=== PATIENT | male | born 1965 | race Caucasian/White ===

== ENCOUNTER → 2020-12-04 15:08 | Outpatient (CLI) | payer OTHER, SELFPAY ==
--- NOTE | 2020-12-04 15:20 | RAD_ITS ---
STUDY: X-RAY - SACRUM/COCCYX REASON FOR EXAM: Male, 55 years old. Sacral pain. TECHNIQUE: 4 view(s) of the sacrum and coccyx were obtained. COMPARISON: None. FINDINGS: Normal bilateral sacroiliac joints. Normal visualized sacral ala and fused sacral bodies. Normal sacrococcygeal junction with a normal angulation. Normal coccygeal segments. The presacral soft tissue structures are unremarkable. RAD/Sacrum-Coccyx min 2 Views IMPRESSION: No abnormality of the visualized pelvis or sacrum and coccyx. Electronically Signed: Dutch Milton MD at 11:11 EDT , Service support ,
== END ==
PROVIDERS: PCP Internal Medicine; Referring Provider Nurse Practitioner; Visit Provider Nurse Practitioner
DX: M53.3 Sacrococcygeal disorders, not elsewhere classified (principal)
CPT/HCPCS: 72220

== ENCOUNTER → 2023-02-01 | Outpatient (CLI) | payer OTHER, SELFPAY ==
--- NOTE | 2023-02-01 14:37 | CDU_ITS ---
Reason For Study: Amaurosis Fugax Rt. Velocities/BP Lt. Velocities/BP Prox CCA 120.7/16.3 cm/sec. Prox CCA 108.3/26.1 cm/sec. Mid CCA 92.5/16.3 cm/sec. Mid CCA 104.7/22.5 cm/sec. Dist CCA 79/15.1 cm/sec. Dist CCA 84.6/17 cm/sec. Prox ICA 377/117.3 cm/sec. Prox ICA 130.2/42.6 cm/sec. Mid ICA 172.3/65.6 cm/sec. Mid ICA 91.9/31.6 cm/sec. Dist ICA 60.8/16.8 cm/sec. Dist ICA 49.5/16.3 cm/sec. Rt. ICA/CCA = 4.08. Lt. ICA/CCA = 1.24. Prox ECA 130.2/11.5 cm/sec. Prox ECA 64.5/7.9 cm/sec. Rt. Vert. 52/14.6 cm/sec. Lt. Vert. 48.3/9 cm/sec. Right Extracranial There is homogeneous, smooth atherosclerotic plaque noted in the right common carotid artery. There is heterogeneous, irregular atherosclerotic plaque noted in the right internal carotid artery. There is intimal thickening but no significant atherosclerotic plaque noted in the right external carotid artery. Antegrade flow is noted in the right vertebral artery. Left Extracranial There is homogeneous, smooth atherosclerotic plaque noted in the left common carotid artery. There is homogeneous, smooth atherosclerotic plaque noted in the left internal carotid artery. There is intimal thickening but no significant atherosclerotic plaque noted in the left external carotid artery. Antegrade flow is noted in the left vertebral artery. Procedure Carotid Duplex 25695. This is a Carotid Duplex examination using B-mode, color flow and specral Doppler. Preliminary report given to [place]. Exam performed in department. VL/Carotid Duplex Ultrasound Interpretation Summary Severe (>70%) stenosis right extracranial internal carotid. Moderate (50-69%) stenosis left extracranial internal carotid. Patent and antegrade vertebrals bilaterally. Ordering Physician: Girish Nelson Referring Physician: Calista Escobar M.D. Performed By: Eliz Hoffmann RVT
== END | disposition home or self-care (01) ==
LOC: CVS 14:35
PROVIDERS: PCP Internal Medicine; Referring Provider Ophthalmology; Visit Provider Ophthalmology
DX: G45.3 Amaurosis fugax (principal)
CPT/HCPCS: 93880

== ENCOUNTER → 2023-02-18 | Outpatient (CLI) | payer OTHER, SELFPAY ==
--- NOTE | 2023-02-18 14:03 | CT_ITS ---
STUDY: CTA HEAD AND NECK WITH CONTRAST REASON FOR EXAM: Male, 57 years old. Carotid stenosis RADIATION DOSAGE (If Supplied By Facility): CTDIvol = ( 25.42 ) mGy, DLP = ( 1530.95 ) mGycm TECHNIQUE: CT angiography was performed with a multi-detector CT scanner. Data acquisition was obtained from the skull base through the vertex following intravenous administration of IV 100mL Isovue-370. MIP images were reconstructed from the axial data set. Post-processing of the angiographic images was performed, with multiplanar reformation and 3D reconstruction. Individualized dose optimization techniques were used for this CT. COMPARISON: No relevant priors. FINDINGS: Normal bilateral petrous carotid arteries. Normal right cavernous carotid artery with a normal supraclinoid bifurcation. Normal left cavernous carotid artery with a normal supraclinoid bifurcation. Normal right A1 segments of the anterior cerebral artery. Normal left A1 segments of the anterior cerebral artery. Normal intact anterior communicating artery (ACOM). Normal bilateral A2 segments of the anterior cerebral arteries. Normal right M1 and M2 segments of the middle cerebral arteries, with a normal M1 bifurcation. Normal left M1 and M2 segments of the middle cerebral arteries, with a normal M1 bifurcation. Normal right posterior communicating artery (PCOM). Normal left posterior communicating artery (PCOM). Normal bilateral vertebral arteries. Normal basilar artery with a normal basilar bifurcation. The visualized bilateral superior cerebellar (SCA) arteries are normal. Normal bilateral P1, P2 and visualized P3 segments of the posterior cerebral arteries. There is no demonstrated aneurysm of the [place]. There is no demonstrated abnormality of the visualized brain. AORTIC ARCH: Normal visualized aortic arch. Normal origins of the brachiocephalic, left common carotid, and left subclavian arteries. RIGHT CAROTID ARTERIES: Normal right common carotid artery (CCA). Normal right common carotid bulb. There is moderate atherosclerotic plaque formation of the origin of the right internal carotid artery with an estimated stenosis of 50-69% stenosis. Normal visualized cervical portion of the right internal carotid artery. Normal origin of the right external carotid artery (ECA). LEFT CAROTID ARTERIES: Normal left common carotid artery (CCA). Normal left common carotid bulb. There is mild atherosclerotic plaque formation of the origin of the left internal carotid artery with less than 50% cross sectional diameter stenosis. Normal visualized cervical portion of the left internal carotid artery. Normal origin of the left external carotid artery (ECA). VERTEBRAL ARTERIES: Normal bilateral vertebral arteries. CT/CTA Head AND Neck W/ Contrast IMPRESSION: Atherosclerotic plaque formation at the origin of the right and left internal carotid arteries causing 50-69% stenosis on the right and mild degree on the left. Electronically Signed: Galo Cannon MD at 15:51 EDT ,
[2023-02-18 14:44] LABS: EGFR FINGERSTICK > 60.0000 mL/min (>60)
== END | disposition home or self-care (01) ==
PROVIDERS: PCP Physician Assistant; Referring Provider Surgery Trauma Surgery; Visit Provider Surgery Trauma Surgery
DX: I65.23 Occlusion and stenosis of bilateral carotid arteries (principal)
CPT/HCPCS: 70496; 70498; Q9967

== ENCOUNTER 2023-03-01 05:31 | Inpatient (IN) | payer OTHER, SELFPAY ==
--- NOTE | 2023-02-18 13:38 | EKG12_ITS ---
Test Reason : PRE OP Blood Pressure : / mmHG Vent. Rate : 106 BPM Atrial Rate : 106 BPM P-R Int : 152 ms QRS Dur : 094 ms QT Int : 338 ms P-R-T Axes : 071 051 028 degrees QTc Int : 448 ms Sinus tachycardia Otherwise normal ECG Confirmed by JEAN WAY, NORMAN ([id number]), newspaper photo editor ANILA RIVAS ([id number]) on 03/01/2023 8:06:41 AM Referred By: Tucker Ferrer Confirmed By:MARILYNN PENA MD
[2023-03-01] VITALS (17 sets, daily range): BP systolic 113–149; BP diastolic 70–98; PULSE 62–107; RESP 11–20; TEMP 36.2–37.6; O2SAT 92–98; BMI 26.4
[2023-03-01] MEDS: Lactated Ringers 1,000 ML 15 ML IV ×2 (06:20→12:01)
--- NOTE | 2023-03-01 07:23 | HP.PCM_ITS ---
History and Physical Allergies Iodinated Contrast Media [CONTRASTS] Allergy (Intermediate, Verified 02/04/23 14:34) SwellingOpioids - Morphine Analogues Adverse Reaction (Severe, Verified 02/04/23 14:34) Nausea/Vom/Diarrhea Medications omega-3 fatty acids-fish oil 340 mg-1,000 mg capsule (Fish Oil) 1 ea PO DAILY 10/01/14 [History Confirmed 02/04/23] ondansetron 4 mg disintegrating tablet 4 mg PO Q8H PRN PRN Nausea #10 tabs 10/01/14 [Rx Confirmed 02/04/23] oxycodone-acetaminophen 5 mg-325 mg tablet 1 - 2 tab PO Q4H PRN PRN Pain #20 tabs 10/01/14 [Rx Confirmed 02/04/23] tamsulosin 0.4 mg capsule 0.4 mg PO DAILY 10 days 10/01/14 [Rx Confirmed 02/04/23] atorvastatin 80 mg tablet (Lipitor) 80 mg PO QHS #90 tabs 02/04/23 [Rx Confirmed 02/04/23] clopidogrel 75 mg tablet (Plavix) 75 mg PO DAILY #60 tabs 02/04/23 [Rx Confirmed 02/04/23] prednisone 50 mg tablet 50 mg PO Q6H 3 doses #3 tabs 02/04/23 [Rx Confirmed 02/04/23] PFSH Surgical History H/O lithotripsy Family History Mother Breast cancer Diabetes Social History Smoking Status: Never smoker HPI HPI HPI: ASHLEY MANZO, is a 57 M who presents to the office today for evaluation of right carotid stenosis. He initially had right eye amarosis fugax back in the spring, only lasted a few seconds before resolving. Didnt think it was serious and did not seek medical attention. Occurred again a few months ago in right e ye, same duration. Shortly after this he was seeing his PCP for hiatal hernia symptoms and mentioned events. This prompted ophthalmology eval and ultimately carotid duplex that revealed 70-99% stenosis on the right. At the time he was not on any antiplatelet or statin. Now on 81 ASA daily. No associated numbness/weakness/speech difficulty. No cardiac history, no CP/SOB with activity. Had reaction to IV contrast about 16 years ago; facial tingling/blushing. No exposures to contrast since that time. ROS General General: No weight change, appetite, fatigue, colon cancer, breast cancer or weakness HEENT HEENT: No difficulty swallowing, eye injury, eye surgery, swollen glands or hoarseness Endo Endocrine: No thyroid disease, diabetes mellitus, thyroid cancer, Hair loss, heat intolerance or cold intolerance Skin Skin: No rash or changing moles Musc Musculoskeletal: No back problems, arthritis, rheumatoid arthritis, gout or joint pain Cardio Cardiovascular: Yes high blood pressure; No murmur, pacemaker, heart disease, atrial fibrillation, heart attack, heart stent, palpitations, shortness of breat with exertion or chest pain Psych Psychiatric: No depression, anxiety or hearing voices Resp Respiratory: No shortness of breath, No sleep apnea, No cough, No COPD, No asthma, No emphysema and No wheezing Gastro Gastrointestinal: No abdominal pain, No nausea or vomiting, No diarrhea, No constipation, No blood in stool, Yes acid reflux, No hemorrhoids, No ulcers, No gallbladder problem and No black,tarry stools Alejo Hematologic: No blood thinners, No blood disorders, No bleeding, No anemia and No blood clots Neuro Neurologic: No system reviewed and no additional complaints, except as do cumented, No as per HPI, No abnormal gait, No abnormal hearing, No abnormal movements, No abnormal speech, No behavioral changes, No burning sensations, No confusion, No convulsions, No disequilibrium, No dizziness, No localized weakness, No frequent falls, No headache(s), No lack of coordination, No loss of vision, No memory loss, No numbness, No other visual disturbances, No radicular pain, No restless legs, No sensory deficit, No syncope, No tingling, No tremor(s), No weakness and No other Exam Const General: cooperative, healthy appearing, comfortable, no acute distress and well developed Nutritional Appearance: well nourished Orientation: alert, awake and oriented x3 HENMT Head: normocephalic and atraumatic Ears: hearing grossly normal bilaterally Nose: external nose normal Eyes General: appearance normal, both eyes and all related structures EOM: EOM intact bilaterally Neck Neck: normal visual inspection, full ROM, no lymphadenopathy and trachea midline Thyroid: thyroid normal Lymphatic: no lymphadenopathy noted Resp Effort & Inspection: normal respiratory effort, able to speak in complete sentences, symmetric chest movement, no audible wheezes, not labored, no stridor and no use of accessory muscles Auscultation: clear to auscultation bilaterally Cardio Rate: regular rate Rhythm: regular rhythm Heart Sounds: no murmurs Bruits: carotid bruit on the right Pulses: brachial pulses present, radial pulses present, popliteal pulses present, posterior tibial pulses present and dorsalis pedis present Skin General: no rashes or lesions noted and no erythema Wounds: no wounds Neuro Cranial Nerves: CN's II-XI intact bilaterally and EOM intact bilaterally Speech: speech normal Gait: normal gait Motor: strength 5/5 throughout Sensory Exam: no sensory deficits noted Extremities Lower Extremity Edema: None: Bilateral Psych Appearance: grossly normal and well kempt Mental Status: mental status grossly normal Mood: congruent mood Speech and Movement: speech and movement normal Thought Content: normal Judgment: judgment good Coding Level of Care Code Off vis,new,level 4 Diagnoses Symptomatic stenosis of right carotid artery without infarction I65.21 Assessment and Plan Assessment and Plan (1) Symptomatic stenosis of right carotid artery without infarction: Status: Chronic Comment: Duplex- Interpretation Summary Severe (>70%) stenosis right extracranial internal carotid. Moderate (50-69%) stenosis left extracranial internal carotid. Patent and antegrade vertebrals bilaterally. Plan: -severe right carotid with amarosis fugax -right CEA
--- NOTE | 2023-03-01 07:30 | PLAQ_PTH ---
PATIENT: ASHLEY MANZO LOC: ICU U#:[id number] AGE/SX: 57/M ROOM: [place] [address] RE03/01/[address]: Dr. Tucker Ferrer MD : 1965 BED: 1 DIS: 03/02/2023 SPEC #: [id number] RECD: 03/01/23 13:47 STATUS: JAYDEN REQ #: [id number] KOBY: 03/01/23 07:[address]: Tucker Ferrer DEPT: SURGICAL PATHOLOGY RECD BY: Danica Branch ENTERED: 03/02/23 10:51 SP TYPE: PLAQUE OTHR DR: Dr. Calista Escobar, Tissues: PLAQUE Procedures: Decalcification bone/plaque Surgery Specimen Level III HEADER OPERATION: Carotid endarterectomy PRE-OP DIAGNOSIS: Symptomatic stenosis of right carotid artery TISSUE SUBMITTED: Right carotid plaque MICROSCOPIC DIAGNOSIS Right carotid plaque, endarterectomy: Calcified atheromatous plaque consistent with severe stenosis. Focal foreign body giant cell reaction to cholesterol-like material. AM:carlyn 03/05/2023 GROSS DESCRIPTION Received in fixative is one container labeled with the patient's name and designated right carotid plaque. The specimen consists of two irregular fragments of gritty yellow soft tissue that in aggregate measure 3.0 x 2.0 x 1.0 cm. The specimen is serially sectioned and totally submitted in one cassette after decalcification. / AM:carlyn 03/02/2023 TC:5 CPT: 22916, 56692
[2023-03-01] MEDS: Heparin Injection (Vial) 5,000 UNIT/ML VIAL 5000 UNIT (07:55)
[2023-03-01] MEDS: Cefazolin 2 GM in 0.9% Normal Saline (100mL Bag) 100 ML IV (07:55)
--- NOTE | 2023-03-01 11:15 | OP.PCM_ITS ---
Report of Operation Date of Procedure: 03/01/23 Pre-Operative Diagnosis: symptomatic right carotid stenosis Post-Operative Diagnosis: same Surgery/Procedure Performed:: right carotid endarterectomy Surgeon: Tucker Ferrer Type of Anesthesia: General Drains: 19 Fr CASTRO Estimated Blood Loss (mL): 50 Description of Procedure: HPI: Patient is a 57-year-old male with previous episode of right eye amaurosis who had arterial duplex which revealed greater than 70% stenosis. CT angiography revealed ulcerated plaque with approximately 60% stenosis. Given the symptomatic nature, degree of stenosis, and ulcerated nature of the plaque he is taken now for carotid endarterectomy. Description of procedure: Upon obtaining form consent and verification correct patient procedure site patient taken to the operating where he was placed under general anesthesia. He was then positioned prepped and draped in usual sterile fashion and timeout was performed. Oblique incision was made along the anterior border of the sternocleidomastoid and Bovie electrocautery used to dissect down through the subcutaneous tissue to the level of platysma. The platysma was then divided and self-retaining retractors put in position. Further dissection was carried down to the sternocleidomastoid which was freed along its anterior border allowing to be retracted posterior laterally exposing the carotid sheath. Sharp dissection was then used to dissect free the internal jugular vein along its anterior border and the facial vein identified, ligated with silk ties, and divided. The jugular vein was then retracted laterally exposing the carotid vessels. Sharp dissection was used to dissect free the proximal common carotid artery with care taken to identify and protect the vagus nerve. The vessel was circumferentially dissected free and the right angle used to place a vessel loop. Next we turned our attention distally to the internal carotid artery. Sharp dissection was used to dissect free the vessel distal to the palpable and visible plaque with care taken to identify and protect the hypoglossal and vagus nerve. Of note there is a substantial amount of perivascular inflammation and thick inflammatory tissue which was densely adherent to the vessel and used diffusely. Ultimately we are able to dissect distal on the vessel beyond the plaque and a right angle used to place a vessel loop. Patient was then heparinized allowed to circulate for 3 minutes during which time sharp dissection was used to dissect free the external carotid artery and a right angle used to place a vessel loop. Subsequent heparin redosing was performed based on serial ACT results. Vessels were then occluded first the internal followed by the common the external. Longitudinal arteriotomy was created with 11 blade on the common carotid artery extended Simmons scissors onto the internal carotid artery beyond the area of plaque. A 12 [place] shunt was then yadira ammon first distally in the internal carotid artery allowed to backbleed and then placed proximally in the common carotid artery. The shunt was then interrogated Doppler found to be patent with low resistance signal. We performed her endarterectomy with a freer elevator performing in eversion endarterectomy of the external carotid artery and satisfactory endpoint was obtained on the distal internal carotid artery. The lumen was then flushed with heparinized saline to clear debris in the distal endpoint tacked with 7-0 Prolene interrupted sutures. A bovine pericardial patch was then brought in the field and prepped for manufactures instructions. He was secured in the position with a 6-0 Prolene in a running fashion. Prior to completing suture line the shunt was removed and the vessels back flushed. After completing the suture line the internal carotid artery was allowed to backbleed and the bifurcation then reoccluded its origin. Clamps were then removed from the external and the common carotid artery allowing 10 heartbeats of increased flow to flush into the external before reestablishing antegrade flow into the internal carotid artery. The vessel was interrogated with Doppler with the internal carotid artery patent with low resistance signal in the external carotid artery patent with normal signal. The patient was then reversed with protamine and the incision inspected for hemostasis. There is continued generalized oozing from multiple surfaces so Floseal topical hemostatic in addition to Surgicel topical hemostatic was applied followed by manual pressure with satisfactory hemostasis noted. A 19 [place] CASTRO was placed via separate stab incision and positioned adjacent to the carotid vessels. The incision was then closed with 2-0 Vicryl, 3-0 Vicryl, 4 Monocryl and Dermabond for the skin. At the conclusion of case patient was awakened from anesthesia taken recovery room with anticipated admission to the intensive care unit for neurologic and hemodynamic monitoring. He was moving all extremities command with cranial nerves intact.
[2023-03-01] MEDS: Bupivacaine Mpf 0.5% 30 ML VIAL (11:22)
[2023-03-01] MEDS: Acetaminophen 500 MG Tablet 1000 MG PO ×2 (13:21→20:30)
[2023-03-01] MEDS: 0.45% Normal Saline 1,000 ML 100 ML IV ×2 (13:21→23:11)
[2023-03-01] MEDS: 0.9% Saline Lock 10 ML Syringe IV ×3 (13:33→20:30)
[2023-03-01] MEDS: HYDROmorphone Inj 0.2 MG/ML SYRINGE IV ×3 (13:33→20:30)
[2023-03-01] MEDS: Cefazolin 1 GM/50 ML BAG IV ×2 (16:04→23:11)
[2023-03-01] MEDS: Atorvastatin Calcium 80 MG Tablet PO (20:30)
[2023-03-01] MEDS: Ketorolac 15 MG/ML Vial IV (23:12)
[2023-03-02] VITALS (15 sets, daily range): BP systolic 105–158; BP diastolic 68–93; PULSE 66–90; RESP 14–21; TEMP 36.2–37.3; O2SAT 91–99; BMI 27.2
[2023-03-02 04:55] LABS: Absolute Lymphocyte Count 1.19 X10^3/uL (0.83-4.51); Absolute Neutrophil Count 9.1 X10^3/uL (2.0-7.7); Basophil# 0.02 X10^3/uL; Basophil% 0.2 % (0-1); Hematocrit 37.8 % (40-54); Hemoglobin 12.8 g/dL (13.0-16.5); Lymphocyte # 1.19 X10^3/ul (0.83-4.51); Lymphocyte % 10.5 % (19-41); Mean Corp Hgb Conc 33.9 g/dL (32-36); Mean Corpuscular Volume 91.5 fL (80-94); Mean Platelet Vol. 9.6 fl (6.2-12.0); Monocyte# 1.03 X10^3/uL; Monocyte% 9.1 % (0-10); NRBC Flagged by Analyzer 0 % (0-5); Neutrophil # 9.05 X10^3/uL (2.7-7.7); Neutrophil % 79.8 % (47-70); Platelet Count 258 K/mm3 (150-450); RBC Distribution Width CV 12.3 % (11.6-14.6); RBC Distribution Width SD 41.2 fl (35.1-43.9); Red Blood Count 4.13 M/mm3 (4.6-6.2); White Blood Count 11.3 K/mm3 (4.4-11.0)
[2023-03-02] MEDS: Acetaminophen 500 MG Tablet 1000 MG PO (06:10)
[2023-03-02] MEDS: Clopidogrel Bisulfate 75 MG Tablet PO (09:37)
[2023-03-02] MEDS: Aspirin 81 MG TAB.CHEW PO (09:37)
[2023-03-02] MEDS: Losartan Potassium 50 MG Tablet PO (09:37)
[2023-03-02] MEDS: Enoxaparin 40 MG/0.4 ML Syringe SC (09:37)
[2023-03-02] MEDS: Chlorthalidone 50 MG Tablet 25 MG PO (09:38)
--- NOTE | 2023-03-02 11:00 | CASEMGMT ---
RN?CM?RESTAURANT ASSISTANT MANAGER?CM?to room to meet with patient for initial transition planning/care coordination?assessment.?RN?CM?introduced self and role at [facility].? Pt voices understanding and consents to?assessment?at this time.? Pt resting in bed in no distress at this time.? @ bedside. Pt is A/O at this time and answers all questions appropriately.?? Care providers, pharmacy, and demographics verified/updated at this time. PCP: Dr Erik Milton- /[place] Specialists: Dr Ferrer-vascular, Dr Contreras-urology/[place], Dr Rea Barrera-nephrology, Dr Nelson-ophthalmology Preferred Pharmacy: [facility] Retail Insurance: [employer] Prescription Benefit:?Yes Living Will/HPOA:?Pt does not currently have LW/HCPOA and declines info at this time. LNOK: , Sanam. Mother, Claudia Living Arrangements: Lives w/ in one-story home w/3 steps to enter. Independent. does most home mgnt tasks, pt helps at times. Transportation:?Pt states drives self and states no transportation concerns at this time.? also drives. DME: ? Denies using any DME and denies needs.? HHC/SNF: No hx of either. No needs identified. Pt wishes to return home and states has no concerns with going home at time of discharge.?CM?to follow for any discharge planning/needs.? Pt voices no concerns/needs at this time.? Advised pt to ask for?CM?if any questions/concerns/needs arise.? Voices understanding. PLAN:??Home George BSN?RN?CM
--- NOTE | 2023-03-02 11:57 | PCM.PN.SRG ---
Subjective Subjective Patient was seen at bedside this morning. Overnight, he had R jaw pain but this has improved. He does have numbness along the incision extending to the R earlobe and feels like the right side of his tongue is slightly numb. His tongue is midline, no weakness, no facial droop or dysarthria, no excessive pain at the incision site, and no headache. He has had decreasing amount of drainage from the CASTRO drain overnight. He has been able to void without issue. He is tolerating advances in diet. He has not ambulated much yet. Objective Data Objective Data Vital Signs: Vital Signs Temp Pulse Resp BP Pulse Ox O2 Del Method 97.9 F 72 17 114/78 96 Room Air 03/02/23 08:00 03/02/23 11:00 03/02/23 11:00 03/02/23 11:00 03/02/23 11:00 03/02/23 11:00 Oxygen Delivery Method Room Air Weight: 194 lb 7.163 oz Body Mass Index (BMI) 27.2 Intake & Output: Intake and Output for Last 24 Hours 02/28/23 03/01/23 03/02/23 23:59 23:59 23:59 Intake Total 3454.08 / 3454.08 400 / 400 Output Total 940 / 940 1530 / 1530 Balance 2514.08 / 2514.08 -1130 / -1130 Lab / Micro Data 03/02/23 04:50 Labs: Laboratory Results - last 24 hr 03/02/23 04:50: WBC 11.3 H, RBC 4.13 L, Hgb 12.8 L, Hct 37.8 L, MCV 91.5, MCH 31.0, MCHC 33.9, RDW Std Deviation 41.2, RDW Coeff of Pedro 12.3, Plt Count 258, MPV 9.6, Immature Gran % (Auto) 0.400, Neut % (Auto) 79.8 H, Lymph % (Auto) 10.5 L, [place] % (Auto) 9.1, Eos % (Auto) 0.0, Baso % (Auto) 0.2, Absolute Neuts (auto) 9.1 H, Absolute Lymphs (auto) 1.19, Nucleated RBC % 0 Physical Exam Const alert, oriented x3 and no apparent distress General Appearance: cooperative and comfortable HEENT normocephalic, head/scalp atraumatic, hearing grossly normal bilaterally and external ears normal Eyes EOMs intact bilaterally General Eye: normal appearance of both eyes Neck Neck Narrative: R neck incision site with post-operative dressings and CASTRO drain in place. Resp normal respiratory effort, normal air movement, no retractions and no use of accessory muscles Effort and Inspection: able to speak in complete sentences Cardio regular rate and regular rhythm Extremity no clubbing, cyanosis or edema Skin no rashes or lesions noted Trauma: no lacerations or abrasions Neuro Neuro Narrative: Numbness as noted in HPI otherwise neurologically intact Psych mental status grossly normal Appearance: grossly normal Attitude: calm and engaged Activity / Motor Behavior: appropriate eye contact Speech: normal speech Mood & Affect: euthymic mood Assessment & Plan Assessment/Plan (1) Symptomatic stenosis of right carotid artery without infarction: PLAN: Plan He is s/p R CEA POD#1. He has remained hemodynamically and neurologically stable. His pain is well controlled. No issues with voiding. Due to length of plaque and amount of inflammation/inflammatory tissue, did require greater amount of dissection/retraction during surgery so his numbness and jaw pain is not surprising, expect it to improve with time. Incision site with expected amount of swelling, no significant ecchymosis, redness, warmth. CASTRO drain left in place for the remainder of the morning, will remove in the afternoon. Advance to normal diet. Plan to be up to the chair and ambulate. If he tolerates well, anticipate discharge this afternoon.
[2023-03-02 12:08] LABS: ACT Activated Clotting Time 143 sec (74-137)
[2023-03-02 12:09] LABS: ACT Activated Clotting Time 317 sec (74-137)
[2023-03-02 12:10] LABS: ACT Activated Clotting Time 257 sec (74-137)
[2023-03-02 12:12] LABS: ACT Activated Clotting Time 233 sec (74-137)
--- NOTE | 2023-03-02 12:44 | PCM.DC.SUM ---
Providers Date of Admission: 03/01/23 Primary Care Physician: ZELDA Gallagher Reason For Visit: Carotid Endarterectomy Diagnosis Discharge Diagnosis (1) Symptomatic stenosis of right carotid artery without infarction: Status: Chronic Code(s): I65.21 - Occlusion and stenosis of right carotid artery Medications at Discharge Home Medications atorvastatin 80 mg tablet (Lipitor) 80 mg PO QHS CHOLESTEROL #90 tabs 02/04/23 clopidogrel 75 mg tablet (Plavix) 75 mg PO DAILY BLOOD THINNER #60 tabs 02/04/23 aspirin 81 mg capsule 81 mg PO DAILY BLOOD THINNER 02/16/23 chlorthalidone 25 mg tablet 25 mg PO DAILY BP 02/16/23 losartan 50 mg tablet 50 mg PO DAILY BP 02/16/23 potassium citrate 15 mEq (1,620 mg) tablet,extended release 15 meq PO BID SUPPLEMENT 02/16/23 tadalafil 20 mg tablet 20 mg PO PRN ED 02/16/23 oxycodone 5 mg tablet 5 mg PO Q8H PRN PRN Pain Score 4-10 3 days #9 tabs 03/02/23 Hospital Course Operations - (R CEA) Summary of Care Provided Hospital Course: Mr. Block underwent right carotid endarterectomy by Dr. Ferrer on 03/01/2023. He tolerated the procedure well and was routinely admitted to the ICU for neurologic and hemodynamic monitoring postoperatively. He has had some numbness around the incision site and involving his R ear, but otherwise has remained neurologically intact without any facial drooping, dysarthria, tongue deviation, voice hoarseness, weakness. He has remained hemodynamically stable. CASTRO drain had decreasing amount of drainage throughout the morning and was removed this afternoon without issue. The incision site has expected moderate swelling without any excessive tenderness, warmth, ecchymosis, erythema. The incision has surgical glue overlying which is intact, no dehiscence or drainage. He denies any RICKETTS, CP, SOB, N/V, F/C. He has been able to void without issues, tolerate a full diet, ambulate without difficulty. He is medically stable and himself feels ready for discharge. Discharge instructions were discussed with both the patient and his , the acknowledged understanding of all instructions as well as return precautions. He is discharged to home in stable condition. He has outpatient follow-up scheduled in our office on 03/23/2023 with understanding to call or present sooner with any concerns. Physical Exam Const alert, oriented x3 and no apparent distress General Appearance: cooperative and comfortable HEENT normocephalic, head/scalp atraumatic, hearing grossly normal bilaterally and external ears normal Eyes EOMs intact bilaterally General Eye: normal appearance of both eyes Neck Neck Narrative: R neck incision site with surgical glue intact, skin edges well approximated. Expected moderate diffuse swelling at the surgical site. No ecchymosis, bleeding, drainage, foul odor, erythema, warmth. Resp normal respiratory effort, normal air movement, no retractions and no use of accessory muscles Effort and Inspection: able to speak in complete sentences Cardio regular rate and regular rhythm Extremity no clubbing, cyanosis or edema Skin no rashes or lesions noted Trauma: no lacerations or abrasions Neuro Neuro Narrative: Numbness as noted in HPI otherwise neurologically intact Psych mental status grossly normal Appearance: grossly normal Attitude: calm and engaged Activity / Motor Behavior: appropriate eye contact Speech: normal speech Mood & Affect: euthymic mood Weight / BMI Weight Weight: 194 lb 7.163 oz Body Mass Index (BMI) 27.2 ABG / Lab / Microbiology Data 03/02/23 04:50 Laboratory: Laboratory Results - last 24 hr 03/01/23 08:18: Activated Clotting Time 143 H 03/01/23 09:28: Activated Clotting Time 317 H 03/01/23 10:06: Activated Clotting Time 257 H 03/01/23 10:41: Activated Clotting Time 233 H 03/02/23 04:50: WBC 11.3 H, RBC 4.13 L, Hgb 12.8 L, Hct 37.8 L, MCV 91.5, MCH 31.0, MCHC 33.9, RDW Std Deviation 41.2, RDW Coeff of Pedro 12.3, Plt Count 258, MPV 9.6, Immature Gran % (Auto) 0.400, Neut % (Auto) 79.8 H, Lymph % (Auto) 10.5 L, Oliver % (Auto) 9.1, Eos % (Auto) 0.0, Baso % (Auto) 0.2, Absolute Neuts (auto) 9.1 H, Absolute Lymphs (auto) 1.19, Nucleated RBC % 0 D/C Instructions Discharge Diet: No restrictions May shower in (days): 1 Weight Bearing Status: Weight bearing as tolerated Lifting Restricted to (Lbs): 20 Lifting Restrictions: Do not lift greater than 20 pounds for 3 weeks Call your doctor if your incision/area has: Sudden Increased Bleeding, Increased Pain/ Swelling, Increased Redness and Foul Smelling Discharge Call your doctor if you observe: Fever of 101 or Higher and Uncontrolled pain Additional Instructions: You have a small bandage over the site from which the surgical drain was removed. You may remove this bandage tomorrow. As long as there is no residual drainage, you may leave this open to air. If you do notice some continued drainage, you may re-cover with a Band-Aid. Your incision site is covered with surgical glue which will continue to protect it. The surgical glue will peel/flake off on its own over the next few weeks. Please do not pick at it. You may shower tomorrow. It is okay for soap and water to rinse over the incision site, pat to dry. Do not submerge the incision site in water such as to take a bath or go swimming etc. for 3 weeks. Do not lift greater than 20 pounds for 3 weeks. Otherwise, please continue with activity as tolerated. Do not drive until you can turn your head well enough to safely check your blind spots. I have prescribed a prescription pain medication oxycodone 5 mg tablets to be taken by mouth every 6 hours as needed for pain. This is an opioid pain medication and is to be taken only as directed as needed. Do not take in combination with any other prescription pain medications. You may take this in addition to Tylenol or ibuprofen as allowed. Your follow-up appointment is scheduled for 03/23/2023. If you need to reschedule or have any questions/concerns then please contact the office at [phone]. Please Follow Up With: Linda Shane PA When: 03/23/2023 Meaningful Use Info Meaningful Use Diagnoses (Choose all that apply): None applicable Discharge Plan Admission Admit Date/Time: 03/01/23 05:31 Attending Provider: Tucker Ferrer Primary Care Provider: Erik Milton Instructions Additional Instructions / Restrictions: You have a small bandage over the site from which the surgical drain was removed. You may remove this bandage tomorrow. As long as there is no residual drainage, you may leave this open to air. If you do notice some continued drainage, you may re-cover with a Band-Aid. Your incision site is covered with surgical glue which will continue to protect it. The surgical glue will peel/flake off on its own over the next few weeks. Please do not pick at it. You may shower tomorrow. It is okay for soap and water to rinse over the incision site, pat to dry. Do not submerge the incision site in water such as to take a bath or go swimming etc. for 3 weeks. Do not lift greater than 20 pounds for 3 weeks. Otherwise, please continue with activity as tolerated. Do not drive until you can turn your head well enough to safely check your blind spots. Continue to take your Aspirin, Plavix, and Atorvastatin as prescribed. I have prescribed a prescription pain medication oxycodone 5 mg tablets to be taken by mouth every 8 hours as needed for pain. This is an opioid pain medication and is to be taken only as directed as needed. Do not take in combination with any other prescription pain medications. You may take this in addition to Tylenol or ibuprofen as allowed. Your follow-up appointment is scheduled for 03/23/2023. If you need to reschedule or have any questions/concerns then please contact the office at [phone]. Discharge Orders/Prescriptions Prescriptions: New oxycodone 5 mg Tablet 5 mg PO Q8H PRN PRN (Reason: Pain Score 4-10) 3 Days Qty: 9 0RF Continued clopidogrel [Plavix] 75 mg tablet 75 mg PO DAILY Qty: 60 0RF atorvastatin [Lipitor] 80 mg tablet 80 mg PO QHS Qty: 90 3RF aspirin 81 mg capsule 81 mg PO DAILY potassium citrate 15 mEq tablet extended release 15 meq PO BID losartan 50 mg tablet 50 mg PO DAILY Patient Comments: TAKE 1 TABLET BY MOUTH EVERY DAY chlorthalidone 25 mg tablet 25 mg PO DAILY Patient Comments: TAKE 1 TABLET BY MOUTH EVERY DAY tadalafil 20 mg tablet 20 mg PO PRN Discontinued prednisone 50 mg tablet 50 mg PO Q6H Qty: 3 0RF Rx Instructions: administer 13 hr, 7 hr, and 1 hr before time of procedure Referrals / Follow Up: Calista Escobar DO [Med Staff - Medical Delivery Technician] - Disposition Disposition (needs filled in before D/C Order can be placed): Home, Self Care
== END 2023-03-02 14:18 | disposition home or self-care (01) | DRG 39 ==
LOC: ACINP 05:33 → ICU 11:00
PROVIDERS: Admitting Provider Surgery Trauma Surgery; PCP Physician Assistant; Referring Provider Surgery Trauma Surgery; Visit Provider Surgery Trauma Surgery
PROC: 03CM0ZZ Extirpation of Matter from Right External Carotid Artery, Open Approach (ICD-10-PCS; CPT 35301; principal; 2023-03-01 07:10)
DX: I65.21 Occlusion and stenosis of right carotid artery (principal); Z79.02 Long term (current) use of antithrombotics/antiplatelets; Z79.52 Long term (current) use of systemic steroids; Z79.899 Other long term (current) drug therapy
CPT/HCPCS: 36415; 85025; 85347; 86850; 86900; 86901; 88304; 88311; 93005; 94668; 97802; 99252; A4648; J7030; J7120; A4216; G0463; J2405

== ENCOUNTER → 2023-07-16 | Outpatient (CLI) | payer OTHER, SELFPAY ==
--- NOTE | 2023-07-16 11:36 | NM_ITS ---
CLINICAL: 57-year-old male with history of hydronephrosis. 99m Tc MAG3 DIURETIC RENAL SCINTIGRAPHY COMPARISON: None available FINDINGS: Following the intravenous administration of 11.3 mCi of 99m Tc MAG3, renal images reveal: 1. The flow study demonstrates relatively symmetric and normal arterial phase distribution of the radiotracer to the bilateral kidneys. 2. Immediate static delayed nephrogram images depict prompt and homogeneous tracer uptake by the renal parenchyma of both kidneys. Collecting structure visualization is defined at 4 minutes post tracer injection bilaterally. Washout of the radiopharmaceutical by the renal parenchyma appears normal bilaterally. Persistent collecting system activity is noted in the left kidney prior to furosemide administration. There is near complete spontaneous drainage of the right kidney collecting system prior to diuretic provision. 3. The fadbe-fe-gafi ratio of total renal parenchymal function was calculated to be 49/51. Furosemide 10 mg was administered intravenously. The post Lasix T ? washout of the residual left kidney collecting system activity was calculated to be < 10 minutes, (normal < 10 minutes). NM/Renal Scan w/ Pharm Intervent IMPRESSION: 1. There is relative preservation of bilateral renal parenchymal-cortical function. 2. A normal physiologic response to furosemide administration is demonstrated in the bilateral kidneys negating the presence of significant functional and/or mechanical obstruction. Electronically Signed: Darin Crockett DO at 18:13 EDT ,
== END | disposition home or self-care (01) ==
LOC: NM 11:34
PROVIDERS: Referring Provider Urology; Visit Provider Urology
DX: N13.39 Other hydronephrosis (principal)
CPT/HCPCS: 78708; A9562; J1940

== ENCOUNTER → 2024-02-25 | Outpatient (CLI) | payer OTHER, SELFPAY | END | disposition home or self-care (01) | PROVIDERS: Referring Provider Physician Assistant; Visit Provider Physician Assistant | DX: Z48.812 Encounter for surgical aftercare following surgery on the circulatory system (principal); I65.21 Occlusion and stenosis of right carotid artery | CPT/HCPCS: 93880 ==

== ENCOUNTER → 2024-04-14 | Outpatient (CLI) | payer OTHER, SELFPAY ==
--- NOTE | 2024-04-14 16:44 | RAD_ITS ---
EXAM: XR SACRUM AND COCCYX, 2 OR MORE VIEWS CLINICAL INDICATION: sacral pain TECHNIQUE: Frontal and lateral views of the sacrum and coccyx. COMPARISON: No relevant prior studies available. FINDINGS: SACRUM/COCCYX: Unremarkable. No displaced fracture. No destructive or sclerotic lesions. Note that overlapping bowel shadows may however obscure fine detail in the frontal view. Sacroiliac joints are unremarkable. SOFT TISSUES: Unremarkable. No soft tissue swelling or gas. RAD/Sacrum-Coccyx min 2 Views IMPRESSION: Unremarkable sacro-coccygeal spine. Electronically Signed: Erik Bettencourt MD at 20:55 EST ,
[2024-04-14 17:29] LABS: Absolute Lymphocyte Count 2.26 X10^3/uL (0.83-4.51); Absolute Neutrophil Count 3.6 X10^3/uL (2.0-7.7); Basophil# 0.03 X10^3/uL; Basophil% 0.4 % (0-1); Eosinophil# 0.18 X10^3/uL; Eosinophils% 2.6 % (0-5); Hematocrit 43.4 % (40-54); Hemoglobin 14.7 g/dL (13.0-16.5); Lymphocyte # 2.26 X10^3/ul (0.83-4.51); Lymphocyte % 33.1 % (19-41); Mean Corp Hgb Conc 33.9 g/dL (32-36); Mean Corpuscular Hgb 30.9 pg (27.0-32.0); Mean Corpuscular Volume 91.4 fL (80-94); Mean Platelet Vol. 9.9 fl (6.2-12.0); Monocyte# 0.77 X10^3/uL; Monocyte% 11.3 % (0-10); NRBC Flagged by Analyzer 0 % (0-5); Neutrophil # 3.58 X10^3/uL (2.7-7.7); Neutrophil % 52.5 % (47-70); Platelet Count 251 K/mm3 (150-450); RBC Distribution Width CV 12.1 % (11.6-14.6); RBC Distribution Width SD 40.1 fl (35.1-43.9); Red Blood Count 4.75 M/mm3 (4.6-6.2); White Blood Count 6.8 K/mm3 (4.4-11.0)
[2024-04-14 17:52] LABS: Erythrocyte Sedimentation Rate < 1 mm/hr (0-20)
[2024-04-14 18:06] LABS: ALB/GLOB Ratio 1.2 RATIO (0.9-2.4); AST(SGOT) 26 U/L (15-37); Alanine Aminotransfer ALT/SGPT 66 U/L (16-61); Albumin, Serum 4.1 g/dL (3.2-5.0); Alkaline Phosphatase 86 U/L (45-117); Anion Gap 6 (5-15); BUN 14 mg/dL (7-18); Calcium,Total 9.5 mg/dL (8.5-10.1); Chloride 102 mmol/L (98-107); Cholesterol 116 mg/dL (200); Creatinine, Serum 1.08 mg/dL (0.70-1.30); EST Glomerular Filtration Rate 75 mL/min (>60); Est Glom Filt Rate - Afr Amer 91 mL/min (>60); Globulin 3.5 g/dL (2.2-4.2); Glucose 96 mg/dL (74-106); High Density Lipoprotein 51 mg/dL; PSA,Total - Annual Screen 0.34 ng/mL (0.00-4.00); Potassium 3.5 mmol/L (3.5-5.1); Protein, Total 7.6 g/dL (6.4-8.2); Sodium Level 139 mmol/L (136-145); Triglycerides 130 mg/dL; Very Low Density Lipoprotein 26 mg/dL (5-40)
== END | disposition home or self-care (01) ==
LOC: MTLAB 16:44
PROVIDERS: PCP Family Medicine; Referring Provider Family Medicine; Visit Provider Family Medicine
DX: Z12.5 Encounter for screening for malignant neoplasm of prostate (principal); I10 Essential (primary) hypertension; R10.9 Unspecified abdominal pain; M53.3 Sacrococcygeal disorders, not elsewhere classified
CPT/HCPCS: 36415; 72220; 80053; 80061; 84153; 85025; 85652; G0103

== ENCOUNTER → 2024-05-12 | Outpatient (CLI) | payer OTHER, SELFPAY ==
--- NOTE | 2024-05-12 14:40 | CT_ITS ---
INDICATION: Abdominal PAIN EXAMINATION: CT ABDOMEN AND PELVIS WITHOUT CONTRAST - CT Abdomen And Pelvis W/O Contrast Injection TECHNIQUE: Helically acquired images were obtained of the abdomen and pelvis without oral or IV contrast. The protocol utilizes one or more of the following dose reduction techniques: automated exposure control, adjustment of mA and/or kV according to patient size,and/or use of iterative reconstruction technique. IV Contrast dosage and agent: None. Oral contrast: None. RADIATION DOSAGE (If Supplied By Facility): CTDIvol = ( 9.60 ) mGy, DLP = ( 506.21 ) mGycm COMPARISON: April 05, 2017 FINDINGS: LOWER CHEST: Lung bases are clear. No cardiomegaly or pericardial effusion. The lack of intravenous contrast limits evaluation of solid visceral organs. LIVER: Homogeneous. No focal mass. GALLBLADDER AND BILIARY TREE: No calcified gallstones. No gallbladder distension or wall edema. No intra- or extrahepatic biliary ductal dilation. PANCREAS: No focal cystic or solid mass. SPLEEN: Normal size without focal cystic or solid mass. ADRENAL GLANDS: No nodules. KIDNEYS AND URETERS: Normal renal size and position. There are bilateral nonobstructing renal calculi measuring up to 4.2 mm on the right and 3.5 mm on the left. There is mild left-sided hydronephrosis, less pronounced than the prior examination. PERITONEUM: No ascites or free air. No other fluid collection. BOWEL: No evidence of acute appendicitis. No stomach or bowel distension. There are diverticula arising from the colon. No focal inflammatory change. LYMPH NODES: No enlarged mesenteric or retroperitoneal lymph nodes. VESSELS: Aorta is non-dilated. There are peripheral calcifications of the abdominal aorta URINARY BLADDER: Unremarkable. REPRODUCTIVE ORGANS: No pelvic masses. ABDOMINAL WALL: No discrete abdominal or pelvic wall hernia. BONES: No lytic or blastic abnormality. CT/Abdomen/Pelvis without Cont IMPRESSION: Mild left-sided hydronephrosis, less pronounced than the prior examination dated April 05, 2017. Bilateral nonobstructing renal calculi measuring up to 4.2 mm on the right. Colonic diverticulosis. Electronically Signed: Emelyn Mojica MD at 10:24 EST ,
== END | disposition home or self-care (01) ==
LOC: CT 14:39
PROVIDERS: PCP Family Medicine; Referring Provider Family Medicine; Visit Provider Family Medicine
DX: R10.84 Generalized abdominal pain (principal)
CPT/HCPCS: 74176

== ENCOUNTER 2024-05-26 06:55 | Day surgery (SDC) | payer OTHER, SELFPAY ==
--- NOTE | 2024-05-23 16:51 | PAT.ANESEVAL ---
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 When Was Last Pacemaker Check QUESTION #4 FULL TEXT: You/Your Family Experience fever (hyperthermia) with Anesthesia Last Oral Intake Last Oral intake: Last Oral Intake NPO since Meds taken in AM with sips of water? Meds patient instructed to take am of surgery PONV PONV - pumper gager apprentice: PONV - pumper gager apprentice Female No 05/23/24 15:35 HX of Motion Sickness No 05/23/24 15:35 HX of N/V After Surgery No 05/23/24 15:35 Non-Smoker Yes 05/23/24 15:35 Duration of Surgery greater No 05/23/24 15:35 than 60 minutes Number of Risk Factors 1 05/23/24 15:35 PONV Score Low Risk 05/23/24 15:35 Height & Weight Height & Weight: Anesthesia: Height & Weight Height 5 ft 11 in 05/02/24 14:57 Respiratory Assessment Respiratory Assessment - pumper gager apprentice: Respiratory Tract Infection Hx - pumper gager apprentice Hx Respiratory Tract Infection No 05/23/24 15:35 STOP Sleep Apnea STOP Sleep Apnea - pumper gager apprentice: STOP Sleep Apnea - pumper gager apprentice Hx Hypertension Yes: CONTROLLED WITH MEDS 05/23/24 15:35 Hx Sleep Apnea No 05/23/24 15:35 CPAP BIPAP Do you snore loudly (louder Yes 05/23/24 15:35 than talking or can be heard Do you often feel tired/ No 05/23/24 15:35 fatigued/ sleepy during daytime? Has anyone observed you stop Yes 05/23/24 15:35 breathing during sleep? STOP Results Positive 05/23/24 15:35 QUESTION #5 FULL TEXT : Do you snore loudly (louder than talking or can be heard through closed doors)? 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 Specify any problems Hx of Preganancy in last 3 N/A 05/23/24 15:35 Months Nurse Filling Out Transfusion [email or web address] 05/23/24 15:35 & Questions: Date: 05/23/24 05/23/24 15:35 Time: 15:37 05/23/24 15:35 Patient unable to answer at this time (ie. confused, unrespo /Reproduction History /Reproductive History - pumper gager apprentice: /Reproductive Hx- pumper gager apprentice Hx Now Gestational Age (in weeks): EDC: Hx Hx Para Hx Section SAB PFSH Medical History (Updated 05/23/24 @ 15:43 by Abdirashid Syed) Wears glasses Alcohol use History of steroid therapy History of renal disease Kidney stones High cholesterol History of hiatal hernia Gastric reflux Chewing tobacco nicotine dependence Hypertension Home Medications ?Medication ?Instructions ?Recorded ?Last Taken ?Type aspirin 81 mg capsule 81 mg PO DAILY BLOOD THINNER 02/16/23 05/12/24 History chlorthalidone 25 mg tablet 25 mg PO DAILY BP 02/16/23 Unknown History losartan 50 mg tablet 50 mg PO DAILY BP 02/16/23 Unknown History potassium citrate 15 mEq (1,620 15 meq PO BID SUPPLEMENT 02/16/23 Unknown History mg) tablet,extended release tadalafil 20 mg tablet 20 mg PO PRN ED 02/16/23 Unknown History atorvastatin 80 mg tablet (Lipitor) 80 mg PO QHS CHOLESTEROL #90 tabs 03/29/24 Unknown Rx omeprazole 20 mg tablet,delayed 20 mg PO QDAY #60 tabs 05/02/24 Unknown Rx release sucralfate 1 gram tablet (Carafate) 1 g PO QACHS #90 tabs 05/02/24 Unknown Rx Allergy/AdvReac Type Severity Reaction Status Date / Time Iodinated Contrast Media Allergy Intermediate Swelling Verified 05/23/24 15:32 (CONTRASTS) morphine AdvReac Vomiting Verified 05/23/24 15:32 Family History Mother Breast cancer Diabetes Surgical History (Updated 05/23/24 @ 15:43 by Abdirashid Syed) History of right-sided carotid endarterectomy History of tonsillectomy and adenoidectomy H/O lithotripsy Social History Smoking Status: Never smoker Smokeless tobacco user: chewing tobacco Audit: Pertinent Findings Pertinent Findings EKG Perinent findings: February 18, 2023. Sinus tachycardia 106 bpm. Recommendation Anesthesia Recommendation Anesthesia recommendation: OPTIMIZED for anesthesia
[2024-05-26] VITALS (7 sets, daily range): BP systolic 97–132; BP diastolic 74–92; PULSE 60–76; RESP 14–16; TEMP 36.1–36.4; O2SAT 90–99; BMI 26.3
--- NOTE | 2024-05-26 07:06 | PCM.PRE.AN2 ---
ASA Classification* ASA Classification ASA Classification: 2 Assessment & Plan Anesthesia* Anesthesia Assessment Anesthesia Assessment: Discussed sedation and/or anesthesia options, risks, benefits, and alternatives with patient/parents/legal guardian/POA. Questions invited. The patient/parents/legal guardian/POA seems to understand and agrees to proceed with anesthesia plan. Reviewed the physical assessment, medical history, allergy history and patient home medications list prior to surgery/procedure/anesthetic and documented any changes. Performed airway and anesthesia risk assessments. Anesthesia Type Anesthesia Type: MAC Anesthesia Focused Assessment* Airway Assessment Mouth opens: >3 cm Mallampati Score: II Focused Labs Anesthesia Preop lab: CBC WBC 6.8 K/mm3 (4.4-11.0) 04/14/24 16:46 04/14/24 RBC 4.75 M/mm3 (4.6-6.2) 04/14/24 16:46 04/14/24 Hgb 14.7 g/dL (13.0-16.5) 04/14/24 16:46 04/14/24 Hct 43.4 % (40-54) 04/14/24 16:46 04/14/24 Plt Count 251 K/mm3 (150-450) 04/14/24 16:46 04/14/24 CHEMISTRY Potassium 3.5 mmol/L (3.5-5.1) 04/14/24 16:46 04/14/24 Sodium 139 mmol/L (136-145) 04/14/24 16:46 04/14/24 BUN 14 mg/dL (7-18) 04/14/24 16:46 04/14/24 Creatinine 1.08 mg/dL (0.70-1.30) 04/14/24 16:46 04/14/24 Glucose 96 mg/dL (74-106) 04/14/24 16:46 04/14/24 COAG Pre-Assessment Diagnosis/Proposed Procedure Planned Operative Procedure(s): COLONOSCOPY, EGD Anesthesia History 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 When Was Last Pacemaker Check QUESTION #4 FULL TEXT: You/Your Family Experience fever (hyperthermia) with Anesthesia Last Oral Intake Last Oral intake: Last Oral Intake NPO since Meds taken in AM with sips of water? Meds patient instructed to take am of surgery PONV PONV - slumber room attendant: PONV - slumber room attendant Female No 05/23/24 15:35 HX of Motion Sickness No 05/23/24 15:35 HX of N/V After Surgery No 05/23/24 15:35 Non-Smoker Yes 05/23/24 15:35 Duration of Surgery greater No 05/23/24 15:35 than 60 minutes Number of Risk Factors 1 05/23/24 15:35 PONV Score Low Risk 05/23/24 15:35 Height & Weight Height & Weight: Anesthesia: Height & Weight Height 5 ft 11 in 05/02/24 14:57 Respiratory Assessment Respiratory Assessment - slumber room attendant: Respiratory Tract Infection Hx - slumber room attendant Hx Respiratory Tract Infection No 05/23/24 15:35 STOP Sleep Apnea STOP Sleep Apnea - slumber room attendant: STOP Sleep Apnea - slumber room attendant Hx Hypertension Yes: CONTROLLED WITH MEDS 05/23/24 15:35 Hx Sleep Apnea No 05/23/24 15:35 CPAP BIPAP Do you snore loudly (louder Yes 05/23/24 15:35 than talking or can be heard Do you often feel tired/ No 05/23/24 15:35 fatigued/ sleepy during daytime? Has anyone observed you stop Yes 05/23/24 15:35 breathing during sleep? STOP Results Positive 05/23/24 15:35 QUESTION #5 FULL TEXT : Do you snore loudly (louder than talking or can be heard through closed doors)? 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 Specify any problems Hx of Preganancy in last 3 N/A 05/23/24 15:35 Months Nurse Filling Out Transfusion [email or web address] 05/23/24 15:35 & Questions: Date: 05/23/24 05/23/24 15:35 Time: 15:37 05/23/24 15:35 Patient unable to answer at this time (ie. confused, unrespo /Reproduction History /Reproductive History - slumber room attendant: /Reproductive Hx- slumber room attendant Hx Now Gestational Age (in weeks): EDC: Hx Hx Para Hx Section SAB PFSH Medical History Wears glasses Alcohol use History of steroid therapy History of renal disease Kidney stones High cholesterol History of hiatal hernia Gastric reflux Chewing tobacco nicotine dependence Hypertension Home Medications ?Medication ?Instructions ?Recorded ?Last Taken ?Type aspirin 81 mg capsule 81 mg PO DAILY BLOOD THINNER 02/16/23 05/12/24 History chlorthalidone 25 mg tablet 25 mg PO DAILY BP 02/16/23 Unknown History losartan 50 mg tablet 50 mg PO DAILY BP 02/16/23 Unknown History potassium citrate 15 mEq (1,620 15 meq PO BID SUPPLEMENT 02/16/23 Unknown History mg) tablet,extended release tadalafil 20 mg tablet 20 mg PO PRN ED 02/16/23 Unknown History atorvastatin 80 mg tablet (Lipitor) 80 mg PO QHS CHOLESTEROL #90 tabs 03/29/24 Unknown Rx omeprazole 20 mg tablet,delayed 20 mg PO QDAY #60 tabs 05/02/24 Unknown Rx release sucralfate 1 gram tablet (Carafate) 1 g PO QACHS #90 tabs 05/02/24 Unknown Rx Allergy/AdvReac Type Severity Reaction Status Date / Time Iodinated Contrast Media Allergy Intermediate Swelling Verified 05/23/24 15:32 (CONTRASTS) morphine AdvReac Vomiting Verified 05/23/24 15:32 Family History Mother Breast cancer Diabetes Surgical History History of right-sided carotid endarterectomy History of tonsillectomy and adenoidectomy H/O lithotripsy Social History Smoking Status: Never smoker Smokeless tobacco user: chewing tobacco Review of Systems (Anesthesia) ROS Narrative System reviewed and no additional complaints, except as documented.
--- NOTE | 2024-05-26 07:42 | HP.PCM_ITS ---
History and Physical Date of Admission: 05/26/24 Intake Vital Signs 03/01/2315:08 05/02/2513:57 Height 5 ft 11 in 5 ft 11 in Weight: 194 lb BMI 27.0 BP 141/92 H Blood Pressure Location Rt brachial Position Sitting Respiration 17 Pulse 73 Pulse Source Monitor Pulse Oximetry (%) 97 Oxygen Delivery Method room air Intake Visit Reasons: COLONOSCOPY, ABDOMINAL PAIN Chief Complaint: colonoscopy abd pain Allergies Iodinated Contrast Media (CONTRASTS) Allergy (Intermediate, Verified 05/02/24 14:57) SwellingOpioids - Morphine Analogues Adverse Reaction (Severe, Verified 05/02/24 14:57) Nausea/Vom/Diarrhea Medications ?Medication ?Instructions ?Recorded ?Confirmed ?Type aspirin 81 mg capsule 81 mg PO DAILY BLOOD THINNER 02/16/23 05/02/24 History chlorthalidone 25 mg tablet 25 mg PO DAILY BP 02/16/23 05/02/24 History losartan 50 mg tablet 50 mg PO DAILY BP 02/16/23 05/02/24 History potassium citrate 15 mEq (1,620 15 meq PO BID SUPPLEMENT 02/16/23 05/02/24 History mg) tablet,extended release tadalafil 20 mg tablet 20 mg PO PRN ED 02/16/23 05/02/24 History atorvastatin 80 mg tablet (Lipitor) 80 mg PO QHS CHOLESTEROL #90 tabs 03/29/24 05/02/24 Rx PFSH Medical History (Updated 05/02/24 @ 14:56 by Jessica Garcia) Wears dentures Alcohol use History of steroid therapy History of renal disease Kidney stones High cholesterol History of hiatal hernia Gastric reflux Chewing tobacco nicotine dependence Hypertension Surgical History History of tonsillectomy and adenoidectomy H/O lithotripsy Family History Mother Breast cancer Diabetes Social History Smoking Status: Never smoker Smokeless tobacco user: chewing tobacco ROS General General: No weight change, appetite, fatigue, colon cancer, breast cancer or weakness HEENT HEENT: No difficulty swallowing, eye injury, eye surgery, swollen glands or hoarseness Endo Endocrine: No thyroid disease, diabetes mellitus, thyroid cancer, Hair loss, heat intolerance or cold intolerance Skin Skin: No rash or changing moles Musc Musculoskeletal: Yes back problems; No arthritis, rheumatoid arthritis, gout or joint pain Cardio Cardiovascular: Yes high blood pressure; No murmur, pacemaker, heart disease, atrial fibrillation, heart attack, heart stent, palpitations, shortness of breat with exertion or chest pain Psych Psychiatric: No depression, anxiety or hearing voices Resp Respiratory: No shortness of breath, No sleep apnea, No cough, No COPD, No asthma, No emphysema and No wheezing Gastro Gastrointestinal: Yes abdominal pain, No nausea or vomiting, Yes diarrhea, No constipation, No blood in stool, Yes acid reflux, Yes hemorrhoids, No ulcers, No gallbladder problem and No black,tarry stools Alejo Hematologic: No blood thinners, No blood disorders, No bleeding, No anemia and No blood clots Neuro Neurologic: No system reviewed and no additional complaints, except as documented, No as per HPI, No abnormal gait, No abnormal hearing, No abnormal movements, No abnormal speech, No behavioral changes, No burning sensations, No confusion, No convulsions, No disequilibrium, No dizziness, No localized weakness, No frequent falls, No headache(s), No lack of coordination, No loss of vision, No memory loss, Yes numbness, No other visual disturbances, No radicular pain, No restless legs, No sensory deficit, No syncope, No tingling, No tremor(s), No weakness and No other Assessment and Plan Assessment and Plan (1) Encounter for screening colonoscopy: Status: Acute (2) Abdominal pain: Status: Acute Orders: Orders Colonoscopy Today EGD Today Plan The patient is having epigastric pain and bloating and he reports that his stools are sometimes pale. He is getting a CT scan done in 2 weeks. He says that the pain is better with eating. He says it also helps to lay down. He describes the pain in the epigastric area and it can be in the left and right upper quadrants. He also describes loose stools. It sounds like the patient may be having gastritis and I would like to order him a PPI and Carafate. I would like to perform a EGD and colonoscopy. Patient is overdue for screening colonoscopy as it was over 10 years ago. He denies blood in the stool. If EGD and colonoscopy are normal and the PPI and Carafate do not help then I would begin to assess his gallbladder. I explained endoscopy in detail to the patient. I explained the risks including but not limited to stroke or heart attack with anesthesia, perforation of the GI tract, bleeding, infection. I explained that any of these could necessitate further emergency surgery. The patient understands and all questions were answered sufficiently. The patient wishes to proceed with procedure. Esau Leyva MD Pager: [facility] [address] [place] [address], [address] [place] [address] Office: I have examined the patient and the H&P has been reviewed. There are no clinical changes since date of exam.
--- NOTE | 2024-05-26 08:33 | POSTOPAN2_ITS ---
Anesthesia Postop Eval I Sum Postop Eval Completion status Anesthesia document: Postop Eval 1 completed: Yes Anesthesia Postop Eval I Summary Anesthesia Postop Eval I Summary: Anesthesia Postop Eval I: Assessment Summary Airway patent Yes 05/26/24 08:33 RN PEDIATRIC ICU.MDOT Spontaneous unlabored Yes 05/26/24 08:33 RN PEDIATRIC ICU.MDOT respirations Mental status Awake,Calm 05/26/24 08:33 RN PEDIATRIC ICU.MDOT nausea No 05/26/24 08:33 RN PEDIATRIC ICU.MDOT Vomiting No 05/26/24 08:33 RN PEDIATRIC ICU.MDOT Anesthesia Postop Eval I: Fluid Summary Crystalloid volume administer 10 05/26/24 08:33 RN PEDIATRIC ICU.MDOT (ml) Colloids volume administered ( ml) Blood Product volume administered (ml) Total IV fluid infused 10 05/26/24 08:33 RN PEDIATRIC ICU.MDOT Anesthesia Postop Eval I: Summary Notes Anesthesia Complication No 05/26/24 08:33 RN PEDIATRIC ICU.MDOT Anesthesia Complication Comment: Post-operative progress note Anesthesia: Postop Eval II Evaluation Mental status: Awake and Calm Pain Level: 0 nausea: No Vomiting: No Complications Anesthesia Complication: No
--- NOTE | 2024-05-26 08:33 | PCM.POST.ANE ---
Anesthesia: Postop Eval I Current Vital Signs Temperature: 97 F Pulse Rate: 76 Blood Pressure: 106/81 Respiratory Rate: 16 Pulse Ox: 96 Oxygen Delivery Method: Room Air Assessment Airway patent: Yes Spontaneous unlabored respirations: Yes Mental status: Awake and Calm nausea: No Vomiting: No Anesthesia Complication: No Fluid Hydration Crystalloid volume administer (ml): 10 Total IV fluid infused: 10 Progress Note Anesthesia document: Postop Eval 1 completed: Yes
--- NOTE | 2024-05-26 08:33 | PCM.POSTANE2 ---
Anesthesia Postop Eval I Sum Postop Eval Completion status Anesthesia document: Postop Eval 1 completed: Yes Anesthesia Postop Eval I Summary Anesthesia Postop Eval I Summary: Anesthesia Postop Eval I: Assessment Summary Airway patent Yes 05/26/24 08:33 LEAD PROJECT ENGINEER.MDOT Spontaneous unlabored Yes 05/26/24 08:33 LEAD PROJECT ENGINEER.MDOT respirations Mental status Awake,Calm 05/26/24 08:33 LEAD PROJECT ENGINEER.MDOT nausea No 05/26/24 08:33 LEAD PROJECT ENGINEER.MDOT Vomiting No 05/26/24 08:33 LEAD PROJECT ENGINEER.MDOT Anesthesia Postop Eval I: Fluid Summary Crystalloid volume administer 10 05/26/24 08:33 LEAD PROJECT ENGINEER.MDOT (ml) Colloids volume administered ( ml) Blood Product volume administered (ml) Total IV fluid infused 10 05/26/24 08:33 LEAD PROJECT ENGINEER.MDOT Anesthesia Postop Eval I: Summary Notes Anesthesia Complication No 05/26/24 08:33 LEAD PROJECT ENGINEER.MDOT Anesthesia Complication Comment: Post-operative progress note Anesthesia: Postop Eval II Evaluation Mental status: Awake and Calm Pain Level: 0 nausea: No Vomiting: No Complications Anesthesia Complication: No
--- NOTE | 2024-05-26 08:35 | OP.EGD_ITS ---
Patient Name: Tyson Block Procedure Date: 05/26/2024 8:09 AM Date of : 1965 Age: 58 Procedure: Upper GI endoscopy Indications: Epigastric abdominal pain Providers: Esau Leyva MD Referring MD: Osiel Padilla Md Medicines: Propofol per Anesthesia Patient Profile: This is a 58 year old male. Refer to note in patient chart for documentation of history and physical. Complications: No immediate complications. Procedure: Pre-Anesthesia Assessment: - Prior to the procedure, a History and Physical was performed, and patient medications and allergies were reviewed. The patient's tolerance of previous anesthesia was also reviewed. The risks and benefits of the procedure and the sedation options and risks were discussed with the patient. All questions were answered, and informed consent was obtained. Prior Anticoagulants: The patient has taken no anticoagulant or antiplatelet agents. After reviewing the risks and benefits, the patient was deemed in satisfactory condition to undergo the procedure. After obtaining informed consent, the endoscope was passed under direct vision. Throughout the procedure, the patient's blood pressure, pulse, and oxygen saturations were monitored continuously. The Colonoscope was introduced through the mouth, and advanced to the second part of duodenum. The upper GI endoscopy was accomplished without difficulty. The patient tolerated the procedure well. Scope In: 8:19:21 AM Scope Out: 8:22:04 AM Total Procedure Duration Time 0 hours 2 minutes 43 seconds Findings: The esophagus was normal. The stomach was normal. The examined duodenum was normal. Impression: - Normal esophagus. - Normal stomach. - Normal examined duodenum. - No specimens collected. Recommendation: - Discharge patient to home. - Resume previous diet. - Continue present medications. Procedure Code(s): --- Professional --- 86435, Esophagogastroduodenoscopy, flexible, transoral; diagnostic, including collection of specimen(s) by brushing or washing, when performed (separate procedure) Diagnosis Code(s): --- Professional --- R10.13, Epigastric pain CPT copyright 2021 [employer]. All rights reserved. The codes documented in this report are preliminary and upon medical record coder review may be revised to meet current compliance requirements. Esau Leyva MD 05/26/2024 8:34:49 AM This report has been signed electronically. Number of Addenda: 0 Note Initiated On: 05/26/2024 8:09 AM
--- NOTE | 2024-05-26 08:35 | OP.CCLET_ITS ---
05/26/2024 Osiel Padilla Md Re : Upper GI endoscopy procedure for Tyson Fuchs Randy This procedure was performed on Sunday, May 26, 2024. My impressions and recommendations are as follows: Impressions : - Normal esophagus. - Normal stomach. - Normal examined duodenum. - No specimens collected. Recommendations : - Discharge patient to home. - Resume previous diet. - Continue present medications. My findings are described in the full procedure note, which is enclosed. If I can be of further assistance, please feel free to contact me at Doctor phone number(s): , Work: . Sincerely, Esau Leyva MD 05/26/2024 8:34:49 AM This report has been signed electronically.
--- NOTE | 2024-05-26 08:36 | OP.CCLET_ITS ---
05/26/2024 Osiel Padilla Md Re : Colonoscopy procedure for Tyson Padilla This procedure was performed on Sunday, May 26, 2024. My impressions and recommendations are as follows: Impressions : - The entire examined colon is normal on direct and retroflexion views. - No specimens collected. Recommendations : - Discharge patient to home. - Resume previous diet. - Continue present medications. - Repeat colonoscopy in 10 years for screening purposes. My findings are described in the full procedure note, which is enclosed. If I can be of further assistance, please feel free to contact me at Doctor phone number(s): , Work: . Sincerely, Esau Leyva MD 05/26/2024 8:36:02 AM This report has been signed electronically.
--- NOTE | 2024-05-26 08:36 | OP.COLON_ITS ---
Patient Name: Tyson Block Procedure Date: 05/26/2024 8:22 AM Date of : 1965 Age: 58 Procedure: Colonoscopy Indications: Screening for colorectal malignant neoplasm Providers: Esau Leyva MD Referring MD: Osiel Padilla Md Medicines: Propofol per Anesthesia Patient Profile: This is a 58 year old male. Refer to note in patient chart for documentation of history and physical. Last Colonoscopy: none. The patient's first colonoscopy is today. Complications: No immediate complications. Procedure: Pre-Anesthesia Assessment: - Prior to the procedure, a History and Physical was performed, and patient medications and allergies were reviewed. The patient's tolerance of previous anesthesia was also reviewed. The risks and benefits of the procedure and the sedation options and risks were discussed with the patient. All questions were answered, and informed consent was obtained. Prior Anticoagulants: The patient has taken no anticoagulant or antiplatelet agents. After reviewing the risks and benefits, the patient was deemed in satisfactory condition to undergo the procedure. After I obtained informed consent, the scope was passed under direct vision. Throughout the procedure, the patient's blood pressure, pulse, and oxygen saturations were monitored continuously. The Colonoscope was introduced through the anus and advanced to the cecum, identified by appendiceal orifice and ileocecal valve. The colonoscopy was performed without difficulty. The patient tolerated the procedure well. The quality of the bowel preparation was good. The ileocecal valve, appendiceal orifice, and rectum were photographed. Scope In: 8:23:13 AM Scope Withdrawal Time 0 hours 6 minutes 13 seconds Scope Out: 8:31:44 AM Total Procedure Duration Time 0 hours 8 minutes 31 seconds Findings: The entire examined colon appeared normal on direct and retroflexion views. Impression: - The entire examined colon is normal on direct and retroflexion views. - No specimens collected. Recommendation: - Discharge patient to home. - Resume previous diet. - Continue present medications. - Repeat colonoscopy in 10 years for screening purposes. Procedure Code(s): --- Professional --- 21414, Colonoscopy, flexible; diagnostic, including collection of specimen(s) by brushing or washing, when performed (separate procedure) Diagnosis Code(s): --- Professional --- Z12.11, Encounter for screening for malignant neoplasm of colon CPT copyright 2022 [employer]. All rights reserved. The codes documented in this report are preliminary and upon fitness and wellness director review may be revised to meet current compliance requirements. Esau Leyva MD 05/26/2024 8:36:02 AM This report has been signed electronically. Number of Addenda: 0 Note Initiated On: 05/26/2024 8:22 AM
== END 2024-05-26 09:15 | disposition home or self-care (01) ==
LOC: EN 06:56 → AC 06:57
PROVIDERS: PCP Family Medicine; Referring Provider Family Medicine; Visit Provider Surgery
PROC: 0DJD8ZZ Inspection of Lower Intestinal Tract, Via Natural or Artificial Opening Endoscopic (ICD-10-PCS; CPT 45378; principal; 2024-05-26 07:55)
DX: Z12.11 Encounter for screening for malignant neoplasm of colon (principal); R10.13 Epigastric pain; E78.00 Pure hypercholesterolemia, unspecified; I10 Essential (primary) hypertension; K21.9 Gastro-esophageal reflux disease without esophagitis; Z79.899 Other long term (current) drug therapy
CPT/HCPCS: 43235; 45378; A4216

== ENCOUNTER → 2024-06-02 | Outpatient (CLI) | payer OTHER, SELFPAY ==
--- NOTE | 2024-06-02 07:20 | US_ITS ---
EXAM: US Abdomen Limited, Right Upper Quadrant CLINICAL INDICATION: TECHNIQUE: Real-time ultrasound of the right upper quadrant with image documentation. COMPARISON: No relevant prior studies available. FINDINGS: LIVER: Hepatopetal blood flow in the main portal vein. Liver measures 14.1 cm. No intrahepatic bile duct dilation. GALLBLADDER: Negative Austin's sign was reported by the assembler dc field yoke. Gallbladder polyp measuring up to 0.4 cm. No gallstones. COMMON BILE DUCT: Unremarkable as visualized. No stones. No dilation. Common bile duct measures 0.35 cm in diameter. PANCREAS: Unremarkable as visualized. RIGHT KIDNEY: Unremarkable. No stones. No hydronephrosis. The right kidney measures 11.8 x 6.9 x 7.6 cm. US/Abdomen Limited IMPRESSION: No acute findings in the right upper quadrant. Reading [facility]
== END | disposition home or self-care (01) ==
LOC: US 07:20
PROVIDERS: PCP Family Medicine; Referring Provider Surgery; Visit Provider Surgery
DX: R10.13 Epigastric pain (principal)
CPT/HCPCS: 76705

== ENCOUNTER 2024-09-30 14:03 | Emergency (ER) | payer OTHER, SELFPAY ==
[2024-09-30 14:05] VITALS: BP 163/114; PULSE 88; RESP 16; TEMP 36.5; O2SAT 96; BMI 28.0
[2024-09-30 14:18] LABS: Absolute Lymphocyte Count 1.75 X10^3/uL (0.83-4.51); Absolute Neutrophil Count 4.8 X10^3/uL (2.0-7.7); Basophil# 0.05 X10^3/uL; Basophil% 0.6 % (0-1); Eosinophil# 0.18 X10^3/uL; Eosinophils% 2.3 % (0-5); Hematocrit 44.5 % (40-54); Hemoglobin 15.7 g/dL (13.0-16.5); Lymphocyte # 1.75 X10^3/ul (0.83-4.51); Lymphocyte % 22.7 % (19-41); Mean Corp Hgb Conc 35.3 g/dL (32-36); Mean Corpuscular Hgb 31.2 pg (27.0-32.0); Mean Corpuscular Volume 88.3 fL (80-94); Mean Platelet Vol. 9.8 fl (6.2-12.0); Monocyte% 11.7 % (0-10); NRBC Flagged by Analyzer 0 % (0-5); Neutrophil % 62.3 % (47-70); Platelet Count 224 K/mm3 (150-450); RBC Distribution Width CV 12.8 % (11.6-14.6); RBC Distribution Width SD 41.2 fl (35.1-43.9); Red Blood Count 5.04 M/mm3 (4.6-6.2); White Blood Count 7.7 K/mm3 (4.4-11.0)
[2024-09-30 14:49] LABS: ALB/GLOB Ratio 1.5 RATIO (0.9-2.4); AST(SGOT) 34 U/L (<=37); Alanine Aminotransfer ALT/SGPT 50 U/L (<=46); Albumin, Serum 4.5 g/dL (3.5-5.0); Alkaline Phosphatase 65 U/L (40-129); Anion Gap 12 (5-15); BUN 21 mg/dL (4-19); BUN/Creat Ratio 15.4 RATIO (10-20); Calcium,Total 9.5 mg/dL (7.6-11.0); Carbon Dioxide 25.4 mmol/L (21.0-32.0); Chloride 102 mmol/L (98-108); Creatinine, Serum 1.34 mg/dL (0.70-1.20); EST Glomerular Filtration Rate 62 (>60); Estimated Creatinine Clearance 70.26 ml/min (50-250); Globulin 2.9 g/dL (2.2-4.2); Glucose 133 mg/dL (70-99); Potassium 4.2 mmol/L (3.3-5.1); Protein, Total 7.4 g/dL (5.9-8.4); Sodium Level 139 mmol/L (133-145); Total Bilirubin 0.41 mg/dL (0.00-1.30)
--- OUTSIDE RECORDS SUMMARY | 2024-09-30 14:52 | XMS RPT_ITS | CCD ---
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 Omid Dubois Unavailable [facility] OFFICE, Miguelina Alba Unavailable [place] TREADWELL, Michelle Unavailable Unavailable Marquita Peterson LPN Unavailable Unavailable Mateusz Pritchard LPN Unavailable Unavailable Rosamaria Vail RN Unavailable Unavailable Unavailable Unavailable Jessica Babcock CNP Unavailable Calista Cavazos Unavailable Unavailable Unavailable Melonie Arora LPN Unavailable Unavailable Calista Cavazos Unavailable Manocchio, Elizabeth Unavailable Unavailable Julius Ahuja Unavailable Unavailable Unavailable Calista Cavazos DO Unavailable [phone] Jessica Babcock Unavailable Josselin Houston Unavailable Unavailable Deidre Ahuja Unavailable Unavailable Dr. Calista Cavazos Primary Care Unavailab pito Rocha II, Dr. Dionisio Ferguson Attending Ruddy Cavazos, Dr. Calista Lafleur Primary Care Unavailab le Nejaymieperlandan, Dr. Cox Attending Unava ilable Dirk, Dr. Calista Lafleur Primary Care Unavailab le Houston, Dr. Josselin Bloom Attending Unavaila ble Dirk, Dr. Calista Lafleur Primary Care Unavailab le Rocha II, Dr. Dionisio Ferguson Attending Unavai lable Rocha II, Dr. Dionisio Ferguson Attending Unavai labpito Dirk, Dr. Calista Lafleur Primary Care Unavailab le ROCHA, MD DIONISIO FERGUSON Referring Unavailabl e ROCHA, MD DIONISIO FERGUSON Attending Unavailabl e DIRK, DO CALISTA Primary Care Unavailabl e Young, Dr. Julius Gordon Referring Unavail able Young, Dr. Julius Gordon Attending Unavail able DIRK, DO CALISTA K Primary Care Unavailabl e Young, Dr. Julius Gordon Referring Unavail able Young, Dr. Julius Grodon Attending Unavail able DIRK, DO CALISTA Lafleur Primary Care Unavailabl e ROCHA, MD DIONISIO FERGUSON Referring Unavailabl e ROCHA, MD DIONISIO FERGUSON Attending Unavailabl e DIRK, DO CALISTA Lafleur Primary Care Unavailabl e ROCHA, MD DIONISIO FERGUSON Referring Unavailabl e ROCHA, MD DIONISIO FERGUSON Attending Unavailabl e DIRK, DO CALISTA Lafleur Primary Care Unavailabl e Dirk , Calista Lafleur Primary Care Provider [phone] Dr. Calista Cavazos Primary Care Provider [phone] Dr. Tucker Ferrer Attending Provider [phone] Calista Cavazos Primary Care Provider [phone] Dr. Tucker Ferrer Attending Provider [phone] Calista Cavazos Referring Provider Dr. Girish Nelson Referring Provider Dr. Tucker Ferrer Admit Provider Dr. Tucker Ferrer Referring Provider Dr. Tucker Ferrer Other Provider ZELDA Milton Primary Care Provider [phone] ZELDA Shane Attending Provider Newfranco PA-C, Erik Tello Primary Care Provider Newbill PA-C, Erik M Unavailable [phone] Generic Provider MD, No Assigned Pcp Primary Car e Provider Unavailable NEWORALIA GAMEZN M Primary Care Unavailable GENERIC PROVIDER, NO ASSIGNED PCP Primary Care Unavailable CALISTA CAVAZOS Primary Care Unavailable NEWFRANCO ERIK M Attending Unavailable CALISTA CAVAZOS Primary Care Unavailable NEWSKYLARL ERIK M Attending Unavailable NEWSKYLARL, ERIK M Primary Care Unavailable ROCHA, DIONISIO W Attending Unavailable NEWFRANCO ERIK M Primary Care Unavailable ROCHA, DIONISIO W Attending Unavailable NEWFRANCO, ERIK M Primary Care Unavailable ROCHA, DIONISIO W Attending Unavailable GENERIC PROVIDER, NO ASSIGNED PCP Primary Care Unavailable ROCHA, DIONISIO W Attending Unavailable GENERIC PROVIDER, NO ASSIGNED PCP Primary Care Unavailable JULIUS AHUJA Attending Unavailable GENERIC PROVIDER, NO ASSIGNED PCP Primary Care Unavailable Generic Provider MD, No Assigned Pcp Primary Car e Provider Unavailable TOSHA SALAZAR Attending Unavailable GENERIC PROVIDER, NO ASSIGNED PCP Primary Care Unavailable DIONISIO JADE Attending Unavailable GENERIC PROVIDER, NO ASSIGNED PCP Primary Care Unavailable ROCHA, DIONISIO W Referring Unavailable GENERIC PROVIDER, NO ASSIGNED PCP Primary Care Unavailable ROCHA, DIONISIO W Admitting Unavailable ROCHA, DIONISIO W Attending Unavailable GENERIC PROVIDER, NO ASSIGNED PCP Primary Care Unavailable ROCHA, DIONISIO W Admitting Unavailable ROCHA, DIONISIO W Attending Unavailable GENERIC PROVIDER, NO ASSIGNED PCP Primary Care Unavailable ROCHA, DIONISIO W Referring Unavailable GENERIC PROVIDER, NO ASSIGNED PCP Primary Care Unavailable GENERIC PROVIDER, NO ASSIGNED PCP Primary Care Unavailable Linda Shane Attending Unavailable Svitlana, Lnida Referring Unavailable Care Physician, No Primary Primary Care Unava ilable Rocha II, Dionisio Attending Unavailable Rocha II, Dionisio Referring Unavailable Care Physician, No Primary Primary Care Unava ilable Randy, Chalon Primary Care Unavailable Christopher Valdez Attending Unavailable Christopher Valdez Referring Unavailable Randy, Chalon Referring Unavailable Randy, Chalon Primary Care Unavailable Randy, Lorettaon Attending Unavailable Randy, Chalon Referring Unavailable Randy, Chalon Primary Care Unavailable Randy, Lorettaon Attending Unavailable Randy, Chalon Referring Unavailable Randy, Chalon Primary Care Unavailable Esau Leyva Consulting Unavailable Esau Leyva Attending Unavailable Linda Shane Referring Unavailable Tucker Ferrer Attending Unavailable Care Physician, No Primary Primary Care Unava ilable Randy, Chalon Referring Unavailable sEau Leyva Attending Unavailable Randy, Chalon Primary Care Unavailable Linda Shane Attending Unavailable Care Physician, No Primary Primary Care Unava ilable Care Physician, No Primary Referring Unava ilable Randy, Chalon Referring Unavailable Arndy, Chalon Primary Care Unavailable Esau Leyva Attending Unavailable Unavailable Primary Care Provider Unavailabl e GAVIN CISSE Referring Unavailable GAVIN CISSE Attending Unavailable Allergies Allergy Classification Reported Allergen(s) Allergy Type Date of Onset Reaction(s) Facility Contrast Media (1 source) Contrast media Substance Allergy Flushing, [facility] Work Phone: Opioid Agonists (1 source) Morphine; Translations: [morphine] [facility] Work Phone: (12 sources) Contrast media Allergy to substance (finding) Flushing, Rash KF-Zoavrxi-Bhfcj nd Work Phone: (20 sources) Morphine; Translations: [morphine] Drug Allergy 01-21-20 23 Nausea/vomitin g, Unknown BM-Hcuvimz-Fbnkd nd Work Phone: (11 sources) Seasonal allergy Allergy to substance (finding) [facility] Work Phone: (11 sources) Iodinated Contrast; Translations: [Iodinated Contrast] Allergy to substance (finding) [facility] Work Phone: (2 sources) Contrast media Unknown [facility] (16 sources) Iodinated Contrast Media; Translations: [IODINATED CONTRAST MEDIA] Propensity to adverse reactions 01-21-20 23 Swelling [facility] (4 sources) Triiodobenzoic Acids Allergy to substance 10-02-19 15 Unknown, Swelling [facility] (3 sources) Opioids - Morphine Analogues Propensity to adverse reactions 02-17-20 23 Nausea/Vom/Nina rrhea [facility] (1 source) Iodinated Contrast Media Drug allergy (disorder) 05-26-19 [facility] Repository (1 source) Opioids - Morphine Analogues Drug allergy (disorder) 05-02-19 [facility] Repository Medications Current Medications Medication Drug Class(es) Dates Sig (Normalized) Sig (Original) acetaminophen 325 mg / oxyCODONE hydrochloride 5 mg oral tablet (3 sources) Opioid Agonist Start: 08-29-2019 End: 10-09-2021 take 1 tablet by mouth every six hours oxycodone-acetamino phen 5 mg-325 mg oral tablet ; 1 tab(s) orally every 6 hours Quantity: 12 Refills: 0 Ordered: 07-Oct-2021 Elizabeth Vincent Start: 07-Oct-2021 End: 09-Oct-2021 Generic Substitution Allowed Comments: Caution federal law prohibits the transfer of this drug to any person other than the person for whom it was prescribed.May cause drowsiness. Alcohol may intensify this effect. Use care when operating dangerous machinery.This prescription cannot be refilled.This product contains acetaminophen. Do not use with any other product containing acetaminophen to prevent possible liver damage.Using more of this medication than prescribed may cause serious breathing problems. Start: 10-01-2014 take 1 tablet by megha th every four hours as needed Oxycodone-Acetaminophen Active 1 - 2 TABLET PO EVERY 4 HOURS NEEDED October 01, 2014 12:00am Comment on above: Caution federal law prohibits the transfer of this drug to any person other than the person for whom it was prescribed.May cause drowsiness. Alcohol may intensify this effect. Use care when operating dangerous machinery.This prescription cannot be refilled.This product contains acetaminophen. Do not use with any other product containing acetaminophen to prevent possible liver damage.Using more of this medication than prescribed may cause serious breathing problems. amoxicillin 875 mg / clavulanate 125 mg oral tablet (13 sources) Penicillin-class Antibacterial Start: 3 End: 3 take 1 tablet by mouth twice daily amoxicillin-pot clavulanate (Augmentin) 875-125 mg tablet Indications: Uvulitis Take 1 tablet (875 mg) by mouth 2 times a day for 7 days. 14 tablet 0 03/10/2023 03/17/2023 Active Start: 03-20-2009 End: 05-19-2010 take 1 tablet by mouth twice daily AUGMENTIN, 875-125MG (Oral Tablet) 1 Tablet Twice daily for 0 days Quantity: 20 {Tablet} Refills: 0 Ordered: 19-May-2010 Robina Garsia RN Start : 20-Mar-2009 End : 19-May-2010 Inactive aspirin 81 mg oral tablet (13 sources) Platelet Aggregation Inhibitor, Nonsteroidal Anti-inflammatory Drug Start: 02-16-2023 take 81 mg by mouth once daily Aspirin Active 81 MG PO DAILY February 16, 2023 12:00am take 1 tablet by mouth once ruba y aspirin 81 mg EC tablet Take 1 tablet (81 mg) by mouth once daily. Active atorvastatin 80 mg oral tablet (15 sources) HMG-CoA Reductase Inhibitor Start: 02-04-2023 take 1 tablet by mouth once daily at bedtime atorvastatin (Lipitor) 80 mg tablet Take 1 tablet (80 mg) by mouth once daily at bedtime. 90 tablet 3 02/04/2023 Active calcium carbonate 1500 mg / cholecalciferol 800 unt oral tablet (1 source) Vitamin D take 1 tablet by mouth once daily Calcium 600+D oral tablet ; 1 tab(s) orally once a day Quantity: 0 Refills: 0 Ordered: 12-Jan-2022 Tammie Pressley Generic Substitution Allowed calcium chloride 0.0014 meq/ml / potassium chloride 0.004 meq/ml / sodium chloride 0.103 meq/ml / sodium lactate 0.028 meq/ml injectable solution (1 source) Start: 09-10-2023 take 75 mL intravenously every hour 75 mL/hr, intravenous, Continuous, Starting on Wed09/10/23 at 1115, Preprocedure chlorthalidone 25 mg oral tablet (20 sources) Thiazide-like Diuretic Start: 09-14-2023 End: 11-29-2024 take 1 tablet by mouth once daily in the evening chlorthalidone (Hygroton) 25 mg tablet Indications: Essential (primary) hypertension Take 1 tablet (25 mg) by mouth once daily. 90 tablet 3 02/04/2024 1:06 PM EDT 11/30/2023 11/29/2024 Active Start: 12-30-2022 take 1 tablet by megha th once daily chlorthalidone (Hygroton) 25 mg tablet Indications: Essential (primary) hypertension TAKE 1 TABLET BY MOUTH EVERY DAY 90 tablet 3 07/01/2023 Active Start: 05-19-2022 take 1 tablet by megha th once daily Chlorthalidone 25 MG Oral Tablet TAKE 1 TABLET DAILY. Quantity: 90 Refills: 3 Ordered: 19-May-2022 Julius Ahuja DO Start : 19-May-2022 Active ciprofloxacin 500 mg oral tablet (16 sources) Quinolone Antimicrobial Start: 03-12-2024 End: 03-12-2024 take 500 mg by mouth once 500 mg, oral, Once, On 03/12/24 at 2150, For 1 dose, Separate at least 2 hours before or 6 hours after antacids or other products containing calcium, iron, or zinc., Dosing of this medication varies based on severity of illness. Does this patient have sepsis or concern for sepsis (probable or documented infection plus systemic manifestations of infection)? No, Suspected Indication (Select all that apply): Urinary Tract Infection, Type of Therapy: Definitive, No Cultures, Type of Urinary Tract Infection: Uncomplicated, Indications: Urinary Tract Infection Start: 03-12-2024 End: 04-01-2024 take 1 tablet by mouth twice daily ciprofloxacin (Cipro) 500 mg tablet Indications: Bilateral renal stones Take 1 tablet (500 mg) by mouth 2 times a day for 10 days. 20 tablet 03/22/2024 04/01/2024 Active Start: 09-28-2023 End: 11-30-2023 take 1 tablet by mouth twice daily ciprofloxacin (Cipro) 250 mg tablet Indications: Kidney stone Take 1 tablet (250 mg) by mouth 2 times a day for 3 days 6 tablet 09/28/2023 11/30/2023 Discontinued (Therapy completed) Start: 09-10-2023 take 1 tablet by megha twice daily ciprofloxacin (Cipro) 250 mg tablet Indications: Hydronephrosis with urinary obstruction due to ureteral calculus Take 1 tablet (250 mg) by mouth 2 times a day for 3 days. 6 tablet 09/10/2023 Active Start: 09-10-2023 End: 09-13-2023 take 0.5 tablet by mouth twice daily ciprofloxacin (Cipro) 500 mg tablet Indications: Calculus of ureter Take 0.5 tablets (250 mg) by mouth 2 times a day for 3 days. 3 tablet 09/10/2023 09/13/2023 Active Start: 03-22-2022 End: 03-28-2022 take 1 tablet by mouth twice daily Cipro 500 mg oral tablet ; 1 tab(s) orally 2 times a day Quantity: 14 Refills: 0 Ordered: 4-Dec-2022 Josselin Houston Start: 22-Mar-2022 End: 28-Mar-2022 Generic Substitution Allowed Comments: Avoid prolonged or excessive exposure to direct and/or artificial sunlight while taking this medication.Check with your doctor before becoming .Do not take dairy products, antacids, or iron preparations within one hour of this medication.Finish all this medication unless otherwise directed by prescriber.Medication should be taken with plenty of water. Start: 01-14-2022 take 1 tablet by megha th twice daily Ciprofloxacin HCl - 250 MG Oral Tablet Take 1 tablet twice daily Quantity: 10 Refills: 0 Ordered: 14-Jan-2022 Dionisio Rocha II, MD Start : 14-Jan-2022 Active Comment on above: Avoid prolonged or e xcessive exposure to direct and/or artificial sunlight while taking this medication.Check with your doctor before becoming .Do not take dairy products, antacids, or iron preparations within one hour of this medication.Finish all this medication unless otherwise directed by prescriber.Medication should be taken with plenty of water. losartan potassium 50 mg oral tablet (20 sources) Angiotensin 2 Receptor Daniel Start: 024 take 1 tablet by mouth once daily in the evening losartan (Cozaar) 50 mg tablet Indications: Essential (primary) hypertension Take 1 tablet (50 mg) by mouth once daily. 90 tablet 3 02/04/2024 1:13 PM EDT 09/14/2023 Active Start: 12-28-2022 End: 09-10-2023 take 1 tablet by mouth once daily losartan (Cozaar) 50 mg tablet Indications: Essential (primary) hypertension TAKE 1 TABLET BY MOUTH EVERY DAY 90 tablet 3 07/01/2023 09/10/2023 Discontinued (Therapy completed) Start: 05-19-2022 take 1 tablet by megha th once daily Losartan Potassium 50 MG Oral Tablet TAKE 1 TABLET DAILY. Quantity: 90 Refills: 3 Ordered: 19-May-2022 Julius Ahuja DO Start : 19-May-2022 Active [place]-3 Fatty Acids-Fish Oil (Fish Oil 1,000 Mg Capsule) 1 EACH capsule (1 source) Start: 10-01-2014 [place]-3 Fatty Acids-Fish Oil (Fish Oil 1,000 Mg Capsule) 1 EACH capsule Active 1 EACH PO DAILY October 01, 2014 12:00am oxyCODONE hydrochloride 5 mg oral tablet (2 sources) Opioid Agonist Start: 03-02-2023 take 5 mg by mouth every eight hours as needed Oxycodone Active 5 MG PO EVERY 8 HOURS NEEDED 9 3 March 02, 2023 potassium citrate 15 meq extended release oral tablet (20 sources) Start: 02-05-2023 End: 11-29-2024 take 1 tablet by mouth twice daily at mealtime potassium citrate CR (Urocit-K-15) 15 mEq ER tablet Indications: Low blood potassium Take 1 tablet (15 mEq) by mouth 2 times a day with meals. 180 tablet 3 11/30/2023 11/29/2024 Active Start: 12-02-2019 take 1 tablet by megha th twice daily potassium citrate CR (Urocit-K-15) 15 mEq ER tablet Take 1 tablet (15 mEq) by mouth twice a day. 0 12/02/2019 Active Start: 03-26-2017 take 1 tablet by megha th once daily Potassium Citrate ER 5 MEQ (540 MG) Oral Tablet Extended Release 1 (one) Tablet qd for 0 days Quantity: 30 {Tablet} Refills: 3 Ordered: 01-Apr-2020 Mateusz Pritchard LPN Start : 26-Mar-2017 Active Comment on above: Source=[employer], Medication=POTASSIUM CITRATE ER 15 MEQ TB, OriginatingSource=[employer] OriginatingProvider=JULIUS AHUJA, Duration=90, Refills=1, Date Last Modified/Filled=26-Nov-2021 1000 ml sodium chloride 9 mg/ml injection (2 sources) Star t: 08-18 24 End: 08-18 24 take 125 mL intravenously every hour 125 mL/hr, intravenous, Continuous, Starting on Wed09/07/23 at 1240 sucralfate 100 mg/ml oral suspension (12 sources) Aluminum Complex Star t: 08-06 23 End: 01-17 23 take 10 mL by mouth four times daily sucralfate (Carafate) 100 mg/mL suspension Indications: Gastroesophageal reflux disease with esophagitis without hemorrhage , RUQ pain Take 10 mL (1 g) by mouth 4 times a day for 10 days. 400 mL 0 01/20/2023 01/30/2023 Active Start: 04-02-2008 End: 05-19-2010 take 1 tablet by mouth once daily at bedtime CARAFATE, 1GM (Oral Tablet) 1 (one) Tablet ac and qhs for 0 days Quantity: 120 {Tablet} Refills: 0 Ordered: 19-May-2010 Robina Garsia RN Start : 02-Apr-2008 End : 19-May-2010 Inactive tamsulosin hydrochloride 0.4 mg oral capsule (15 sources) alpha-Adrenergic Daniel Start: 09-08-2023 End: 09-07-2024 take 1 capsule by mouth once daily tamsulosin (Flomax) 0.4 mg 24 hr capsule Indications: Bilateral renal stones Take 1 capsule (0.4 mg) by mouth once daily. 30 capsule 11 11/12/2023 12:33 PM EDT 09/08/2023 09/07/2024 Active Start: 02-23-2022 End: 05-19-2022 take 1 capsule by mouth at bedtime Tamsulosin HCl - 0.4 MG Oral Capsule TAKE 1 CAPSULE Bedtime Quantity: 30 Refills: 0 Ordered: 23-Feb-2022 Dionisio Rocha II, MD Start : 23-Feb-2022 End : 19-May-2022 Complete Start: 10-07-2021 End: 10-11-2021 take 1 capsule by mouth once daily Flomax 0.4 mg oral capsule ; 1 cap(s) orally once a day Quantity: 5 Refills: 0 Ordered: 07-Oct-2021 Elizabeth Vincent Start: 07-Oct-2021 End: 11-Oct-2021 Generic Substitution Allowed Comments: It is very important that you take or use this exactly as directed. Do not skip doses or discontinue unless directed by your doctor.May cause drowsiness. Alcohol may intensify this effect. Use care when operating dangerous machinery.Some non-prescription drugs may aggravate your condition. Read all labels carefully. If a warning appears, check with your doctor before taking.Swallow whole. Do not crush. Start: 10-01-2014 End: 09-07-2019 take 1 capsule by mouth once daily at mealtime tamsulosin 0.4 mg oral capsule ; 1 cap(s) orally once a day Quantity: 10 Refills: 0 Ordered: 29-Aug-2019 Steven Javier Start: 29-Aug-2019 End: 07-Sep-2019 Generic Substitution Allowed Comments: It is very important that you take or use this exactly as directed. Do not skip doses or discontinue unless directed by your doctor.May cause drowsiness. Alcohol may intensify this effect. Use care when operating dangerous machinery.Some non-prescription drugs may aggravate your condition. Read all labels carefully. If a warning appears, check with your doctor before taking.Swallow whole. Do not crush.Take with food or milk. Comment on above: It is very important that you take or use this exactly as directed. Do not skip doses or discontinue unless directed by your doctor.May cause drowsiness. Alcohol may intensify this effect. Use care when operating dangerous machinery.Some non-prescription drugs may aggravate your condition. Read all labels carefully. If a warning appears, check with your doctor before taking.Swallow whole. Do not crush. It is very important that you take or use this exactly as directed. Do not skip doses or discontinue unless directed by your doctor.May cause drowsiness. Alcohol may intensify this effect. Use care when operating dangerous machinery.Some non-prescription drugs may aggravate your condition. Read all labels carefully. If a warning appears, check with your doctor before taking.Swallow whole. Do not crush.Take with food or milk. Source=[employer], Medication=TAMSULOSIN HCL 0.4 MG CAPSULE, OriginatingSource=[facility], OriginatingProvider=DIONISIO ROCHA, Duration=30, Date Last Modified/Filled=23-Feb-2022 Completed/Discontinued Medications Medication Drug Class(es) Dates Sig (Normalized) Sig (Original) acetaminophen 325 mg oral tablet (1 source) Start: 09-10-2023 End: 09-10-2023 take 975 mg by mouth once as needed for pain 975 mg, oral, Once, On Wed09/10/23 at 1115, For 1 dose, Preprocedure, Administer with small amount of water preoperatively., If ordered PRN for pain, nurse is permitted to administer this medication for higher pain scores based on patient preference? Yes Start: 09-10-2023 End: 09-10-2023 take 975 mg by mouth once as needed for pain 975 mg, oral, Once, On Wed09/10/23 at 1115, For 1 dose, Preprocedure, Administer with small amount of water preoperatively., If ordered PRN for pain, nurse is permitted to administer this medication for higher pain scores based on patient preference? Yes acetaminophen 250 mg / aspirin 250 mg / caffeine 65 mg oral tablet (11 sources) Platelet Aggregation Inhibitor, Nonsteroidal Anti-inflammatory Drug, Central Nervous System Stimulant, Methylxanthine End: 12-28-2012 EXCEDRIN EXTRA STRENGTH, [id number] (Oral Tablet) for 0 days Refills: 0 Ordered: 28-Dec-2012 Robina Garsia RN End : 28-Dec-2012 Inactive acetaminophen 325 mg / HYDROcodone bitartrate 5 mg oral tablet (8 sources) Opioid Agonist Start: 09-10-2023 End: 11-30-2023 take 1 tablet by mouth every six hours for pain HYDROcodone-acetam inophen ([place]) 5-325 mg tablet Indications: Calculus of ureter Take 1 tablet by mouth every 6 hours if needed for severe pain (7 - 10). 20 tablet 09/28/2023 11/30/2023 Discontinued (Therapy completed) ACTIFED ALLERGY DAYTIME/NIGHT (PO Tab) (10 sources) ACTIFED ALLERGY DAYTIME/NIGHT (PO Tab) Inactive azithromycin 250 mg oral tablet (10 sources) Macrolide Antimicrobial Start: 03-27-2020 End: 04-01-2020 take 1 tablet by mouth once daily Zithromax Z-Adolph 250 MG Oral Tablet tad Tablet qd for 5 days Quantity: 1 {Tablet} Refills: 0 Ordered: 27-Mar-2020 Calista Cavazos DO, DO, Kathleen Start : 27-Mar-2020 End : 01-Apr-2020 Inactive bifidobacterium infantis 4 mg oral capsule (11 sources) Start: 01-02-2015 End: 05-01-2016 take 1 capsule by mouth once daily Align 4 MG Oral Capsule 1 (one) Capsule daily for 0 days Quantity: 30 {Capsule} Refills: 0 Ordered: 01-May-2016 Michelle Berumen LPN Start : 02-Jan-2015 End : 01-May-2016 Discontinued candesartan cilexetil 32 mg / hydroCHLOROthiazide 25 mg oral tablet (19 sources) Thiazide Diuretic, Angiotensin 2 Receptor Daniel Start: 06-26-2019 take 1 tablet by mouth once daily Candesartan Cilexetil-HCTZ 32-25 MG Oral Tablet 1 (one) Tablet daily for 0 days Quantity: 30 {Tablet} Refills: 0 Ordered: 11-Sep-2020 Mateusz Pritchard LPN Start : 02-Sep-2020 Active cephalexin 500 mg oral capsule (1 source) Cephalosporin Antibacterial Start: 08-29-2019 End: 09-04-2019 take 1 capsule by mouth four times daily cephalexin 500 mg oral capsule ; 1 cap(s) orally 4 times a day Quantity: 28 Refills: 0 Ordered: 29-Aug-2019 Steven Javier Start: 29-Aug-2019 End: 04-Sep-2019 Generic Substitution Allowed Comments: Finish all this medication unless otherwise directed by prescriber. Comment on above: Finish all this medi cation unless otherwise directed by prescriber. clopidogrel 75 mg oral tablet (4 sources) P2Y12 Platelet Inhibitor Start: 02-04-2023 End: 03-23-2023 take 1 tablet by mouth once daily Clopidogrel (Plavix) 75 mg tablet Discontinued 75 MG PO DAILY 60 February 04, 2023 12:00am March 23, 2023 4:46pm cyclobenzaprine hydrochloride 10 mg oral tablet (7 sources) Muscle Relaxant Start: 08-27-2023 End: 11-30-2023 take 1 tablet by mouth three times daily as needed for muscle spasms cyclobenzaprine (Flexeril) 10 mg tablet Take 1 tablet (10 mg) by mouth 3 times a day as needed for spasms 30 tablet 08/27/2023 11/30/2023 Discontinued (Therapy completed) dexlansoprazole 30 mg delayed release oral capsule (11 sources) Proton Pump Inhibitor Start: 01-02-2015 End: 05-01-2016 take 1 capsule by mouth once daily Dexilant 30 MG Oral Capsule Delayed Release 1 (one) Capsule DR daily for 0 days Quantity: 30 {Capsule} Refills: 0 Ordered: 01-May-2016 Michelle Berumen LPN Start : 02-Jan-2015 End : 01-May-2016 Discontinued ACTIFED ALLERGY DAYTIME/NIGHT (PO Tab) (1 source) alpha-Adrenergic Agonist, Histamine-1 Receptor Antagonist ACTIFED ALLERGY DAYTIME/NIGHT (PO Tab) Inactive 24 hr etodolac 400 mg extended release oral tablet (11 sources) Nonsteroidal Anti-inflammatory Drug Start: 12-28-2012 End: 12-25-2014 take 2 tablets by mouth once daily ETODOLAC ER, 400MG (Oral Tablet Extended Release 24 Hour) 2 (two) Tablet ER 24HR qd for 0 days Quantity: 30 {Tablet_ER_24HR} Refills: 0 Ordered: 25-Dec-2014 Michelle Berumen LPN Start : 28-Dec-2012 End : 25-Dec-2014 Discontinued 2 ml famotidine 10 mg/ml injection (8 sources) Histamine-2 Receptor Antagonist Start: 09-10-2023 End: 09-10-2023 20 mg, intravenous, Once, On Wed09/10/23 at 1115, For 1 dose, Preprocedure Start: 01-20-2023 End: 11-30-2023 take 1 tablet by mouth twice daily famotidine (Pepcid) 20 mg tablet Indications: Gastroesophageal reflux disease with esophagitis without hemorrhage Take 1 tablet (20 mg) by mouth 2 times a day for 7 days. 14 tablet 1 01/20/2023 11/30/2023 Discontinued (Therapy completed) fluticasone propionate 0.05 mg/actuat metered dose nasal spray (11 sources) Corticosteroid Start: 03-04-2011 End: 12-28-2012 FLONASE, 50MCG/ACT (Nasal Suspension) 2 (two) Puff(s) daily for 0 days Quantity: 1 {Suspension} Refills: 0 Ordered: 28-Dec-2012 Robina Garsia RN Start : 04-Mar-2011 End : 28-Dec-2012 Inactive 12 hr guaiFENesin 1200 mg / pseudoephedrine hydrochloride 120 mg extended release oral tablet (11 sources) alpha-Adrenergic Agonist Start: 03-04-2011 End: 12-28-2012 MUCINEX D, 120-1200MG (Oral Tablet Extended Release 12 Hour) 1 Tablet ER 12HR q12h for 0 days Quantity: 30 {Tablet_ER_12HR} Refills: 0 Ordered: 28-Dec-2012 Robina Garsia RN Start : 04-Mar-2011 End : 28-Dec-2012 Inactive hydrocortisone acetate 25 mg rectal suppository (11 sources) Corticosteroid Start: 05-01-2016 End: 03-26-2017 Anusol-HC 25 MG Rectal Suppository 1 (one) Suppository qhs for 0 days Quantity: 7 {Suppository} Refills: 0 Ordered: 26-Mar-2017 Rosamaria Vail RN Start : 01-May-2016 End : 26-Mar-2017 Inactive 0.5 ml HYDROmorphone hydrochloride 1 mg/ml prefilled syringe (2 sources) Opioid Agonist Start: 09-07-2023 End: 09-07-2023 0.5 mg, intravenous, Once, On Wed09/07/23 at 1425, For 1 dose ibuprofen 600 mg oral tablet (10 sources) Nonsteroidal Anti-inflammatory Drug Start: 12-09-2020 take 1 tablet by mouth twice daily Ibuprofen 600 MG Oral Tablet Take 1 tablet twice daily Quantity: 21 Refills: 0 Ordered: 09-Dec-2020 Dionisio Rocha II, MD Start : 09-Dec-2020 Active Start: 08-29-2019 Ibuprofen 600 MG Oral Tablet TAKE 1 TABLET EVERY 6 TO 8 HOURS NEEDED. Quantity: 0 Refills: 0 Ordered: 19-May-2022 Dionisio Rocha II, MD Start : 09-Dec-2020 Active Comment on above: Do not take this winston g if you are .It is very important that you take or use this exactly as directed. Do not skip doses or discontinue unless directed by your doctor.May cause drowsiness or dizziness.Obtain medical advice before taking any non-prescription drugs as some may affect the action of this medication.Take with food or milk. 1 ml ketorolac tromethamine 30 mg/ml injection (2 sources) Nonsteroidal Anti-inflammatory Drug, Cyclooxygenase Inhibitor Start: 09-07-2023 End: 09-07-2023 30 mg, intravenous, Once, On Wed09/07/23 at 1240, For 1 dose Start: 03-22-2022 End: 03-26-2022 take 1 tablet by mouth four times daily at mealtime ketorolac 10 mg oral tablet ; 1 tab(s) orally 4 times a day Quantity: 20 Refills: 0 Ordered: 22-Mar-2022 Josselin Houston Start: 22-Mar-2022 End: 26-Mar-2022 Generic Substitution Allowed Comments: It is very important that you take or use this exactly as directed. Do not skip doses or discontinue unless directed by your doctor.May cause drowsiness or dizziness.Obtain medical advice before taking any non-prescription drugs as some may affect the action of this medication.Take with food or milk. Comment on above: It is very important that you take or use this exactly as directed. Do not skip doses or discontinue unless directed by your doctor.May cause drowsiness or dizziness.Obtain medical advice before taking any non-prescription drugs as some may affect the action of this medication.Take with food or milk. LORazepam 0.5 mg oral tablet (11 sources) Benzodiazepine Start: 009 End: 011 take 1 tablet by mouth once daily as needed ATIVAN, 0.5MG (Oral Tablet) 1 (one) Tablet Daily PRN for 0 days Refills: 0 Ordered: 19-May-2010 Robina Garsia RN Start : 03-May-2008 End : 19-May-2010 Inactive metaxalone 800 mg oral tablet (11 sources) Start: 013 End: 015 take 1 tablet by mouth three times daily as needed METAXALONE, 800MG (Oral Tablet) 1 Tablet tid prn for 0 days Quantity: 30 {Tablet} Refills: 0 Ordered: 25-Dec-2014 Michelle Berumen LPN Start : 28-Dec-2012 End : 25-Dec-2014 Discontinued 5 ml midazolam 1 mg/ml injection (1 source) Benzodiazepine Start: 024 End: 024 2 mg, intravenous, Once, On Wed09/10/23 at 1115, For 1 dose, Preprocedure nystatin [id number] unt/ml oral suspension (7 sources) Polyene Antifungal Start: 023 End: take 5 mL by mouth four times daily nystatin (Mycostatin) 100,000 unit/mL suspension Indications: Uvulitis Take 5 mL (500,000 Units) by mouth 4 times a day. Swish in mouth and spit out. 140 mL 03/10/2023 09/10/2023 Discontinued (Therapy completed) omeprazole 20 mg delayed release oral tablet (20 sources) Proton Pump Inhibitor Start: 023 End: 024 take 1 tablet by mouth once daily omeprazole OTC (PriLOSEC OTC) 20 mg EC tablet Indications: Gastroesophageal reflux disease with esophagitis without hemorrhage , RUQ pain Take 1 tablet (20 mg) by mouth once daily. Do not crush, chew, or split. 30 tablet 11 01/20/2023 11/30/2023 Discontinued (Therapy completed) Start: 12-25-2014 End: 03-26-2017 take 1 tablet by mouth once daily Omeprazole 20 MG Oral Tablet Delayed Release 1 (one) Tablet DR Tablet DR daily for 0 days Quantity: 30 {Tablet} Refills: 0 Ordered: 26-Mar-2017 Rosamaria Vail RN Start : 25-Dec-2014 End : 26-Mar-2017 Inactive 2 ml ondansetron 2 mg/ml injection (4 sources) Serotonin-3 Receptor Antagonist Start: 09-10-2023 End: 09-10-2023 4 mg, intravenous, Once, On Wed09/10/23 at 1115, For 1 dose, Preprocedure, When administering via IV Push, administer over 3-5 minutes. Start: 09-07-2023 End: 09-07-2023 4 mg, intravenous, Once, On Wed09/07/23 at 1240, For 1 dose, When administering via IV Push, administer over 3-5 minutes. Start: 08-29-2019 take 1 tablet by megha th every eight hours Zofran 4 mg oral tablet ; 1 tab(s) orally prn every 8 hours -for nausea and vomiting Quantity: 20 Refills: 0 Ordered: 29-Aug-2019 Steven Javier Start: 29-Aug-2019 Generic Substitution Allowed Start: 10-01-2014 take 4 mg by mouth e very eight hours as needed Ondansetron Active 4 MG PO EVERY 8 HOURS NEEDED October 01, 2014 12:00am pantoprazole 40 mg delayed release oral tablet (11 sources) Proton Pump Inhibitor Start: 03-05-2008 End: 05-19-2010 take 1 tablet by mouth once daily PROTONIX, 40MG (Oral Tablet Delayed Release) 1 (one) Tablet DR Daily for 0 days Quantity: 30 {Tablet_DR} Refills: 0 Ordered: 19-May-2010 Robina Garsia RN Start : 05-Mar-2008 End : 19-May-2010 Inactive PARoxetine hydrochloride 10 mg oral tablet (11 sources) Serotonin Reuptake Inhibitor Start: 05-17-2008 End: 05-19-2010 take 1 tablet by mouth once daily PAXIL, 10MG (Oral Tablet) 1 (one) Tablet Daily for 0 days Quantity: 30 {Tablet} Refills: 3 Ordered: 19-May-2010 Robina Garsia RN Start : 17-May-2008 End : 19-May-2010 Inactive phenazopyridine hydrochloride 200 mg oral tablet (8 sources) Start: 09-10-2023 End: 11-30-2023 take 1 tablet by mouth three times daily as needed for muscle spasms phenazopyridine (Pyridium) 200 mg tablet Indications: Kidney stone Take 1 tablet (200 mg) by mouth 3 times a day as needed for bladder spasms. 30 tablet 09/28/2023 11/30/2023 Discontinued (Therapy completed) predniSONE 50 mg oral tablet (9 sources) Start: 02-04-2023 End: 09-10-2023 take 1 tablet by mouth every six hours predniSONE (Deltasone) 50 mg tablet Take 1 tablet (50 mg) orally every 6 hours for 3 doses; administer 13 hr, 7 hr, and 1 hr before time of procedure 3 tablet 02/04/2023 09/10/2023 Discontinued (Therapy completed) Start: 02-04-2023 End: 03-02-2023 Prednisone Discontinued 50 M G PO EVERY 6 HOURS 3 February 04, 2023 12:00am March 02, 2023 2:06pm administer 13 hr, 7 hr, and 1 hr before time of procedure sulfamethoxazole 800 mg / trimethoprim 160 mg oral tablet (1 source) Dihydrofolate Reductase Inhibitor Antibacterial, Sulfonamide Antimicrobial Start: 12-09-2020 take 1 tablet by mouth once daily Sulfamethoxazole-Trimethoprim 800-160 MG Oral Tablet Take 1 tablet daily Quantity: 10 Refills: 0 Ordered: 09-Dec-2020 Dionisio Rocha II, MD Start : 09-Dec-2020 Active tadalafil 20 mg oral tablet (20 sources) Phosphodiesterase 5 Inhibitor Start: 12-09-2020 End: 11-30-2023 tadalafil (Cialis) 20 mg tablet TAKE 1 TABLET 1 HOUR BEFORE ACTIVITY NEEDED. 20 tablet 1 10/22/2021 11/30/2023 Discontinued (Therapy completed) NEGATED: Highlighted row has not occurred!drug or medication (3 sources) No Known Histori martin Medications NEGATED: Highlighted row has not occurred!No Known Historical Medications (6 sources) No Known Histori martin Medications Problems Active Problems Problem Classification Problem Date Documented Date Episodic/Chronic Abdominal pain (20 sources) Abdominal pain; Translations: [Flank pain] Onset: 2 Resolved: 3 05-01-2016 Episodic Comment on above: after eating [facility] Administrative/social admission (3 sources) Patient encounter status; Translations: [Encounter for pre-employment examination] Onset: 5 06-19-2024 Episodic Anal and rectal conditions (20 sources) Rectal pain; Translations: [Rectal pain] 03-26-2017 Episodic Comment on above: rectal pain and hist ory of old fall need CT of abdomen and coccyxrecent Dariusz per Dr. Rocha urologist at [place], did psa rectal pain and hist ory of old fall and scaral pressure, worried about prostate had psa and ultrasound. Psa0.3, ultrasound showing mild post void and non obstruction rt renal stones. Normal prostate.recent Dariusz per Dr. Rocha urologist at [place], did psa Anxiety disorders (20 sources) Anxiety; Translations: [Acute stress disorder] 03-27-2020 Chronic Calculus of urinary tract (20 sources) Kidney stone; Translations: [History of calculus of kidney] Onset: 2 03-26-2017 Episodic Comment on above: history kidney stone with stents sees Dr. Rocha in [place] [employer] Work [employer] with at [facility] in [place] Cardiac and circulatory congenital anomalies (19 sources) Congenital heart disease; Translations: [Congenital malformation of heart, unspecified] 03-26-2017 Chronic Comment on above: stable Chronic kidney disease (20 sources) Chronic kidney disease stage 3; Translations: [Chronic kidney disease, Stage III (moderate)] Onset: 4 09-10-2023 Chronic Chronic kidney disease (2 sources) Chronic kidney disease; Translations: [Chronic kidney disease, stage 3 unspecified (Multi)] Onset: 4 Disorders of lipid metabolism (17 sources) Hypercholesterolemia; Translations: [Hypercholesteremia] 03-26-2017 Chronic Esophageal disorders (2 sources) Gastro-esophageal reflux disease without esophagitis; Translations: [Gastro-esophageal reflux disease with esophagitis] Onset: 2 01-20-2023 Chronic Esophageal disorders (2 sources) Esophageal disorders; Translations: [Gastro-esophageal reflux disease with esophagitis, without bleeding] Onset: 3 Essential hypertension (20 sources) Hypertensive disorder; Translations: [Hypertension] Onset: 2 09-02-2020 Chronic Fluid and electrolyte disorders (3 sources) Hypokalemia; Translations: [Hypokalemia] Onset: 4 Episodic Headache; including migraine (20 sources) Headache; Translations: [Headache] Resolved: 3 01-22-2015 Episodic Heart valve disorders (20 sources) Mitral valve prolapse Chronic Hyperplasia of prostate (20 sources) Benign prostatic hyperplasia; Translations: [Hypertrophy (benign) of prostate with urinary obstruction and other lower urinary tract symptoms (LUTS)] Onset: 4 08-23-2023 Chronic Occlusion or stenosis of precerebral arteries (6 sources) Right carotid artery stenosis; Translations: [Occlusion and stenosis of right carotid artery] 02-04-2023 Chronic Other aftercare (1 source) Surgical follow-up; Translations: [Encounter for surgical aftercare following surgery on the circulatory system] 03-25-2023 Episodic Other aftercare (1 source) Encounter for surgical aftercare following surgery on the circulatory system; Translations: [Encounter for surgical aftercare following surgery on the circulatory system] Onset: 4 Episodic Other circulatory disease (12 sources) Respiratory tract congestion; Translations: [Head congestion] 03-27-2020 Episodic Other connective tissue disease (13 sources) Muscle pain; Translations: [Myalgia and myositis] 03-26-2017 Episodic Other connective tissue disease (9 sources) Myalgia Episodic Other connective tissue disease (13 sources) Spasm; Translations: [Muscle Spasm] 03-26-2017 Episodic Other connective tissue disease (10 sources) Bilateral heel pain; Translations: [Heel pain, bilateral] 04-01-2020 Episodic Other diseases of kidney and ureters (1 source) Hydronephrosis co-occurrent and due to calculus of kidney and ureter; Translations: [Hydronephrosis with renal and ureteral calculous obstruction] 09-07-2023 Episodic Other ear and sense organ disorders (20 sources) Bilateral earache; Translations: [Otalgia, bilateral] 03-27-2020 Episodic Other gastrointestinal disorders (20 sources) Diarrhea; Translations: [Diarrhea] 03-26-2017 Episodic Other gastrointestinal disorders (11 sources) Rectum finding; Translations: [Rectal pressure] 09-02-2020 Episodic Comment on above: saw urologist was to ld to take antibiotic as is prostatitis. Has had sincee June 2020. he will try water Other gastrointestinal disorders (3 sources) History of hemorrhoid; Translations: [History of hemorrhoids] 12-16-2020 Episodic Other male genital disorders (2 sources) Impotence; Translations: [Erectile dysfunction] Chronic Other male genital disorders (13 sources) Unspecified disorder of penis; Translations: [DISORDER, PENIS NOS] 03-26-2017 Chronic Other male genital disorders (20 sources) Male erectile dysfunction, unspecified; Translations: [Erectile dysfunction] Onset: 4 08-23-2023 Chronic Other nervous system disorders (20 sources) Paresthesia; Translations: [Paresthesia] 03-26-2017 Episodic Comment on above: left fingers and skylar ateralheels Other nutritional; endocrine; and metabolic disorders (6 sources) Body mass index 25-29 - overweight; Translations: [BMI 27.0-27.9,adult] Resolved: 7 03-27-2020 Chronic Other nutritional; endocrine; and metabolic disorders (20 sources) Body mass index 25-29 - overweight; Translations: [BMI 28.0-28.9,adult] Resolved: 7 09-02-2020 Episodic Other nutritional; endocrine; and metabolic disorders (10 sources) Overweight in adulthood with body mass index of 25 or more but less than 30; Translations: [BMI 27.0-27.9,adult] Resolved: 7 12-16-2020 Episodic Other nutritional; endocrine; and metabolic disorders (1 source) H/O: metabolic disorder; Translations: [Personal history of other endocrine, nutritional and metabolic disease] 01-20-2023 Episodic Other screening for suspected conditions (not mental disorders or infectious disease) (14 sources) Screening status; Translations: [Screening for prostate cancer] Onset: 5 04-01-2020 Episodic Other upper respiratory disease (20 sources) Allergic rhinitis; Translations: [Allergic rhinitis] 03-26-2017 Chronic Comment on above: stable Other upper respiratory infections (20 sources) Chronic sinusitis; Translations: [Sinusitis, chronic] 03-26-2017 Chronic Other upper respiratory infections (20 sources) Sinusitis; Translations: [Acute pharyngitis] 03-26-2017 Episodic Otitis media and related conditions (14 sources) Dysfunction of eustachian tube; Translations: [Dysfunction of Eustachian tube] Episodic Peripheral and visceral atherosclerosis (8 sources) Peripheral vascular disease; Translations: [Peripheral vascular disease, unspecified] Onset: 4 09-10-2023 Chronic Residual codes; unclassified (12 sources) H/O: Disorder; Translations: [History of hemorrhoids] 03-26-2017 Episodic Residual codes; unclassified (3 sources) H/O: surgery; Translations: [Tonsillectomy] 03-27-2020 Episodic Residual codes; unclassified (20 sources) Non-smoker; Translations: [Nonsmoker] 09-02-2020 Episodic Residual codes; unclassified (1 source) Other specified postprocedural states; Translations: [Other specified postprocedural states] Onset: 4 Episodic Unclassified (18 sources) SCREENING FOR CANCER OF THE PROSTATE (V76.44) Unclassified (20 sources) Hypercholesteremia (272.0) Unclassified (20 sources) History of nephrolithiasis (V13.01) Unclassified (9 sources) Backache, unspecified (724.5) Unclassified (2 sources) LT SIDE FLANK PAIN 10-07-2021 Comment on above: LT SIDE FLANK PAIN Unclassified (1 source) 6 MONTH FUV 10-09-2020 Comment on above: 6 MONTH FUV Unclassified (1 source) Left ureteral stone 10-07-2021 Unclassified (1 source) Renal colic on left side 10-07-2021 Unclassified (1 source) Calculus of proximal left ureter 03-22-2022 Unclassified (1 source) Contact with and (suspected) exposure to COVID-19; Translations: [Contact with and (suspected) exposure to COVID-19] Onset: 2 Urinary tract infections (4 sources) Urinary tract infection, site not specified; Translations: [Cystitis] Onset: 2 03-12-2024 Episodic Viral infection (20 sources) Viral disease; Translations: [Viral infection, unspecified] 03-26-2017 Episodic Comment on above: Day #8 positive covi d, took Adolph Past or Other Problems Problem Classification Problem Date Documented Date Episodic/Chronic Abdominal hernia (3 sources) Hiatal hernia; Translations: [Diaphragmatic hernia without obstruction or gangrene] Onset: 01-20-2023 01-20-2023 Episodic Acute and unspecified renal failure (1 source) Acute kidney failure, unspecified; Translations: [Acute kidney failure, unspecified] Onset: 01-14-2022 Episodic Allergic reactions (1 source) Radiographic dye allergy status; Translations: [Radiographic dye allergy status] Onset: 03-22-2022 Episodic Blindness and vision defects (14 sources) Visual disturbance; Translations: [Unspecified visual disturbance] Onset: 01-20-2023 03-26-2017 Episodic Diseases of mouth; excluding dental (3 sources) Uvulitis; Translations: [Cellulitis and abscess of mouth] Onset: 03-10-2023 03-10-2023 Episodic Genitourinary symptoms and ill-defined conditions (20 sources) Nocturia; Translations: [Blood in urine] Onset: 01-28-2022 03-26-2017 Episodic Comment on above: moderate BLOOD IN URINE Hemorrhoids (11 sources) Hemorrhoids; Translations: [Hemorrhoids] Resolved: 12-28-2012 01-29-2015 Episodic Nausea and vomiting (20 sources) Nausea; Translations: [Nausea] Onset: 01-14-2022 Resolved: 09-05-2008 03-05-2015 Episodic Nonspecific chest pain (20 sources) Tight chest; Translations: [SYMPTOMS INVOLVING RESPIRATORY SYSTEM AND OTHER CHEST SYMPTOMS; OTHER CHEST PAIN] Onset: 01-20-2023 03-26-2017 Episodic Other aftercare (1 source) Other mcfp (current) drug therapy; Translations: [Other dip filler (current) drug therapy] Onset: 03-22-2022 Episodic Other connective tissue disease (3 sources) Bilateral heel pain; Translations: [Heel pain, bilateral] 03-26-2017 Other diseases of kidney and ureters (12 sources) Hydronephrosis with renal and ureteral calculous obstruction; Translations: [Calculus of ureter] Onset: 01-14-2022 09-10-2023 Episodic Other diseases of kidney and ureters (1 source) Disorder of kidney and ureter, unspecified; Translations: [Disorder of kidney and ureter, unspecified] Onset: 01-14-2022 Episodic Other diseases of kidney and ureters (5 sources) Other hydronephrosis; Translations: [Other hydronephrosis] Onset: 06-01-2023 Episodic Other nutritional; endocrine; and metabolic disorders (2 sources) Personal history of other endocrine, nutritional and metabolic disease; Translations: [Personal history of other endocrine, nutritional and metabolic disease] Onset: 01-20-2023 Episodic Spondylosis; intervertebral disc disorders; other back problems (20 sources) Low back pain; Translations: [Backache] Onset: 01-14-2022 03-26-2017 Episodic Comment on above: with some not so cla ssice radiculopathy? pain no different th an since july - and has kidney stoneslower to mid back -- since july 2012 coccyx xray normal Unclassified (18 sources) History of hemorrhoids Unclassified (20 sources) SYMPTOMS INVOLVING RESPIRATORY SYSTEM AND OTHER CHEST SYMPTOMS; OTHER CHEST PAIN (786.59) Unclassified (20 sources) Onset: 01-20-2023 Resolved: 09-28-2023 Unclassified (9 sources) Stress Reaction (308.4) Unclassified (9 sources) Abdominal Pain,General (789.07) Unclassified (9 sources) DISORDER, PENIS NOS (607.9) Unclassified (20 sources) Non-smoker; Translations: [Nonsmoker] 03-27-2020 Unclassified (3 sources) Screening status; Translations: [Screening for prostate cancer] 03-26-2017 Unclassified (9 sources) Muscle Spasm (728.85) Unclassified (9 sources) Heel pain, bilateral Unclassified (20 sources) BMI 28.0-28.9,adult Unclassified (18 sources) BMI 27.0-27.9,adult Unclassified (8 sources) Head congestion Unclassified (8 sources) Sinusitis, acute Unclassified (7 sources) COVID-19 Unclassified (6 sources) Rectal pressure Unclassified (6 sources) Kidney stones, calcium oxalate Unclassified (2 sources) Sacral pain NEGATED: Highlighted row has not occurred!Residual codes; unclassified (6 sources) Disease Episodic Results Test Name Value Interpretation Reference Range Facility XR CHEST PA AND LATERAL 2 EWSon 06-19-2024 XR CHEST PA AND LATERAL 2 VIEWS EXAM: XR CHEST PA AND LATERAL 2 VIEWS HISTORY: Pre-Employment COMPARISON: None. TECHNIQUE: Upright PA and lateral chest x-ray FINDINGS: The heart is not enlarged and the vasculature is not distended. No acute infiltrate, effusion or pneumothorax is identified. There is no evidence of tuberculosis. The osseous structures are grossly intact. IMPRESSION: No acute infiltrate or evidence of cardiac decompensation. Normal [facility] XR Chest PA and Lateralon IMPRESSION: No acute infiltrate or evidence of cardiac decompensation. RADIOLOGY EXAM: XR CHEST PA AN D LATERAL 2 VIEWS HISTORY: Pre-Employment COMPARISON: None. TECHNIQUE: Upright PA and lateral chest x-ray FINDINGS: The heart is not enlarged and the vasculature is not distended. No acute infiltrate, effusion or pneumothorax is identified. There is no evidence of tuberculosis. The osseous structures are grossly intact. RADIOLOGY Yury Christensen MD - 06/19/2024 EXAM: XR CHEST PA AND LATERAL 2 VIEWS HISTORY: Pre-Employment COMPARISON: None. TECHNIQUE: Upright PA and lateral chest x-ray FINDINGS: The heart is not enlarged and the vasculature is not distended. No acute infiltrate, effusion or pneumothorax is identified. There is no evidence of tuberculosis. The osseous structures are grossly intact. IMPRESSION IMPRESSION: No acute infiltrate or evidence of cardiac decompensation. [facility] Radiology Study observation (narrative) [facility] XR Chest PA and LateralOrder ed By: Yury Christensen on 06-19-2024 [facility] Work Phone: Abdomen Limitedon 06-02-2024 Abdomen Limited [facility] Imaging Services [address] [place] [id number] Abdomen Limited MR#: [id number] Acct: [id number] Name: ASHLEY BLOCK Rep #: [id number] : 1965 M 58 From: Josselin Centeno MD PCP: Dr. Osiel Padilla MD Status: REG CLI Study: Abdomen Limited Date of Exam: 06/02/24 Exam# [id number] Ordering Dr: Christopher Valdez MD EXAM: US Abdomen Limited, Right Upper Quadrant CLINICAL INDICATION: TECHNIQUE: Real-time ultrasound of the right upper quadrant with image documentation. COMPARISON: No relevant prior studies available. FINDINGS: LIVER: Hepatopetal blood flow in the main portal vein. Liver measures 14.1 cm. No intrahepatic bile duct dilation. GALLBLADDER: Negative Austin's sign was reported by the grinding room inspector. Gallbladder polyp measuring up to 0.4 cm. No gallstones. COMMON BILE DUCT: Unremarkable as visualized. No stones. No dilation. Common bile duct measures 0.35 cm in diameter. PANCREAS: Unremarkable as visualized. RIGHT KIDNEY: Unremarkable. No stones. No hydronephrosis. The right kidney measures 11.8 x 6.9 x 7.6 cm. US/Abdomen Limited IMPRESSION: No acute findings in the right upper quadrant. Reading Location: [facility] CC: Dr. Osiel Padilla MD; Dr. Christopher Valdez MD Wedding Decorator: Signed Normal [facility] Colonoscopy Reporton 025 Colonoscopy Report [facility] Medical Records Department [address] [place] [address] Colonoscopy Report MR#: [id number] Acct: [id number] Name: ASHLEY BLOCK Rep #: [id number] : 1965 58 From: Esau Leyva MD PCP: Dr. Osiel Padilla MD Status:REG [facility] Patient Name: Ashley Block Procedure Date: 05/26/2024 8:22 AM Date of : 1965 Age: 58 Procedure: Colonoscopy Indications: Screening for colorectal malignant neoplasm Providers: Esau Leyva MD Referring MD: Osiel Padilla Md Medicines: Propofol per Anesthesia Patient Profile: This is a 58 year old male. Refer to note in patient chart for documentation of history and physical. Last Colonoscopy: none. The patient's first colonoscopy is today. Complications: No immediate complications. Procedure: Pre-Anesthesia Assessment: - Prior to the procedure, a History and Physical was performed, and patient medications and allergies were reviewed. The patient's tolerance of previous anesthesia was also reviewed. The risks and benefits of the procedure and the sedation options and risks were discussed with the patient. All questions were answered, and informed consent was obtained. Prior Anticoagulants: The patient has taken no anticoagulant or antiplatelet agents. After reviewing the risks and benefits, the patient was deemed in satisfactory condition to undergo the procedure. After I obtained informed consent, the scope was passed under direct vision. Throughout the procedure, the patient's blood pressure, pulse, and oxygen saturations were monitored continuously. The Colonoscope was introduced through the anus and advanced to the cecum, identified by appendiceal orifice and ileocecal valve. The colonoscopy was performed without difficulty. The patient tolerated the procedure well. The quality of the bowel preparation was good. The ileocecal valve, appendiceal orifice, and rectum were photographed. Scope In: 8:23:13 AM Scope Withdrawal Time 0 hours 6 minutes 13 seconds Scope Out: 8:31:44 AM Total Procedure Duration Time 0 hours 8 minutes 31 seconds Findings: The entire examined colon appeared normal on direct and retroflexion views. Impression: - The entire examined colon is normal on direct and retroflexion views. - No specimens collected. Recommendation: - Discharge patient to home. - Resume previous diet. - Continue present medications. - Repeat colonoscopy in 10 years for screening purposes. Procedure Code(s): --- Professional --- 94819, Colonoscopy, flexible; diagnostic, including collection of specimen(s) by brushing or washing, when performed (separate procedure) Diagnosis Code(s): --- Professional --- Z12.11, Encounter for screening for malignant neoplasm of colon CPT copyright 2021 [employer]. All rights reserved. The codes documented in this report are preliminary and upon prosthetic technician review may be revised to meet current compliance requirements. Esau Leyva MD 05/26/2024 8:36:02 AM This report has been signed electronically. Number of Addenda: 0 Note Initiated On: 05/26/2024 8:22 AM 05/26/24 0836 Date Esau Leyva MD Cosigner Signature: Date (if indicated) CC: Dr. Esau Leyva MD; Dr. Osiel Padilla MD Date Dictated: 05/26/24821 Date Transcribed: Wedding Decorator: AC Signed Normal [facility] EGD Reporton 05-26-2024 EGD Report [facility] Medical Records Department [address] [place] [address] EGD Report MR#: [id number] Acct: [id number] Name: ASHLEY BLOCK Rep #: [id number] : 1965 58 From: Esau Leyva MD PCP: Dr. Osiel Padilla MD Status:[facility] Patient Name: Ashley Block Procedure Date: 05/26/2024 8:09 AM Date of : 1965 Age: 58 Procedure: Upper GI endoscopy Indications: Epigastric abdominal pain Providers: Esau Leyva MD Referring MD: Osiel Padilla Md Medicines: Propofol per Anesthesia Patient Profile: This is a 58 year old male. Refer to note in patient chart for documentation of history and physical. Complications: No immediate complications. Procedure: Pre-Anesthesia Assessment: - Prior to the procedure, a History and Physical was performed, and patient medications and allergies were reviewed. The patient's tolerance of previous anesthesia was also reviewed. The risks and benefits of the procedure and the sedation options and risks were discussed with the patient. All questions were answered, and informed consent was obtained. Prior Anticoagulants: The patient has taken no anticoagulant or antiplatelet agents. After reviewing the risks and benefits, the patient was deemed in satisfactory condition to undergo the procedure. After obtaining informed consent, the endoscope was passed under direct vision. Throughout the procedure, the patient's blood pressure, pulse, and oxygen saturations were monitored continuously. The Colonoscope was introduced through the mouth, and advanced to the second part of duodenum. The upper GI endoscopy was accomplished without difficulty. The patient tolerated the procedure well. Scope In: 8:19:21 AM Scope Out: 8:22:04 AM Total Procedure Duration Time 0 hours 2 minutes 43 seconds Findings: The esophagus was normal. The stomach was normal. The examined duodenum was normal. Impression: - Normal esophagus. - Normal stomach. - Normal examined duodenum. - No specimens collected. Recommendation: - Discharge patient to home. - Resume previous diet. - Continue present medications. Procedure Code(s): --- Professional --- 89550, Esophagogastroduodenoscop y, flexible, transoral; diagnostic, including collection of specimen(s) by brushing or washing, when performed (separate procedure) Diagnosis Code(s): --- Professional --- R10.13, Epigastric pain CPT copyright 2021 [employer]. All rights reserved. The codes documented in this report are preliminary and upon prosthetic technician review may be revised to meet current compliance requirements. Esau Leyva MD 05/26/2024 8:34:49 AM This report has been signed electronically. Number of Addenda: 0 Note Initiated On: 05/26/2024 8:09 AM 05/26/2434 Date Esau Leyva MD Cosigner Signature: Date (if indicated) CC: Dr. Esau Leyva MD; Dr. Osiel Padilla MD Date Dictated: 05/26/24808 Date Transcribed: Wedding Decorator: PARAG Mcconnell [facility] MR/POSTOP.[facility] 05-26-2024 MR/POSTOP.[facility] Medical Records Department [address] [place] [address] Anesthesia Postop Eval I 05/26/24832 MR#: [id number] Acct: [id number] Name: ASHLEY BLOCK Rep #: [id number] : 1965 58 From: Ismael Coburn PCP: Dr. Osiel Padilla MD Status:REG [facility] Y Race: C Location: [place] [address] Anesthesia: Postop Eval I Current Vital Signs Temperature: 97 F Pulse Rate: 76 Blood Pressure: 106/81 Respiratory Rate: 16 Pulse Ox: 96 Oxygen Delivery Method: Room Air Assessment Airway patent: Yes Spontaneous unlabored respirations: Yes Mental status: Awake and Calm nausea: No Vomiting: No Anesthesia Complication: No Fluid Hydration Crystalloid volume administer (ml): 10 Total IV fluid infused: 10 Progress Note Anesthesia document: Postop Eval 1 completed: Yes 05/26/24832 Date Ismael Bales Signature: Date CC: Signed Normal [facility] MR/VYEPRNIL7ml 05-26-2024 [facility] Medical Records Department [address] [facility] [place] [address] Anesthesia Postop Eval II 05/26/24832 MR#: [id number] Acct: [id number] Name: ASHLEY BLOCK Rep #: [id number] : 1965 58 From: Ismael Coburn PCP: Dr. Osiel Padilla MD Status:REG SD Y Race: C Location: [address] Anesthesia Postop Eval I Sum Postop Eval Completion status Anesthesia document: Postop Eval 1 completed: Yes Anesthesia Postop Eval I Summary Anesthesia Postop Eval I Summary: Anesthesia Postop Eval I: Assessment Summary Airway patent Yes 05/26/24 08:33 ICER MACHINE OPERATOR.MDOT Spontaneous unlabored Yes 05/26/24 08:33 ICER MACHINE OPERATOR.MDOT respirations Mental status Awake,Calm 05/26/24 08:33 ICER MACHINE OPERATOR.MDOT nausea No 05/26/24 08:33 ICER MACHINE OPERATOR.MDOT Vomiting No 05/26/24 08:33 ICER MACHINE OPERATOR.MDOT Anesthesia Postop Eval I: Fluid Summary Crystalloid volume administer 10 05/26/24 08:33 ICER MACHINE OPERATOR.MDOT (ml) Colloids volume administered ( ml) Blood Product volume administered (ml) Total IV fluid infused 10 05/26/24 08:33 ICER MACHINE OPERATOR.MDOT Anesthesia Postop Eval I: Summary Notes Anesthesia Complication No 05/26/24 08:33 ICER MACHINE OPERATOR.MDOT Anesthesia Complication Comment: Post-operative progress note Anesthesia: Postop Eval II Evaluation Mental status: Awake and Calm Pain Level: 0 nausea: No Vomiting: No Complications Anesthesia Complication: No 05/26/24832 Date Ismael Bales Signature: Date CC: Signed Normal [facility] MR/PATLisandro 05-23-2024 MR/PAT.ANE [facility] Medical Records Department [address] [place] [address] PAT - Anesthesia 05/23/24 1651 MR#: [id number] Acct: [id number] Name: ASHLEY BLOCK Rep #: [id number] : 1965 58 From: Karlos Varner MD PCP: Dr. Osiel Padilla MD Status:PRE SDC Y Race: C Location: [facility] Pre-Assessment Diagnosis/Proposed Procedure Planned Operative Procedure(s): COLONOSCOPY, EGD Anesthesia History Anesthesia History - pit hand: Anesthesia History - pit hand Hx Hospitalization No 05/23/24 15:35 Any Problems With Anesthesia No 05/23/24 15:35 Cholinesterase deficiency No 05/23/24 15:35 You/Your Family Experience No 05/23/24 15:35 fever (hyperthermia) with Relationship Recent Exposure to Contagious No 03/01/23 06:01 Disease Does patient have nerve No 05/23/24 15:35 stimulator Patient instructed to have device shut off --Does patient have Pacemaker or ICD? When Was Last Pacemaker Check QUESTION #4 FULL TEXT: You/Your Family Experience fever (hyperthermia) with Anesthesia Last Oral Intake Last Oral intake: Last Oral Intake NPO since Meds taken in AM with sips of water? Meds patient instructed to take am of surgery PONV PONV - pit hand: PONV - pit hand Female No 05/23/24 15:35 HX of Motion Sickness No 05/23/24 15:35 HX of N/V After Surgery No 05/23/24 15:35 Non-Smoker Yes 05/23/24 15:35 Duration of Surgery greater No 05/23/24 15:35 than 60 minutes Number of Risk Factors 1 05/23/24 15:35 PONV Score Low Risk 05/23/24 15:35 Height Weight Height Weight: Anesthesia: Height Weight Height 5 ft 11 in 05/02/24 14:57 Respiratory Assessment Respiratory Assessment - pit hand: Respiratory Tract Infection Hx - pit hand Hx Respiratory Tract Infection No 05/23/24 15:35 STOP Sleep Apnea STOP Sleep Apnea - pit hand: STOP Sleep Apnea - pit hand Hx Hypertension Yes: CONTROLLED WITH MEDS 05/23/24 15:35 Hx Sleep Apnea No 05/23/24 15:35 CPAP BIPAP Do you snore loudly (louder Yes 05/23/24 15:35 than talking or can be heard Do you often feel tired/ No 05/23/24 15:35 fatigued/ sleepy during daytime? Has anyone observed you stop Yes 05/23/24 15:35 breathing during sleep? STOP Results Positive 05/23/24 15:35 QUESTION #5 FULL TEXT : Do you snore loudly (louder than talking or can be heard through closed doors)? Tobacco Use History Tobacco Use History - pit hand: Tobacco Use History - pit hand Tobacco Use Smoking Status Never smoker 05/23/24 15:35 Hx Tobacco Use Yes 05/23/24 15:35 Years Smoking Packs Smoked per Day Smoking Cessation Date was within the last 15 years Hx Smoking Cessation Date Hx Smoking Cessation Counseling Hematologic Medial History Hematologic Hx - pit hand: Hematologic Medical Hx - patient care assistant Hx of Blood Transfusion No 05/23/24 15:35 Hx of Transfusion in last 3 No 05/23/24 15:35 Months Date of Last Transfusion (if within last 3 months) Ever experience any problems No 05/23/24 15:35 with transfusion(s)? Specify any problems Hx of Preganancy in last 3 N/A 05/23/24 15:35 Months Nurse Filling Out Transfusion [email or web address] 05/23/24 15:35 Questions: Date: 05/23/24 05/23/24 15:35 Time: 15:37 05/23/24 15:35 Patient unable to answer at this time (ie. confused, unrespo /Reproduction History /Reproductive History - pit hand: /Reproductive Hx- pit hand Hx Now Gestational Age (in weeks): EDC: Hx Hx Para Hx Section SAB PFSH Medical History (Updated 05/23/24 @ 15:43 by Abdirashid Syed) Wears glasses Alcohol use History of steroid therapy History of renal disease Kidney stones High cholesterol History of hiatal hernia Gastric reflux Chewing tobacco nicotine dependence Hypertension Home Medications ???Medication ???Instructions ???Recorded ???Last Taken ???Type aspirin 81 mg capsule 81 mg PO DAILY BLOOD THINNER 02/1605/12/24 History chlorthalidone 25 mg tablet 25 mg PO DAILY BP 02/16/23 Unknown History losartan 50 mg tablet 50 mg PO DAILY BP 02/16/23 Unknown History potassium citrate 15 mEq (1,620 15 meq PO BID SUPPLEMENT 02/16/23 Unknown History mg) tablet,extended release tadalafil 20 mg tablet 20 mg PO PRN ED 02/16/23 Unknown H istory atorvastatin 80 mg tablet (Lipitor) 80 mg PO QHS CHOLESTEROL #90 ta bs 03/29/24 Unknown Rx omeprazole 20 mg tablet,delayed 20 mg PO QDAY #60 tabs 05/02/24 Un known Rx release sucralfate 1 gram tablet (Carafat (more content not included)... Normal [facility] Abdomen/Pelvis without Conto n 05-12-2024 Abdomen/Pelvis without Cont [facility] Imaging Services [address] [place], [place] [address] Abdomen/Pelvis without Cont MR#: [id number] Acct: [id number] Name: ASHLEY BLOCK Rep #: [id number] : 1965 M 58 From: Emelyn Mojica MD PCP: Dr. Osiel Padilla MD Status: REG [facility] Study: Abdomen/Pelvis without Cont Date of Exam: 04/20 08/11 Exam# [id number] Ordering Dr: Osiel Padilla MD [id number] INDICATION: Abdominal PAIN EXAMINATION: CT ABDOMEN AND PELVIS WITHOUT CONTRAST - CT Abdomen And Pelvis W/O Contrast Injection TECHNIQUE: Helically acquired images were obtained of the abdomen and pelvis without oral or IV contrast. The protocol utilizes one or more of the following dose reduction techniques: automated exposure control, adjustment of mA and/or kV according to patient size,and/or use of iterative reconstruction technique. IV Contrast dosage and agent: None. Oral contrast: None. RADIATION DOSAGE (If Supplied By Facility): CTDIvol = ( 9.60 ) mGy, DLP = ( 506.21 ) mGycm COMPARISON: April 05, 2017 FINDINGS: LOWER CHEST: Lung bases are clear. No cardiomegaly or pericardial effusion. The lack of intravenous contrast limits evaluation of solid visceral organs. LIVER: Homogeneous. No focal mass. GALLBLADDER AND BILIARY TREE: No calcified gallstones. No gallbladder distension or wall edema. No intra- or extrahepatic biliary ductal dilation. PANCREAS: No focal cystic or solid mass. SPLEEN: Normal size without focal cystic or solid mass. ADRENAL GLANDS: No nodules. KIDNEYS AND URETERS: Normal renal size and position. There are bilateral nonobstructing renal calculi measuring up to 4.2 mm on the right and 3.5 mm on the left. There is mild left-sided hydronephrosis, less pronounced than the prior examination. PERITONEUM: No ascites or free air. No other fluid collection. BOWEL: No evidence of acute appendicitis. No stomach or bowel distension. There are diverticula arising from the colon. No focal inflammatory change. LYMPH NODES: No enlarged mesenteric or retroperitoneal lymph nodes. VESSELS: Aorta is non-dilated. There are peripheral calcifications of the abdominal aorta URINARY BLADDER: Unremarkable. REPRODUCTIVE ORGANS: No pelvic masses. ABDOMINAL WALL: No discrete abdominal or pelvic wall hernia. BONES: No lytic or blastic abnormality. CT/Abdomen/Pelvis without Cont IMPRESSION: Mild left-sided hydronephrosis, less pronounced than the prior examination dated April 05, 2017. Bilateral nonobstructing renal calculi measuring up to 4.2 mm on the right. Colonic diverticulosis. Electronically Signed: Emelyn Mojica MD at 10:24 EST , CC: Dr. Osiel Padilla MD Wedding Decorator: Signed Normal [facility] Surgery Visit Reporton 05-02 Surgery Visit Report [facility] [address] [place] [address]. [address] [place] [address] OFFICE VISIT Date of Service: 05/02/24 MR#: [id number] Acct: [id number] Name: ASHLEY BLOCK Rep #: [id number] : 1965 Provider: Dr. Esau max MD Age/Sex: 58/M Location: [facility] Status: Signed Intake Vital Signs 03/01/23 15:08 05/02/24 14:57 Height 5 ft 11 in 5 ft 11 in Weight: 194 lb BMI 27.0 BP 141/92 H Blood Pressure Location Rt brachial Position Sitting Respiration 17 Pulse 73 Pulse Source Monitor Pulse Oximetry (%) 97 Oxygen Delivery Method room air Intake Visit Reasons: COLONOSCOPY, ABDOMINAL PAIN Chief Complaint: colonoscopy abd pain Allergies Iodinated Contrast Media (CONTRASTS) Allergy (Intermediate, Verified 05/02/24 14:57) Swelling Opioids - Morphine Analogues Adverse Reaction (Severe, Verified 05/02/24 14:57) Nausea/Vom/Diarrhea Medications ???Medication ???Instructions ???Recorded ???Confirmed ???Type aspirin 81 mg capsule 81 mg PO DAILY BLOOD THINNER 02/16/23 05/02/24 History chlorthalidone 25 mg tablet 25 mg PO DAILY BP 02/16/23 05/02/24 History losartan 50 mg tablet 50 mg PO DAILY BP 02/16/23 05/02/24 History potassium citrate 15 mEq (1,620 15 meq PO BID SUPPLEMENT 02/16/23 05/02/24 History mg) tablet,extended release tadalafil 20 mg tablet 20 mg PO PRN ED 02/16/23 05/02/24 History atorvastatin 80 mg tablet (Lipitor) 80 mg PO QHS CHOLESTEROL #90 tabs 03/29/24 05/02/24 Rx PFSH Medical History (Updated 05/02/24 @ 14:56 by Jessica Gracia) Wears dentures Alcohol use History of steroid therapy History of renal disease Kidney stones High cholesterol History of hiatal hernia Gastric reflux Chewing tobacco nicotine dependence Hypertension Surgical History History of tonsillectomy and adenoidectomy H/O lithotripsy Family History Mother Breast cancer Diabetes Social History Smoking Status: Never smoker Smokeless tobacco user: chewing tobacco ROS General General: No weight change, appetite, fatigue, colon cancer, breast cancer or weakness HEENT HEENT: No difficulty swallowing, eye injury, eye surgery, swollen glands or hoarseness Endo Endocrine: No thyroid disease, diabetes mellitus, thyroid cancer, Hair loss, heat intolerance or cold intolerance Skin Skin: No rash or changing moles Musc Musculoskeletal: Yes back problems; No arthritis, rheumatoid arthritis, gout or joint pain Cardio Cardiovascular: Yes high blood pressure; No murmur, pacemaker, heart disease, atrial fibrillation, heart attack, heart stent, palpitations, shortness of breat with exertion or chest pain Psych Psychiatric: No depression, anxiety or hearing voices Resp Respiratory: No shortness of breath, No sleep apnea, No cough, No COPD, No asthma, No emphysema and No wheezing Gastro Gastrointestinal: Yes abdominal pain, No nausea or vomiting, Yes diarrhea, No constipation, No blood in stool, Yes acid reflux, Yes hemorrhoids, No ulcers, No gallbladder problem and No black,tarry stools Alejo Hematologic: No blood thinners, No blood disorders, No bleeding, No anemia and No blood clots Neuro Neurologic: No system reviewed and no additional complaints, except as documented, No as per HPI, No abnormal gait, No abnormal hearing, No abnormal movements, No abnormal speech, No behavioral changes, No burning sensations, No confusion, No convulsions, No disequilibrium, No dizziness, No localized weakness, No frequent falls, No headache(s), No lack of coordination, No loss of vision, No memory loss, Yes numbness, No other visual disturbances, No radicular pain, No restless legs, No sensory deficit, No syncope, No tingling, No tremor(s), No weakness and No other Assessment and Plan Assessment and Plan (1) Encounter for screening colonoscopy: Status: Acute (2) Abdominal pain: Status: Acute Orders: Orders Colonoscopy Today EGD Today Plan The patient is having epigastric pain and bloating and he reports that his stools are sometimes pale. He is getting a CT scan done in 2 weeks. He says that the pain is better with eating. He says it also helps to lay down. He describes the pain in the epigastric area and it can be in the left and right upper quadrants. He also describes loose stools. It sounds like the patient may be having gastritis and I would like to order him a PPI and Carafate. I would like to perform a EGD and colonoscopy. Patient is overdue for screening colonoscopy as it was over 10 years ago. He denies blood in the stool. If EGD and colonoscopy are normal and the PPI and Carafate do not help then I would begin to (more content not included)... Normal [facility] CBC W/Diff, Automatedon 12 Absolute Lymph 2.26 X10 3/uL Normal 0.83-4.51 [facility] Comment on above: Order Comment: Order Date: 04/14/24 Order Info: 0184-1 - CBCD Performed By: #### L 100.0100, L501.9910, L500.4100, L500.4050 #### [facility] [address] [place], [address] Absolute Neut 3.6 X10 3/uL Normal 2.0-7.7 [facility] Comment on above: Order Comment: Order Date: 04/14/24 Order Info: 018-1 - CBCD Performed By: #### L 100.0100, L501.9910, L500.4100, L500.4050 #### [facility] [address] [place], [address] Basophils/100 WBC (Bld) 0.4 % Normal 0-1 [facility] Comment on above: Order Comment: Order Date: 04/14/24 Order Info: 0184-1 - CBCD Performed By: #### L 100.0100, L501.9910, L500.4100, L500.4050 #### [facility] [address] [place], [address] Eosinophils/100 WBC (Bld) 2.6 % Normal 0-5 [facility] Comment on above: Order Comment: Order Date: 04/14/24 Order Info: 0184-1 - CBCD Performed By: #### L 100.0100, L501.9910, L500.4100, L500.4050 #### [facility] [address] [place], [address] Erythrocyte distribution width (RBC) [Ratio] 12.1 % Normal 11.6-14.6 [facility] Comment on above: Order Comment: Order Date: 04/14/24 Order Info: 0184-1 - CBCD Performed By: #### L 100.0100, L501.9910, L500.4100, L500.4050 #### [facility] [address] [place], [address] Hematocrit (Bld) [Volume fraction] 43.4 % Normal 40-54 [facility] Comment on above: Order Comment: Order Date: 04/14/24 Order Info: 0184-1 - CBCD Performed By: #### L 100.0100, L501.9910, L500.4100, L500.4050 #### [facility] [address] [place], [address] Hemoglobin (Bld) [Mass/Vol] 14.7 g/dL Normal 13.0-16.5 [facility] Comment on above: Order Comment: Order Date: 04/14/24 Order Info: 0184-1 - CBCD Performed By: #### L 100.0100, L501.9910, L500.4100, L500.4050 #### [facility] [address] [place], [address] IG% 0.100 Normal 0.0-0.9 [facility] Comment on above: Order Comment: Order Date: 04/14/24 Order Info: 0184-1 - CBCD Result Comment: IG% - Immature Granulocytes (promyelocytes, myelocytes and metamyelocytes) > 1% indicates that a LEFT SHIFT is Present. Performed By: #### L 100.0100, L501.9910, L500.4100, L500.4050 #### [facility] [address] [place], [address] Lymphocytes/100 WBC (Bld) 33.1 % Normal 19-41 [facility] Comment on above: Order Comment: Order Date: 04/14/24 Order Info: 018-1 - CBCD Performed By: #### L 100.0100, L501.9910, L500.4100, L500.4050 #### [facility] [address] [place], [address] MCH (RBC) [Entitic mass] 30.9 pg Normal 27.0-32.0 [facility] Comment on above: Order Comment: Order Date: 04/14/24 Order Info: 018- - CBCD Performed By: #### L 100.0100, L501.9910, L500.4100, L500.4050 #### [facility] [address] [place], [address] MCHC (RBC) [Mass/Vol] 33.9 g/dL Normal 32-36 [facility] Comment on above: Order Comment: Order Date: 04/14/24 Order Info: 018- - CBCD Performed By: #### L 100.0100, L501.9910, L500.4100, L500.4050 #### [facility] [address] [place], [address] MCV (RBC) [Entitic vol] 91.4 fL Normal 80-94 [facility] Comment on above: Order Comment: Order Date: 04/14/24 Order Info: 018- - CBCD Performed By: #### L 100.0100, L501.9910, L500.4100, L500.4050 #### [facility] [address] [place], [address] Monocytes/100 WBC (Bld) 11.3 % High 0-10 [facility] Comment on above: Order Comment: Order Date: 04/14/24 Order Info: 018- - CBCD Performed By: #### L 100.0100, L501.9910, L500.4100, L500.4050 #### [facility] [address] [place], [address] Neutrophils/100 WBC (Bld) 52.5 % Normal 47-70 [facility] Comment on above: Order Comment: Order Date: 04/14/24 Order Info: 0184-1 - CBCD Performed By: #### L 100.0100, L501.9910, L500.4100, L500.4050 #### [facility] [address] [place], [address] Nucleated RBC (Bld) [#/Vol] 0 10*3/uL Normal 0-5 [facility] Comment on above: Order Comment: Order Date: 04/14/24 Order Info: 0184- - CBCD Performed By: #### L 100.0100, L501.9910, L500.4100, L500.4050 #### [facility] [address] [place], [address] Platelet mean volume (Bld) [Entitic vol] 9.9 fL Normal 6.2-12.0 [facility] Comment on above: Order Comment: Order Date: 04/14/24 Order Info: 0184- - CBCD Performed By: #### L 100.0100, L501.9910, L500.4100, L500.4050 #### [facility] [address] [place], [address] Platelets (Bld) [#/Vol] 251 10*3/uL Normal 150-450 [facility] Comment on above: Order Comment: Order Date: 04/14/24 Order Info: 0184- - CBCD Performed By: #### L 100.0100, L501.9910, L500.4100, L500.4050 #### [facility] [address] [place], [address] RBC (Bld) [#/Vol] 4.75 10*6/uL Normal 4.6-6.2 [facility] Comment on above: Order Comment: Order Date: 04/14/24 Order Info: 0184-1 - CBCD Performed By: #### L 100.0100, L501.9910, L500.4100, L500.4050 #### [facility] [address] [place], [address] RDW SD 40.1 fl Normal 35.1-43.9 [facility] Comment on above: Order Comment: Order Date: 04/14/24 Order Info: 0184- - CBCD Performed By: #### L 100.0100, L501.9910, L500.4100, L500.4050 #### [facility] [address] [place], [address] WBC (Bld) [#/Vol] 6.8 10*3/uL Normal 4.4-11.0 [facility] Comment on above: Order Comment: Order Date: 04/14/24 Order Info: 0184- - CBCD Performed By: #### L 100.0100, L501.9910, L500.4100, L500.4050 #### [facility] [address] [place], [address] Comprehensive Metabolic Prof ilon 04-14-2024 Albumin [Mass/Vol] 4.1 g/dL Normal 3.2-5.0 [facility] Comment on above: Order Comment: Order Date: 04/14/24 Order Info: 0786-1 - CMP Order Info: 06861-9 - LIPID Order Info: 2857-1 - PSA Performed By: #### L 100.0100, L501.9910, L500.4100, L500.4050 #### [facility] [address] [place], [address] Albumin/Globulin [Mass ratio] 1.2 {ratio} Normal 0.9-2.4 [facility] Comment on above: Order Comment: Order Date: 04/14/24 Order Info: 0786-1 - CMP Order Info: [id number] - LIPID Order Info: 28510-17 - PSA Performed By: #### L 100.0100, L501.9910, L500.4100, L500.4050 #### [facility] [address] [place], [address] ALK P 86 U/L Normal 45-117 [facility] Comment on above: Order Comment: Order Date: 04/14/24 Order Info: 785- - CMP Order Info: [id number] - LIPID Order Info: 2856-04 - PSA Performed By: #### L 100.0100, L501.9910, L500.4100, L500.4050 #### [facility] [address] [place], [address] ALT [Catalytic activity/Vol] 66 U/L High 16-61 [facility] Comment on above: Order Comment: Order Date: 04/14/24 Order Info: 785-04 - CMP Order Info: 46777-0 - LIPID Order Info: 28510-17 - PSA Performed By: #### L 100.0100, L501.9910, L500.4100, L500.4050 #### [facility] [address] [place], [address] AST [Catalytic activity/Vol] 26 U/L Normal 15-37 [facility] Comment on above: Order Comment: Order Date: 04/14/24 Order Info: 785-04 - CMP Order Info: 12532-6 - LIPID Order Info: 28510-17 - PSA Performed By: #### L 100.0100, L501.9910, L500.4100, L500.4050 #### [facility] [address] [place], [address] Bilirubin [Mass/Vol] 0.30 mg/dL Normal 0.20-1.00 [facility] Comment on above: Order Comment: Order Date: 04/14/24 Order Info: 0786- - CMP Order Info: [id number] - LIPID Order Info: 285-1 - PSA Result Comment: For patients on eltrombopag therapy, use of Dimension [place] TBIL is not recommended. Performed By: #### L 100.0100, L501.9910, L500.4100, L500.4050 #### [facility] [address] [place], [address] BUN/CRE 13.0 RATIO Normal 10-20 [facility] Comment on above: Order Comment: Order Date: 04/14/24 Order Info: 0786-1 - CMP Order Info: [id number] - LIPID Order Info: 285-1 - PSA Performed By: #### L 100.0100, L501.9910, L500.4100, L500.4050 #### [facility] [address] [place], [address] CA,Total 9.5 mg/dL Normal 8.5-10.1 [facility] Comment on above: Order Comment: Order Date: 04/14/24 Order Info: 0786- - CMP Order Info: [id number] - LIPID Order Info: 28510-17 - PSA Performed By: #### L 100.0100, L501.9910, L500.4100, L500.4050 #### [facility] [address] [place], [address] Chloride [Moles/Vol] 102 mmol/L Normal 98-107 [facility] Comment on above: Order Comment: Order Date: 04/14/24 Order Info: 0786- - CMP Order Info: [id number] - LIPID Order Info: 2857-1 - PSA Performed By: #### L 100.0100, L501.9910, L500.4100, L500.4050 #### [facility] [address] [place], [address] CO2 [Moles/Vol] 31.0 mmol/L Normal 21.0-32.0 [facility] Comment on above: Order Comment: Order Date: 04/14/24 Order Info: 0786- - CMP Order Info: - LIPID Order Info: 2856-04 - PSA Performed By: #### L 100.0100, L501.9910, L500.4100, L500.4050 #### [facility] [address] [place], [address] Creatinine [Mass/Vol] 1.08 mg/dL Normal 0.70-1.30 [facility] Comment on above: Order Comment: Order Date: 04/14/24 Order Info: 785-04 - CMP Order Info: - LIPID Order Info: 2856-04 - PSA Result Comment: The validity of the calculated GFR GFRAA in patients over 70 years has not been determined. Clinical correlation is essential. Performed By: #### L 100.0100, L501.9910, L500.4100, L500.4050 #### [facility] [address] [place], [place], [address] EST GFR - AA 91 mL/min Normal >60 [facility] Comment on above: Order Comment: Order Date: 04/14/24 Order Info: 785-04 - CMP Order Info: - LIPID Order Info: 2856-04 - PSA Result Comment: Afri can [place]og[place] GFR Calc Performed By: #### L 100.0100, L501.9910, L500.4100, L500.4050 #### [facility] [address] [place], [address] GAP 6 Normal 5-15 [facility] Comment on above: Order Comment: Order Date: 04/14/24 Order Info: 785-04 - CMP Order Info: - LIPID Order Info: 2856-04 - PSA Performed By: #### L 100.0100, L501.9910, L500.4100, L500.4050 #### [facility] [address] [place], [address] GFR/1.73 sq M.predicted among non-blacks MDRD (S/P/Bld) [Vol rate/Area] 75 mL/min/{1.73_m2} Normal >60 [facility] Comment on above: Order Comment: Order Date: 04/14/24 Order Info: 07 - CMP Order Info: - LIPID Order Info: 2856-04 - PSA Result Comment: Non- GFR Calc Performed By: #### L 100.0100, L501.9910, L500.4100, L500.4050 #### [facility] [address] [place], [address] Globulin (S) [Mass/Vol] 3.5 g/dL Normal 2.2-4.2 [facility] Comment on above: Order Comment: Order Date: 04/14/24 Order Info: 785-04 - CMP Order Info: [id number] - LIPID Order Info: 2856-04 - PSA Performed By: #### L 100.0100, L501.9910, L500.4100, L500.4050 #### [facility] [address] [place], [address] Glucose [Mass/Vol] 96 mg/dL Normal 74-106 [facility] Comment on above: Order Comment: Order Date: 04/14/24 Order Info: 07 - CMP Order Info: 93225-4 - LIPID Order Info: 28510-17 - PSA Performed By: #### L 100.0100, L501.9910, L500.4100, L500.4050 #### [facility] [address] [place], [address] Potassium [Moles/Vol] 3.5 mmol/L Normal 3.5-5.1 [facility] Comment on above: Order Comment: Order Date: 04/14/24 Order Info: 07 - CMP Order Info: 00096-1 - LIPID Order Info: 28510-17 - PSA Performed By: #### L 100.0100, L501.9910, L500.4100, L500.4050 #### [facility] [address] [place], [address] Sodium [Moles/Vol] 139 mmol/L Normal 136-145 [facility] Comment on above: Order Comment: Order Date: 04/14/24 Order Info: 0786-1 - CMP Order Info: 99788-9 - LIPID Order Info: 2857-1 - PSA Performed By: #### L 100.0100, L501.9910, L500.4100, L500.4050 #### [facility] [address] [place], [address] T PROT 7.6 g/dL Normal 6.4-8.2 [facility] Comment on above: Order Comment: Order Date: 04/14/24 Order Info: 0786-1 - CMP Order Info: 55214-8 - LIPID Order Info: 2857 - PSA Performed By: #### L 100.0100, L501.9910, L500.4100, L500.4050 #### [facility] [address] [place], [address] Urea nitrogen [Mass/Vol] 14 mg/dL Normal 7-18 [facility] Comment on above: Order Comment: Order Date: 04/14/24 Order Info: 0786-1 - CMP Order Info: [id number] - LIPID Order Info: 2857-1 - PSA Performed By: #### L 100.0100, L501.9910, L500.4100, L500.4050 #### [facility] [address] [place], [address] Erythrocyte Sed Rateon 04-14 SED RATE < 1 Normal 0-20 [facility] Comment on above: Order Comment: Order Date: 04/14/24 Order Info: 0184-1 - CBCD Performed By: #### L 101.9900 #### [facility] [address] [place], [address] Lipid Profileon 04-14-2024 Cholesterol [Mass/Vol] 116 mg/dL Normal 200 [facility] Comment on above: Order Comment: Order Date: 04/14/24 Order Info: 785-04 - CMP Order Info: - LIPID Order Info: 2856-04 - PSA Result Comment: <200 mg/dL Desirable 200-240 mg/dL Borderline >240 mg/dL High Risk Performed By: #### L 100.0100, L501.9910, L500.4100, L500.4050 #### [facility] [address] [place], [address] Cholesterol in HDL [Mass/Vol] 51 mg/dL Normal [facility] Comment on above: Order Comment: Order Date: 04/14/24 Order Info: 785-04 - CMP Order Info: - LIPID Order Info: 2856-04 - PSA Result Comment: The drugs N-Acetylcysteine and Metamizole may falsely depress this assay. Reference Range HDL <40 mg/dL Low HDL Cholesterol HDL >or= 60 mg/dL High HDL Cholesterol Performed By: #### L 100.0100, L501.9910, L500.4100, L500.4050 #### [facility] [address] [place], [address] Cholesterol in LDL [Mass/Vol] 39 mg/dL Normal 0-130 [facility] Comment on above: Order Comment: Order Date: 04/14/24 Order Info: 785-04 - CMP Order Info: - LIPID Order Info: 2856-04 - PSA Performed By: #### L 100.0100, L501.9910, L500.4100, L500.4050 #### [facility] [address] [place], [address] Cholesterol in VLDL [Mass/Vol] 26 mg/dL Normal 5-40 [facility] Comment on above: Order Comment: Order Date: 04/14/24 Order Info: 785-04 - CMP Order Info: - LIPID Order Info: 2856-04 - PSA Performed By: #### L 100.0100, L501.9910, L500.4100, L500.4050 #### [facility] [address] [place], [address] Triglyceride [Mass/Vol] 130 mg/dL Normal [facility] Comment on above: Order Comment: Order Date: 04/14/24 Order Info: 0786-1 - CMP Order Info: [id number] - LIPID Order Info: 2857-1 - PSA Result Comment: The drugs N-Acetylcysteine and Metamizole may falsely depress this assay. Serum Triglycerides Reference Interval Normal <150 mg/dL Borderline high 150 - 199 mg/dL High 200 - 499 mg/dL Very High > or = 500 mg/dL Performed By: #### L 100.0100, L501.9910, L500.4100, L500.4050 #### [facility] [address] [place], [address] PSA,Total - Annual Screenon 04-14-2024 PSA,TOT SCREEN 0.34 ng/mL Normal 0.00-4.00 [facility] Comment on above: Order Comment: Order Date: 04/14/24 Order Info: 0786-1 - CMP Order Info: 02316-1 - LIPID Order Info: 2857-1 - PSA Result Comment: This test was performed using the TPSA assay method for the [employer] chemistry system. Values obtained with different assay methods cannot be used interchangably. When changing PSA assays in the course of monitoring a patient, additional sequential testing should be carried out to confirm baseline values. Performed By: #### L 100.0100, L501.9910, L500.4100, L500.4050 #### [facility] [address] [place], [address] Sacrum-Coccyx min 2 Viewson 04-14-2024 Sacrum-Coccyx min 2 Views [facility] [address] [place] [address] Sacrum-Coccyx min 2 Views MR#: [id number] Acct: [id number] Name: ASHLEY BLOCK Rep #: [id number] : 1965 M 58 From: Erik White PCP: Dr. Osiel Padilla MD Status: REG CLI Study: Sacrum-Coccyx min 2 Views Date of Exam: Exam# [id number] Ordering Dr: Osiel Padilla MD [id number] EXAM: XR SACRUM AND COCCYX, 2 OR MORE VIEWS CLINICAL INDICATION: sacral pain TECHNIQUE: Frontal and lateral views of the sacrum and coccyx. COMPARISON: No relevant prior studies available. FINDINGS: SACRUM/COCCYX: Unremarkable. No displaced fracture. No destructive or sclerotic lesions. Note that overlapping bowel shadows may however obscure fine detail in the frontal view. Sacroiliac joints are unremarkable. SOFT TISSUES: Unremarkable. No soft tissue swelling or gas. RAD/Sacrum-Coccyx min 2 Views IMPRESSION: Unremarkable sacro-coccygeal spine. Electronically Signed: Erik Bettencourt MD at 20:55 EST Reading Location ID and State: [facility] / [place] , Service support , CC: Dr. Osiel Padilla MD Wedding Decorator: Signed Normal [facility] MR/BMS.Erick 03-29-2024 MR/BMS.BVS [facility] [address] [place] [address]. [address] [place] [address] OFFICE VISIT Date of Service: 03/29/24 MR#: [id number] Acct: [id number] Name: ASHLEY BLOCK Rep #: [id number] : 1965 Provider: ZELDA Rose Age/Sex: 58/M Location: [facility] [place] Status: Signed Intake Vital Signs 03/01/23 15:08 03/29/24 16:09 Height 5 ft 11 in Weight: 199 lb BP 131/80 H Blood Pressure Location Lt brachial Position Sitting Respiration 14 Pulse 86 Pulse Source Monitor Temp 98 F Temp Source Temporal Pulse Oximetry (%) 97 Oxygen Delivery Method room air Intake Visit Reasons: 1 YR FU Is patient in pain?: No Allergies Iodinated Contrast Media (CONTRASTS) Allergy (Intermediate, Verified 03/29/24 16:11) Swelling Opioids - Morphine Analogues Adverse Reaction (Severe, Verified 03/29/24 16:11) Nausea/Vom/Diarrhea Medications ???Medication ???Instructions ???Recorded ???Confirmed ???Type aspirin 81 mg capsule 81 mg PO DAILY BLOOD THINNER 02/16/23 03/29/24 History chlorthalidone 25 mg tablet 25 mg PO DAILY BP 02/16/23 03/29/24 History losartan 50 mg tablet 50 mg PO DAILY BP 02/16/23 03/29/24 History potassium citrate 15 mEq (1,620 15 meq PO BID SUPPLEMENT 02/16/23 03/29/24 History mg) tablet,extended release tadalafil 20 mg tablet 20 mg PO PRN ED 02/16/23 03/29/24 History atorvastatin 80 mg tablet (Lipitor) 80 mg PO QHS CHOLESTEROL #90 tabs 03/29/24 03/29/24 Rx Have you fallen in the past year?: No PFSH Medical History Wears dentures Alcohol use History of steroid therapy History of renal disease Kidney stones High cholesterol History of hiatal hernia Gastric reflux Chewing tobacco nicotine dependence Hypertension Surgical History (Updated 03/29/24 @ 16:28 by ZELDA Rose) History of tonsillectomy and adenoidectomy H/O lithotripsy Family History Mother Breast cancer Diabetes Social History (Updated 03/29/24 @ 16:09 by Bee Joseph) Smoking Status: Never smoker Smokeless tobacco user: chewing tobacco HPI HPI HPI: ASHLEY BLOCK, is a 58 M who presents to the office today for follow-up 1 year s/p R CEA in 02/2023. He recently completed routine surveillance duplex on 02/28/24 which showed no stenosis in the R ICA and <50% L ICA stenosis. He reports he has been doing well over this last year. Recall that postoperatively he had right- sided tongue numbness as well as some numbness along his R jaw and ear. He reports that fortunately the tongue numbness has resolved. He does still have persistent numbness along his earlobe and jaw but this is not bothersome to him. He denies any recurrent episodes of visual disturbance/visual field loss as he'd had prior to his R CEA. He also denies any other focal neurologic symptoms such as unilateral weakness/sensory deficits, dysarthria, facial drooping. He continues to take ASA and statin without adverse effects. ROS General General: No weight change, appetite, fatigue, colon cancer, breast cancer or weakness HEENT HEENT: No difficulty swallowing, eye injury, eye surgery, swollen glands or hoarseness Endo Endocrine: No thyroid disease, diabetes mellitus, thyroid cancer, Hair loss, heat intolerance or cold intolerance Skin Skin: No rash or changing moles Musc Musculoskeletal: No back problems, arthritis, rheumatoid arthritis, gout or joint pain Cardio Cardiovascular: No murmur, pacemaker, heart disease, atrial fibrillation, high blood pressure, heart attack, heart stent, palpitations, shortness of breat with exertion or chest pain Psych Psychiatric: No depression, anxiety or hearing voices Resp Respiratory: No shortness of breath, No sleep apnea, No cough, No COPD, No asthma, No emphysema and No wheezing Gastro Gastrointestinal: Yes abdominal pain, No nausea or vomiting, No diarrhea, No constipation, No blood in stool, Yes acid reflux, No hemorrhoids, No ulcers, No gallbladder problem and No black,tarry stools Alejo Hematologic: No blood thinners, No blood disorders, No bleeding, No anemia and No blood clots Neuro Neurologic: No system reviewed and no additional complaints, except as documented, No as per HPI, No abnormal gait, No abnormal hearing, No abnormal movements, No abnormal speech, No behavioral changes, No burning sensations, No confusion, No convulsions, No disequilibrium, No dizziness, No localized weakness, No frequent falls, No headache(s), No lack of coordination, No loss of vision, No memory loss, Yes numbness, No other visual disturbances, No radicular pain, No restless legs, No sensory deficit, No syncope, No tingling, No tremor(s), No weakness and No other Exam Const General: coopera (more content not included)... Normal [facility] XR Abdomen Single viewon 1. Bilateral renal calculi. MACRO: None Signed by: Bulmaro Stevenson 03/22/2024 3:30 PM Dictation workstation: [id number] [facility] Interpreted By: Bulmaro Paul, STUDY: XR ABDOMEN 1 VIEW; 03/22/2024 3:28 pm INDICATION: Signs/Symptoms:KIDNEY STONES. ,N20.0 Calculus of kidney COMPARISON: None. ACCESSION NUMBER(S): [id number] ORDERING CLINICIAN: DIONISIO ROCHA FINDINGS: Nonobstructive bowel gas pattern. Poorly visualized multiple calcifications are seen, in the mid and lower pole of the right kidney, measuring about 5 mm in size each. There is also a 3 mm calcification in the lower pole of the left kidney. No calcification is seen in the ureters, or the urinary bladder. Visualized lungs are clear. Osseous structures demonstrate no acute bony changes. Bulmaro Hinds MD - 03/22/2024 Interpreted By: Bulmaro Stevenson, STUDY: XR ABDOMEN 1 VIEW; 03/22/2024 3:28 pm INDICATION: Signs/Symptoms:KIDNEY STONES. ,N20.0 Calculus of kidney COMPARISON: None. ACCESSION NUMBER(S): [id number] ORDERING CLINICIAN: DIONISIO ROCHA FINDINGS: Nonobstructive bowel gas pattern. Poorly visualized multiple calcifications are seen, in the mid and lower pole of the right kidney, measuring about 5 mm in size each. There is also a 3 mm calcification in the lower pole of the left kidney. No calcification is seen in the ureters, or the urinary bladder. Visualized lungs are clear. Osseous structures demonstrate no acute bony changes. IMPRESSION: 1. Bilateral renal calculi. MACRO: None Signed by: Bulmaro Stevenson 03/22/2024 3:30 PM Dictation workstation: [id number] [facility] Work Phone: Radiology Study observation (narrative) [facility] Work Phone: XR Abdomen Single viewOrdere d By: Bulmaro Stevenson on 03-22-2024 [facility] Work Phone: Bacteria identifiedon 2023 Bacteria identified Cx Nom (U) Test: Urine Culture Specimen Source: Clean Catch/Voided Specimen Type: Urine Specimen Date: 03/12/20242014 Result Date: 03/14/2024 0922 Result Status: Final result Abnormal: No Resulting Lab: [facility] [address] [facility] [address] CULTURE Clinically insignificant growth based on current clinical standards. Normal [facility] Comment on above: Performed By: #### 5 8077-9 #### MYERS LYNDA ([id number]) [facility] ([facility]) [address] [place] [address] CBC W Auto Differential pane l (Bld)on 03-12-2024 Basophils (Bld) [#/Vol] 0.03 10*3/uL [facility] Basophils/100 WBC (Bld) 0.3 % 0.0 - 2.0 % [facility] Eosinophils (Bld) [#/Vol] 0.07 10*3/uL [facility] Eosinophils/100 WBC (Bld) 0.8 % 0.0 - 6.0 % [facility] Erythrocyte distribution width (RBC) [Ratio] 12.3 % 11.5 - 14.5 % [facility] [facility] Hematocrit (Bld) [Volume fraction] 42.2 % 41.0 - 52.0 % [facility] Hemoglobin (Bld) [Mass/Vol] 14.6 g/dL 13.5 - 17.5 g/dL [facility] Immature granulocytes (Bld) [#/Vol] 0.01 10*3/uL [facility] Immature granulocytes/100 WBC (Bld) 0.1 % 0.0 - 0.9 % [facility] Comment on above: Immature Granulocyte Count (IG) includes promyelocytes, myelocytes and metamyelocytes but does not include bands. Percent differential counts (%) should be interpreted in the context of the absolute cell counts (cells/UL). Interpretation and review of laboratory results Abnormal [facility] Lymphocytes (Bld) [#/Vol] 1.28 10*3/uL [facility] Lymphocytes/100 WBC (Bld) 13.9 % 13.0 - 44.0 % [facility] MCH (RBC) [Entitic mass] 31.3 pg 26.0 - 34.0 pg [facility] MCHC (RBC) [Mass/Vol] 34.6 g/dL 32.0 - 36.0 g/dL [facility] MCV (RBC) [Entitic vol] 90 fL 80 - 100 fL [facility] Monocytes (Bld) [#/Vol] 1.07 10*3/uL High [facility] Monocytes/100 WBC (Bld) 11.6 % 2.0 - 10.0 % [facility] Neutrophils (Bld) [#/Vol] 6.75 10*3/uL [facility] Comment on above: Percent differential counts (%) should be interpreted in the context of the absolute cell counts (cells/uL). Neutrophils/100 WBC (Bld) 73.3 % 40.0 - 80.0 % [facility] Nucleated RBC/100 WBC (Bld) [Ratio] 0 % [facility] Platelets (Bld) [#/Vol] 231 10*3/uL [facility] RBC (Bld) [#/Vol] 4.67 10*6/uL [facility] WBC (Bld) [#/Vol] 9.2 10*3/uL [facility] Basophils (Bld) [#/Vol] 0.03 x10*3/uL Normal 0.00-0.10 [facility] Comment on above: Performed By: #### 5 8077-9 #### LUCIA HOWELL ([id number]) [facility] ([facility]) [address] [place] [address] 47988 Basophils/100 WBC (Bld) 0.3 % Normal 0.0-2.0 [facility] Comment on above: Performed By: #### 5 8077-9 #### LUCIA HOWELL ([id number]) [facility] ([facility]) [address] [place] [address] 73756 Eosinophils (Bld) [#/Vol] 0.07 x10*3/uL Normal 0.00-0.70 [facility] Comment on above: Performed By: #### 5 8077-9 #### LUCIA HOWELL ([id number]) [facility] ([facility]) [address] [place] [address] 86016 Eosinophils/100 WBC (Bld) 0.8 % Normal 0.0-6.0 [facility] Comment on above: Performed By: #### 5 8077-9 #### LUCIA HOWELL ([id number]) [facility] ([facility]) [address] [place] [address] Erythrocyte distribution width (RBC) [Ratio] 12.3 % Normal 11.5-14.5 [facility] Comment on above: Performed By: #### 5 8077-9 #### LUCIA HOWELL ([id number]) [facility] ([facility]) [address] [place] [address] Hematocrit (Bld) [Volume fraction] 42.2 % Normal 41.0-52.0 [facility] Comment on above: Performed By: #### 5 8077-9 #### LUCIA HOWELL ([id number]) [facility] ([facility]) [address] [place] [address] 52862 Hemoglobin (Bld) [Mass/Vol] 14.6 g/dL Normal 13.5-17.5 [facility] Comment on above: Performed By: #### 5 8077-9 #### LUCIA HOWELL ([id number]) [facility] ([facility]) [address] [place] [address] Immature granulocytes (Bld) [#/Vol] 0.01 x10*3/uL Normal 0.00-0.70 [facility] Comment on above: Performed By: #### 5 8077-9 #### LUCIA HOWELL ([id number]) [facility] ([facility]) [address] [place], [place] [id number] Immature granulocytes/100 WBC (Bld) 0.1 % Normal 0.0-0.9 [facility] Comment on above: Result Comment: Gi ture Granulocyte Count (IG) includes promyelocytes, myelocytes and metamyelocytes but does not include bands. Percent differential counts (%) should be interpreted in the context of the absolute cell counts (cells/UL). Performed By: #### 5 8077-9 #### LUCIA HOWELL ([id number]) [facility] ([facility]) [address] [place] [address] 61258 Lymphocytes (Bld) [#/Vol] 1.28 x10*3/uL Normal 1.20-4.80 [facility] Comment on above: Performed By: #### 5 8077-9 #### LUCIA HOWELL ([id number]) [facility] ([facility]) [address] [place] [address] 93796 Lymphocytes/100 WBC (Bld) 13.9 % Normal 13.0-44.0 [facility] Comment on above: Performed By: #### 5 8077-9 #### LUCIA HOWELL ([id number]) [facility] ([facility]) [address] [place] [address] 39360 MCH (RBC) [Entitic mass] 31.3 pg Normal 26.0-34.0 [facility] Comment on above: Performed By: #### 5 8077-9 #### LUCIA HOWELL ([id number]) [facility] ([facility]) [address] [place] [address] 83446 MCHC (RBC) [Mass/Vol] 34.6 g/dL Normal 32.0-36.0 [facility] Comment on above: Performed By: #### 5 8077-9 #### LUCIA HOWELL ([id number]) [facility] ([facility]) [address] [place] [address] 01804 MCV (RBC) [Entitic vol] 90 fL Normal 80-100 [facility] Comment on above: Performed By: #### 5 8077-9 #### LUCIA HOWELL ([id number]) [facility] ([facility]) [address] [place] [address] 25630 Monocytes (Bld) [#/Vol] 1.07 x10*3/uL High 0.10-1.00 [facility] Comment on above: Performed By: #### 5 8077-9 #### LUCIA HOWELL ([id number]) [facility] ([facility]) [address] [place] [address] 40665 Monocytes/100 WBC (Bld) 11.6 % Normal 2.0-10.0 [facility] Comment on above: Performed By: #### 5 8077-9 #### LUCIA HOWELL ([id number]) [facility] ([facility]) [address] [place] [address] 22311 Neutrophils (Bld) [#/Vol] 6.75 x10*3/uL Normal 1.20-7.70 [facility] Comment on above: Result Comment: Perc ent differential counts (%) should be interpreted in the context of the absolute cell counts (cells/uL). Performed By: #### 5 8077-9 #### LUCIA HOWELL ([id number]) [facility] ([facility]) [address] [place] [address] 46800 Neutrophils/100 WBC (Bld) 73.3 % Normal 40.0-80.0 [facility] Comment on above: Performed By: #### 5 8077-9 #### LUCIA HOWELL ([id number]) [facility] ([facility]) [address] [place] [address] 24841 Nucleated RBC/100 WBC (Bld) [Ratio] 0.0 /100 WBCs Normal 0.0-0.0 [facility] Comment on above: Performed By: #### 5 8077-9 #### LUCIA HOWELL ([id number]) [facility] ([facility]) [address] [place] [address] 20432 Platelets (Bld) [#/Vol] 231 x10*3/uL Normal 150-450 [facility] Comment on above: Performed By: #### 5 8077-9 #### LUCIA HOWELL ([id number]) [facility] ([facility]) [address] [place] [address] 27232 RBC (Bld) [#/Vol] 4.67 x10*6/uL Normal 4.50-5.90 [facility] Comment on above: Performed By: #### 5 8077-9 #### LUCIA HOWELL ([id number]) [facility] ([facility]) [address] [place] [address] 82038 WBC (Bld) [#/Vol] 9.2 x10*3/uL Normal 4.4-11.3 [facility] Comment on above: Performed By: #### 5 8077-9 #### MYERS LYNDA ([id number]) [facility] ([facility]) [address] [place] [address] CT ABDOMEN PELVIS WO IV CONT Maday 03-12-2024 CT ABDOMEN PELVIS WO IV CONTRAST Interpreted By: Emelyn Perez, STUDY: CT ABDOMEN PELVIS WO IV CONTRAST; 03/12/2024 8:27 pm INDICATION: Signs/Symptoms:left flank pain. COMPARISON: CT abdomen and pelvis 09/07/2023, 06/01/2023, 03/22/2022. ACCESSION NUMBER(S): [id number] ORDERING CLINICIAN: ELIZABETH LEWIS TECHNIQUE: CT of the abdomen and pelvis was performed with no contrast administration. Coronal and sagittal reformats were obtained. FINDINGS: LOWER CHEST: No focal consolidation or pleural effusion. There is a small linear lucency at the left epicardial fat, along the anterior aspect of the heart. ABDOMEN: LIVER: Unremarkable unenhanced appearance. BILE DUCTS: No obvious dilation. GALLBLADDER: Contracted. PANCREAS: No peripancreatic inflammatory changes. SPLEEN: Unremarkable unenhanced appearance. ADRENAL GLANDS: Unremarkable. KIDNEYS AND URETERS: There is mild bilateral perinephric stranding. No hydronephrosis or hydroureter. There are bilateral renal calculi measuring up to 5 mm. No obstructing ureteral calculi. Subcentimeter cortical hypodensity at the left kidney is too small to be adequately characterized. Limited evaluation for renal masses in the absence of intravenous contrast. BOWEL: The stomach is distended with enteric contents. No bowel obstruction. There is submucosal fat at the colon. The appendix is normal. VESSELS: No abdominal aortic aneurysm. PELVIS: The urinary bladder is partially distended with adjacent soft tissue stranding. The prostate measures 4.1 cm in transverse diameter. PERITONEUM/RETROPERITONEU M/LYMPH NODES: No free fluid or free air. No retroperitoneal hemorrhage. No pathologically enlarged lymph nodes are identified. ABDOMINAL WALL: There is a small fat containing umbilical hernia. There are small fat containing bilateral inguinal hernias. BONE AND SOFT TISSUE: Degenerative changes at the spine. IMPRESSION 1. No hydronephrosis or obstructing ureteral calculi. Bilateral nephrolithiasis. 2. Mild bilateral perinephric stranding, nonspecific. Please correlate with laboratory values to exclude superimposed acute pyelonephritis. 3. Soft tissue stranding at the urinary bladder, may be seen with cystitis. Please correlate with urinalysis. 4. Submucosal fat at the colon, nonspecific, may represent normal variant versus chronic changes of inflammatory bowel disease. 5. Small linear lucency at the left epicardial fat, along the anterior aspect of the heart, pneumomediastinum cannot be excluded. CT thorax can be obtained for further evaluation. MACRO: Critical Finding: See findings. Notification was initiated on 03/12/2024 at 9:26 pm by Emelyn Perez. (-OCF-) Instructions: Signed by: Emelyn Perez 03/12/2024 9:29 PM Dictation workstation: [id number] [facility] CT Abdomen WO contraston Interpreted By: Emelyn Perez, STUDY: CT ABDOMEN PELVIS WO IV CONTRAST; 03/12/2024 8:27 pm INDICATION: Signs/Symptoms:left flank pain. COMPARISON: CT abdomen and pelvis 09/07/2023, 06/01/2023, 03/22/2022. ACCESSION NUMBER(S): [id number] ORDERING CLINICIAN: ELIZABETH LEWIS TECHNIQUE: CT of the abdomen and pelvis was performed with no contrast administration. Coronal and sagittal reformats were obtained. FINDINGS: LOWER CHEST: No focal consolidation or pleural effusion. There is a small linear lucency at the left epicardial fat, along the anterior aspect of the heart. ABDOMEN: LIVER: Unremarkable unenhanced appearance. BILE DUCTS: No obvious dilation. GALLBLADDER: Contracted. PANCREAS: No peripancreatic inflammatory changes. SPLEEN: Unremarkable unenhanced appearance. ADRENAL GLANDS: Unremarkable. KIDNEYS AND URETERS: There is mild bilateral perinephric stranding. No hydronephrosis or hydroureter. There are bilateral renal calculi measuring up to 5 mm. No obstructing ureteral calculi. Subcentimeter cortical hypodensity at the left kidney is too small to be adequately characterized. Limited evaluation for renal masses in the absence of intravenous contrast. BOWEL: The stomach is distended with enteric contents. No bowel obstruction. There is submucosal fat at the colon. The appendix is normal. VESSELS: No abdominal aortic aneurysm. PELVIS: The urinary bladder is partially distended with adjacent soft tissue stranding. The prostate measures 4.1 cm in transverse diameter. PERITONEUM/RETROPERITONEU M/LYMPH NODES: No free fluid or free air. No retroperitoneal hemorrhage. No pathologically enlarged lymph nodes are identified. ABDOMINAL WALL: There is a small fat containing umbilical hernia. There are small fat containing bilateral inguinal hernias. BONE AND SOFT TISSUE: Degenerative changes at the spine. IMPRESSION 1. No hydronephrosis or obstructing ureteral calculi. Bilateral nephrolithiasis. 2. Mild bilateral perinephric stranding, nonspecific. Please correlate with laboratory values to exclude superimposed acute pyelonephritis. 3. Soft tissue stranding at the urinary bladder, may be seen with cystitis. Please correlate with urinalysis. 4. Submucosal fat at the colon, nonspecific, may represent normal variant versus chronic changes of inflammatory bowel disease. 5. Small linear lucency at the left epicardial fat, along the anterior aspect of the heart, pneumomediastinum cannot be excluded. CT thorax can be obtained for further evaluation. MACRO: Critical Finding: See findings. Notification was initiated on 03/12/2024 at 9:26 pm by Emelyn Perez. (-OCF-) Instructions: Signed by: Emelyn Perez 03/12/2024 9:29 PM Dictation workstation: [id number] [facility] Emelyn Perez, DO - 03/12/2024 Interpreted By: Emelyn Perez, STUDY: CT ABDOMEN PELVIS WO IV CONTRAST; 03/12/2024 8:27 pm INDICATION: Signs/Symptoms:left flank pain. COMPARISON: CT abdomen and pelvis 09/07/2023, 06/01/2023, 03/22/2022. ACCESSION NUMBER(S): [id number] ORDERING CLINICIAN: ELIZABETH LEWIS TECHNIQUE: CT of the abdomen and pelvis was performed with no contrast administration. Coronal and sagittal reformats were obtained. FINDINGS: LOWER CHEST: No focal consolidation or pleural effusion. There is a small linear lucency at the left epicardial fat, along the anterior aspect of the heart. ABDOMEN: LIVER: Unremarkable unenhanced appearance. BILE DUCTS: No obvious dilation. GALLBLADDER: Contracted. PANCREAS: No peripancreatic inflammatory changes. SPLEEN: Unremarkable unenhanced appearance. ADRENAL GLANDS: Unremarkable. KIDNEYS AND URETERS: There is mild bilateral perinephric stranding. No hydronephrosis or hydroureter. There are bilateral renal calculi measuring up to 5 mm. No obstructing ureteral calculi. Subcentimeter cortical hypodensity at the left kidney is too small to be adequately characterized. Limited evaluation for renal masses in the absence of intravenous contrast. BOWEL: The stomach is distended with enteric contents. No bowel obstruction. There is submucosal fat at the colon. The appendix is normal. VESSELS: No abdominal aortic aneurysm. PELVIS: The urinary bladder is partially distended with adjacent soft tissue stranding. The prostate measures 4.1 cm in transverse diameter. PERITONEUM/RETROPERITONEU M/LYMPH NODES: No free fluid or free air. No retroperitoneal hemorrhage. No pathologically enlarged lymph nodes are identified. ABDOMINAL WALL: There is a small fat containing umbilical hernia. There are small fat containing bilateral inguinal hernias. BONE AND SOFT TISSUE: Degenerative changes at the spine. IMPRESSION 1. No hydronephrosis or obstructing ureteral calculi. Bilateral nephrolithiasis. 2. Mild bilateral perinephric stranding, nonspecific. Please correlate with laboratory values to exclude superimposed acute pyelonephritis. 3. Soft tissue stranding at the urinary bladder, may be seen with cystitis. Please correlate with urinalysis. 4. Submucosal fat at the colon, nonspecific, may represent normal variant versus chronic changes of inflammatory bowel disease. 5. Small linear lucency at the left epicardial fat, along the anterior aspect of the heart, pneumomediastinum cannot be excluded. CT thorax can be obtained for further evaluation. MACRO: Critical Finding: See findings. Notification was initiated on 03/12/2024 at 9:26 pm by Emelyn Perez. (-OCF-) Instructions: Signed by: Emelyn Perez 03/12/2024 9:29 PM Dictation workstation: [id number] [facility] Work Phone: Radiology Study observation (narrative) [facility] Work Phone: CT Abdomen WO contrastOrdere d By: Emelyn Perez on 03-12-2024 [facility] Work Phone: Comprehensive metabolic 2000 panelon 03-12-2024 Albumin BCP dye [Mass/Vol] 4.4 g/dL 3.4 - 5.0 g/dL [facility] ALP [Catalytic activity/Vol] 64 U/L 33 - 120 U/L [facility] ALT With P-5'-P [Catalytic activity/Vol] 44 U/L 10 - 52 U/L [facility] Comment on above: Patients treated wit h Sulfasalazine may generate falsely decreased results for ALT. Anion gap [Moles/Vol] 11 mmol/L 10 - 20 mmol/L [facility] AST With P-5'-P [Catalytic activity/Vol] 26 U/L 9 - 39 U/L [facility] Bilirubin [Mass/Vol] 0.4 mg/dL 0.0 - 1.2 mg/dL [facility] Calcium [Mass/Vol] 9.2 mg/dL 8.6 - 10. 3 mg/dL [facility] Chloride [Moles/Vol] 102 mmol/L 98 - 107 mmol/L [facility] CO2 [Moles/Vol] 28 mmol/L 21 - 32 mmol/L [facility] Creatinine [Mass/Vol] 1.14 mg/dL 0.50 - 1.30 mg/dL [facility] GFR/1.73 sq M.predicted among non-blacks MDRD (S/P/Bld) [Vol rate/Area] 75 mL/min/{1.73_m2} - PINF [facility] Comment on above: Calculations of leslie mated GFR are performed using the 2020 CKD-EPI Study Refit equation without the race variable for the IDMS-Traceable creatinine methods. https://jasn.asnjournals.org/content/early/ASN.34276163 88 Glucose [Mass/Vol] 113 mg/dL High 74 - 99 mg/dL [facility] Interpretation and review of laboratory results Abnormal [facility] Potassium [Moles/Vol] 3.6 mmol/L 3.5 - 5.3 mmol/L [facility] Protein [Mass/Vol] 7 g/dL 6.4 - 8.2 g/dL [facility] Sodium [Moles/Vol] 137 mmol/L 136 - 145 mmol/L [facility] Urea nitrogen [Mass/Vol] 21 mg/dL 6 - 23 mg/dL [facility] Albumin BCP dye [Mass/Vol] 4.4 g/dL Normal 3.4-5.0 [facility] Comment on above: Performed By: #### 5 8077-9 #### LUCIA HOWELL ([id number]) [facility] ([facility]) [address] [place] [address] ALP [Catalytic activity/Vol] 64 U/L Normal 33-120 [facility] Comment on above: Performed By: #### 5 8077-9 #### LUCIA HOWELL ([id number]) [facility] ([facility]) [address] [place] [address] ALT With P-5'-P [Catalytic activity/Vol] 44 U/L Normal 10-52 [facility] Comment on above: Result Comment: Ivana ents treated with Sulfasalazine may generate falsely decreased results for ALT. Performed By: #### 5 8077-9 #### LUCIA HOWELL ([id number]) [facility] ([facility]) [address] [place] [address] Anion gap [Moles/Vol] 11 mmol/L Normal 10-20 [facility] Comment on above: Performed By: #### 5 8077-9 #### LUCIA HOWELL ([id number]) [facility] ([facility]) [address] [place] [address] AST With P-5'-P [Catalytic activity/Vol] 26 U/L Normal 9-39 [facility] Comment on above: Performed By: #### 5 8077-9 #### LUCIA HOWELL ([id number]) [facility] ([facility]) [address] [place] [address] Bilirubin [Mass/Vol] 0.4 mg/dL Normal 0.0-1.2 [facility] Comment on above: Performed By: #### 5 8077-9 #### LUCIA HOWELL ([id number]) [facility] ([facility]) [address] [place] [address] Calcium [Mass/Vol] 9.2 mg/dL Normal 8.6-10.3 [facility] Comment on above: Performed By: #### 5 8077-9 #### LUCIA HOWELL ([id number]) [facility] ([facility]) [address] [place] [address] 33224 Chloride [Moles/Vol] 102 mmol/L Normal 98-107 [facility] Comment on above: Performed By: #### 5 8077-9 #### LUCIA HOWELL ([id number]) [facility] ([facility]) [address] [place] [address] 84505 CO2 [Moles/Vol] 28 mmol/L Normal 21-32 [facility] Comment on above: Performed By: #### 5 8077-9 #### LUCIA HOWELL ([id number]) [facility] ([facility]) [address] [place] [address] 00556 Creatinine [Mass/Vol] 1.14 mg/dL Normal 0.50-1.30 [facility] Comment on above: Performed By: #### 5 8077-9 #### LUCIA HOWELL ([id number]) [facility] ([facility]) [address] [place] [address] 46527 Glomerular filtration rate/1.73 sq M.predicted 75 mL/min/1.73m*2 Normal >60 [facility] Comment on above: Result Comment: Calc ulations of estimated GFR are performed using the 2020 CKD-EPI Study Refit equation without the race variable for the IDMS-Traceable creatinine methods. https://jasn.asnjournals.org/content/early//ASN.83377512 88 Performed By: #### 5 8077-9 #### LUCIA HOWELL ([id number]) [facility] ([facility]) [address] [place] [address] 18631 Glucose [Mass/Vol] 113 mg/dL High 74-99 [facility] Comment on above: Performed By: #### 5 8077-9 #### LUCIA HOWELL ([id number]) [facility] ([facility]) [address] [place] [address] 31423 Potassium [Moles/Vol] 3.6 mmol/L Normal 3.5-5.3 [facility] Comment on above: Performed By: #### 5 8077-9 #### LUCIA HOWELL ([id number]) [facility] ([facility]) [address] [place] [address] 71975 Protein [Mass/Vol] 7.0 g/dL Normal 6.4-8.2 [facility] Comment on above: Performed By: #### 5 8077-9 #### LUCIA HOWELL ([id number]) [facility] ([facility]) [address] [place] [address] 95886 Sodium [Moles/Vol] 137 mmol/L Normal 136-145 [facility] Comment on above: Performed By: #### 5 8077-9 #### LUCIA HOWELL ([id number]) [facility] ([facility]) [address] [place] [address] 70670 Urea nitrogen [Mass/Vol] 21 mg/dL Normal 6-23 [facility] Comment on above: Performed By: #### 5 8077-9 #### LUCIA HOWELL ([id number]) [facility] ([facility]) [address] [place] [address] 83049 Lactateon 03-12-2024 Lactate [Moles/Vol] 0.9 mmol/L 0.4 - 2. 0 mmol/L [facility] Lactate [Moles/Vol] 0.9 mmol/L Normal 0.4-2.0 [facility] Comment on above: Order Comment: Venip uncture immediately after or during the administration of Metamizole may lead to falsely low results. Testing should be performed immediately prior to Metamizole dosing. Performed By: #### 5 8077-9 #### LUCIA HOWELL ([id number]) [facility] ([facility]) [address] [place] [address] 54226 Lactate [Moles/Vol]on 2023 Interpretation and review of laboratory results Normal [facility] Venipuncture immedia tely after or during the administration of Metamizole may lead to falsely low results. Testing should be performed immediately prior to Metamizole dosing. [facility] Lipaseon 03-12-2024 Lipase [Catalytic activity/Vol] 31 U/L U/L [facility] Lipase [Catalytic activity/V ol]on 03-12-2024 Interpretation and review of laboratory results Normal [facility] Venipuncture immedia tely after or during the administration of Metamizole may lead to falsely low results. Testing should be performed immediately prior to Metamizole dosing. [facility] No Panel Informationon 03-12 Interpretation and review of laboratory results Abnormal [facility] Triacylglycerol lipaseon Lipase [Catalytic activity/Vol] 31 U/L Normal [facility] Comment on above: Order Comment: Venip uncture immediately after or during the administration of Metamizole may lead to falsely low results. Testing should be performed immediately prior to Metamizole dosing. Performed By: #### 5 8077-9 #### MYERS LYNDA ([id number]) [facility] ([facility]) [address] [place] [address] Urinalysis complete W Reflex Culture panel (U)on 03-12-2024 Appearance (U) Clear Clear [facility] Bilirubin (U) [Mass/Vol] Negative NEGATIVE [facility] Color (U) Light-Yellow Light-Yellow , Yellow, Dark-Yellow [facility] Glucose Auto test strip (U) [Mass/Vol] Normal Normal mg/dL [facility] Ketones (U) [Mass/Vol] Negative NEGATIVE mg/dL [facility] Leukocyte esterase Auto test strip Ql (U) 25 Emmie/ L Abnormal NEGATIVE [facility] Nitrite Auto test strip Ql (U) Negative NEGATIVE [facility] pH (U) 7 [pH] 5.0, 5.5, 6.0, 6.5, 7.0, 7.5, 8.0 [facility] Protein (U) [Mass/Vol] Negative NEGATIVE, 10 (TRACE), 20 (TRACE) mg/dL [facility] RBC (U) [#/Vol] Negative NEGATIVE [facility] Specific gravity (U) [Rel density] 1.024 1.005 - 1.035 [facility] Urobilinogen (U) [Mass/Vol] Normal Normal mg/dL [facility] Appearance (U) Clear Normal Clear [facility] Comment on above: Performed By: #### 5 8077-9 #### LUCIA HOWELL ([id number]) [facility] ([facility]) [address] [place] [address] Bilirubin (U) [Mass/Vol] Negative Normal NEGATIVE [facility] Comment on above: Performed By: #### 5 8077-9 #### LUCIA HOWELL ([id number]) [facility] ([facility]) [address] [place] [address] Color (U) Light-Yellow Normal Light-Yellow , Yellow, Dark-Yellow [facility] Comment on above: Performed By: #### 5 8077-9 #### LUCIA HOWELL ([id number]) [facility] ([facility]) [address] [place] [address] Glucose Auto test strip (U) [Mass/Vol] Normal Normal Normal [facility] Comment on above: Performed By: #### 5 8077-9 #### LUCIA HOWELL ([id number]) [facility] ([facility]) [address] [place] [address] Ketones (U) [Mass/Vol] Negative Normal NEGATIVE [facility] Comment on above: Performed By: #### 5 8077-9 #### LUCIA HOWELL ([id number]) [facility] ([facility]) [address] [place] [address] Leukocyte esterase Auto test strip Ql (U) 25 Emmie/???L Abnormal NEGATIVE [facility] Comment on above: Performed By: #### 5 8077-9 #### LUCIA HOWELL ([id number]) [facility] ([facility]) [address] [place] [address] Nitrite Auto test strip Ql (U) Negative Normal NEGATIVE [facility] Comment on above: Performed By: #### 5 8077-9 #### LUCIA HOWELL ([id number]) [facility] ([facility]) [address] [place] [address] pH (U) 7.0 [pH] Normal 5.0, 5.5, 6.0, 6.5, 7.0, 7.5, 8.0 [facility] Comment on above: Performed By: #### 5 8077-9 #### LUCIA HOWELL ([id number]) [facility] ([facility]) [address] [place] [address] Protein (U) [Mass/Vol] Negative Normal NEGATIVE, 10 (TRACE), 20 (TRACE) [facility] Comment on above: Performed By: #### 5 8077-9 #### LUCIA HOWELL ([id number]) [facility] ([facility]) [address] [place] [address] RBC (U) [#/Vol] Negative Normal NEGATIVE [facility] Comment on above: Performed By: #### 5 8077-9 #### LUCIA HOWELL ([id number]) [facility] ([facility]) [address] [place] [address] Specific gravity (U) [Rel density] 1.024 Normal 1.005-1.035 [facility] Comment on above: Performed By: #### 5 8077-9 #### LUCIA HOWELL ([id number]) [facility] ([facility]) [address] [place] [address] Urobilinogen (U) [Mass/Vol] Normal Normal Normal [facility] Comment on above: Performed By: #### 5 8077-9 #### LUCIA HOWELL ([id number]) [facility] ([facility]) [address] [place] [address] Urinalysis microscopic panel Auto Ql (U)on 03-12-2024 Mucus Auto (Urine sed) [#/Area] FEW Reference range not established. /LPF [facility] RBC Auto (Urine sed) [#/Area] NONE NONE, 1-2, 3-5 /HPF [facility] WBC Auto (Urine sed) [#/Area] 6-10 Abnormal 1-5, NONE /HPF [facility] Mucus Auto (Urine sed) [#/Area] FEW Normal Reference range not established. [facility] Comment on above: Performed By: #### 5 8077-9 #### LUCIA HOWELL ([id number]) [facility] ([facility]) [address] [place] [address] RBC Auto (Urine sed) [#/Area] NONE Normal NONE, 1-2, 3-5 [facility] Comment on above: Performed By: #### 5 8077-9 #### LUCIA HOWELL ([id number]) [facility] ([facility]) [address] [place] [address] WBC Auto (Urine sed) [#/Area] 6-10 Abnormal 1-5, NONE [facility] Comment on above: Performed By: #### 5 8077-9 #### LUCIA HOWELL ([id number]) [facility] ([facility]) [address] [place] [address] Carotid Duplex Ultrasoundon 02-25-2024 Carotid Duplex Ultrasound [facility] [address] [place] [address] Carotid Duplex Ultrasound 02/25/24 1413 MR#: [id number] Acct: [id number] Name: ASHLEY BLOCK Rep #: [id number] : 1965 58 From: Tucker Ferrer MD Attending Dr: ZELDA Rose Status: REG CLI Ordering Dr: Linda Shane Date: 02/25/24 Location: [facility] Sex: M C Admitted: Reason For Study: S/P Rt CEA Rt. Velocities/BP Lt. Velocities/BP Prox CCA 84.6/30.6 cm/sec. Prox CCA 105.8/32.7 cm/sec. Mid CCA 72.3/26.9 cm/sec. Mid CCA 103.9/29.0 cm/sec. Dist CCA 74.8/26.9 cm/sec. Dist CCA 84.6/28.1 cm/sec. Prox ICA 60.0/14.6 cm/sec. Prox ICA 89.8/30.5 cm/sec. Mid ICA 71.1/34.3 cm/sec. Mid ICA 54.7/25.4 cm/sec. Dist ICA 69.9/30.6 cm/sec. Dist ICA 50.0/23.5 cm/sec. Rt. ICA/CCA = 1.0. Lt. ICA/CCA = 0.9. Prox ECA 85.8/17.1 cm/sec. Prox ECA 73.6/17.1 cm/sec. Rt. Vert. 55.1/18.3 cm/sec. Lt. Vert. 47.2/12.0 cm/sec. Right Extracranial There is heterogeneous, smooth atherosclerotic plaque noted in the right common carotid artery. There is heterogeneous, irregular atherosclerotic plaque noted in the right internal carotid artery. S/P CEA. There is intimal thickening but no significant atherosclerotic plaque noted in the right external carotid artery. Antegrade flow is noted in the right vertebral artery. Left Extracranial There is homogeneous, smooth atherosclerotic plaque noted in the left common carotid artery. There is heterogeneous, irregular atherosclerotic plaque noted in the left internal carotid artery. There is intimal thickening but no significant atherosclerotic plaque noted in the left external carotid artery. Antegrade flow is noted in the left vertebral artery. Procedure Carotid Duplex 72886. This is a Carotid Duplex examination using B-mode, color flow and specral Doppler. The exam was diagnostic. Exam performed in department. VL/Carotid Duplex Ultrasound Interpretation Summary Normal right extracranial internal carotid. Mild (<50%) stenosis left extracranial internal carotid. Patent and antegrade vertebrals bilaterally. ___ Ordering Physician: Linda Shane Referring Physician: N/A Performed By: Ismael Fernandez Mary Grace 02/28/242033 Date Tucker Ferrer MD CC: ZELDA Rose; No Primary Care Physician Date Dictated: 02/25/243 Date Transcribed: 02/28/242033 Wedding Decorator: Signed Normal [facility] Basic metabolic 2000 panelon 11-25-2023 Anion gap [Moles/Vol] 11 mmol/L Normal 10-20 [facility] Comment on above: Performed By: #### 2 4321-2 #### LUCIA HOWELL ([id number]) [facility] ([facility]) [address] [place] [address] Calcium [Mass/Vol] 9.3 mg/dL Normal 8.6-10.3 [facility] Comment on above: Performed By: #### 2 4321-2 #### LUCIA HOWELL ([id number]) [facility] ([facility]) [address] [place] [address] Chloride [Moles/Vol] 99 mmol/L Normal 98-107 [facility] Comment on above: Performed By: #### 2 4321-2 #### LUCIA HOWELL ([id number]) [facility] ([facility]) [address] [place] [address] CO2 [Moles/Vol] 31 mmol/L Normal 21-32 [facility] Comment on above: Performed By: #### 2 4321-2 #### LUCIA HOWELL ([id number]) [facility] ([facility]) [facility] [place] [address] Creatinine [Mass/Vol] 1.16 mg/dL Normal 0.50-1.30 [facility] Comment on above: Performed By: #### 2 4321-2 #### LUCIA HOWELL ([id number]) [facility] ([facility]) [facility] [place] [address] Glomerular filtration rate/1.73 sq M.predicted 73 mL/min/1.73m*2 Normal >60 [facility] Comment on above: Result Comment: Calc ulations of estimated GFR are performed using the 2020 CKD-EPI Study Refit equation without the race variable for the IDMS-Traceable creatinine methods. https://jasn.asnjournals.org/content/early//ASN.95542108 88 Performed By: #### 2 4321-2 #### LUCIA HOWELL ([id number]) [facility] ([facility]) [address] [place] [address] Glucose [Mass/Vol] 98 mg/dL Normal 74-99 [facility] Comment on above: Performed By: #### 2 4321-2 #### LUCIA HOWELL ([id number]) [facility] ([facility]) [address] [place] [address] Potassium [Moles/Vol] 3.7 mmol/L Normal 3.5-5.3 [facility] Comment on above: Performed By: #### 2 4321-2 #### LUCIA HOWELL ([id number]) [facility] ([facility]) [address] [place] [address] Sodium [Moles/Vol] 137 mmol/L Normal 136-145 [facility] Comment on above: Performed By: #### 2 4321-2 #### LUCIA HOWELL ([id number]) [facility] ([facility]) [address] [place] [address] Urea nitrogen [Mass/Vol] 16 mg/dL Normal 6-23 [facility] Comment on above: Performed By: #### 2 4321-2 #### LUCIA HOWELL ([id number]) [facility] ([facility]) [address] [place] [address] XR ABDOMEN 1 VIEWon 09-19-19 24 XR ABDOMEN 1 VIEW Interpreted By: Luciano Love, STUDY: XR ABDOMEN 1 VIEW; ; 09/19/2023 5:22 pm INDICATION: Signs/Symptoms:KIDNEY STONE. COMPARISON: 09/08/2023 ACCESSION NUMBER(S): [id number] ORDERING CLINICIAN: DIONISIO ROCHA TECHNIQUE: 2 supine radiographs of the abdomen and pelvis were performed. FINDINGS: There has been interval placement of a left ureteral stent. The distal coil overlies the bladder to the left of midline. Proximal coil is identified at the level of the L2-3 disc space overlying the expected location of the renal pelvis. There is faint calcification overlying the distal ureteral stent in the mid pelvis measuring 3-4 mm in craniocaudal diameter. This density projects outside the course of the ureter may be attributable to overlying vascular calcification. No additional calcific densities identified along the course of the stent. There is a faint 5 mm density overlying the mid to lower right kidney compatible with calculus. Vascular calcifications overlie the pelvis bilaterally. The overall bowel gas pattern is nonspecific. There is stool throughout the colon. The osseous structures are intact. IMPRESSION: Interval placement of a left ureteral stent. Faint 5 mm calculus in the mid to lower right kidney. Nonspecific bowel-gas pattern. MACRO: None Signed by: Luciano Love 09/20/2023 9:45 AM Dictation workstation: [id number] [facility] FL FLUORO IMAGES NO CHARGEon 09-10-2023 FL FLUORO IMAGES NO CHARGE These images are not reportable by radiology and will not be interpreted by Radiologists. [facility] XR tomography Unspecified pina dy regionon 09-10-2023 These images are not reportable by radiology and will not be interpreted by Radiologists. IMAGING XR ABDOMEN 1 VIEWon 09-08-19 XR ABDOMEN 1 VIEW Interpreted By: Yury Penny, STUDY: XR ABDOMEN 1 VIEW INDICATION: Signs/Symptoms:KIDNEY STONES. COMPARISON: September [address] CT. ACCESSION NUMBER(S): [id number] ORDERING CLINICIAN: DIONISIO ROCHA FINDINGS: Small bilateral renal calculi similar to the previous exam. Previous left ureteral calculus not definitely seen. IMPRESSION: Small bilateral renal calculi similar to the previous exam. Previous left ureteral calculus not definitely seen. Signed by: Yury Ahuja 09/09/2023 6:20 PM Dictation workstation: [id number] [facility] APTTon 09-07-2023 aPTT Coag (PPP) [Time] 30 s [facility] Basic metabolic 2000 panelon 09-07-2023 Anion gap [Moles/Vol] 11 mmol/L 10 - 20 mmol/L [facility] Calcium [Mass/Vol] 8.8 mg/dL 8.6 - 10. 3 mg/dL [facility] Chloride [Moles/Vol] 103 mmol/L 98 - 107 mmol/L [facility] CO2 [Moles/Vol] 26 mmol/L 21 - 32 mmol/L [facility] Creatinine [Mass/Vol] 1.26 mg/dL 0.50 - 1.30 mg/dL [facility] GFR/1.73 sq M.predicted among non-blacks MDRD (S/P/Bld) [Vol rate/Area] 67 mL/min/{1.73_m2} - PINF [facility] Comment on above: Calculations of leslie mated GFR are performed using the 2020 CKD-EPI Study Refit equation without the race variable for the IDMS-Traceable creatinine methods. https://jasn.asnjournals.org/content/early//ASN.68894348 88 Glucose [Mass/Vol] 98 mg/dL 74 - 99 mg/dL [facility] Potassium [Moles/Vol] 3.6 mmol/L 3.5 - 5.3 mmol/L [facility] Sodium [Moles/Vol] 136 mmol/L 136 - 145 mmol/L [facility] Urea nitrogen [Mass/Vol] 20 mg/dL 6 - 23 mg/dL [facility] Anion gap [Moles/Vol] 11 mmol/L Normal 10-20 [facility] Comment on above: Performed By: #### 5 8077-9 #### LUCIA HOWELL ([id number]) [facility] ([facility]) [facility] [place] [address] Calcium [Mass/Vol] 8.8 mg/dL Normal 8.6-10.3 [facility] Comment on above: Performed By: #### 5 8077-9 #### LUCIA HOWELL ([id number]) [facility] ([facility]) [address] [place] [address] Chloride [Moles/Vol] 103 mmol/L Normal 98-107 [facility] Comment on above: Performed By: #### 5 8077-9 #### LUCIA HOWELL ([id number]) [facility] ([facility]) [address] [place] [address] CO2 [Moles/Vol] 26 mmol/L Normal 21-32 [facility] Comment on above: Performed By: #### 5 8077-9 #### LUCIA HOWELL ([id number]) [facility] ([facility]) [facility] [place] [address] Creatinine [Mass/Vol] 1.26 mg/dL Normal 0.50-1.30 [facility] Comment on above: Performed By: #### 5 8077-9 #### LUCIA HOWELL ([id number]) [facility] ([facility]) [address] [place] [address] Glomerular filtration rate/1.73 sq M.predicted 67 mL/min/1.73m*2 Normal >60 [facility] Comment on above: Result Comment: Calc ulations of estimated GFR are performed using the 2020 CKD-EPI Study Refit equation without the race variable for the IDMS-Traceable creatinine methods. https://jasn.asnjournals.org/content/early//ASN.33785182 88 Performed By: #### 5 8077-9 #### LUCIA HOWELL ([id number]) [facility] ([facility]) [address] [place] [address] Glucose [Mass/Vol] 98 mg/dL Normal 74-99 [facility] Comment on above: Performed By: #### 5 8077-9 #### LUCIA HOWELL ([id number]) [facility] ([facility]) [address] [place] [address] Potassium [Moles/Vol] 3.6 mmol/L Normal 3.5-5.3 [facility] Comment on above: Performed By: #### 5 8077-9 #### LUCIA HOWELL ([id number]) [facility] ([facility]) [address] [place] [address] Sodium [Moles/Vol] 136 mmol/L Normal 136-145 [facility] Comment on above: Performed By: #### 5 8077-9 #### LUCIA HOWELL ([id number]) [facility] ([facility]) [address] [place] [address]1271 Urea nitrogen [Mass/Vol] 20 mg/dL Normal 6-23 [facility] Comment on above: Performed By: #### 5 8077-9 #### MYERS LYNDA ([id number]) [facility] ([facility]) [address] [place] [address] CBC W Auto Differential pane l (Bld)on 09-07-2023 Basophils (Bld) [#/Vol] 0.02 10*3/uL [facility] Basophils/100 WBC (Bld) 0.2 % 0.0 - 2.0 % [facility] Eosinophils (Bld) [#/Vol] 0.13 10*3/uL [facility] Eosinophils/100 WBC (Bld) 1.5 % 0.0 - 6.0 % [facility] Erythrocyte distribution width (RBC) [Ratio] 12.9 % 11.5 - 14.5 % [facility] Hematocrit (Bld) [Volume fraction] 41.1 % 41.0 - 52.0 % [facility] Hemoglobin (Bld) [Mass/Vol] 14.1 g/dL 13.5 - 17.5 g/dL [facility] Immature granulocytes (Bld) [#/Vol] 0.03 10*3/uL [facility] Immature granulocytes/100 WBC (Bld) 0.3 % 0.0 - 0.9 % [facility] Comment on above: Immature Granulocyte Count (IG) includes promyelocytes, myelocytes and metamyelocytes but does not include bands. Percent differential counts (%) should be interpreted in the context of the absolute cell counts (cells/UL). Lymphocytes (Bld) [#/Vol] 1.50 10*3/uL [facility] Lymphocytes/100 WBC (Bld) 16.8 % 13.0 - 44.0 % [facility] MCH (RBC) [Entitic mass] 31.1 pg 26.0 - 34.0 pg [facility] MCHC (RBC) [Mass/Vol] 34.3 g/dL 32.0 - 36.0 g/dL [facility] MCV (RBC) [Entitic vol] 91 fL 80 - 100 fL [facility] Monocytes (Bld) [#/Vol] 0.98 10*3/uL [facility] Monocytes/100 WBC (Bld) 11.0 % 2.0 - 10.0 % [facility] Neutrophils (Bld) [#/Vol] 6.25 10*3/uL [facility] Comment on above: Percent differential counts (%) should be interpreted in the context of the absolute cell counts (cells/uL). Neutrophils/100 WBC (Bld) 70.2 % 40.0 - 80.0 % [facility] Nucleated RBC/100 WBC (Bld) [Ratio] 0.0 % [facility] Platelets (Bld) [#/Vol] 210 10*3/uL [facility] RBC (Bld) [#/Vol] 4.53 10*6/uL [facility] WBC (Bld) [#/Vol] 8.9 10*3/uL [facility] Basophils (Bld) [#/Vol] 0.02 x10*3/uL Normal 0.00-0.10 [facility] Comment on above: Performed By: #### 5 7021-8 #### LUCIA HOWELL ([id number]) [facility] ([facility]) [address] [place] [address]756 Basophils/100 WBC (Bld) 0.2 % Normal 0.0-2.0 [facility] Comment on above: Performed By: #### 5 7021-8 #### LUCIA HOWELL ([id number]) [facility] ([facility]) [address] [place] [address] Eosinophils (Bld) [#/Vol] 0.13 x10*3/uL Normal 0.00-0.70 [facility] Comment on above: Performed By: #### 5 7021-8 #### LUCIA HOWELL ([id number]) [facility] ([facility]) [address] [place] [address] Eosinophils/100 WBC (Bld) 1.5 % Normal 0.0-6.0 [facility] Comment on above: Performed By: #### 5 7021-8 #### LUCIA HOWELL ([id number]) [facility] ([facility]) [address] [place] [address] Erythrocyte distribution width (RBC) [Ratio] 12.9 % Normal 11.5-14.5 [facility] Comment on above: Performed By: #### 5 7021-8 #### LUCIA HOWELL ([id number]) [facility] ([facility]) [address] [place] [address] Hematocrit (Bld) [Volume fraction] 41.1 % Normal 41.0-52.0 [facility] Comment on above: Performed By: #### 5 7021-8 #### LUCIA HOWELL ([id number]) [facility] ([facility]) [address] [place] [address] Hemoglobin (Bld) [Mass/Vol] 14.1 g/dL Normal 13.5-17.5 [facility] Comment on above: Performed By: #### 5 7021-8 #### LUCIA HOWELL ([id number]) [facility] ([facility]) [address] [place] [address] Immature granulocytes (Bld) [#/Vol] 0.03 x10*3/uL Normal 0.00-0.70 [facility] Comment on above: Performed By: #### 5 7021-8 #### LUCIA HOWELL ([id number]) [facility] ([facility]) [address] [place] [address] Immature granulocytes/100 WBC (Bld) 0.3 % Normal 0.0-0.9 [facility] Comment on above: Result Comment: Gi ture Granulocyte Count (IG) includes promyelocytes, myelocytes and metamyelocytes but does not include bands. Percent differential counts (%) should be interpreted in the context of the absolute cell counts (cells/UL). Performed By: #### 5 7021-8 #### LUCIA HOWELL ([id number]) [facility] ([facility]) [address] [place], [place] [address] Lymphocytes (Bld) [#/Vol] 1.50 x10*3/uL Normal 1.20-4.80 [facility] Comment on above: Performed By: #### 5 7021-8 #### LUCIA HOWELL ([id number]) [facility] ([facility]) [address] [place] [address] 12065 Lymphocytes/100 WBC (Bld) 16.8 % Normal 13.0-44.0 [facility] Comment on above: Performed By: #### 5 7021-8 #### LUCIA HOWELL ([id number]) [facility] ([facility]) [address] [place] [address] 68932 MCH (RBC) [Entitic mass] 31.1 pg Normal 26.0-34.0 [facility] Comment on above: Performed By: #### 7021-8 #### LUCIA HOWELL ([id number]) [facility] ([facility]) [address] [place] [address] 34955 MCHC (RBC) [Mass/Vol] 34.3 g/dL Normal 32.0-36.0 [facility] Comment on above: Performed By: #### 5 7021-8 #### LUCIA HOWELL ([id number]) [facility] ([facility]) [address] [place] [address] 32925 MCV (RBC) [Entitic vol] 91 fL Normal 80-100 [facility] Comment on above: Performed By: #### 5 7021-8 #### LUCIA HOWELL ([id number]) [facility] ([facility]) [address] [place] [address] 82226 Monocytes (Bld) [#/Vol] 0.98 x10*3/uL Normal 0.10-1.00 [facility] Comment on above: Performed By: #### 5 7021-8 #### LUCIA HOWELL ([id number]) [facility] ([facility]) [address] [place] [address] 6[address]99 Monocytes/100 WBC (Bld) 11.0 % Normal 2.0-10.0 [facility] Comment on above: Performed By: #### 5 7021-8 #### LUCIA HOWELL ([id number]) [facility] ([facility]) [address] [place] [address] [id number] Neutrophils (Bld) [#/Vol] 6.25 x10*3/uL Normal 1.20-7.70 [facility] Comment on above: Result Comment: Perc ent differential counts (%) should be interpreted in the context of the absolute cell counts (cells/uL). Performed By: #### 5 7021-8 #### LUCIA HOWELL ([id number]) [facility] ([facility]) [address] [place] [address] [id number] Neutrophils/100 WBC (Bld) 70.2 % Normal 40.0-80.0 [facility] Comment on above: Performed By: #### 5 7021-8 #### LUCIA HOWELL ([id number]) [facility] ([facility]) [address] [place] [address] Nucleated RBC/100 WBC (Bld) [Ratio] 0.0 /100 WBCs Normal 0.0-0.0 [facility] Comment on above: Performed By: #### 5 7021-8 #### LUCIA HOWELL ([id number]) [facility] ([facility]) [address] [place] [address] 58054 Platelets (Bld) [#/Vol] 210 x10*3/uL Normal 150-450 [facility] Comment on above: Performed By: #### 5 7021-8 #### LUCIA HOWELL ([id number]) [facility] ([facility]) [address] [place] [address] 40087 RBC (Bld) [#/Vol] 4.53 x10*6/uL Normal 4.50-5.90 [facility] Comment on above: Performed By: #### 5 7021-8 #### LUCIA HOWELL ([id number]) [facility] ([facility]) [address] [place] [address] 69457 WBC (Bld) [#/Vol] 8.9 x10*3/uL Normal 4.4-11.3 [facility] Comment on above: Performed By: #### 5 7021-8 #### LUCIA HOWELL ([id number]) [facility] ([facility]) [address] [place] [address] ABDOMEN PELVIS WO IV CONT RASTon 09-07-2023 CT ABDOMEN PELVIS WO IV CONTRAST STUDY: CT Abdomen and Pelvis without IV Contrast; 09/07/2023, 13:30 INDICATION: Left flank pain. COMPARISON: CT abd 06/01/2023, XR abd 12/02/2022, CT abd 03/22/2022, 01/12/2022, 10/07/2021. ACCESSION NUMBER(S): [id number] ORDERING CLINICIAN: DIONISIO JADE TECHNIQUE: CT of the abdomen and pelvis was performed. Contiguous axial images were obtained at 3 mm slice thickness through the abdomen and pelvis. Coronal and sagittal reconstructions at 3 mm slice thickness were performed. No intravenous contrast was administered. Automated mA/kV exposure control was utilized and patient examination was performed in strict accordance with principles of ALARA. FINDINGS: Please note that the evaluation of vessels, lymph nodes and organs is limited without intravenous contrast. LOWER CHEST: No cardiomegaly. No pericardial effusion. Lung bases are clear. ABDOMEN: LIVER: No hepatomegaly. Smooth surface contour. Normal attenuation. BILE DUCTS: No intrahepatic or extrahepatic biliary ductal dilatation. GALLBLADDER: The gallbladder is unremarkable. STOMACH: No abnormalities identified. PANCREAS: No masses or ductal dilatation. SPLEEN: No splenomegaly or focal splenic lesion. ADRENAL GLANDS: No thickening or nodules. KIDNEYS AND URETERS: Kidneys are normal in size and location. There is a 5 mm nonobstructing calculus in the mid to lower pole of the right kidney. There is a 4 mm calculus in the proximal left ureter. This does result in hydronephrosis. PELVIS: BLADDER: No abnormalities identified. REPRODUCTIVE ORGANS: No abnormalities identified. BOWEL: There is fat in the wall the colon. This is most likely related to old colitis. VESSELS: No abnormalities identified. Abdominal aorta is normal in caliber. PERITONEUM/RETROPERITONEU M/LYMPH NODES: No free fluid. No pneumoperitoneum. No lymphadenopathy. ABDOMINAL WALL: There are bilateral inguinal hernias containing fat. SOFT TISSUES: No abnormalities identified. BONES: No acute fracture or aggressive osseous lesion. IMPRESSION: 4 mm proximal left ureteral calculus with hydronephrosis. There is a 5 mm nonobstructing calculus in the right kidney. Findings consistent with old colitis. Signed by Camron Lam MD [facility] CT Abdomen WO contraston 4 mm proximal left ureteral calculus with hydronephrosis. There is a 5 mm nonobstructing calculus in the right kidney. Findings consistent with old colitis. Signed by Camron Lam MD TELERADIOLOGY STUDY: CT Abdomen and Pelvis without IV Contrast; 09/07/2023, 13:30 INDICATION: Left flank pain. COMPARISON: CT abd 06/01/2023, XR abd 12/02/2022, CT abd 03/22/2022, 01/12/2022, 10/07/2021. ACCESSION NUMBER(S): [id number] ORDERING CLINICIAN: DIONISIO JADE TECHNIQUE: CT of the abdomen and pelvis was performed. Contiguous axial images were obtained at 3 mm slice thickness through the abdomen and pelvis. Coronal and sagittal reconstructions at 3 mm slice thickness were performed. No intravenous contrast was administered. Automated mA/kV exposure control was utilized and patient examination was performed in strict accordance with principles of ALARA. FINDINGS: Please note that the evaluation of vessels, lymph nodes and organs is limited without intravenous contrast. LOWER CHEST: No cardiomegaly. No pericardial effusion. Lung bases are clear. ABDOMEN: LIVER: No hepatomegaly. Smooth surface contour. Normal attenuation. BILE DUCTS: No intrahepatic or extrahepatic biliary ductal dilatation. GALLBLADDER: The gallbladder is unremarkable. STOMACH: No abnormalities identified. PANCREAS: No masses or ductal dilatation. SPLEEN: No splenomegaly or focal splenic lesion. ADRENAL GLANDS: No thickening or nodules. KIDNEYS AND URETERS: Kidneys are normal in size and location. There is a 5 mm nonobstructing calculus in the mid to lower pole of the right kidney. There is a 4 mm calculus in the proximal left ureter. This does result in hydronephrosis. PELVIS: BLADDER: No abnormalities identified. REPRODUCTIVE ORGANS: No abnormalities identified. BOWEL: There is fat in the wall the colon. This is most likely related to old colitis. VESSELS: No abnormalities identified. Abdominal aorta is normal in caliber. PERITONEUM/RETROPERITONEU M/LYMPH NODES: No free fluid. No pneumoperitoneum. No lymphadenopathy. ABDOMINAL WALL: There are bilateral inguinal hernias containing fat. SOFT TISSUES: No abnormalities identified. BONES: No acute fracture or aggressive osseous lesion. TELERADIOLOGY Camron Lam MD - 09/07/2023 STUDY: CT Abdomen and Pelvis without IV Contrast; 09/07/2023, 13:30 INDICATION: Left flank pain. COMPARISON: CT abd 06/01/2023, XR abd 12/02/2022, CT abd 03/22/2022, 01/12/2022, 10/07/2021. ACCESSION NUMBER(S): [id number] ORDERING CLINICIAN: DIONISIO JADE TECHNIQUE: CT of the abdomen and pelvis was performed. Contiguous axial images were obtained at 3 mm slice thickness through the abdomen and pelvis. Coronal and sagittal reconstructions at 3 mm slice thickness were performed. No intravenous contrast was administered. Automated mA/kV exposure control was utilized and patient examination was performed in strict accordance with principles of ALARA. FINDINGS: Please note that the evaluation of vessels, lymph nodes and organs is limited without intravenous contrast. LOWER CHEST: No cardiomegaly. No pericardial effusion. Lung bases are clear. ABDOMEN: LIVER: No hepatomegaly. Smooth surface contour. Normal attenuation. BILE DUCTS: No intrahepatic or extrahepatic biliary ductal dilatation. GALLBLADDER: The gallbladder is unremarkable. STOMACH: No abnormalities identified. PANCREAS: No masses or ductal dilatation. SPLEEN: No splenomegaly or focal splenic lesion. ADRENAL GLANDS: No thickening or nodules. KIDNEYS AND URETERS: Kidneys are normal in size and location. There is a 5 mm nonobstructing calculus in the mid to lower pole of the right kidney. There is a 4 mm calculus in the proximal left ureter. This does result in hydronephrosis. PELVIS: BLADDER: No abnormalities identified. REPRODUCTIVE ORGANS: No abnormalities identified. BOWEL: There is fat in the wall the colon. This is most likely related to old colitis. VESSELS: No abnormalities identified. Abdominal aorta is normal in caliber. PERITONEUM/RETROPERITONEU M/LYMPH NODES: No free fluid. No pneumoperitoneum. No lymphadenopathy. ABDOMINAL WALL: There are bilateral inguinal hernias containing fat. SOFT TISSUES: No abnormalities identified. BONES: No acute fracture or aggressive osseous lesion. IMPRESSION: 4 mm proximal left ureteral calculus with hydronephrosis. There is a 5 mm nonobstructing calculus in the right kidney. Findings consistent with old colitis. Signed by Camron Lam MD [facility] Work Phone: Radiology Study observation (narrative) [facility] Work Phone: CT Abdomen WO contrastOrdere d By: Camron Lam on 09-07-2023 [facility] Work Phone: Coagulation surface inducedo n 09-07-2023 aPTT Coag (PPP) [Time] 30 s Normal 27-38 [facility] Comment on above: Order Comment: The A PTT is no longer used for monitoring Unfractionated Heparin Therapy. For monitoring Heparin Therapy, use the Heparin Assay. Performed By: #### 1 4979-9 #### LUCIA HOWELL ([id number]) [facility] ([facility]) [address] [place] [address] Coagulation tissue factor in ducedon 09-07-2023 PT Coag (PPP) [Time] 10.4 s Normal 9.8-12.8 [facility] Comment on above: Performed By: #### 5 902-2 #### LUCIA HOWELL ([id number]) [facility] ([facility]) [address] [place], [place] [address] Hepatic function 2000 panelo n 09-07-2023 Albumin BCP dye [Mass/Vol] 4.1 g/dL 3.4 - 5.0 g/dL [facility] ALP [Catalytic activity/Vol] 48 U/L 33 - 120 U/L [facility] ALT With P-5'-P [Catalytic activity/Vol] 35 U/L 10 - 52 U/L [facility] Comment on above: Patients treated wit h Sulfasalazine may generate falsely decreased results for ALT. AST With P-5'-P [Catalytic activity/Vol] 31 U/L 9 - 39 U/L [facility] Bilirubin [Mass/Vol] 0.6 mg/dL 0.0 - 1.2 mg/dL [facility] Bilirubin.direct [Mass/Vol] 0.1 mg/dL 0.0 - 0.3 mg/dL [facility] Protein [Mass/Vol] 6.6 g/dL 6.4 - 8.2 g/dL [facility] Albumin BCP dye [Mass/Vol] 4.1 g/dL Normal 3.4-5.0 [facility] Comment on above: Performed By: #### 5 8077-9 #### LUCIA HOWELL ([id number]) [facility] ([facility]) [address] [place] [address] 86432 ALP [Catalytic activity/Vol] 48 U/L Normal 33-120 [facility] Comment on above: Performed By: #### 5 8077-9 #### LUCIA HOWELL ([id number]) [facility] ([facility]) [address] [place] [address] 46301 ALT With P-5'-P [Catalytic activity/Vol] 35 U/L Normal 10-52 [facility] Comment on above: Result Comment: Ivana ents treated with Sulfasalazine may generate falsely decreased results for ALT. Performed By: #### 5 8077-9 #### LUCIA HOWELL ([id number]) [facility] ([facility]) [address] [place] [address] AST With P-5'-P [Catalytic activity/Vol] 31 U/L Normal 9-39 [facility] Comment on above: Performed By: #### 5 8077-9 #### LUCIA HOWELL ([id number]) [facility] ([facility]) [address] [place], [place] [address] Bilirubin [Mass/Vol] 0.6 mg/dL Normal 0.0-1.2 [facility] Comment on above: Performed By: #### 5 8077-9 #### LUCIA HOWELL ([id number]) [facility] ([facility]) [address] [place] [address] 81800 Bilirubin.direct [Mass/Vol] 0.1 mg/dL Normal 0.0-0.3 [facility] Comment on above: Performed By: #### 5 8077-9 #### LUCIA HOWELL ([id number]) [facility] ([facility]) [address] [place] [address] 55385 Protein [Mass/Vol] 6.6 g/dL Normal 6.4-8.2 [facility] Comment on above: Performed By: #### 5 8077-9 #### LUCIA HOWELL ([id number]) [facility] ([facility]) [address] [place], [place] [address] Lipaseon 09-07-2023 Lipase [Catalytic activity/Vol] 22 U/L 9 - 82 U/L [facility] Lipase [Catalytic activity/V ol]on 09-07-2023 Venipuncture immedia tely after or during the administration of Metamizole may lead to falsely low results. Testing should be performed immediately prior to Metamizole dosing. [facility] No Panel Informationon 09-06 Interpretation and review of laboratory results Normal [facility] Interpretation and review of laboratory results Normal [facility] PT Coag (PPP) [Time]on 09-06 INR Coag (PPP) [Relative time] 0.9 {INR} 0.9 - 1.1 [facility] INR Coag (PPP) [Relative time] 0.9 Normal 0.9-1.1 [facility] Comment on above: Performed By: #### 5 902-2 #### LUCIA HOWELL ([id number]) [facility] ([facility]) [address] [place] [address] Protime-INRon 09-07-2023 PT Coag (PPP) [Time] 10.4 s [facility] Triacylglycerol lipaseon Lipase [Catalytic activity/Vol] 22 U/L Normal [facility] Comment on above: Order Comment: Venip uncture immediately after or during the administration of Metamizole may lead to falsely low results. Testing should be performed immediately prior to Metamizole dosing. Performed By: #### 5 8077-9 #### LUCIA HOWELL ([id number]) [facility] ([facility]) [address] [place] [address] Urinalysis complete W Reflex Culture panel (U)on 09-07-2023 Appearance (U) Clear Clear [facility] Bilirubin (U) [Mass/Vol] Negative NEGATIVE [facility] Color (U) Straw Straw, Yellow [facility] Glucose Auto test strip (U) [Mass/Vol] Negative NEGATIVE mg/dL [facility] Interpretation and review of laboratory results Normal [facility] Ketones (U) [Mass/Vol] Negative NEGATIVE mg/dL [facility] Leukocyte esterase Auto test strip Ql (U) Negative NEGATIVE [facility] Nitrite Auto test strip Ql (U) Negative NEGATIVE [facility] pH (U) 6.0 [pH] 5.0, 5.5, 6.0, 6.5, 7.0, 7.5, 8.0 [facility] Protein (U) [Mass/Vol] Negative NEGATIVE mg/dL [facility] RBC (U) [#/Vol] Negative NEGATIVE [facility] Specific gravity (U) [Rel density] 1.011 1.005 - 1.035 [facility] Urobilinogen (U) [Mass/Vol] mg/dL NINF - 2.0 mg/dL [facility] Appearance (U) Clear Normal Clear [facility] Comment on above: Performed By: #### 5 8077-9 #### LUCIA HOWELL ([id number]) [facility] ([facility]) [address] [place] [address] Bilirubin (U) [Mass/Vol] Negative Normal NEGATIVE [facility] Comment on above: Performed By: #### 5 8077-9 #### LUCIA HOWELL ([id number]) [facility] ([facility]) [address] [place] [address] Color (U) Straw Normal Straw, Yellow [facility] Comment on above: Performed By: #### 5 8077-9 #### LUCIA HOWELL ([id number]) [facility] ([facility]) [address] [place], [place] [id number] Glucose Auto test strip (U) [Mass/Vol] Negative Normal NEGATIVE [facility] Comment on above: Performed By: #### 5 8077-9 #### LUCIA HOWELL ([id number]) [facility] ([facility]) [address] [place] [address] 83022 Ketones (U) [Mass/Vol] Negative Normal NEGATIVE [facility] Comment on above: Performed By: #### 5 8077-9 #### LUCIA HOWELL ([id number]) [facility] ([facility]) [address] [place], [place] [address] Leukocyte esterase Auto test strip Ql (U) Negative Normal NEGATIVE [facility] Comment on above: Performed By: #### 5 8077-9 #### LUCIA HOWELL ([id number]) [facility] ([facility]) [address] [place] [address] Nitrite Auto test strip Ql (U) Negative Normal NEGATIVE [facility] Comment on above: Performed By: #### 5 8077-9 #### LUCIA HOWELL ([id number]) [facility] ([facility]) [address] [place] [address] pH (U) 6.0 [pH] Normal 5.0, 5.5, 6.0, 6.5, 7.0, 7.5, 8.0 [facility] Comment on above: Performed By: #### 5 8077-9 #### LUCIA HOWELL ([id number]) [facility] [place] [address] Protein (U) [Mass/Vol] Negative Normal NEGATIVE [facility] Comment on above: Performed By: #### 5 8077-9 #### LUCIA HOWELL ([id number]) [facility] ([facility]) [address] [place] [address] RBC (U) [#/Vol] Negative Normal NEGATIVE [facility] Comment on above: Performed By: #### 5 8077-9 #### LUCIA HOWELL ([id number]) [facility] ([facility]) [address] [place] [address] Specific gravity (U) [Rel density] 1.011 Normal 1.005-1.035 [facility] Comment on above: Performed By: #### 5 8077-9 #### LUCIA HOWELL ([id number]) [facility] ([facility]) [address] [place] [address] Urobilinogen (U) [Mass/Vol] mg/dL Normal <2.0 [facility] Comment on above: Performed By: #### 5 8077-9 #### LUCIA HOWELL ([id number]) [facility] ([facility]) [address] [place] [address] aPTT Coag (PPP) [Time]on The APTT is no longe r used for monitoring Unfractionated Heparin Therapy. For monitoring Heparin Therapy, use the Heparin Assay. [facility] Prostate specific Agon 08-10 Prostate specific Ag [Mass/Vol] 0.31 ng/mL Normal <=4.00 [facility] Comment on above: Order Comment: The F DA requires that the method used for PSA assay be reported to the physician. Values obtained with different assay methods must not be used interchangeably. This test was performed at [facility] using the Agillic PSA assay is a two-site immunoenzymatic sandwich assay. The assay is approved for measurement of prostate-specific antigen (PSA)in serum and may be used in conjunction with a digital rectal examination in men 50 years and older as an aid in detection of prostate cancer. 7-Twybx-pbprslhai inhibitors (e.g. Proscar, Finasteride, Avodart, Dutasteride and Yahaira) for the treatment of BPH have been shown to lower PSA levels by an average of 50% after 6 months of treatment. Performed By: #### 2 857-1 #### MYERS LYNDA ([id number]) [facility] ([facility]) [address] [place] [address] Renal Scan w/ Pharm Interven [facility] 07-16-2023 Renal Scan w/ Pharm Intervent [facility] [address] [place] [address] Renal Scan w/ Pharm Intervent MR#: [id number] Acct: [id number] Name: ASHLEY BLOCK Rep #: [id number] : 1965 M 57 From: Tosha Craven PCP: Care Physician,No Primary Status: REG CLI Study: Renal Scan w/ Pharm Intervent Date of Exam: Exam# [id number] Ordering Dr: Dionisio Rocha II, MD [id number] CLINICAL: 57-year-old male with history of hydronephrosis. 99m Tc MAG3 DIURETIC RENAL SCINTIGRAPHY COMPARISON: None available FINDINGS: Following the intravenous administration of 11.3 mCi of 99m Tc MAG3, renal images reveal: 1. The flow study demonstrates relatively symmetric and normal arterial phase distribution of the radiotracer to the bilateral kidneys. 2. Immediate static delayed nephrogram images depict prompt and homogeneous tracer uptake by the renal parenchyma of both kidneys. Collecting structure visualization is defined at 4 minutes post tracer injection bilaterally. Washout of the radiopharmaceutical by the renal parenchyma appears normal bilaterally. Persistent collecting system activity is noted in the left kidney prior to furosemide administration. There is near complete spontaneous drainage of the right kidney collecting system prior to diuretic provision. 3. The qafde-ep-aiis ratio of total renal parenchymal function was calculated to be 49/51. Furosemide 10 mg was administered intravenously. The post Lasix T ? washout of the residual left kidney collecting system activity was calculated to be < 10 minutes, (normal < 10 minutes). NM/Renal Scan w/ Pharm Intervent IMPRESSION: 1. There is relative preservation of bilateral renal parenchymal-cortical function. 2. A normal physiologic response to furosemide administration is demonstrated in the bilateral kidneys negating the presence of significant functional and/or mechanical obstruction. Electronically Signed: Tosha Crockett DO at 18:13 EDT Reading Location ID and State: [facility] / [place] Tel , Service support , CC: Dr. Dionisio Rocha II, MD; No Primary Care Physician Wedding Decorator: Signed Normal [facility] CBC W Auto Differential pane l (Bld)on 06-01-2023 Basophils (Bld) [#/Vol] 0.02 x10*3/uL Normal 0.00-0.10 [facility] Comment on above: Performed By: #### 5 7021-8 #### LUCIA HOWELL ([id number]) [facility] ([facility]) [address] [place] [address] 11327 Basophils/100 WBC (Bld) 0.2 % Normal 0.0-2.0 [facility] Comment on above: Performed By: #### 5 7021-8 #### LUCIA HOWELL ([id number]) [facility] ([facility]) [address] [place] [address] 87915 Eosinophils (Bld) [#/Vol] 0.02 x10*3/uL Normal 0.00-0.70 [facility] Comment on above: Performed By: #### 5 7021-8 #### LUCIA HOWELL ([id number]) [facility] ([facility]) [address] [place] [address] 64093 Eosinophils/100 WBC (Bld) 0.2 % Normal 0.0-6.0 [facility] Comment on above: Performed By: #### 5 7021-8 #### LUCIA HOWELL ([id number]) [facility] ([facility]) [address] [place] [address] 52199 Erythrocyte distribution width (RBC) [Ratio] 12.2 % Normal 11.5-14.5 [facility] Comment on above: Performed By: #### 5 7021-8 #### LUCIA HOWELL ([id number]) [facility] ([facility]) [address] [place] [address] 07126 Hematocrit (Bld) [Volume fraction] 46.5 % Normal 41.0-52.0 [facility] Comment on above: Performed By: #### 5 7021-8 #### LUCIA HOWELL ([id number]) [facility] ([facility]) [address] [place] [address] 90747 Hemoglobin (Bld) [Mass/Vol] 15.7 g/dL Normal 13.5-17.5 [facility] Comment on above: Performed By: #### 5 7021-8 #### LUCIA HOWELL ([id number]) [facility] ([facility]) [address] [place] [address] 98685 Immature granulocytes (Bld) [#/Vol] 0.02 x10*3/uL Normal 0.00-0.70 [facility] Comment on above: Performed By: #### 5 7021-8 #### LUCIA HOWELL ([id number]) [facility] ([facility]) [address] [place] [address] 15736 Immature granulocytes/100 WBC (Bld) 0.2 % Normal 0.0-0.9 [facility] Comment on above: Result Comment: Gi ture Granulocyte Count (IG) includes promyelocytes, myelocytes and metamyelocytes but does not include bands. Percent differential counts (%) should be interpreted in the context of the absolute cell counts (cells/UL). Performed By: #### 5 7021-8 #### LUCIA HOWELL ([id number]) [facility] ([facility]) [address] [place] [address] Lymphocytes (Bld) [#/Vol] 1.02 x10*3/uL Low 1.20-4.80 [facility] Comment on above: Performed By: #### 5 7021-8 #### LUCIA HOWELL ([id number]) [facility] ([facility]) [address] [place] [address] Lymphocytes/100 WBC (Bld) 11.4 % Normal 13.0-44.0 [facility] Comment on above: Performed By: #### 5 7021-8 #### LUCIA HOWELL ([id number]) [facility] ([facility]) [address] [place], [place] [address] MCH (RBC) [Entitic mass] 30.5 pg Normal 26.0-34.0 [facility] Comment on above: Performed By: #### 5 7021-8 #### LUCIA HOWELL ([id number]) [facility] ([facility]) [address] [place] [address] 96884 MCHC (RBC) [Mass/Vol] 33.8 g/dL Normal 32.0-36.0 [facility] Comment on above: Performed By: #### 5 7021-8 #### LUCIA HOWELL ([id number]) [facility] ([facility]) [address] [place] [address] 61212 MCV (RBC) [Entitic vol] 90 fL Normal 80-100 [facility] Comment on above: Performed By: #### 5 7021-8 #### LUCIA HOWELL ([id number]) [facility] ([facility]) [address] [place] [address] 18435 Monocytes (Bld) [#/Vol] 0.64 x10*3/uL Normal 0.10-1.00 [facility] Comment on above: Performed By: #### 5 7021-8 #### LUCIA HOWELL ([id number]) [facility] ([facility]) [address] [place] [address] 49764 Monocytes/100 WBC (Bld) 7.2 % Normal 2.0-10.0 [facility] Comment on above: Performed By: #### 5 7021-8 #### LUCIA HOWELL ([id number]) [facility] ([facility]) [address] [place] [address] 82715 Neutrophils (Bld) [#/Vol] 7.20 x10*3/uL Normal 1.20-7.70 [facility] Comment on above: Result Comment: Perc ent differential counts (%) should be interpreted in the context of the absolute cell counts (cells/uL). Performed By: #### 5 7021-8 #### LUCIA HOWELL ([id number]) [facility] ([facility]) [address] [place] [address] 23009 Neutrophils/100 WBC (Bld) 80.8 % Normal 40.0-80.0 [facility] Comment on above: Performed By: #### 5 7021-8 #### LUCIA HOWELL ([id number]) [facility] ([facility]) [address] [place] [address] 91185 Nucleated RBC/100 WBC (Bld) [Ratio] 0.0 /100 WBCs Normal 0.0-0.0 [facility] Comment on above: Performed By: #### 5 7021-8 #### LUCIA HOWELL ([id number]) [facility] ([facility]) [address] [place] [address] 66928 Platelets (Bld) [#/Vol] 197 x10*3/uL Normal 150-450 [facility] Comment on above: Performed By: #### 5 7021-8 #### LUCIA HOWELL ([id number]) [facility] ([facility]) [address] [place] [address] 29482 RBC (Bld) [#/Vol] 5.15 x10*6/uL Normal 4.50-5.90 [facility] Comment on above: Performed By: #### 5 7021-8 #### LUCIA HAYNESALESSIO ([id number]) [facility] ([facility]) [address] [place] [address] WBC (Bld) [#/Vol] 8.9 x10*3/uL Normal 4.4-11.3 [facility] Comment on above: Performed By: #### 5 7021-8 #### LUCIA HAYNESALESSIO ([id number]) [facility] ([facility]) [address] [place] [address] CT ABDOMEN PELVIS WO IV CONT [facility] 06-01-2023 CT ABDOMEN PELVIS WO IV CONTRAST Interpreted By: Christopher Pedroza, STUDY: CT ABDOMEN PELVIS WO IV CONTRAST; 06/01/2023 11:13 am INDICATION: Signs/Symptoms:LLQ abdominal pain, left flank pain. COMPARISON: 03/22/2022 ACCESSION NUMBER(S): [id number] ORDERING CLINICIAN: TOSHA SALAZAR TECHNIQUE: CT of the abdomen and pelvis was performed. No oral, no intravenous contrast. FINDINGS: LOWER CHEST: Images of the lung bases show no infiltrate or pleural fluid. ABDOMEN: LIVER: There is no hepatic mass. BILE DUCTS: There is no intrahepatic, common hepatic or common bile ductal dilatation. GALLBLADDER: The gallbladder is unremarkable. PANCREAS: The pancreas is unremarkable. SPLEEN: The spleen is unremarkable. There is no splenic mass or splenomegaly. ADRENAL GLANDS: The adrenal glands are unremarkable. KIDNEYS, URETERS and BLADDER: The kidneys demonstrate no mass. Persistent hydronephrosis about the left kidney with interval removal/passing of the stone seen at the ureteropelvic junction. Tiny hyperdensity at this location currently which may relate to tiny stone residual or calcification within the ureteral wall. Tiny nonobstructing stones seen about the upper pole of the left kidney. A few punctate nonobstructing stones seen about the right kidney. Urinary bladder unremarkable. No stones along the course of the ureters. BOWEL: There is no bowel wall thickening, dilatation or obstruction. VESSELS: No aneurysm. IVC within normal limits. PERITONEUM/RETROPERITONEU M/LYMPH NODES: There is no retroperitoneal or pelvic adenopathy. There is no ascites. REPRODUCTIVE ORGANS: Unremarkable. ABDOMINAL WALL: The abdominal wall is unremarkable. BONE AND SOFT TISSUE: There is no acute osseous finding. There is no soft tissue abnormality. IMPRESSION: 1. 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 2. Single tiny nonobstructing stone about the left kidney. Few nonobstructing stones about the right kidney. MACRO: None. Signed by: Christopher Pedroza 06/01/2023 11:34 AM Dictation workstation: [id number] Normal [facility] Comprehensive metabolic 2000 panelon 06-01-2023 Albumin BCP dye [Mass/Vol] 4.4 g/dL Normal 3.4-5.0 [facility] Comment on above: Performed By: #### 2 4323-8 #### LUCIA HOWELL ([id number]) [facility] ([facility]) [address] [place] [address] ALP [Catalytic activity/Vol] 53 U/L Normal 33-120 [facility] Comment on above: Performed By: #### 2 4323-8 #### LUCIA HOWELL ([id number]) [facility] ([facility]) [address] [place] [address] ALT With P-5'-P [Catalytic activity/Vol] 46 U/L Normal 10-52 [facility] Comment on above: Result Comment: Ivana ents treated with Sulfasalazine may generate falsely decreased results for ALT. Performed By: #### 2 4323-8 #### LUCIA HOWELL ([id number]) [facility] ([facility]) [address] [place] [address] 10123 Anion gap [Moles/Vol] 12 mmol/L Normal 10-20 [facility] Comment on above: Performed By: #### 2 4323-8 #### LUCIA HOWELL ([id number]) [facility] ([facility]) [address] [place] [address] 32290 AST With P-5'-P [Catalytic activity/Vol] 27 U/L Normal 9-39 [facility] Comment on above: Performed By: #### 2 4323-8 #### LUCIA HOWELL ([id number]) [facility] ([facility]) [address] [place] [address] 13942 Bilirubin [Mass/Vol] 0.6 mg/dL Normal 0.0-1.2 [facility] Comment on above: Performed By: #### 2 4323-8 #### LUCIA HOWELL ([id number]) [facility] ([facility]) [address] [place] [address] Calcium [Mass/Vol] 9.3 mg/dL Normal 8.6-10.3 [facility] Comment on above: Performed By: #### 2 4323-8 #### LUCIA HOWELL ([id number]) [facility] ([facility]) [address] [place] [address] 69402 Chloride [Moles/Vol] 100 mmol/L Normal 98-107 [facility] Comment on above: Performed By: #### 2 4323-8 #### LUCIA HOWELL ([id number]) [facility] ([facility]) [address] [place] [address] 80671 CO2 [Moles/Vol] 29 mmol/L Normal 21-32 [facility] Comment on above: Performed By: #### 2 4323-8 #### LUCIA HOWELL ([id number]) [facility] ([facility]) [address] [place] [address] 60250 Creatinine [Mass/Vol] 1.04 mg/dL Normal 0.50-1.30 [facility] Comment on above: Performed By: #### 2 4323-8 #### LUCIA HOWELL ([id number]) [facility] ([facility]) [address] [place] [address] 10391 Glomerular filtration rate/1.73 sq M.predicted 84 mL/min/1.73m*2 Normal >60 [facility] Comment on above: Result Comment: Calc ulations of estimated GFR are performed using the 2020 CKD-EPI Study Refit equation without the race variable for the IDMS-Traceable creatinine methods. https://jasn.asnjournals.org/content//ASN.26788405 88 Performed By: #### 2 4323-8 #### LUCIA HOWELL ([id number]) [facility] ([facility]) [address] [place] [address] Glucose [Mass/Vol] 110 mg/dL High 74-99 [facility] Comment on above: Performed By: #### 2 4323-8 #### LUCIA HOWELL ([id number]) [facility] ([facility]) [address] [place] [address] 57042 Potassium [Moles/Vol] 3.9 mmol/L Normal 3.5-5.3 [facility] Comment on above: Performed By: #### 2 4323-8 #### LUCIA HOWELL ([id number]) [facility] ([facility]) [address] [place] [address] 05670 Protein [Mass/Vol] 7.2 g/dL Normal 6.4-8.2 [facility] Comment on above: Performed By: #### 2 4323-8 #### LUCIA HOWELL ([id number]) [facility] ([facility]) [address] [place] [address] 07907 Sodium [Moles/Vol] 137 mmol/L Normal 136-145 [facility] Comment on above: Performed By: #### 2 4323-8 #### LUCIA HOWELL ([id number]) [facility] ([facility]) [address] [place] [address] 24502 Urea nitrogen [Mass/Vol] 18 mg/dL Normal 6-23 [facility] Comment on above: Performed By: #### 2 4323-8 #### LUCIA HOWELL ([id number]) [facility] ([facility]) [address] [place] [address] 40504 Lactateon 06-01-2023 Lactate [Moles/Vol] 1.2 mmol/L Normal 0.4-2.0 [facility] Comment on above: Order Comment: Venip uncture immediately after or during the administration of Metamizole may lead to falsely low results. Testing should be performed immediately prior to Metamizole dosing. Performed By: #### 2 524-7 #### LUCIA HOWELL ([id number]) [facility] ([facility]) [address] [place] [address] Triacylglycerol lipaseon Lipase [Catalytic activity/Vol] 24 U/L Normal - [facility] Comment on above: Order Comment: Venip uncture immediately after or during the administration of Metamizole may lead to falsely low results. Testing should be performed immediately prior to Metamizole dosing. Performed By: #### 3 040-3 #### LUCIA HOWELL ([id number]) [facility] ([facility]) [address] [place] [address] Urinalysis complete W Reflex Culture panel (U)on 06-01-2023 Appearance (U) Clear Normal Clear [facility] Comment on above: Performed By: #### 5 8077-9 #### LUCIA HOWELL ([id number]) [facility] ([facility]) [address] [place] [address] Bacteria Auto (Urine sed) [#/Area] 1+ /HPF Abnormal NONE SEEN [facility] Comment on above: Performed By: #### 5 8077-9 #### LUCIA HOWELL ([id number]) [facility] ([facility]) [address] [place] [address] Bilirubin (U) [Mass/Vol] Negative Normal NEGATIVE [facility] Comment on above: Performed By: #### 5 8077-9 #### LUCIA HOWELL ([id number]) [facility] ([facility]) [address] [place] [address] Color (U) Yellow Normal Straw, Yellow [facility] Comment on above: Performed By: #### 5 8077-9 #### LUCIA HOWELL ([id number]) [facility] ([facility]) [address] [place], [place] [id number] Epithelial cells.squamous Auto (Urine sed) [#/Area] 1-9 (SPARSE) Normal Reference range not established. [facility] Comment on above: Performed By: #### 5 8077-9 #### LUCIA HOWELL ([id number]) [facility] ([facility]) [address] [place] [address] Glucose Auto test strip (U) [Mass/Vol] Negative Normal NEGATIVE [facility] Comment on above: Performed By: #### 5 8077-9 #### LUCIA HOWELL ([id number]) [facility] ([facility]) [address] [place] [address] Ketones (U) [Mass/Vol] Negative Normal NEGATIVE [facility] Comment on above: Performed By: #### 5 8077-9 #### LUCIA HOWELL ([id number]) [facility] ([facility]) [address] [place] [address] Leukocyte esterase Auto test strip Ql (U) Negative Normal NEGATIVE [facility] Comment on above: Performed By: #### 5 8077-9 #### LUCIA HOWELL ([id number]) [facility] ([facility]) [address] [place] [address] Mucus Auto (Urine sed) [#/Area] 1+ /LPF Normal Reference range not established. [facility] Comment on above: Performed By: #### 5 8077-9 #### LUCIA HOWELL ([id number]) [facility] ([facility]) [address] [place] [address] Nitrite Auto test strip Ql (U) Negative Normal NEGATIVE [facility] Comment on above: Performed By: #### 5 8077-9 #### LUCIA HOWELL ([id number]) [facility] ([facility]) [address] [place] [address] pH (U) 6.0 [pH] Normal 5.0, 5.5, 6.0, 6.5, 7.0, 7.5, 8.0 [facility] Comment on above: Performed By: #### 5 8077-9 #### LUCIA HOWELL ([id number]) [facility] ([facility]) [address] [place] [address] 16143 Protein (U) [Mass/Vol] 30 (1+) Normal NEGATIVE [facility] Comment on above: Performed By: #### 5 8077-9 #### LUCIA HOWELL ([id number]) [facility] ([facility]) [address] [place] [address] RBC (U) [#/Vol] SMALL (1+) [facility] NEGAT[facility] on above: Performed By: #### 5 8077-9 #### LUCIA HOWELL ([id number]) [facility] ([facility]) [address] [place] [address] RBC Auto (Urine sed) [#/Area] 6-10 Abnormal NONE, 1-2, 3-5 [facility] Comment on above: Performed By: #### 5 8077-9 #### LUCIA HOWELL ([id number]) [facility] ([facility]) [address] [place] [address] Specific gravity (U) [Rel density] 1.016 Normal 1.005-1.035 [facility] Comment on above: Performed By: #### 5 8077-9 #### LUCIA HOWELL ([id number]) [facility] ([facility]) [address] [place] [address] Urobilinogen (U) [Mass/Vol] mg/dL Normal <2.0 [facility] Comment on above: Performed By: #### 5 8077-9 #### LUCIA HOWELL ([id number]) [facility] ([facility]) [address] [place] [address] WBC Auto (Urine sed) [#/Area] 1-5 Normal 1-5, NONE [facility] Comment on above: Performed By: #### 5 8077-9 #### LUCIA HOWELL ([id number]) [facility] ([facility]) [address] [place] [address] Absolute lymphocyte countOrd ered By: Tuckre Ferrer on 03-02-2023 Lymphocytes Auto (Unsp spec) [#/Vol] 1.19 10*3/uL 0.83-4.51 [facility] Basophil percentageOrdered B y: Tucker Sharmaey on 03-02-2023 Basophils/100 WBC (Bld) 0.2 % 0-1 [facility] Eosinophils/100 WBC (Bld) 0.0 % 0-5 [facility] Neutrophils (Bld) [#/Vol] 9.1 10*3/uL 2.0-7.7 [facility] Neutrophils/100 WBC (Bld) 79.8 % 47-70 [facility] WBC (Bld) [#/Vol] 11.3 10*3/uL 4.4-11.0 [facility] Blood erythrocytes count (nu mber/volume)Ordered By: Tucker Ferrer on 03-02-2023 RBC (Bld) [#/Vol] 4.13 10*6/uL 4.6-6.2 [facility] Blood hemoglobin measurement (mass/volume)Ordered By: Tuckeralonzo Ferrer on 03-02-2023 Hemoglobin (Bld) [Mass/Vol] 12.8 g/dL 13.0-16.5 [facility] Blood lymphocytes/100 leukoc ytesOrdered By: Tuckeralonzo Ferrer on 03-02-2023 Lymphocytes/100 WBC (Bld) 10.5 % 19-41 [facility] Blood monocytes/100 leukocyt esOrdered By: Tuckeralonzo Ferrer on 03-02-2023 Monocytes/100 WBC (Bld) 9.1 % 0-10 [facility] Blood platelet mean volumeOr dered By: Tucker Ferrer on 03-02-2023 Platelet mean volume (Bld) [Entitic vol] 9.6 fL 6.2-12.0 [facility] Determination of erythrocyte mean corpuscular volume (MCV)Ordered By: Tucker Ferrer on 03-02-2023 MCV (RBC) [Entitic vol] 91.5 fL 80-94 [facility] Hematocrit Auto (Bld) [Volum e fraction]Ordered By: Tucker Ferrer on 03-02-2023 Hematocrit (Bld) [Volume fraction] 37.8 % 40-54 [facility] Laboratory - Hematology and Cell countsOrdered By: Tuckeralonzo Ferrer on 03-02-2023 Erythrocyte distribution width (RBC) [Entitic vol] 41.2 fL 35.1-43.9 [facility] Erythrocyte distribution width (RBC) [Ratio] 12.3 % 11.6-14.6 [facility] Immature granulocytes/100 WBC (Bld) 0.400 % 0.0-0.9 [facility] Comment on above: IG% - Immature Granu locytes (promyelocytes, myelocytes and metamyelocytes) > 1% indicates that a LEFT SHIFT is Present. MCH (RBC) [Entitic mass] 31.0 pg 27.0-32.0 [facility] Nucleated RBC/100 WBC (Bld) [Ratio] 0 % 0-5 [facility] MCHC Auto (RBC) [Mass/Vol]Or dered By: Tuckeralonzo Ferrer on 03-02-2023 MCHC (RBC) [Mass/Vol] 33.9 g/dL 32-36 [facility] Platelets bldOrdered By: Tresa Ferrer on 03-02-2023 Platelets (Bld) [#/Vol] 258 10*3/uL 150-450 [facility] No Panel InformationOrdered By: Tucker Ferrer on 03-01-2023 Activated Clotting Time 233 sec 74-137 [facility] Comment on above: Previous reported re sult: 1041 secEdited by: BENITO on 03/02/23:1212 AMENDED REPORT 03/02/23 1212 ACTk CLOT TIME previously reported as: 1041 H sec Basophil percentageOrdered B y: Tucker Ferrer on 02-18-2023 Creatinine [Mass/Vol] 1.0 mg/dL 0.70-1.30 [facility] No Panel InformationOrdered By: Tucker Ferrer on 02-18-2023 Bedside Estimated GFR (eGFR) > 60.0000 mL/min >60 [facility] CBC panel Auto (Bld)on 01-22 Erythrocyte distribution width (RBC) [Ratio] 12.2 % Normal 11.5-14.5 [facility] Comment on above: Performed By: #### 5 8410-2 #### LUCIA HOWELL ([id number]) [facility] ([facility]) [address] [place] [address] 60109 Hematocrit (Bld) [Volume fraction] 47.3 % Normal 41.0-52.0 [facility] Comment on above: Performed By: #### 5 8410-2 #### LUCIA HOWELL ([id number]) [facility] ([facility]) [address] [place] [address] 25165 Hemoglobin (Bld) [Mass/Vol] 15.7 g/dL Normal 13.5-17.5 [facility] Comment on above: Performed By: #### 5 8410-2 #### LUCIA HOWELL ([id number]) [facility] ([facility]) [address] [place] [address] 25406 MCH (RBC) [Entitic mass] 30.7 pg Normal 26.0-34.0 [facility] Comment on above: Performed By: #### 5 8410-2 #### LUCIA HOWELL ([id number]) [facility] ([facility]) [address] [place] [address] 55269 MCHC (RBC) [Mass/Vol] 33.2 g/dL Normal 32.0-36.0 [facility] Comment on above: Performed By: #### 5 8410-2 #### LUCIA HOWELL ([id number]) [facility] ([facility]) [address] [place] [address] MCV (RBC) [Entitic vol] 93 fL Normal 80-100 [facility] Comment on above: Performed By: #### 5 8410-2 #### LUCIA HOWELL ([id number]) [facility] ([facility]) [address] [place] [address] 83399 Nucleated RBC/100 WBC (Bld) [Ratio] 0.0 /100 WBCs Normal 0.0-0.0 [facility] Comment on above: Performed By: #### 5 8410-2 #### LUCIA HOWELL ([id number]) [facility] ([facility]) [address] [place] [address] 16846 Platelet mean volume (Bld) [Entitic vol] 10.0 fL Normal 7.5-11.5 [facility] Comment on above: Performed By: #### 5 8410-2 #### LUCIA HOWELL ([id number]) [facility] ([facility]) [address] [place] [address] 56438 Platelets (Bld) [#/Vol] 240 x10*3/uL Normal 150-450 [facility] Comment on above: Performed By: #### 5 8410-2 #### LUCIA HOWELL ([id number]) [facility] ([facility]) [address] [place] [address] 65910 RBC (Bld) [#/Vol] 5.11 x10*6/uL Normal 4.50-5.90 [facility] Comment on above: Performed By: #### 5 8410-2 #### LUCIA HOWELL ([id number]) [facility] ([facility]) [address] [place] [address] 94002 WBC (Bld) [#/Vol] 4.8 x10*3/uL Normal 4.4-11.3 [facility] Comment on above: Performed By: #### 5 8410-2 #### LUCIA HOWELL ([id number]) [facility] ([facility]) [address] [place] [address] Comprehensive metabolic 2000 panelon 01-22-2023 Albumin BCP dye [Mass/Vol] 4.4 g/dL Normal 3.4-5.0 [facility] Comment on above: Performed By: #### 2 4323-8 #### LUCIA HOWELL ([id number]) [facility] ([facility]) [address] [place] [address] 12806 ALP [Catalytic activity/Vol] 47 U/L Normal 33-120 [facility] Comment on above: Performed By: #### 2 4323-8 #### LUCIA HOWELL ([id number]) [facility] ([facility]) [address] [place] [address] 42346 ALT With P-5'-P [Catalytic activity/Vol] 36 U/L Normal 10-52 [facility] Comment on above: Result Comment: Ivana ents treated with Sulfasalazine may generate falsely decreased results for ALT. Performed By: #### 2 4323-8 #### LUCIA HOWELL ([id number]) [facility] ([facility]) [address] [place] [address] 62587 Anion gap [Moles/Vol] 10 mmol/L Normal 10-20 [facility] Comment on above: Performed By: #### 2 4323-8 #### LUCIA HOWELL ([id number]) [facility] ([facility]) [address] [place] [address] AST With P-5'-P [Catalytic activity/Vol] 21 U/L Normal 9-39 [facility] Comment on above: Performed By: #### 2 4322-8 #### LUCIA HOWELL ([id number]) [facility] ([facility]) [address] [place] [address] Bilirubin [Mass/Vol] 0.5 mg/dL Normal 0.0-1.2 [facility] Comment on above: Performed By: #### 2 4322-8 #### LUCIA HOWELL ([id number]) [facility] ([facility]) [address] [place] [address] 38113 Calcium [Mass/Vol] 9.3 mg/dL Normal 8.6-10.3 [facility] Comment on above: Performed By: #### 2 4322-8 #### LUCIA HOWELL ([id number]) [facility] ([facility]) [address] [place] [address] 01927 Chloride [Moles/Vol] 103 mmol/L Normal 98-107 [facility] Comment on above: Performed By: #### 2 4322-8 #### LUCIA HOWELL ([id number]) [facility] ([facility]) [address] [place] [address] 64625 CO2 [Moles/Vol] 31 mmol/L Normal 21-32 [facility] Comment on above: Performed By: #### 2 4322-8 #### LUCIA HOWELL ([id number]) [facility] ([facility]) [address] [place] [address] 47363 Creatinine [Mass/Vol] 1.12 mg/dL Normal 0.50-1.30 [facility] Comment on above: Performed By: #### 2 432-8 #### LUCIA HOWELL ([id number]) [facility] ([facility]) [address] [place] [address] 09713 GFR/1.73 sq M.predicted MDRD (S/P/Bld) [Vol rate/Area] 77 mL/min/1.73m*2 Normal >60 [facility] Comment on above: Result Comment: Calc ulations of estimated GFR are performed using the 2020 CKD-EPI Study Refit equation without the race variable for the IDMS-Traceable creatinine methods. https://jasn.asnjournals.org/content//ASN.45334761 88 Performed By: #### 2 4323-8 #### LUCIA HOWELL ([id number]) [facility] ([facility]) 00 [place] [address] Glucose [Mass/Vol] 102 mg/dL High 74-99 [facility] Comment on above: Performed By: #### 2 4323-8 #### LUCIA HOWELL ([id number]) [facility] ([facility]) [address] [place] [address] 64063 Potassium [Moles/Vol] 4.2 mmol/L Normal 3.5-5.3 [facility] Comment on above: Performed By: #### 2 3-8 #### LUCIA HOWELL ([id number]) [facility] ([facility]) [address] [place] [address] 84326 Protein [Mass/Vol] 6.8 g/dL Normal 6.4-8.2 [facility] Comment on above: Performed By: #### 2 4323-8 #### LUCIA HOWELL ([id number]) [facility] ([facility]) [address] [place] [address] 66435 Sodium [Moles/Vol] 140 mmol/L Normal 136-145 [facility] Comment on above: Performed By: #### 2 4323-8 #### LUCIA HOWELL ([id number]) [facility] ([facility]) [address] [place] [address] 92364 Urea nitrogen [Mass/Vol] 15 mg/dL Normal 6-23 [facility] Comment on above: Performed By: #### 2 4323-8 #### LUCIA HOWELL ([id number]) [facility] ([facility]) [address] [place] [address] 88250 HbA1c (Bld) [Mass fraction]o n 01-22-2023 Average glucose Estimated from glycated hemoglobin (Bld) [Mass/Vol] 117 mg/dL Normal Not Established [facility] Comment on above: Order Comment: Diagn osis of Diabetes-Adults Non-Diabetic: < or = 5.6% Increased risk for developing diabetes: 5.7-6.4% Diagnostic of diabetes: > or = 6.5% Monitoring of Diabetes Age (y)....................... Therapeutic Goal (%) Adults: >18.........................<7.0 Pediatrics: 13-18...................<7.5 Pediatrics: 7-12....................<8.0 Pediatrics: 0-6..................... 7.5-8.5 [place]. Diabetes Care 33(S1)Apr 2009 Performed By: #### 4 548-4 #### MYERS LYNDA ([id number]) [facility] ([facility]) [address] [place] [address] Hemoglobin A1c/Hemoglobin.to jenny 01-22-2023 HbA1c (Bld) [Mass fraction] 5.7 % High see below [facility] Comment on above: Order Comment: Diagn osis of Diabetes-Adults Non-Diabetic: < or = 5.6% Increased risk for developing diabetes: 5.7-6.4% Diagnostic of diabetes: > or = 6.5% Monitoring of Diabetes Age (y)....................... Therapeutic Goal (%) Adults: >18.........................<7.0 Pediatrics: 13-18...................<7.5 Pediatrics: 7-12....................<8.0 Pediatrics: 0-6..................... 7.5-8.5 [place]. Diabetes Care 33(S1), Apr 2009 Performed By: #### 4 548-4 #### LUCIA HOWELL ([id number]) [facility] ([facility]) [address] [place] [address] Insulin^post CFston 01-23-20 23 Insulin post fast Qn 6 uIU/mL Normal -25 [facility] Comment on above: Performed By: #### 2 7873-9 #### CHAY Cali ([id number]) [facility] ([facility]) [id number] [place] [address]76 Lipid 1996 panelon 3 Cholesterol [Mass/Vol] 238 mg/dL High 0-199 [facility] Comment on above: Result Comment: Age Desirable Borderline High High 0-19 Y 0 - 169 170 - 199 >/= 200 20-24 Y 0 - 189 190 - 224 >/= 225 >24 Y 0 - 199 200 - 239 >/= 240 All ranges are based on fasting samples. Specific therapeutic targets will vary based on patient-specific cardiac risk. Pediatric guidelines reference:Pediatrics 2011, 128(S5).Adult guidelines reference: NCEP ATPIII Guidelines,TAMIKA 2001, 258:2486-97 Venipuncture immediately after or during the administration of Metamizole may lead to falsely low results. Testing should be performed immediately prior to Metamizole dosing. Performed By: #### 2 4331-1 #### LUCIA HOWELL ([id number]) [facility] ([facility]) [address] [place] [address] Cholesterol in HDL [Mass/Vol] 42.0 mg/dL Normal [facility] Comment on above: Result Comment: Age Very Low Low Normal High 0-19 Y < 35 < 40 40-45 ---- 20-24 Y ---- < 40 >45 ---- >24 Y ---- < 40 40-60 >60 Performed By: #### 2 4331-1 #### LUCIA HOWELL ([id number]) [facility] ([facility]) [address] [place] [address] 73665 Cholesterol in LDL [Mass/Vol] 170 mg/dL Normal 140-190 [facility] Comment on above: Result Comment: Near Borderline AGE Desirable Optimal High High Very High 0-19 Y 0 - 109 --- 110-129 >/= 130 ---- 20-24 Y 0 - 119 --- 120-159 >/= 160 ---- >24 Y 0 - 99 100-129 130-159 160-189 >/=190 Performed By: #### 2 4331-1 #### LUCIA HOWELL ([id number]) [facility] ([facility]) [address] [place] [address] 84754 Cholesterol in VLDL [Mass/Vol] 26 mg/dL Normal 0-40 [facility] Comment on above: Performed By: #### 2 4331-1 #### LUCIA HOWELL ([id number]) [facility] ([facility]) [address] [place] [address] 30603 CHOLESTEROL/HDL RATIO 5.7 Normal [facility] Comment on above: Result Comment: Ref Values Desirable < 3.4 High Risk > 5.0 Performed By: #### 2 4331-1 #### LUCIA HOWELL ([id number]) [facility] ([facility]) [address] [place] [address] 69508 NON HDL CHOLESTEROL 196 mg/dL High 0-149 [facility] Comment on above: Result Comment: Age Desirable Borderline High High Very High 0-19 Y 0 - 119 120 - 144 >/= 145 >/= 160 20-24 Y 0 - 149 150 - 189 >/= 190 ---- >24 Y 30 mg/dL above LDL Cholesterol goal Performed By: #### 2 4331-1 #### LUCIA HOWELL ([id number]) [facility] ([facility]) [address] [place] [address] 56011 Triglyceride [Mass/Vol] 131 mg/dL Normal 0-149 [facility] Comment on above: Result Comment: Age Desirable Borderline High High Very High 0 D-90 D 19 - 174 ---- ---- ---- 91 D- 9 Y 0 - 74 75 - 99 >/= 100 ---- 10-19 Y 0 - 89 90 - 129 >/= 130 ---- 20-24 Y 0 - 114 115 - 149 >/= 150 ---- >24 Y 0 - 149 150 - 199 200- 499 >/= 500 Venipuncture immediately after or during the administration of Metamizole may lead to falsely low results. Testing should be performed immediately prior to Metamizole dosing. Performed By: #### 2 4331-1 #### LUCIA HOWELL ([id number]) [facility] ([facility]) [facility] [place] [id number] TSH WITH REFLEX TO FREE T4 I F ABNORMALon 01-22-2023 TSH Qn 1.41 m[IU]/L Normal 0.44-3.98 [facility] Comment on above: Order Comment: TSH t esting is performed using different testing methodology at [facility] than at other [facility]. Direct result comparisons should only be made within the same method. Performed By: #### T HYDS #### LUCIA HOWELL ([id number]) [facility] ([facility]) [address] [place] [address] 35897 Office Visit (Urology)on Follow-up visit Diagnoses/Problems Assessed Benign prostatic hyperplasia with lower urinary tract symptoms, symptom details unspecified (600.01) (N40.1) Bilateral renal stones (592.0) (N20.0) Erectile dysfunction (607.84) (N52.9) Nocturia (788.43) (R35.1) Never smoked tobacco (V49.89) (Z78.9) Orders SocHx: Never smoked tobacco Tobacco Use Screening; Status:Complete; Done: [id number] Perform:Not Applicable;Ordered; For:SocHx: Never smoked tobacco; Ordered By:Esetfanía Velazquez; Patient Discussion/Summary All available PSA values reviewed, Options discussed. Questions answered. Diet changes for prostate health discussed and educational information given. Pros/Cons of prostate health supplements discussed. Treatment options for LUTS reviewed Discussed timed voiding. Discussed fluid and caffeine intake U/S and KUB reviewed CT stone study ordered for f/u F/u 6 months with PSA and CT stone study Chief Complaint An interactive audio and video telecommunication system which permits real time communications between the patient (at the originating site) and provider (at the distant site) was utilized to provide this telehealth service. Verbal consent was requested and obtained from ASHLEY BLOCK on this date, 01/11/2023 10:00 AM , for a telehealth visit. Yearly with KUB History of Present IllnessPatient is here for yearly f/u for hx of kidney stones. No recent sx, KUB did not show any stones (12/09). Chronic hx of prostatitis. No recent sx. Chronic BPH sx are mild and stable. Denies urgency and frequency. Denies dysuria. Denies hematuria. Nocturia x1. No medication for the prostate. Most recent PSA was 0.54 on 08/09.. Review of Systems Constitutional: No fever, No chills. Eye: Negative. Ear/Nose/Mouth/Throat: Negative. Respiratory: No shortness of breath, No cough. Cardiovascular: No chest pain, No peripheral edema. Gastrointestinal: No nausea, Genitourinary: Negative except as documented in history of present illness. Hematology/Lymphatics: Patient denies being on blood thinners.. Endocrine: Negative. Immunologic: Not immunocompromised. Musculoskeletal: Negative Integumentary: Negative. Neurologic: Alert and oriented X4. Psychiatric: Negative. Active Problems Problems Benign prostatic hyperplasia with lower urinary tract symptoms, symptom details unspecified (600.01) (N40.1) Bilateral renal stones (592.0) (N20.0) Cephalgia (784.0) (R51.9) Erectile dysfunction (607.84) (N52.9) Eustachian tube dysfunction (381.81) (H69.90) Groin pain (789.09) (R10.30) History of kidney stones (V13.01) (Z87.442) HTN (hypertension) (401.9) (I10) Left ureteral stone (592.1) (N20.1) Nocturia (788.43) (R35.1) Sinusitis (473.9) (J32.9) Stage 3 chronic kidney disease (585.3) (N18.30) Social History Problems Never smoked tobacco (V49.89) (Z78.9) Allergies Medication morphine Recorded By: Jolanta Kirby; 12/11/2019 3:55:30 PM Additional reactions - Nausea present NonMedication IV Contrast Dye Flushing; Rash; Recorded By: Nella Kirbysea; 12/11/2019 3:55:30 PM Current Meds Medication NameInstruction Chlorthalidone 25 MG Oral TabletTAKE 1 TABLET DAILY. Losartan Potassium 50 MG Oral TabletTAKE 1 TABLET DAILY. Potassium Citrate ER 15 MEQ (1620 MG) Oral Tablet Extended Releasetake 1 tablet by mouth twice a day Tadalafil 20 MG Oral TabletTAKE 1 TABLET 1 HOUR BEFORE ACTIVITY NEEDED. Physical Exam No physical exam done given the virtual nature of the visit Signatures Electronically signed by : Dionisio Rocha II, MD; Jan 11 2023 10:04AM EST (Author) Normal Touchworks ABDOMEN AP VIEWon 12-02-2022 ABDOMEN AP VIEW Patient Name: ASHLEY BLOCK STUDY: ABDOMEN AP VIEW INDICATION: flank pain N20.1: Left ureteral stone. COMPARISON: January 28, 2022 ACCESSION NUMBER(S): [id number] ORDERING CLINICIAN: DIONISIO ROCHA FINDINGS: Interval removal of the left double-J ureterostomy stent. The previous small mid ureteral calculus no longer visualized. Bowel-gas pattern unremarkable. IMPRESSION: Interval ureterostomy stent removal. No calculus seen. Electronically signed by: YURY AHUJA MD [facility] Radiologyon 12-02-2022 XR Abdomen AP Normal MP-Urology- Mitchel hland HC 232 DO Work Phone: Tobacco Screening.on 023 Fall risk assessment a) No falls within the last year AB-Fsrzrbv-Faq hland HC 232 DO Work Phone: Tobacco use status [facility] b) No OQ-Lsgedma-Hyn hland HC 232 DO Work Phone: Tobacco Screening. Yes MP-Uro logy-Mitchel hland HC 232 DO Work Phone: Established Visit (Nephrolog y)on 11-17-2022 Established Visit (Nephrology) Diagnoses/Problems HTN (hypertension) (401.9) (I10) Stage 3 chronic kidney disease (585.3) (N18.30) Left ureteral stone (592.1) (N20.1) Orders HTN (hypertension) Basic Metabolic Panel; Status:Active; Requested for:[id number]; Patient Discussion/Summary Ultrasound reviewed that was done in July Shows bilateral nephrolithiasis We will set up an appointment for follow-up with Dr. Rocha At this time I would continue his medical management as he is on Seems to be tolerating meds well and it has now been over 13 months since his last episode with stones He does have the nephrolithiasis bilaterally but does seem to be improving with how things are progressing Provider Impressions - Recurrent Kidney Stones - Calcium Oxalate Stones - Calcium Phosphate Stones - Nocturia - Elevated BP - Flank Pain. - CKD with Creat of 1.26 > 1.18 Chief Complaint 6 mo fuv History of Present IllnessHere for follow-up secondary to recurrent nephrolithiasis at his last visit had a repeat Litholink which showed some signs of improvement. pH had improved the calcium was still too high in the urine and so chlorthalidone was started. No recent blood work at this time Medications are reviewed and they include chlorthalidone ibuprofen losartan potassiums citrate Feeling prettywell Had a renal US that shows B/L Stones Needs tofollow up withPeck Review of Systems Constitutional: no fever, no chills, no recent weight gain and no recent weight loss. Eyes: no blurred vision and no diplopia. ENT: no hearing loss, no earache, no sore throat, no swollen glands in the neck and no nasal discharge. Cardiovascular: no chest pain, no palpitations and no lower extremity edema. Respiratory: no shortness of breath, no chronic cough and no shortness of breath during exertion. Gastrointestinal: no abdominal pain, no constipation, no heartburn, no bloody stools, no change in bowel habits and no vomiting. Genitourinary: no dysuria and no hematuria. Musculoskeletal: no arthralgias and no myalgias. Skin: no rashes and no skin lesions. Neurological: no headaches and no dizziness. Psychiatric: no confusion, no depression and no anxiety. Endocrine: no cold intolerance, no heat intolerance, no thyroid disorder, no dry skin and no increased urinary frequency. Hematologic/Lymphatic: does not bleed easily and does not bruise easily. All other systems have been reviewed and are negative for complaint. Active Problems Benign prostatic hyperplasia with lower urinary tract symptoms, symptom details unspecified (600.01) (N40.1) Bilateral renal stones (592.0) (N20.0) Cephalgia (784.0) (R51.9) Erectile dysfunction (607.84) (N52.9) Eustachian tube dysfunction (381.81) (H69.90) Groin pain (789.09) (R10.30) History of kidney stones (V13.01) (Z87.442) HTN (hypertension) (401.9) (I10) Left ureteral stone (592.1) (N20.1) Nocturia (788.43) (R35.1) Sinusitis (473.9) (J32.9) Stage 3 chronic kidney disease (585.3) (N18.30) Social History Never smoked tobacco (V49.89) (Z78.9) Allergies morphine Recorded By: Jolanta Kirby; 12/11/2019 3:55:30 PM Additional reactions - Nausea present IV Contrast Dye Flushing; Rash; Recorded By: Jolanta Kirby; 12/11/2019 3:55:30 PM Current Meds Medication NameInstruction Chlorthalidone 25 MG Oral TabletTAKE 1 TABLET DAILY. Losartan Potassium 50 MG Oral TabletTAKE 1 TABLET DAILY. Potassium Citrate ER 15 MEQ (1620 MG) Oral Tablet Extended Releasetake 1 tablet by mouth twice a day Tadalafil 20 MG Oral TabletTAKE 1 TABLET 1 HOUR BEFORE ACTIVITY NEEDED. Vitals Vital Signs Recorded: 17Nov2022 03:24PM Heart Rate74 Auoueqlh242 Jdegrbokn90 Height5 ft 11 in Dfyzcq944 lb BMI Dqrkkmwktw52.62 kg/m2 BSA Calculated2.1 Physical Exam Constitutional: no acute distress, well appearing and well nourished. Psychiatric: orientation to person, place, and time. Appropriate mood and affect. Neurologic: normal examination of cranial nerves, normal examination of motor strength, normal examination of sensation and asterixis is not present. Neck: no thyromegaly, jugular venous distension or audible carotid bruits. Cardiovascular: auscultation of heart: normal rate and rhythm, normal S1 and S2, no murmurs. There was no pericardial friction rub. Pulmonary: lungs are clear to auscultation. Abdomen: soft, non tender to palpation, normoactive bowel sounds. No organomegaly, masses or audible bruits and abdominal aorta: normal. Kidneys: bilateral lower poles not palpable and non tender with percussion. Extremities: exam of extremities was normal. No clubbing of the fingernails and no cyanosis and no edema present. Skin: warm, pink, well conditioned; no rashes or lesions. No livedo reticularis, hair and nails normal and skin and subcutaneous tissue normal. Lymphatic: no lymphadenopathy. Results/Data No new blood work currently Signatures Electronically signed by : Julius Ahuja, DO; Mehnaz (more content not included)... [facility] PROSTATE SPECIFIC AGon 07-24 Prostate specific Ag [Mass/Vol] 0.54 ng/mL Normal 0.00 - 4.00 [facility] Comment on above: Result Comment: The FDA requires that the method used for PSA assay be reported to the physician. Values obtained with different assay methods must not be used interchangeably. This test was performed at [facility] using the Access Hybritech PSA assay is a two-site immunoenzymatic sandwich assay. The assay is approved for measurement of prostate-specific antigen (PSA)in serum and may be used in conjunction with a digital rectal examination in men 50 years and older as an aid in detection of prostate cancer. 2-Ipdhu-psrlhqddu inhibitors (e.g. Proscar, Finasteride, Avodart, Dutasteride and Yahaira) for the treatment of BPH have been shown to lower PSA levels by an average of 50% after 6 months of treatment. Performed By: #### P SA #### [address] [address] Prostate Specific Antigen 07-24-2022 Prostate specific Ag [Mass/Vol] 0.54 ng/mL See Below [facility] Work Phone: Comment on above: Reference Range: 0.0 0 - 4.00The FDA requires that the method used for PSA assay be reported to the physician. Values obtained with different assay methods must not be used interchangeably. This testwas performed at [facility] using the Access Hybritech PSA assay is a two-site immunoenzymatic sandwich assay. The assay is approved for measurement of prostate-specific antigen (PSA)in serum and may be used in conjunction with a digital rectal examination in men 50 years and older as an aid in detection of prostate cancer.8-Fuihq-nlzyeywfx inhibitors (e.g. Proscar, Finasteride, Avodart, Dutasteride and Yahaira) for the treatment of BPH have been shown to lower PSA levels by an average of 50% after 6 months of treatment. Radiologyon 07-24-2022 US Kidney - bilateral Normal [facility] Work Phone: US RENAL BILATon 07-24-2022 US RENAL BILAT Patient Name: ASHLEY BLOCK STUDY: US RENAL BILAT; 07/24/2022 4:22 pm INDICATION: bilateral renla stones N20.0: Bilateral renal stones. COMPARISON: 08/22/2020 ACCESSION NUMBER(S): [id number] ORDERING CLINICIAN: DIONISIO ROCHA TECHNIQUE: Multiple images of the kidneys were obtained . FINDINGS: The right kidney measures 11.1 cm. Left kidney measures 11.4 cm. Numerous bilateral renal stones are seen. Least 3 stones are seen in the right. The largest is seen in the mid pole measuring 7 mm. 2nd largest measures 6 mm. On the left there is a 5 mm stone seen. Postvoid volume at 148 cc. Prevoid volume is 930 cc IMPRESSION: Bilateral non-obstructing nephroliths. No hydronephrosis. Postvoid volume at 143 cc Electronically signed by: DIONISIO RILEY MD [facility] Established Visit (Nephrolog y)on 05-19-2022 Established Visit (Nephrology) Diagnoses/Problems Benign prostatic hyperplasia with lower urinary tract symptoms, symptom details unspecified (600.01) (N40.1) Bilateral renal stones (592.0) (N20.0) HTN (hypertension) (401.9) (I10) Orders HTN (hypertension) Start: Chlorthalidone 25 MG Oral Tablet; TAKE 1 TABLET DAILY Start: Losartan Potassium 50 MG Oral Tablet; TAKE 1 TABLET DAILY Patient Discussion/Summary Issues: 1.: Recurrent nephrolithiasis and his repeat Litholink is showing some good signs of improvement His citrate in his pH has improved nicely His calcium is still too high in his urine despite thiazide use I discussed this with him we will change his candesartan to losartan and we will change his hydrochlorothiazide to chlorthalidone for longer acting use Continue good fluid intake We will plan on seeing him in 6 months unless he has issues before then Provider Impressions - Recurrent Kidney Stones - Calcium Oxalate Stones - Calcium Phosphate Stones - Nocturia - Elevated BP - Flank Pain. - CKD with Creat of 1.26 > 1.18 Chief Complaint Litholink results 04/21/2022 History of Present IllnessHe is here for follow-up secondary to recurrent kidney stones with calcium oxalate stones calcium phosphate stones and CKD with a baseline creatinine of around 1.1-1.3 Blood work was last completed back on March 22 At that time hemoglobin is 14.4 Metabolic panel shows a BUN of 17 and a creatinine of 1.13 the rest of his electrolytes look very good A Litholink was performed on April 21 Litholink shows a very good urine volume of 3.5 L Supersaturation of calcium oxalate is slightly high at 3.39 his urine calcium elevated at 335 Citrate is 884 calcium phosphate supersaturation is also elevated urine uric acid is elevated pH is 6.474 his urine calcium has risen since his last check. Medications are reviewed and they include a ARB with hydrochlorothiazide, ibuprofen potassium citrate and Flomax He is feelingwellnow. No new issues He had blood in his urine CT Scan showed a 4 mm stone Review of Systems Constitutional: no fever, no chills, no recent weight gain and no recent weight loss. Eyes: no blurred vision and no diplopia. ENT: no hearing loss, no earache, no sore throat, no swollen glands in the neck and no nasal discharge. Cardiovascular: no chest pain, no palpitations and no lower extremity edema. Respiratory: no shortness of breath, no chronic cough and no shortness of breath during exertion. Gastrointestinal: no abdominal pain, no constipation, no heartburn, no bloody stools, no change in bowel habits and no vomiting. Genitourinary: no dysuria and no hematuria. Musculoskeletal: no arthralgias and no myalgias. Skin: no rashes and no skin lesions. Neurological: no headaches and no dizziness. Psychiatric: no confusion, no depression and no anxiety. Endocrine: no cold intolerance, no heat intolerance, no thyroid disorder, no dry skin and no increased urinary frequency. Hematologic/Lymphatic: does not bleed easily and does not bruise easily. All other systems have been reviewed and are negative for complaint. Active Problems Benign prostatic hyperplasia with lower urinary tract symptoms, symptom details unspecified (600.01) (N40.1) Bilateral renal stones (592.0) (N20.0) Cephalgia (784.0) (R51.9) Erectile dysfunction (607.84) (N52.9) Eustachian tube dysfunction (381.81) (H69.80) Groin pain (789.09) (R10.30) History of kidney stones (V13.01) (Z87.442) HTN (hypertension) (401.9) (I10) Left ureteral stone (592.1) (N20.1) Nocturia (788.43) (R35.1) Sinusitis (473.9) (J32.9) Stage 3 chronic kidney disease (585.3) (N18.30) Social History Never smoked tobacco (V49.89) (Z78.9) Allergies morphine Recorded By: Jolanta Kirby; 12/11/2019 3:55:30 PM Additional reactions - Nausea present IV Contrast Dye Flushing; Rash; Recorded By: Jolanta Kirby; 12/11/2019 3:55:30 PM Current Meds Medication NameInstruction Candesartan Cilexetil-HCTZ 32-25 MG Oral TabletTAKE 1 TABLET BY MOUTH EVERY DAY Ibuprofen 600 MG Oral TabletTAKE 1 TABLET EVERY 6 TO 8 HOURS NEEDED. Potassium Citrate ER 15 MEQ (1620 MG) Oral Tablet Extended Releasetake 1 tablet by mouth twice a day Tadalafil 20 MG Oral TabletTAKE 1 TABLET 1 HOUR BEFORE ACTIVITY NEEDED. Vitals Vital Signs Recorded: 19May2022 03:21PM Heart Rate90 Jqrxrdcr216, LUE, Sitting Cjfewwkmp38, LUE, Sitting Unapew511 lb 12.8 oz BMI Yrpxpdllub83.45 kg/m2 BSA Calculated2.09 Tobacco Usea) Yes O2 Hmxfiysnal92 Physical Exam Constitutional: no acute distress, well appearing and well nourished. Psychiatric: orientation to person, place, and time. Appropriate mood and affect. Neurologic: normal examination of cranial nerves, normal examination of motor strength, normal examination of sensation and asterixis is not present. Neck: no thyromegaly, jugular venous distension or audible carotid bruits. Cardiovascular: auscultation of (more content not included)... Normal [employer] Tobacco Screening.on 023 Tobacco use status [facility] a) Yes -Nephrology- [facility] 3 DO Work Phone: URINALYSIS WITH CULTURE IF I NDICATEDon 03-23-2022 Appearance (U) Canceled [facility] Comment on above: Order Comment: TEST URINALYSIS WITH CULTURE IF INDICATED WAS CANCELLED, 03/22/2022 22:18DUPLICATE ORDER;PATIENT DISCHARGED. Performed By: #### U A #### [address] [address] ASCORBIC ACID Canceled [facility] Comment on above: Order Comment: TEST URINALYSIS WITH CULTURE IF INDICATED WAS CANCELLED, 03/22/2022 22:18DUPLICATE ORDER;PATIENT DISCHARGED. Result Comment: Conc entrations > = 20 mg/dL of ascorbic acid can be expected to cause strong interference in the reactions testing for glucose, nitrite and blood. It is recommended to discontinue Vitamin C administration and retest in 10 hours. Performed By: #### U A #### [address] [address] Bilirubin Ql (U) Canceled [facility] Comment on above: Order Comment: TEST URINALYSIS WITH CULTURE IF INDICATED WAS CANCELLED, 03/22/2022 22:18DUPLICATE ORDER;PATIENT DISCHARGED. Performed By: #### U A #### [address] [address] Color (U) Canceled [facility] Comment on above: Order Comment: TEST URINALYSIS WITH CULTURE IF INDICATED WAS CANCELLED, 03/22/2022 22:18DUPLICATE ORDER;PATIENT DISCHARGED. Performed By: #### U A #### [address] [address] Glucose Ql (U) Canceled [facility] Comment on above: Order Comment: TEST URINALYSIS WITH CULTURE IF INDICATED WAS CANCELLED, 03/22/2022 22:18DUPLICATE ORDER;PATIENT DISCHARGED. Performed By: #### U A #### [address] [address] Hemoglobin Ql (U) Canceled [facility] Comment on above: Order Comment: TEST URINALYSIS WITH CULTURE IF INDICATED WAS CANCELLED, 03/22/2022 22:18DUPLICATE ORDER;PATIENT DISCHARGED. Performed By: #### U A #### [address] [address] Ketones Ql (U) Canceled [facility] Comment on above: Order Comment: TEST URINALYSIS WITH CULTURE IF INDICATED WAS CANCELLED, 03/22/2022 22:18DUPLICATE ORDER;PATIENT DISCHARGED. Performed By: #### U A #### [place] [id number] Leukocyte esterase Test strip Ql (U) Canceled [facility] Comment on above: Order Comment: TEST URINALYSIS WITH CULTURE IF INDICATED WAS CANCELLED, 03/22/2022 22:18DUPLICATE ORDER;PATIENT DISCHARGED. Performed By: #### U A #### [place] [id number] Nitrite Ql (U) Canceled [facility] Comment on above: Order Comment: TEST URINALYSIS WITH CULTURE IF INDICATED WAS CANCELLED, 03/22/2022 22:18DUPLICATE ORDER;PATIENT DISCHARGED. Performed By: #### U A #### [place] [id number] pH Canceled [facility] Comment on above: Order Comment: TEST URINALYSIS WITH CULTURE IF INDICATED WAS CANCELLED, 03/22/2022 22:18DUPLICATE ORDER;PATIENT DISCHARGED. Performed By: #### U A #### [place] [id number] Protein Ql (U) Canceled [facility] Comment on above: Order Comment: TEST URINALYSIS WITH CULTURE IF INDICATED WAS CANCELLED, 03/22/2022 22:18DUPLICATE ORDER;PATIENT DISCHARGED. Performed By: #### U A #### [place] [id number] Specific gravity (U) [Rel density] Canceled [facility] Comment on above: Order Comment: TEST URINALYSIS WITH CULTURE IF INDICATED WAS CANCELLED, 03/22/2022 22:18DUPLICATE ORDER;PATIENT DISCHARGED. Performed By: #### U A #### [address] [place] [address] UROBILINOGEN Canceled Normal [facility] Comment on above: Order Comment: TEST URINALYSIS WITH CULTURE IF INDICATED WAS CANCELLED, 03/22/2022 22:18DUPLICATE ORDER;PATIENT DISCHARGED. Performed By: #### U A #### [address] [address] CBC AND DIFFERENTIALon 03-22 % AUTOMATED IMMATURE GRAN 0.2 % Normal 0.0 - 0.9 [facility] Comment on above: Result Comment: Gi ture Granulocyte Count (IG) includes promyelocytes, myelocytes and metamyelocytes but does not include bands. Percent differential counts (%) should be interpreted in the context of the absolute cell counts (cells/L). Performed By: #### C BCDF #### [address] [address] Basophils (Bld) [#/Vol] 0.03 10*3/uL Normal 0.00 - 0.10 [facility] Comment on above: Performed By: #### C BCDF #### [address] [address] Basophils/100 WBC (Bld) 0.6 % Normal 0.0 - 2.0 [facility] Comment on above: Performed By: #### C BCDF #### [address] [address] Eosinophils (Bld) [#/Vol] 0.07 10*3/uL Normal 0.00 - 0.70 [facility] Comment on above: Performed By: #### C BCDF #### [address] [address] Eosinophils/100 WBC (Bld) 1.5 % Normal 0.0 - 6.0 [facility] Comment on above: Performed By: #### C BCDF #### [address] [address] Erythrocyte distribution width (RBC) [Ratio] 12.5 % Normal 11.5 - 14.5 [facility] Comment on above: Performed By: #### C BCDF #### [address] [address] Hematocrit (Bld) [Volume fraction] 43.2 % Normal 41.0 - 52.0 [facility] Comment on above: Performed By: #### C BCDF #### [address] [address] Hemoglobin (Bld) [Mass/Vol] 14.4 g/dL Normal 13.5 - 17.5 [facility] Comment on above: Performed By: #### C BCDF #### [address] [address] Lymphocytes (Bld) [#/Vol] 1.16 10*3/uL Low 1.20 - 4.80 [facility] Comment on above: Performed By: #### C BCDF #### [address] [address] Lymphocytes/100 WBC (Bld) 25.1 % Normal 13.0 - 44.0 [facility] Comment on above: Performed By: #### C BCDF #### [address] [address] MCHC (RBC) [Mass/Vol] 33.3 g/dL Normal 32.0 - 36.0 [facility] Comment on above: Performed By: #### C BCDF #### [address] [address] MCV (RBC) [Entitic vol] 91 fL Normal 80 - 100 [facility] Comment on above: Performed By: #### C BCDF #### [address] [address] Monocytes (Bld) [#/Vol] 0.55 10*3/uL Normal 0.10 - 1.00 [facility] Comment on above: Performed By: #### C BCDF #### [address] [address] Monocytes/100 WBC (Bld) 11.9 % Normal 2.0 - 10.0 [facility] Comment on above: Performed By: #### C BCDF #### [address] [address] Neutrophils (Bld) [#/Vol] 2.81 10*3/uL Normal 1.20 - 7.70 [facility] Comment on above: Result Comment: Perc ent differential counts (%) should be interpreted in the context of the absolute cell counts (cells/L). Performed By: #### C BCDF #### [address] [address] Neutrophils/100 WBC (Bld) 60.7 % Normal 40.0 - 80.0 [facility] Comment on above: Performed By: #### C BCDF #### [address] [address] Platelets (Bld) [#/Vol] 235 10*3/uL Normal 150 - 450 [facility] Comment on above: Performed By: #### C BCDF #### [address] [address] RBC 4.74 x10E12/L Normal 4.50 - 5.90 [facility] Comment on above: Performed By: #### C BCDF #### [address] [address] WBC (Bld) [#/Vol] 4.6 10*3/uL Normal 4.4 - 11.3 [facility] Comment on above: Performed By: #### C BCDF #### [address] [address] COMPREHENSIVE PANELon 2021 Albumin [Mass/Vol] 4.3 g/dL Normal 3.4 - 5.0 [facility] Comment on above: Performed By: #### U A #### [address] [address] ALP [Catalytic activity/Vol] 51 U/L Normal 33 - 120 [facility] Comment on above: Performed By: #### U A #### [address] [address] ALT [Catalytic activity/Vol] 27 U/L Normal 10 - 52 [facility] Comment on above: Result Comment: Ivana ents treated with Sulfasalazine may generate falsely decreased results for ALT. Performed By: #### U A #### [address] [address] Anion gap [Moles/Vol] 11 mmol/L Normal 10 - 20 [facility] Comment on above: Performed By: #### U A #### [address] [address] AST [Catalytic activity/Vol] 18 U/L Normal 9 - 39 [facility] Comment on above: Performed By: #### U A #### [address] [address] Bilirubin [Mass/Vol] 0.6 mg/dL Normal 0.0 - 1.2 [facility] Comment on above: Performed By: #### U A #### [address] [address] Calcium [Mass/Vol] 9.3 mg/dL Normal 8.6 - 10.3 [facility] Comment on above: Performed By: #### U A #### [address] [address] Chloride [Moles/Vol] 103 mmol/L Normal 98 - 107 [facility] Comment on above: Performed By: #### U A #### [address] [address] Creatinine [Mass/Vol] 1.13 mg/dL Normal 0.50 - 1.30 [facility] Comment on above: Performed By: #### U A #### [address] [address] GFR/1.73 sq M.predicted among non-blacks MDRD (S/P/Bld) [Vol rate/Area] 77 mL/min/{1.73_m2} Normal >90 [facility] Comment on above: Result Comment: CALC ULATIONS OF ESTIMATED GFR ARE PERFORMED USING THE 2020 CKD-EPI STUDY REFIT EQUATION WITHOUT THE RACE VARIABLE FOR THE IDMS-TRACEABLE CREATININE METHODS. https://jasn.asnjournals.org/content//ASN.89620171 88 Performed By: #### U A #### [address] [place] [address] Glucose [Mass/Vol] 119 mg/dL High 74 - 99 [facility] Comment on above: Performed By: #### U A #### [address] [address] HCO3 (Bld) [Moles/Vol] 26 mmol/L Normal 21 - 32 [facility] Comment on above: Performed By: #### U A #### [address] [address] Potassium [Moles/Vol] 3.9 mmol/L Normal 3.5 - 5.3 [facility] Comment on above: Performed By: #### U A #### [address] [address] Protein [Mass/Vol] 7.0 g/dL Normal 6.4 - 8.2 [facility] Comment on above: Performed By: #### U A #### [address] [address] Sodium [Moles/Vol] 136 mmol/L Normal 136 - 145 [facility] Comment on above: Performed By: #### U A #### [address] [address] Urea nitrogen [Mass/Vol] 17 mg/dL Normal 6 - 23 [facility] Comment on above: Performed By: #### U A #### [address] [address] [address] ABDOMEN AND PELVIS WO CON TRASTon 03-22-2022 CT ABDOMEN AND PELVIS WO CONTRAST STUDY: CT Abdomen and Pelvis without IV Contrast; 03/22/2022, 11:54 AM. INDICATION: Gross hematuria and left flank pressure. History of kidney/ureteral stones. COMPARISON: Abdomen radiograph 01/28/2022. CT abdomen and pelvis 01/12/2022, 10/07/2021. ACCESSION NUMBER(S): [id number] ORDERING CLINICIAN: JOSSELIN HOUSTON DO TECHNIQUE: CT of the abdomen and pelvis was performed. Contiguous axial images were obtained at 3 mm slice thickness through the abdomen and pelvis. Coronal and sagittal reconstructions at 3 mm slice thickness were performed. No intravenous contrast was administered. Automated mA/kV exposure control was utilized and patient examination was performed in strict accordance with principles of ALARA. FINDINGS: Please note that the evaluation of vessels, lymph nodes and organs is limited without intravenous contrast. LOWER CHEST: No cardiomegaly. No pericardial effusion. Lung bases are clear. ABDOMEN: LIVER: No hepatomegaly. Smooth surface contour. Normal attenuation. BILE DUCTS: No intrahepatic or extrahepatic biliary ductal dilatation. GALLBLADDER: The gallbladder is present without gallstones. STOMACH: Tiny hiatal hernia. PANCREAS: No masses or ductal dilatation. SPLEEN: No splenomegaly or focal splenic lesion. ADRENAL GLANDS: No thickening or nodules. KIDNEYS AND URETERS: Kidneys are normal in size and location. 4 mm calculus in the proximal left ureter causing moderate to severe left-sided hydroureteronephrosis. Few additional nonobstructing right renal calculi measuring up to 4 to 5 mm. PELVIS: BLADDER: No abnormalities identified. REPRODUCTIVE ORGANS: No abnormalities identified. BOWEL: No abnormalities identified. Appendix is normal. VESSELS: No abnormalities identified. Abdominal aorta is normal in caliber. Mild plaque along the distal aorta. PERITONEUM/RETROPERITONEU M/LYMPH NODES: No free fluid. No pneumoperitoneum. No lymphadenopathy. ABDOMINAL WALL: No abnormalities identified. SOFT TISSUES: No abnormalities identified. BONES: No acute fracture or aggressive osseous lesion. IMPRESSION: 1. 4 mm calculus in the proximal left ureter causing moderate to severe left-sided hydroureteronephrosis. 2. Few additional nonobstructing right renal calculi measuring up to 4 to 5 mm. 3. Tiny hiatal hernia. Signed by Rocio Vivar MD Electronically signed by: ROCIO VIVAR MD [facility] Provider Note - ED v3on 12-0 Provider Note - ED v3 Provider Note: Chart Review: ED NOTES ED NOTES: 56-year-old male presents with painless hematuria. Patient has longstanding history of nephro and urolithiasis. Patient is complaining of some mild left flank pressure. Patient states hematuria started yesterday. Indicates that his urine was dark several times when he voided and subsequently had 1 episode of normal urine and now is having hematuria. Patient had recent lithotripsy within the last several months. Patient is in no acute distress when I examined him. Was referred here by Dr. Ahuja. He denies any fever, chills, nausea or vomiting with presenting complaint. Patient will be given 1 g of Rocephin. I have gone over all the findings with the patient and he will be referred back to Dr. Rocha tomorrow. I have instructed him to increase fluids and if symptoms worsen return to ED. HISTORY OF PRESENTING ILLNESS ASHLEY is a 56 year old Male and was seen by me at 22-Mar-2022 10:16 for a chief complaint of hematuria (Amb to ER with c/o hematuria that started yesterday--denies any injury, nausea, or vomiting--denies pain but feels kidney pressure--hx of kidney stones--last stone was 6 day ago)(1). The historian is the patient. Triage Information: Most recent Vital Sign Value Date Temp (F): 97 03-22-2022 10:31 Temp (C): 36.1 03-22-2022 10:31 Heart Rate (beats/min): 77 03-22-2022 10:31 Respirations (breaths/min): 16 03-22-2022 10:31 SpO2 (%): 97 03-22-2022 10:31 BP Systolic (mm Hg): 131 03-22-2022 10:31 BP Diastolic (mm Hg): 96 03-22-2022 10:31 PAST MEDICAL HISTORY CURRENT OR FORMER SUBSTANCE USE: Tobacco/Nicotine Use: never smoker ALLERGIES/INTOLERANCES: Allergy Allergen: contrast (specific type unknown) Type: Contrast Reaction: Unknown Allergen: morphine Type: Drug Reaction: Unknown HEALTH HISTORY: No documented data. OUTPATIENT MEDICATIONS: Home Medications Review Status for Reconciliation: Complete Med Status: Patient Currently Takes Medications Drug Name: candesartan-hydrochloroth iazide 32 mg-25 mg oral tablet Instructions: 1 tab(s) orally once a day Drug Name: Calcium 600+D oral tablet Instructions: 1 tab(s) orally once a day Drug Name: POTASSIUM CITRATE ER 15 MEQ TB Instructions: 1 tab(s) orally 2 times a day Drug Name: TAMSULOSIN HCL 0.4 MG CAPSULE Instructions: 1 cap(s) orally once a day (at bedtime) SIGNIFICANT EVENTS: Clinical Events Description:Surgical Procedure Additional Notes:1. CYSTO L RPG L URETEROSCOPY W L STENT; Description:Surgical Procedure Additional Notes:1. CYSTO L RPG L URETEROSCOPY W KIMMY L STENT; Past Medical History Description:KIDNEY STONES Description:high blood pressure REVIEW OF SYSTEMS GASTROINTESTINAL: POSITIVE for: abdominal pain; GENITOURINARY: POSITIVE for: hematuria; All other systems reviewed and are negative PHYSICAL EXAM CONSTITUTIONAL: Well appearing, well nourished, awake, alert, oriented to person, place, time/situation and in no apparent distress. HENMT: Airway patent, ears with clear tympanic membranes bilaterally. Nasal mucosa clear. Mouth with normal mucosa. Throat has no vesicles, no oropharyngeal exudates and uvula is midline. Face with no lymph node enlargement. EYES: Clear bilaterally, pupils equal, round and reactive to light. CARDIOVASCULAR: Normal rate, regular rhythm. Heart sounds S1, S2. No murmurs, rubs or gallops. PMI non-displaced. RESPIRATORY: Breath sounds clear and equal bilaterally. GASTROINTESTINAL: Abdomen soft, non-distended, no rebound, no guarding. Bowel sounds normal in all 4 quadrants. Mild left posterior flank tenderness to percussion. GENITOURINARY: No discharge, no lesions. MUSCULOSKELETAL: Spine appears normal, range of motion is not limited, no muscle or joint tenderness. NEUROLOGICAL: Alert and oriented, no focal deficits, no motor or sensory deficits. SKIN: Skin normal color for race, warm, dry and intact. No evidence of trauma. PSYCHIATRIC: Alert and oriented to person, place, time/situation. normal mood and affect. No apparent risk to self or others. HEME/LYMPH: No adenopathy or splenomegaly. No cervical, supraclavicular or inguinal lymphadenopathy. CRITICAL CARE RESULTS: Recent Lab Results: I have reviewed these laboratory results: Urinalysis with Culture if Indicated 22-Mar-2022 10:57:00 ResultValue Color, Urine Yellow Reference Range: STRAW,YELLOW Appearance, Urine HAZY Specific [place], Urine 1.010 pH, Urine 6.0 Protein, Urine 30(1+) A Glucose, Urine NEGATIVE Blood, Urine LARGE(3+) A Ketones, Urine NEGATIVE Bilirubin, Urine NEGATIVE Urobilinogen, Urine <2.0 Nitrite, Urine Negative Leukocyte Esterase, Urine NEGATIVE Urinalysis, Microscopic 22-Mar-2022 10:57:00 ResultValue White Cells 3 Red Blood Cells 95 A Epithelial Cells, Squamous <1 Epithelial Cells, Transitional <1 Bacteria, Urine 1+ A Mucous 1+ Compl (more content not included)... Normal [facility] Risk Screen - Adult Emergenc yon 03-22-2022 Risk Screen - Adult Emergency Preferred Language: Preferred Language: Preferred Language for Discussing Health Care (patient/designee)[place] Citizen Patient Preferred Pharmacy: Patient Preferred Pharmacy Statement: I have reviewed and updated the patient's preferred pharmacy selection for today's visit. Advanced Directives: Advance Directive/DNRno Family Violence Adult: Abuse Screen: Are you or have you been threatened or abused physically, emotionally, or sexually by anyoneno Learning Assessment (Patient): Learning Assessment (Patient): Patient is Able to be Assessed for Learningyes Factors Influencing Readiness to Learnacuteness of illness Factors that Impact Ability to Learnnone Devices/Methods Used to Communicatenone Learning Preferencesverbal instruction; written material Cultural Considerationsnone Developmental Considerationsnone Sabianist Considerationsnone Learning Assessment (Other Learner): Learning Assessment (Other Learner): Other learner availableno Pressure Injury/TB/Substance: Pressure Injury: Pressure Injury Present on Admissionno Do you have a coughno Smoking Statusnever smoker Alcohol Usedenies Drug Usedenies Drug 2 Usedenies Admission Risk Screen: Significant IndicatorsComplete CAGE: CAGE: Is this an injured patient at a Trauma Center ([facility] [place]/[facility]/[place]/ [place]): no Electronic Signatures: Jocelin Harrington (NIKOLE) (Signed 22-Mar-2022 10:37) Authored: Preferred Language, Patient Preferred Pharmacy, Advanced Directives, Family Violence Adult, Learning Assessment (Patient), Learning Assessment (Other Learner), Pressure Injury/TB/Substance, Pressure Injury, CAGE Last Updated: 22-Mar-2022 10:37 by Jocelin Harrington (NIKOLE) [facility] Triage - EDon 03-22-2022 Triage - ED Quick Triage: The patient and/or guardian verbally acknowledges placement for services into the following (when Urgent Care Service hours are operating):emergency department Chart Review: PRIMARY ASSESSMENT ABCD Normal Findings: airway open and patent, breathing normal, circulation normal and alert and oriented ARRIVAL INFORMATION Mode of Arrival: private vehicle CHIEF COMPLAINT ASHLEY BLOCK is a Male patient with a chief complaint of hematuria (Amb to ER with c/o hematuria that started yesterday--denies any injury, nausea, or vomiting--denies pain but feels kidney pressure--hx of kidney stones--last stone was 6 day ago). Triage Date/Time: 22-Mar-2022 10:31 LENNIE: 3 Pain Rating (0-10): 0 = None Vital Signs: Temperature: 97.0F ( 36.1C) taken forehead Blood Pressure: 131/96 Mean: Heart Rate: 77 Respiratory Rate: 16 Pulse Oximetry: 97% on room air, no respiratory support. Height: 5 feet 11.00 inches. 180.3 CM Weight: 190.2 pounds. Calculated 86.3 kg. (stated) Calculated BMI (kg/m2): 26.547 Calculated BSA (m2) 2.08 Kevin Coma Scale: Best Eye Response: (E4) spontaneous Best Motor Response: (M6) obeys commands Best Verbal Response: (V5) oriented [place] Score: 15 Cough lasting greater than 3 weeks: no Allergies: yes Mask applied: yes Patient has homicidal thoughts: no Symptom Notes: . Symptoms Are POSITIVE For: hematuria. Symptoms Are Negative For: anorexia, chills, dysuria, fever, flank pain, frequency, malaise, nausea and urgency. Risk Screens Suicide Risk Screen In the Past Month: Have you wished you were or wished you could go to sleep and not wake up no In the Past Month: Have you had any actual thoughts of killing yourself no In Your Lifetime: Have you ever done anything, started to do anything, or prepared to do anything to end your life no Garcia Fall Scale Screening Has the patient fallen before (or is the patient in the ED as a result of a fall) has not had a fall Does the patient have an impaired gait does not have impaired gait Is the patient cognitively impaired not cognitively impaired Interventions: Garcia Fall Interventions: LOW INTERVENTIONS: *patient oriented to surroundings and call system, * patient/family falls education completed and documented, *patients fall status communicated during bedside handoff, *whiteboard updated, *mode of toileting discussed with patient, *bed in low position with brakes locked, *call light in reach, * non-skid footwear TRAVEL HISTORY Travel History Coronavirus Screening: no exposure or symptoms Travel Exposure History: NO travel to International locations in the past 30 days PAIN Pain Scale Used: JON Pain Rating (0-10): 0 = None Past Medical History: Past Medical History Reviewedyes Electronic Signatures: Jocelin Harrington) (Signed 22-Mar-2022 10:35) Authored: Quick Triage, Risk Screens, Pain, ABCD, Travel History, Chart Review, Scores, Past Medical History Last Updated: 22-Mar-2022 10:35 by Jocelin Harrington (RN) Normal [facility]A MICROSCOPICon 03-22-2022 BACTERIA 1+ /HPF Abnormal [facility] Comment on above: Performed By: #### U AMIC ####[place] [address] Mucus Ql (Urine sed) 1+ /LPF Normal [facility] Comment on above: Performed By: #### U AMIC ####[place] [address] RBC 95 /HPF Abnormal 0-5 [facility] Comment on above: Performed By: #### U AMIC ####[place] [address] SQUAMOUS EPITH. CELLS <1 Normal [facility] Comment on above: Performed By: #### U AMIC ####[place] [address] TRANSITIONAL EPITH.CELLS <1 Normal [facility] Comment on above: Performed By: #### U AMIC ####[place] [address] WBC 3 /HPF Normal 0-5 [facility] Comment on above: Performed By: #### U AMIC ####[place] [address] URINALYSIS WITH CULTURE IF I NDICATEDon 03-22-2022 Appearance (U) HAZY Normal CLEAR [facility] Comment on above: Performed By: #### U ARFX #### [place] [address] Bilirubin Ql (U) Negative Normal NEGATIVE [facility] Comment on above: Performed By: #### U ARFX #### [place] [address] Color (U) Yellow Normal STRAW,YELLOW [facility] Comment on above: Performed By: #### U ARFX #### [place] [id number] Glucose Ql (U) Negative Normal NEGATIVE [facility] Comment on above: Performed By: #### U ARFX #### [place] [address] Hemoglobin Ql (U) LARGE(3+) Abnormal NEGATIVE [facility] Comment on above: Performed By: #### U ARFX #### [place] [address] Ketones Ql (U) Negative Normal NEGATIVE [facility] Comment on above: Performed By: #### U ARFX #### [place] [address] Leukocyte esterase Test strip Ql (U) Negative Normal NEGATIVE [facility] Comment on above: Performed By: #### U ARFX #### [place] [address] Nitrite Ql (U) Negative Normal NEGATIVE [facility] Hospital Comment on above: Performed By: #### U ARFX #### [place] [address] pH (U) 6.0 [pH] Normal 5.0 - 8.0 [facility] Comment on above: Performed By: #### U ARFX #### [place] [address] Protein Ql (U) 30(1+) Abnormal NEGATIVE [facility] Comment on above: Performed By: #### U ARFX #### [place] [address] Specific gravity (U) [Rel density] 1.010 Normal 1.005 - 1.035 [facility] Comment on above: Performed By: #### U ARFX #### [place] [id number] Urobilinogen (U) [Mass/Vol] mg/dL Normal 0.0 - 1.9 [facility] Comment on above: Performed By: #### U ARFX #### [place] [id number] ABDOMEN AP VIEWon 01-28-2022 ABDOMEN AP VIEW Patient Name: ASHLEY BLOCK STUDY: ABDOMEN AP VIEW INDICATION: NONE R35.1: Nocturia COMPARISON: CT of the abdomen and pelvis 01/12/2022 ACCESSION NUMBER(S): [id number] ORDERING CLINICIAN: DIONISIO ROCHA FINDINGS: No radiopaque densities projecting over the expected shadows of the bilateral kidneys or expected courses of the bilateral ureters. Left-sided double-J ureteral stent noted. Bowel gas pattern is nonspecific and nonobstructive. IMPRESSION: No radiographic evidence of nephrolithiasis or ureterolithiasis. Electronically signed by: JENSEN PARKS MD [facility] Office Visit (Urology)on Follow-up visit Diagnoses/Problems Assessed Left ureteral stone (592.1) (N20.1) Nocturia (788.43) (R35.1) Bilateral renal stones (592.0) (N20.0) Orders Bilateral renal stones Ultrasound Kidney Bilateral; Status:Hold For - Scheduling; Requested for:28Jan2022; Perform: Radiology Services Imaging; Due:28Apr2022;Ordered; For:Bilateral renal stones; Ordered By:Dionisio Rocha II; Radiologist to Determine Optimal Study : Y What are the patient's signs and symptoms? : bilateral renla stones Left ureteral stone Follow-up visit in 6 months Outpatient Follow-PSA and Renal US Status: Hold For - Scheduling Requested for: 28Jan2022 Ordered Stat;For: Left ureteral stone; Ordered By: Dionisio Rocha II Performed: Due: 28Apr2022 Nocturia Prostate Specific Antigen; Status:Active; Requested for:28Jan2022; Perform:Lab Services - Lab To Draw (Blood Test); Due:28Apr2022;Ordered; For:Nocturia; Ordered By:Dionisio Rocha II; SocHx: Never smoked tobacco Tobacco Use Screening; Status:Complete; Done: 28Jan2022 Perform:Not Applicable;Ordered; For:SocHx: Never smoked tobacco; Ordered By:Lizbeth Vang; Chief Complaint Left Ureteral Stone Active Problems Problems Benign prostatic hyperplasia with lower urinary tract symptoms, symptom details unspecified (600.01) (N40.1) Bilateral renal stones (592.0) (N20.0) Cephalgia (784.0) (R51.9) Erectile dysfunction (607.84) (N52.9) Eustachian tube dysfunction (381.81) (H69.80) Groin pain (789.09) (R10.30) History of kidney stones (V13.01) (Z87.442) HTN (hypertension) (401.9) (I10) Left ureteral stone (592.1) (N20.1) Nocturia (788.43) (R35.1) Sinusitis (473.9) (J32.9) Stage 3 chronic kidney disease (585.3) (N18.30) Social History Problems Never smoked tobacco (V49.89) (Z78.9) Allergies Medication morphine Recorded By: Jolanta Kirby; 12/11/2019 3:55:30 PM Additional reactions - Nausea present NonMedication IV Contrast Dye Flushing; Rash; Recorded By: Jolanta Kirby; 12/11/2019 3:55:30 PM Current Meds Medication NameInstruction Candesartan Cilexetil-HCTZ 32-25 MG Oral TabletTAKE 1 TABLET BY MOUTH EVERY DAY Ciprofloxacin HCl - 250 MG Oral TabletTake 1 tablet twice daily Ibuprofen 600 MG Oral TabletTake 1 tablet twice daily Potassium Citrate ER 15 MEQ (1620 MG) Oral Tablet Extended Releasetake 1 tablet by mouth twice a day Tadalafil 20 MG Oral TabletTAKE 1 TABLET 1 HOUR BEFORE ACTIVITY NEEDED. Vitals Vital Signs Recorded: 28Jan2022 01:46PM Vyiukf537 lb 2 oz BMI Bxkpsrvraa45.24 kg/m2 BSA Calculated2.05 Tobacco Useb) No PHQ-2 #1. Over the last 2 weeks have you felt down, depressed or hopeless? (If yes, answer PHQ-9 below)No Falls Screening (Age 18+)a) No falls within the last year Procedure The patient was prepped using a Betadine solution. Lidocaine jelly was instilled into the urethra. The flexible cystoscope was sterilely inserted into the urethra and formal cystoscopy performed in a systematic fashion. . For detailed findings of the procedure, please see Dr. Rocha's remarks below Scope A Used, Cipro 250mg pobid times 3 days given stent removed. normal cysto f/u 6 months with PSA and renal u/s Signatures Electronically signed by : Dionisio Rocha II, MD; Jan 29 2022 1:04PM EST (Author) Normal [facility] Radiologyon 01-28-2022 XR Abdomen AP Please click on the link to view the study images Normal RO-Gskffpx-Pld land Work Phone: XR Abdomen AP Normal MP-Urology- Attunity Work Phone: Tobacco Screening.on 022 Adult depression screening assessment No UY-Hhgomso-Okw land Work Phone: Fall risk assessment a) No falls within the last year AS-Iuacfvp-Lwr land Work Phone: Tobacco use status CPHS b) No VY-Fuhgbqr-Eow land Work Phone: Clinical Note - Pharmacy v2- Medication Educationon 01-15-2022 Clinical Note - Pharmacy v2-Medication Education Clinical Note - Pharmacy v2: Discharge Meds: Document TopicDischarge Med Counseling Time Yzwxfzlv30-77 minutes Prescription [employer] Medications Home Medications Review Status for Reconciliation: Complete Med Status: Patient Currently Takes Medications Drug Name: candesartan-hydrochloroth iazide 32 mg-25 mg oral tablet Instructions: 1 tab(s) orally once a day Drug Name: Calcium 600+D oral tablet Instructions: 1 tab(s) orally once a day Drug Name: POTASSIUM CITRATE ER 15 MEQ TB Instructions: 1 tab(s) orally 2 times a day Education: Document TopicMedication Education Medication- all medications Is This Intervention Medication Reconciliation Relatedno Time Ctndhlgy85-17 minutes TopicADR counseling; alternative drug; alternative method of administration; dosage, frequency, storage; medication indication; medication information about proper dosage, indications, possible ADRs; medication interactions; missed dose explanation; patient counseling-medications Learnerpatient Barriersnone Methodverbal; written Outcome2=meets goals/outcomes Additional NotesI met with and discussed all home-going medications with the patient. We discussed the following brand/generic name, reason for use, last dose taken, when to take next dose and any potential side effects. Written literature was provided for each medication and sent home with the patient. No new medications. Patient had opportunity to ask questions. Left contact information for patient follow up if needed. Allergy: Allergies Summary Allergy Allergen: contrast (specific type unknown) Type: Contrast Reaction: Unknown Allergen: morphine Type: Drug Reaction: Unknown Electronic Signatures: Jeffrey Chaves ([facility]) (Signed 15-Jan-2022 09:44) Authored: Discharge Meds, Education, Allergy Last Updated: 15-Jan-2022 09:44 by Jeffrey Chaves ([facility]) Normal [facility] CBC AND DIFFERENTIALon 01-14 Basophils (Bld) [#/Vol] 0.00 10*3/uL Normal 0.00 - 0.10 [facility] Comment on above: Performed By: #### C BCDF #### [address] [address] Eosinophils (Bld) [#/Vol] 0.20 10*3/uL Normal 0.00 - 0.70 [facility] Comment on above: Performed By: #### C BCDF #### [address] [address] Eosinophils/100 WBC (Bld) 2.2 % Normal 0.0 - 6.0 [facility] Comment on above: Performed By: #### C BCDF #### [address] [address] Lymphocytes (Bld) [#/Vol] 1.50 10*3/uL Normal 1.20 - 4.80 [facility] Comment on above: Performed By: #### C BCDF #### [address] [address] Monocytes (Bld) [#/Vol] 1.00 10*3/uL Normal 0.10 - 1.00 [facility] Comment on above: Performed By: #### C BCDF #### [address] [address] Neutrophils (Bld) [#/Vol] 4.60 10*3/uL Normal 1.20 - 7.70 [facility] Comment on above: Result Comment: Perc ent differential counts (%) should be interpreted in the context of the absolute cell counts (cells/L). Performed By: #### C BCDF #### [address] [address] NUCLEATED RBC 0.1 /100 WBC Normal [facility] Comment on above: Performed By: #### C BCDF #### [address] [address] RBC 4.44 x10E12/L Low 4.50 - 5.90 [facility] Comment on above: Performed By: #### C BCDF #### [address] [address] COMPREHENSIVE PANELon 2021 Albumin [Mass/Vol] 3.8 g/dL Normal 3.4 - 5.0 [facility] Comment on above: Performed By: #### U A #### [address] [address] ALP [Catalytic activity/Vol] 48 U/L Normal 33 - 120 [facility] Comment on above: Performed By: #### U A #### [address] [address] ALT [Catalytic activity/Vol] 16 U/L Normal 10 - 52 [facility] Comment on above: Result Comment: Ivana ents treated with Sulfasalazine may generate falsely decreased results for ALT. Performed By: #### U A #### [address] [address] Anion gap [Moles/Vol] 9 mmol/L Low 10 - 20 [facility] Comment on above: Performed By: #### U A #### [address] [address] AST [Catalytic activity/Vol] 14 U/L Normal 9 - 39 [facility] Comment on above: Performed By: #### U A #### [address] [address] Bilirubin [Mass/Vol] 0.5 mg/dL Normal 0.0 - 1.2 [facility] Comment on above: Performed By: #### U A #### [address] [address] Calcium [Mass/Vol] 8.5 mg/dL Low 8.6 - 10.3 [facility] Comment on above: Performed By: #### U A #### [address] [address] Chloride [Moles/Vol] 106 mmol/L Normal 98 - 107 [facility] Comment on above: Performed By: #### U A #### [address] [address] Creatinine [Mass/Vol] 1.25 mg/dL Normal 0.50 - 1.30 [facility] Comment on above: Performed By: #### U A #### [address] [address] GFR/1.73 sq M.predicted among non-blacks MDRD (S/P/Bld) [Vol rate/Area] 68 mL/min/{1.73_m2} Normal >90 [facility] Comment on above: Result Comment: CALC ULATIONS OF ESTIMATED GFR ARE PERFORMED USING THE 2020 CKD-EPI STUDY REFIT EQUATION WITHOUT THE RACE VARIABLE FOR THE IDMS-TRACEABLE CREATININE METHODS. https://jasn.asnjournals.org/content//ASN.35234143 88 Performed By: #### U A #### [address] [address] Glucose [Mass/Vol] 109 mg/dL High 74 - 99 [facility] Comment on above: Performed By: #### U A #### [address] [address] HCO3 (Bld) [Moles/Vol] 28 mmol/L Normal 21 - 32 [facility] Comment on above: Performed By: #### U A #### [address] [address] Potassium [Moles/Vol] 3.5 mmol/L Normal 3.5 - 5.3 [facility] Comment on above: Performed By: #### U A #### [address] [address] Protein [Mass/Vol] 6.3 g/dL Low 6.4 - 8.2 [facility] Comment on above: Performed By: #### U A #### [address] [address] Sodium [Moles/Vol] 139 mmol/L Normal 136 - 145 [facility] Comment on above: Performed By: #### U A #### [address] [address] Urea nitrogen [Mass/Vol] 12 mg/dL Normal 6 - 23 [facility] Comment on above: Performed By: #### U A #### [address] [address] Complete Blood Count + Diffe rentialon 01-14-2022 Basophils/100 WBC (Bld) 0.5 % Normal 0.0 - 2.0 YA-Mxjycpp-DyfProjjix Work Phone: Comment on above: Performed By: #### C BCDF #### [place] [id number] Erythrocyte distribution width (RBC) [Ratio] 13.1 % Normal 11.5 - 14.5 UO-Wgddila-YfnProjjix Work Phone: Comment on above: Reference Range: 11. 5 - 14.5 Performed By: #### C BCDF #### [address] [address] Hematocrit (Bld) [Volume fraction] 40.1 % Low 41.0 - 52.0 ND-Sxecusp-VwgVOLITIONRX Work Phone: Comment on above: Reference Range: 41. 0 - 52.0 Performed By: #### C BCDF #### [address] [address] Hemoglobin (Bld) [Mass/Vol] 13.6 g/dL Normal 13.5 - 17.5 BS-Ggsbswz-TrfVOLITIONRX Work Phone: Comment on above: Reference Range: 13. 5 - 17.5 Performed By: #### C BCDF #### [address] [address] Lymphocytes/100 WBC (Bld) 20.1 % Normal 13.0 - 44.0 EE-Zgyrklc-IraProjjix Work Phone: Comment on above: Reference Range: 13. 0 - 44.0 Performed By: #### C BCDF #### [address] [address] MCHC (RBC) [Mass/Vol] 34.0 g/dL Normal 32.0 - 36.0 PF-Asqddrj-Jth land Work Phone: Comment on above: Reference Range: 32. 0 - 36.0 Performed By: #### C BCDF #### [address] [address] MCV (RBC) [Entitic vol] 90 fL Normal 80 - 100 RE-Lkluccw-LbaVOLITIONRX Work Phone: Comment on above: Performed By: #### C BCDF #### [address] [address] Monocytes/100 WBC (Bld) 13.5 % Normal 2.0 - 10.0 PK-Ijofcdx-Rvy land Work Phone: Comment on above: Performed By: #### C BCDF #### [address] [address] Neutrophils/100 WBC (Bld) 63.7 % Normal 40.0 - 80.0 MB-Eplpccf-Fvk land Work Phone: Comment on above: Reference Range: 40. 0 - 80.0 Performed By: #### C BCDF #### [address] [address] Platelets (Bld) [#/Vol] 221 10*3/uL Normal 150 - 450 LO-Bmpmokz-Hha land Work Phone: Comment on above: Performed By: #### C BCDF #### [address] [address] RBC (Bld) [#/Vol] 4.44 {x10E12/L} below low threshold See Below NX-Fppyekw-Hyh land Work Phone: Comment on above: Reference Range: 4.5 0 - 5.90 WBC (Bld) [#/Vol] 7.2 10*3/uL Normal 4.4 - 11.3 MP-Uro logy-Attunity Work Phone: Comment on above: Performed By: #### C BCDF #### [address] [place] [address] Complete Blood Count + Differential 0.00 {x10E9/L} See Below VV-Paznibh-Vsq land Work Phone: Comment on above: Reference Range: 0.0 0 - 0.10 Complete Blood Count + Differential 0.20 {x10E9/L} See Below KP-Agsoawn-Iiw land Work Phone: Comment on above: Reference Range: 0.0 0 - 0.70 Complete Blood Count + Differential 1.00 {x10E9/L} See Below FL-Mnccqax-Giq land Work Phone: Comment on above: Reference Range: 0.1 0 - 1.00 Complete Blood Count + Differential 1.50 {x10E9/L} See Below YG-Pdbldvt-Ulj land Work Phone: Comment on above: Reference Range: 1.2 0 - 4.80 Complete Blood Count + Differential 4.60 {x10E9/L} See Below QG-Gnvtfzk-Zbu land Work Phone: Comment on above: Reference Range: 1.2 0 - 7.70 Percent differential counts (%) should be interpreted in the context of the absolute cell counts (cells/L). Complete Blood Count + Differential 2.2 % 0.0 - 6.0 UI-Ommkolx-Zyt land Work Phone: Complete Blood Count + Differential 0.1 {/100_WBC} LF-Fsbzxjo-Rdx land Work Phone: Daily Progress Note-Urologyo n 01-14-2022 Daily Progress Note-Urology Service: Urology Review of Systems: Review of Systems: Constitutional: NEGATIVE: Fever, Chills Respiratory: NEGATIVE: Hemoptysis, Shortness of Breath Cardiac: NEGATIVE: Chest Pain, Palpitations Gastrointestinal: NEGATIVE: Nausea, Vomiting, Diarrhea, Constipation, Abdominal Pain Genitourinary: NEGATIVE: Dysuria, Flank Pain, Frequency, Hematuria Musculoskeletal: NEGATIVE: Decreased ROM, Weakness Neurological: NEGATIVE: Headache Psychiatric: NEGATIVE: Mood Changes Skin: NEGATIVE: Rash All Other Systems: All other systems reviewed and are negative Subjective Data: ASHLEY BLOCK is a 56 year old Male who is Hospital Day # 3 and POD #1 for 1. CYSTO L RPG L URETEROSCOPY W KIMMY L STENT; Patient seen and examined. Patient was sitting in bed watching the news on TV. Patient denies fever, chills, shortness of breath, chest pain, nausea, vomiting, diarrhea, and/or constipation. Patient denies dysuria, hematuria, urinary frequency and/or hesitancy. Patient also denies flank pain. Offered to make the patient a follow-up appointment with urologist Dr. Rocha-patient declined and stated I will need to make it around his work schedule. Patient denies questions or concerns at this time. Overnight Events: Patient had an uneventful night. Objective Data: Objective Information: T PRBPMAPSpO2 [id number]/8195% Date/Time01/14 7: 7: 7: 7: 7:55 Range(36.7C - 37.9C ) (68 - 86 ) (16 - 18 ) (125 - 157 )/ (81 - 98 ) (92% - 98% ) Highest temp of 37.9 C was recorded at 01/13 16:06 Pain reported at 01/14 5:09: 0 = None Physical Exam by System: Constitutional: Well developed, awake/alert/oriented x3, no distress, alert and cooperative Eyes: EOMI, clear sclera ENMT: Mucous membranes moist, no apparent injury, no lesions seen Head/Neck: Normocephalic, atraumatic. Respiratory/Thorax: Patent airways, nonlabored breathing, chest rise symmetrical. Room air. Gastrointestinal: Abdomen soft, nondistended, nontender. Genitourinary: Bladder nondistended, nontender. No flank tenderness on palpation. Musculoskeletal: ROM intact, no joint swelling, normal strength Extremities: Is all extremities easily Neurological: And oriented x3 Lymphatic: No significant lymphadenopathy Psychological: Appropriate mood and behavior Skin: Warm and dry, no lesions, no rashes Medication: Medications: Continuous Medications ------- 1. Lactated Ringers Infusion: 1000 mL IntraVenous 2. Lactated Ringers Infusion: 1000 mL IntraVenous 3. Lactated Ringers Infusion: 1000 mL IntraVenous 4. Sodium Chloride 0.9% Infusion: 1000 mL IntraVenous Scheduled Medications ------- 1. cefTRIAXone 1 gram/ Dextrose 5% IVPB Premixed Soln 50 mL: 50 mL IntraVenous Piggyback Every 24 Hours 2. hydrALAZINE (APRESOLINE) Injectable: 10 mg IntraVenous Push Every 4 Hours PRN Medications ------- 1. Acetaminophen: 650 mg Oral Every 4 Hours 2. HYDROmorphone Injectable: 2 mg IntraVenous Push Every 4 Hours 3. HYDROmorphone Injectable: 0.2 mg IntraVenous Push Every 4 Hours 4. HYDROmorphone Injectable: 0.5 mg IntraVenous Push Every 4 Hours 5. HYDROmorphone Injectable: 0.5 mg IntraVenous Push Every 5 Minutes 6. Naloxone Injectable: 0.2 mg IntraVenous Push Once 7. Ondansetron Injectable: 4 mg IntraVenous Push Every 4 Hours 8. Sodium Chloride 0.9% Injectable Flush: 10 mL IntraVenous Flush Every 8 Hours and as Needed 9. Sodium Chloride 0.9% Injectable Flush: 10 mL IntraVenous Flush Every 8 Hours and as Needed Recent Lab Results: Results: I have reviewed these laboratory results: Complete Blood Count + Differential 14-Jan-2022 05:25:00 ResultValue White Blood Cell Count 7.2 Nucleated Erythrocyte Count 0.1 Red Blood Cell Count 4.44 L HGB 13.6 HCT 40.1 L MCV 90 MCHC 34.0 PLT 221 RDW-CV 13.1 Neutrophil % 63.7 Lymphocyte % 20.1 Monocyte % 13.5 Eosinophil % 2.2 Basophil % 0.5 Neutrophil Count 4.60 Lymphocyte Count 1.50 Monocyte Count 1.00 Eosinophil Count 0.20 Basophil Count 0.00 Comprehensive Metabolic Panel 14-Jan-2022 05:25:00 ResultValue Glucose, Serum 109 H NA 139 K 3.5 CL 106 Bicarbonate, Serum 28 Anion Gap, Serum 9 L BUN 12 CREAT 1.25 GFR Male 68 Calcium, Serum 8.5 L ALB 3.8 ALKP 48 T Pro 6.3 L T Bili 0.5 Alanine Aminotransferase, Serum 16 Aspartate Transaminase, Serum 14 Radiology Results: Results: Impression: Severe left hydronephrosis with 4 mm calculus in the proximal left ureter. 5 mm and 3 mm nonobstructive right renal calculi. Diffuse submucosal deposition in the colon which may relate to sequela of chronic inflammatory process. CT Abdomen and Pelvis without Contrast [Jan 12 2022 9:18PM] Assessment and Plan: Code Status: Code StatusFull Code Asse (more content not included)... Normal [facility] Discharge [id number] 022 Discharge Profile2 Discharge Orders: Anticipated Discharge Date: Anticipated Discharge [id number] Anticipated Discharge Time12:24 Problem List: Additional Dx: UTI (urinary tract infection): Catalog Name: Urinary tract infection, site not specified Surg History: Status post cystoscopy with ureteral stent placement: Catalog Name: Presence of urogenital implants DNAR: Code Status at Discharge: Full Code Activity: activity as tolerated. May shower. May return to school/work Instructions: May drive. Diet: Dietresume normal diet Diet Consistency/Textureregula r / thin Additional Orders: Additional Instructions discharge plan patient to be discharged home FU with PCP within one week of discharge FU with dr rocha within two weeks fo KUB and stent removal resume home medications call 911 or go to nearest ED if symptoms worsen/persist use tylenol or ibuprofen for pain as needed Call Provider If (Homegoing Patients): Breathing faster than normal. Breathing harder than normal or having retractions. Fever of 100.4 F (38 C) or higher. Temperature is greater than 102 degrees. Chills. Drinking less than normal. Not being able to go 4-6 hours between albuterol treatments. Urinating less than normal, over 1 day. Urinating less than 4 times per day. Acting very sleepy and difficult to awaken. Vomiting (throwing up) and not able to eat or drink for 12 hours. 3 or more loose, watery bowel movements in 24 hours (diarrhea). Any new concerning symptoms. Provider FINAL REVIEW of Orders: Final Review: Final Review of Medication Reconciliation and Orders Completedby FAMILY RESOURCE SPECIALIST Reviewing CUAUHTEMOC Horton at 14-Jan-2022 12:28:13 Appointments: Follow-Up Appointment 01: [facility] Cavazos Reason for Referralpost hospitalization Call to Schedule in1 week [place] CommentsHe would like to call and make his own appointment. Follow-Up Appointment 02: Physician/Dept/Ronny rocha Reason for Referralkub and stent removal Call to Schedule in1 week [id number] Ermias Barnhart. Phone [phone] CommentsHe would like to call and make his own appointment. Electronic Signatures: Sharon Ott (COMMISSION AGENT [employer]) (Signed 14-Jan-2022 12:35) Authored: Discharge Orders, Appointments Michelle Brewer (FAMILY RESOURCE SPECIALIST-TURNTABLE WORKER) (Signed 14-Jan-2022 12:28) Authored: Discharge Orders, Provider FINAL REVIEW of Orders, Appointments, Gold Form - Supervisor Locomotive Summary Last Updated: 14-Jan-2022 12:35 by Sharon Ott (COMMISSION AGENT [employer]) [facility] Laboratory - Chemistry and C hemistry - challengeon 01-14-2022 Albumin BCP dye [Mass/Vol] 3.8 g/dL 3.4 - 5.0 YL-Koxjtsa-Hcr land Work Phone: ALP [Catalytic activity/Vol] 48 U/L 33 - 120 HH-Oaqlowb-Vmq land Work Phone: ALT With P-5'-P [Catalytic activity/Vol] 16 U/L 10 - 52 ZO-Ahxiwje-Nkb land Work Phone: Comment on above: Patients treated wit h Sulfasalazine may generate falsely decreased results for ALT. Anion gap [Moles/Vol] 9 mmol/L below low threshold 10 - 20 HQ-Kmxcene-Btf land Work Phone: AST With P-5'-P [Catalytic activity/Vol] 14 U/L 9 - 39 IR-Hqtcomf-Nqv land Work Phone: Bilirubin [Mass/Vol] 0.5 mg/dL 0.0 - 1.2 AJ-Ypgrnct-Boi land Work Phone: Calcium [Mass/Vol] 8.5 mg/dL below low threshold 8.6 - 10.3 EY-Rwopdsw-Sgv land Work Phone: Chloride [Moles/Vol] 106 mmol/L 98 - 107 LN-Lbzhich-Ppt land Work Phone: CO2 [Moles/Vol] 28 mmol/L 21 - 32 MP-Urolog y-Cecil land Work Phone: Creatinine [Mass/Vol] 1.25 mg/dL See Below IP-Twwvlzn-Yki land Work Phone: Comment on above: Reference Range: 0.5 0 - 1.30 Glucose [Mass/Vol] 109 mg/dL above high threshold 74 - 99 QZ-Ghvzqhh-Peq land Work Phone: Potassium [Moles/Vol] 3.5 mmol/L 3.5 - 5.3 WP-Hwysvsg-Lye land Work Phone: Protein [Mass/Vol] 6.3 g/dL below low threshold 6.4 - 8.2 RC-Fyicfow-Six land Work Phone: Sodium [Moles/Vol] 139 mmol/L 136 - 145 MP-Uro logy-Cecil land Work Phone: Urea nitrogen [Mass/Vol] 12 mg/dL 6 - 23 ET-Phgqygk-Nxl land Work Phone: No Panel Informationon 01-14 68 {mL/min/1.73m2} >90 MP-Uro logy-Attunity Work Phone: Comment on above: CALCULATIONS OF LESLIE MATED GFR ARE PERFORMED USING THE 2020 CKD-EPI STUDY REFIT EQUATION WITHOUT THE RACE VARIABLE FOR THE IDMS-TRACEABLE CREATININE METHODS.https://jasn.asnjournals.org/content//ASN. 0155635589 Order Reconciliationon 01-14 Order Reconciliation Page 1 Discharge Reconciliation Document Reconciliation Type: Discharge requested on behalf of Michelle Brewer (Advanced Practice Nurse) done by Michelle Brewer (FAMILY RESOURCE SPECIALIST-TURNTABLE WORKER) Discharge - Reconciliation: 14-Jan-2022 12:25 by: Michelle Brewer (FAMILY RESOURCE SPECIALIST-TURNTABLE WORKER) Home Medications EnteredHOME MEDICATIONS AT DISCHARGE DateReconciliation Comment/ Additional Information Calcium 600+D oral tablet 1 tab(s) orally once a day 12-Jan-2022 23:53 Calcium 600+D oral tablet 1 tab(s) orally once a day 12-Jan-2022 23:53 Calcium 600+D oral tablet is continued as Calcium 600+D oral tablet candesartan-hydrochloroth iazide 32 mg-25 mg oral tablet 1 tab(s) orally once a day 30-Aug-2019 07:27 candesartan-hydrochloroth iazide 32 mg-25 mg oral tablet 1 tab(s) orally once a day 30-Aug-2019 07:27 candesartan-hydrochloroth iazide 32 mg-25 mg oral tablet is continued as candesartan-hydrochloroth iazide 32 mg-25 mg oral tablet POTASSIUM CITRATE ER 15 MEQ TB 1 tab(s) orally 2 times a day 13-Jan-2022 10:01 POTASSIUM CITRATE ER 15 MEQ TB 1 tab(s) orally 2 times a day 13-Jan-2022 10:01 POTASSIUM CITRATE ER 15 MEQ TB is continued as POTASSIUM CITRATE ER 15 MEQ TB Current OrdersDateHOME MEDICATIONS AT DISCHARGE DateReconciliation Comment/ Additional Information Acetaminophen Tablet (TYLENOL)DOSE = 650 mg Oral Every 4 Hours, PRN Temp Greater Than or Equal to 38.0 C 12-Jan-2022 22:22 Acetaminophen is not required cefTRIAXone 1 gram/ Dextrose 5% IVPB Premixed Soln 50 mL (ROCEPHIN)Every 24 HoursRecommended Infusion Time: 30 minute(s) 12-Jan-2022 22:24 cefTRIAXone 1 gram/ Dextrose 5% IVPB Premixed Soln 50 mL is not required hydrALAZINE (APRESOLINE) Injectable DOSE = 10 mg IntraVenous Push Every 4 HoursClinician Notes: for SBP > 160 13-Jan-2022 00:09 hydrALAZINE (APRESOLINE) Injectable is not required HYDROmorphone Injectable (DILAUDID)DOSE = 0.2 mg IntraVenous Push Every 4 Hours, PRN Pain - Mild (1-3) 12-Jan-2022 22:24 HYDROmorphone Injectable is not required HYDROmorphone Injectable (DILAUDID)DOSE = 0.5 mg IntraVenous Push Every 4 Hours, PRN Pain - Mod (4-6) 12-Jan-2022 22:24 HYDROmorphone Injectable is not required HYDROmorphone Injectable (DILAUDID)DOSE = 0.5 mg IntraVenous Push Every 5 Minutes, PRN Pain - Severe (7-10) (PACU)Clinician Notes: Yumiko-operative order ONLYMax total of 4 mg regardless of dose. 13-Jan-2022 13:14 HYDROmorphone Injectable is not required HYDROmorphone Injectable (DILAUDID)DOSE = 2 mg IntraVenous Push Every 4 Hours, PRN Pain - Severe (7-10) 13-Jan-2022 05:31 HYDROmorphone Injectable is not required Lactated Ringers Infusion IV Bag Volume = 1,000 mL Run at: 100 mL/hr IntraVenous Clinician Notes: Yumiko-operative order ONLY 13-Jan-2022 13:14 Lactated Ringers Infusion is not required Lactated Ringers Infusion IV Bag Volume = 1,000 mL Run at: 100 mL/hr IntraVenous Clinician Notes: Yumiko-operative order ONLY 13-Jan-2022 14:32 Lactated Ringers Infusion is not required Lactated Ringers Infusion IV Bag Volume = 1,000 mL Run at: 100 mL/hr IntraVenous 13-Jan-2022 13:13 Lactated Ringers Infusion is not required Naloxone Injectable (NARCAN)DOSE = 0.2 mg IntraVenous Push Once, PRN If patient RR below 10, obtunded or unarousableClinician Notes: DO NOT ADMINISTER UNTIL PHYSiCIAN HAS BEEN NOTIFIED AND ASSESSED PATIENT 13-Jan-2022 14:32 Naloxone Injectable is not required Ondansetron Injectable (ZOFRAN)DOSE = 4 mg IntraVenous Push Every 4 Hours, PRN Nausea and/or Vomiting 12-Jan-2022 22:22 Ondansetron Injectable is not required Sodium Chloride 0.9% Infusion IV Bag Volume = 1,000 mL Run at: 100 mL/hr IntraVenous 13-Jan-2022 05:39 Sodium Chloride 0.9% Infusion is not required Sodium Chloride 0.9% Injectable Flush via Peripheral LineVolume = 10 mL IntraVenous Flush Every 8 Hours and as Needed 12-Jan-2022 20:23 Sodium Chloride 0.9% Injectable Flush is not required Sodium Chloride 0.9% Injectable Flush via Peripheral LineVolume = 10 mL IntraVenous Flush Every 8 Hours and as Needed 12-Jan-2022 22:22 Sodium Chloride 0.9% Injectable Flush is not required All Active Home Medications at time of Discharge Reconciliation: 14-Jan-2022 12:25 Calcium 600+D oral tablet 1 tab(s) orally once a day candesartan-hydrochloroth iazide 32 mg-25 mg oral tablet 1 tab(s) orally once a day POTASSIUM CITRATE ER 15 MEQ TB 1 tab(s) orally 2 times a day Normal [facility] Admission Risk Screen - Adul ton 01-13-2022 Admission Risk Screen - Adult Allergies: Allergies: contrast (specific type unknown): Unknown morphine: Unknown Patient Verification: New W ID Band Applied in my Departmentno Type of ID Patient is WearingW wristband, but not applied here Patient Transferred from Other Facility ([facility], [facility],etc)no Patient Identity Verified Bypatient ID Band FULL Name, include Middle, spelling matches patient's ID used for verificationyes ID Band Matches Patient ID used for Verficationyes ID Band MRN Matches EMR MRNyes Visitor Restriction: Coronavirus Visitor Restriction: Reasonable restrictions to in-person visitors will be observed due to current coronavirus pandemic. Travel History: COVID-19 Screening Completedno exposure or symptoms(1) Travel or Exposure Past 30 DaysNO travel to International locations in the past 30 days Ebola AlertFor Ebola-like Symptoms: Isolate Patient and Notify Provider/Expeller Worker For Contact: Notify Provider/Expeller Worker Advance Directive: Advance Directive/DNRno (2) Advance Directive Information Givenpatient/family declined Gracia Fall Screen: History of falling (immediate or previous)no (0) Secondary Diagnosisno (0) Intravenous Therapy/ Heparin/Saline Lockyes (20) Gait/Transferringnormal/b edrest/wheelchair (0) Ambulatory Aidsnone/bedrest/nurse assist (0) Mental Statusoriented to own ability (0) Score: Low risk (<25). Moderate risk (25-44). High risk (>44).20 Garcia InterventionsLOW INTERVENTIONS: *patient oriented to surroundings and call system, * patient/family falls education completed and documented, *patients fall status communicated during bedside handoff, *whiteboard updated, *mode of toileting discussed with patient, *bed in low position with brakes locked, *call light in reach, * non-skid footwear Family Violence Screen: Are you or have you been threatened or abused physically, emotionally, or sexually by anyoneno Do you feel UNSAFE going back to the place where you are livingno Clinical assessment: Are there any apparent signs of injuries/behaviors that could be related to abuse/neglectno Social Service Consult for abuse/neglect needed this visitno Functional Screen: Functional Screen: In the recent/past 2-4 weeks, patient or family have noticedno issues that require a speech/language consult at this time AM-PAC- Basic Mobility/Daily Activity: Patient baseline bedboundno Turning from your back to your side while in a flat bed without using bedrailsnone Moving from lying on your back to sitting on the side of a flat bed without using bedrailsnone Moving to and from bed to chair (including a wheelchair)none Standing up from a chair using your arms (e.g. wheelchair or bedside chair) none To walk in hospital roomnone Climbing 3-5 steps with railingnone Basic Mobility - Total Score24 Learning Assessment (Patient): Patient is Able to be Assessed for Learningyes Factors Influencing Readiness to Learnacuteness of illness Factors that Impact Ability to Learnnone Devices/Methods Used to Communicatenone Learning Preferencesverbal instruction; written material Cultural Considerationsnone Developmental Considerationsnone Sabianist Considerationsnone Learning Assessment (Other Learner): Other learner availableno Depression Screen: During the past month, have you often been bothered by feeling down, depressed or hopelessno During the past month, have you often had little interest or pleasure in doing thingsno Have you had any thoughts of harming anyone elseno (1) [place] Suicide: Risk Screen Not Applicable/Able to Answerable to be screened In the Past Month: Have you wished you were or could go to sleep and not wake upno(1) In the Past Month: Have you had any actual thoughts of killing yourself no(1) Lifetime: Have you ever done, started to do, or prepared to do anything to end your lifeno [place] Suicide Risknegative Adult Nutrition Screen: Have you recently lost weight without tryingno Have you been eating poorly because of a decreased appetiteno Malnutrition Screening Tool Score0 Malnutrition Screening Tool RiskMST = 0 or 1 Not at risk. Eating well with little or no weight loss Nutrition Consult needed this visitno Can Patient Participate in Room Serviceyes Patient requires Paper Dishes/Plastic Utensilsno Pain Screen: Pain Scalenumerical 0-10 Pain Scale Educationteaching provided Current Pain Level6 = Moderate Acceptable Pain Level3 = Mild Expression of Pain (nonverbal)none Chronic Painno Spiritual Screen: Are there any cultural, spiritual, hinduism practices/values/needs that are important for us to knowno CAGE: Is this an injured patient at a Trauma Center ([facility] [place]/[facility]/[place]/ [place]): no (2) Vaccinations: Vaccination - Influenza Vaccination Screen: Is it flu season (between and July 17)Yes Scree (more content not included)... Normal [facility] CBC AND DIFFERENTIALon 01-13 Basophils (Bld) [#/Vol] 0.00 10*3/uL Normal 0.00 - 0.10 [facility] Comment on above: Performed By: #### C BCDF #### [address] [address] Eosinophils (Bld) [#/Vol] 0.00 10*3/uL Normal 0.00 - 0.70 [facility] Comment on above: Performed By: #### C BCDF #### [address] [address] Eosinophils/100 WBC (Bld) 0.2 % Normal 0.0 - 6.0 [facility] Comment on above: Performed By: #### C BCDF #### [address] [address] Lymphocytes (Bld) [#/Vol] 0.90 10*3/uL Low 1.20 - 4.80 [facility] Comment on above: Performed By: #### C BCDF #### [address] [address] Monocytes (Bld) [#/Vol] 1.20 10*3/uL High 0.10 - 1.00 [facility] Comment on above: Performed By: #### C BCDF #### [address] [address] Neutrophils (Bld) [#/Vol] 8.50 10*3/uL High 1.20 - 7.70 [facility] Comment on above: Result Comment: Perc ent differential counts (%) should be interpreted in the context of the absolute cell counts (cells/L). Performed By: #### C BCDF #### [place] [id number] NUCLEATED RBC 0.2 /100 WBC Normal [facility] Comment on above: Performed By: #### C BCDF #### [place] [id number] RBC 4.50 x10E12/L Normal 4.50 - 5.90 [facility] Comment on above: Performed By: #### C BCDF #### [place] [address] COMPREHENSIVE PANELon 2021 Albumin [Mass/Vol] 3.9 g/dL Normal 3.4 - 5.0 [facility] Comment on above: Performed By: #### U A #### [place] [address] ALP [Catalytic activity/Vol] 48 U/L Normal 33 - 120 [facility] Comment on above: Performed By: #### U A #### [place] [address] ALT [Catalytic activity/Vol] 19 U/L Normal 10 - 52 [facility] Comment on above: Result Comment: Ivana ents treated with Sulfasalazine may generate falsely decreased results for ALT. Performed By: #### U A #### [place] [id number] Anion gap [Moles/Vol] 12 mmol/L Normal 10 - 20 [facility] Comment on above: Performed By: #### U A #### [place] [address] AST [Catalytic activity/Vol] 16 U/L Normal 9 - 39 [facility] Comment on above: Performed By: #### U A #### [place] [id number] Bilirubin [Mass/Vol] 0.4 mg/dL Normal 0.0 - 1.2 [facility] Comment on above: Performed By: #### U A #### [place] [id number] Calcium [Mass/Vol] 8.2 mg/dL Low 8.6 - 10.3 [facility] Comment on above: Performed By: #### U A #### [address] [address] Chloride [Moles/Vol] 104 mmol/L Normal 98 - 107 [facility] Comment on above: Performed By: #### U A #### [address] [address] Creatinine [Mass/Vol] 1.47 mg/dL High 0.50 - 1.30 [facility] Comment on above: Performed By: #### U A #### [address] [address] GFR/1.73 sq M.predicted among non-blacks MDRD (S/P/Bld) [Vol rate/Area] 56 mL/min/{1.73_m2} Abnormal >90 [facility] Comment on above: Result Comment: CALC ULATIONS OF ESTIMATED GFR ARE PERFORMED USING THE 2020 CKD-EPI STUDY REFIT EQUATION WITHOUT THE RACE VARIABLE FOR THE IDMS-TRACEABLE CREATININE METHODS. https://jasn.asnjournals.org/content/early//ASN.22025917 88 Performed By: #### U A #### [address] [address] Glucose [Mass/Vol] 120 mg/dL High 74 - 99 [facility] Comment on above: Performed By: #### U A #### [address] [address] HCO3 (Bld) [Moles/Vol] 23 mmol/L Normal 21 - 32 [facility] Comment on above: Performed By: #### U A #### [address] [address] Potassium [Moles/Vol] 3.9 mmol/L Normal 3.5 - 5.3 [facility] Comment on above: Performed By: #### U A #### [address] [address] Protein [Mass/Vol] 6.3 g/dL Low 6.4 - 8.2 [facility] Comment on above: Performed By: #### U A #### [place] [address] Sodium [Moles/Vol] 135 mmol/L Low 136 - 145 [facility] Comment on above: Performed By: #### U A #### [place] [address] Urea nitrogen [Mass/Vol] 15 mg/dL Normal 6 - 23 [facility] Comment on above: Performed By: #### U A #### [place] [address] CORONAVIRUS 2019 BY PCRon Lab Specimen Source Nasal, Nasopharyngeal Normal [facility] Comment on above: Performed By: #### U A #### [place] [address] SARS-CoV-2 (COVID-19) RNA MARGIE+probe Ql (Unsp spec) Not detected Normal Not Detected [facility] Comment on above: Result Comment: . This test has received FDA Emergency Use Authorization (EUA) and has been verified by [facility]. This test is only authorized for the duration of time that circumstances exist to justify the authorization of the emergency use of in vitro diagnostic tests for the detection of SARS-CoV-2 virus and/or diagnosis of COVID-19 infection under section 564(b)(1) of the Act, 21 U.S.C. 360bbb-3(b)(1), unless the authorization is terminated or revoked sooner. [facility] is certified under CLIA-88 as qualified to perform high complexity testing. Testing is performed in the [facility] laboratory located at [address] [place] [address]. SARS-CoV-2/Flu/RSV Multiplex Test: Fact sheet for providers: https://www.fda.gov/media/907506/download Fact sheet for patients: https://www.fda.gov/media/909795/download Performed By: #### U A #### [place] [address] Complete Blood Count + Diffe rentialon 01-13-2022 Basophils/100 WBC (Bld) 0.3 % Normal 0.0 - 2.0 [employer] Work Phone: Comment on above: Performed By: #### C BCDF #### [address] [address] Erythrocyte distribution width (RBC) [Ratio] 13.2 % Normal 11.5 - 14.5 [employer] Work Phone: Comment on above: Reference Range: 11. 5 - 14.5 Performed By: #### C BCDF #### [address] [address] Hematocrit (Bld) [Volume fraction] 40.8 % Low 41.0 - 52.0 [employer] Work Phone: Comment on above: Reference Range: 41. 0 - 52.0 Performed By: #### C BCDF #### [address] [address] Hemoglobin (Bld) [Mass/Vol] 14.1 g/dL Normal 13.5 - 17.5 [employer] Work Phone: Comment on above: Reference Range: 13. 5 - 17.5 Performed By: #### C BCDF #### [address] [address] Lymphocytes/100 WBC (Bld) 8.0 % Normal 13.0 - 44.0 [employer] Work Phone: Comment on above: Reference Range: 13. 0 - 44.0 Performed By: #### C BCDF #### [address] [address] MCHC (RBC) [Mass/Vol] 34.5 g/dL Normal 32.0 - 36.0 [employer] Work Phone: Comment on above: Reference Range: 32. 0 - 36.0 Performed By: #### C BCDF #### [address] [address] MCV (RBC) [Entitic vol] 91 fL Normal 80 - 100 [employer] Work Phone: Comment on above: Performed By: #### C BCDF #### [address] [address] Monocytes/100 WBC (Bld) 11.3 % Normal 2.0 - 10.0 [facility] Work Phone: Comment on above: Performed By: #### C BCDF #### [address] [address] Neutrophils/100 WBC (Bld) 80.2 % Normal 40.0 - 80.0 PP-[facility] Work Phone: Comment on above: Reference Range: 40. 0 - 80.0 Performed By: #### C BCDF #### [address] [address] Platelets (Bld) [#/Vol] 216 10*3/uL Normal 150 - 450 ED-[facility]dty[facility] Work Phone: Comment on above: Performed By: #### C BCDF #### [address] [address] RBC (Bld) [#/Vol] 4.50 {x10E12/L} See Below -[facility] Work Phone: Comment on above: Reference Range: 4.5 0 - 5.90 WBC (Bld) [#/Vol] 10.6 10*3/uL Normal 4.4 - 11.3 MP-Ur ology[facility] Work Phone: Comment on above: Performed By: #### C BCDF #### [address] [address] Complete Blood Count + Differential 0.00 {x10E9/L} See Below TR-[facility] Work Phone: Comment on above: Reference Range: 0.0 0 - 0.10 Reference Range: 0.0 0 - 0.70 Complete Blood Count + Differential 1.20 {x10E9/L} above high threshold See Below SQ-[facility]cea[facility] Work Phone: Comment on above: Reference Range: 0.1 0 - 1.00 Complete Blood Count + Differential 0.90 {x10E9/L} below low threshold See Below ZV-[facility]dr[facility] Work Phone: Comment on above: Reference Range: 1.2 0 - 4.80 Complete Blood Count + Differential 8.50 {x10E9/L} above high threshold See Below [employer] Work Phone: Comment on above: Reference Range: 1.2 0 - 7.70 Percent differential counts (%) should be interpreted in the context of the absolute cell counts (cells/L). Complete Blood Count + Differential 0.2 % 0.0 - 6.0 BJ[facility]ms[facility]ea[facility] Work Phone: Complete Blood Count + Differential 0.2 {/100_WBC} [employer] Phone: Consult-Urologyon 01-13-2022 Consult-Urology Service: Service: Urology Consult: Consult requested by (Attending Name): [place] Reason: stent History of Present Illness: HPI: ASHLEY BLOCK is a 56 year old Male presented to the ER January 12 with complaints of left-sided flank pain and back pain rated on a 10 on 10 scale, sharp with nausea and vomiting. Patient denies hematuria or dysuria. Labs show elevated creatinine, CT of the abdomen and pelvis show severe left hydronephrosis with 4 mm calculus in proximal left ureter. No other signs of infection. Patient denies headache or weakness or chest pain or shortness of breath. Upon evaluation of the patient, he was lying in bed watching TV. Patient denies fever, chills, hematuria, dysuria, nausea, vomiting, diarrhea, and/or constipation. Patient reports flank pain at a 8 on 10 scale. Patient is n.p.o., will go to the OR today around [address] Rocha. Procedure explained to patient, patient verbalizes understanding of procedure and denies questions. Past Medical history History of kidney stones Hypertension Social history Denies smoking, alcohol or illegal drugs Family history Reviewed with patient not pertinent to HPI Review Family/Social History and ROS: Social History: Smoking Status: never smoker (1) Alcohol Use: occasionally, Rare use of alcohol.(1) Drug Use: denies (1) Allergies: contrast (specific type unknown): Unknown morphine: Unknown Objective: Objective Information: T PRBPMAPSpO2 [id number]/8894% Date/Time01/13 7: 7: 7: 7: 7:31 Range(36.4C - 37.2C ) (78 - 85 ) (16 - 20 ) (136 - 167 )/ (88 - 106 ) (92% - 96% ) Highest temp of 37.2 C was recorded at 01/13 7:31 Pain reported at 01/13 7:31: 1 = Mild Physical Exam by System: Constitutional: Well developed, awake/alert/oriented x3, no distress, alert and cooperative Eyes: EOMI, clear sclera ENMT: Mucous membranes moist, no apparent injury. Head/Neck: Normocephalic, atraumatic. Respiratory/Thorax: Patent airways, nonlabored breathing, chest rise symmetrical. Room air. Gastrointestinal: Abdomen soft, nondistended, nontender. Genitourinary: Bladder nondistended, nontender. Left-sided flank pain on palpation. Musculoskeletal: ROM intact. Extremities: Moves all extremities easily. Neurological: Alert and oriented x3. Lymphatic: No significant lymphadenopathy Psychological: Appropriate mood and behavior Skin: Warm and dry, no rashes noted Medications: Medications: Continuous Medications ------- 1. Sodium Chloride 0.9% Infusion: 1000 mL IntraVenous Scheduled Medications ------- 1. cefTRIAXone 1 gram/ Dextrose 5% IVPB Premixed Soln 50 mL: 50 mL IntraVenous Piggyback Every 24 Hours 2. hydrALAZINE (APRESOLINE) Injectable: 10 mg IntraVenous Push Every 4 Hours PRN Medications ------- 1. Acetaminophen: 650 mg Oral Every 4 Hours 2. HYDROmorphone Injectable: 2 mg IntraVenous Push Every 4 Hours 3. HYDROmorphone Injectable: 0.2 mg IntraVenous Push Every 4 Hours 4. HYDROmorphone Injectable: 0.5 mg IntraVenous Push Every 4 Hours 5. Ondansetron Injectable: 4 mg IntraVenous Push Every 4 Hours 6. Sodium Chloride 0.9% Injectable Flush: 10 mL IntraVenous Flush Every 8 Hours and as Needed 7. Sodium Chloride 0.9% Injectable Flush: 10 mL IntraVenous Flush Every 8 Hours and as Needed Recent Lab Results: Results: I have reviewed these laboratory results: Complete Blood Count + Differential Trending View [id number] 07:46:00 12-Jan-2022 20:42:00 White Blood Cell Count10.6 11.0 Nucleated Erythrocyte Count0.2 Red Blood Cell Count4.50 4.80 HGB14.1 14.7 HCT40.8 L 43.4 MCV91 90 MCHC34.5 33.9 MMW899 235 RDW-CV13.2 13.2 Neutrophil %80.2 81.2 Lymphocyte %8.0 9.2 Monocyte %11.3 8.7 Eosinophil %0.2 0.5 Basophil %0.3 0.4 Neutrophil Count8.50 H 8.90 H Lymphocyte Count0.90 L 1.00 L Monocyte Count1.20 H 1.00 Eosinophil Count0.00 0.10 Basophil Count0.00 0.00 Comprehensive Metabolic Panel Trending View [id number] 07:46:00 12-Jan-2022 20:42:00 Glucose, Cxemk882 H 112 H NA135 L 136 K3.9 3.8 CL104 102 Bicarbonate, Serum23 24 Anion Gap, Serum12 14 BUN15 19 CREAT1.47 H 1.56 H GFR Male56 A 52 A Calcium, Serum8.2 L 9.1 ALB3.9 4.4 ALKP48 52 T Pro6.3 L 7.3 T Bili0.4 0.4 Alanine Aminotransferase, Serum19 26 Aspartate Transaminase, Serum16 20 Coronavirus 2019 by PCR 12-Jan-2022 22:21:00 ResultValue Fluid Source Nasal, Nasopharyngeal Coronavirus 2019,PCR NOT DETECTED Reference Range: Not Detected .This test has received FDA Emergency Use Authorization (EUA) and has been verified by [facility]. This test is only authorized for the duration of time that circum Urinalysis 12-Jan-2022 20:42:00 ResultValue (more content not included)... Normal [facility] Covid 19 Resultson 2 SARS-CoV-2 (COVID-19) RNA MARGIE+probe Ql (Unsp spec) NEGATIVE COVID-19 Test Coronaviruses are common world-wide and are the cause of many common colds. SARS-COV2 is a new coronavirus that began circulating worldwide in 2019 so we are calling it COVID-19. It has been estimated that four out of five patients with COVID-19 will recover at home without the need for medical attention. Symptoms of COVID-19 may include cough, fever, shortness of breath, loss of taste or smell and other flu-like symptoms including chills, sore muscles, sore throat, and headache. Severe illness is more common in older people and people with other health problems such as high blood pressure, obesity, and immune system problems. If the test is positive, you have COVID-19. You will be contacted by the ordering physicians office and instructed to remain on home isolation, in accordance with CDC guidelines. You may also be contacted by the [facility] to see if any of your close contacts may have been exposed to the virus and need to quarantine. If the test is negative, you likely do not have COVID-19 at this time, but you still may have a different illness that can spread to other people (like Influenza, or the Flu) and could still be at risk for getting COVID-19. We recommend that you stay away from other people to limit the spread of illness until your symptoms are improving and you are fever-free for 24 hours without the use of fever lowering medications such as acetaminophen or ibuprofen. No test is 100% accurate so if you are still concerned you may have COVID-19, talk to your doctor about the need to continue to stay away from others. Medicines Unless your provider told you not to use the following: Acetaminophen (Tylenol and others) is generally safe. Anti-inflammatory medications, such as Ibuprofen (Advil or Motrin) or Naproxen (Aleve) can also be used. Pzqa-nhl-lfpisvx cough and cold medicines can be used according to the instructions on the package. Some bebw-cuw-vibwpez medicines also contain acetaminophen. Make sure you are not taking more than your recommended dose. For those not hospitalized, there is no specific treatment available for this illness. Antibiotics do not treat Coronaviruses. Follow-Up Follow up with your doctor by scheduling a virtual visit or consider follow-up at one of our urgent care fever clinics. If you are having difficulty breathing, or are very weak and having difficulty standing, this is a medical emergency. Call 911 or have someone take you to the nearest emergency room immediately. If possible, wear a facemask. Additional guidance from the CDC for patients who tested POSITIVE for COVID-19 How to isolate: Isolate yourself in a specific room at home and limit your contact with others. Use a separate bathroom from other members of the household, when possible. Leave home only to get essential medical care. Do not go to work, school or public areas. Avoid using public transportation, ride-sharing, or taxis. Restrict contact with pets and other animals. If you must care for your pet or be around animals while you are sick, wash your hands before and after your interaction and wear a facemask. Make sure that shared spaces in the home have good airflow, such as by an air conditioner or an opened window, weather permitting. Personal Hygiene Procedures: Wear a face mask when in the same room as other people or pets. If a face mask interferes with your breathing, others should wear a mask when sharing space with you. Frequent hand-washing: wash your hands with soap and water for at least 20 seconds. If soap and water are not available, use alcohol-based hand supervisor fish processing. Avoid touching your eyes, nose, and mouth with unwashed hands. Household Hygiene Procedures: Avoid sharing personal household items such as dishes, glassware, cups, eating utensils, towels or bedding with other people or pets in your home. After use, these items should be washed with soap and hot water. Disinfect all high-touch surfaces every day with antibacterial cleaning solutions such as Lysol wipes, bleach, cleansers, etc. High-touch surfaces include tabletops, doorknobs, bathroom fixtures, toilets, phones, keyboards, tablets and bedside tables. Immediately clean any surfaces that may have blood, poop or body fluids on them, using antibacterial cleaning solutions such as Lysol wipes, bleach, cleansers, etc. If clothing or bedding come into contact with blood, poop or body fluids, they should be washed immediately. Follow the directions on the laundry detergent and clothing labels but hot water is recommended when possible. Stopping home isolation precautions: If possible, consult your doctor before stopping home isolation precautions. According to the CDC, you can discontinue home isolation precautions when you have met both of these criteria: Your fever and respiratory symptoms have been gone for 24 rolando (more content not included)... Normal [facility] Daily Progress Note-General Internal Medicineon 01-13-2022 Daily Progress Note-General Internal Medicine Consult Type: subsequent visit/care Service: General Internal Medicine Subjective Data: ASHLEY BLOCK is a 56 year old Male who is Hospital Day # 2. Overnight Events: Patient had an uneventful night. Additional Information: 0800am: patient examined at bedside, no others present for exam. patient is lying in bed sleeping. reports his pain is under control at this moment. patient denies any fever, chills, or constipation. states he was nausea this morning and had some emesis. Objective Data: Objective Information: T PRBPMAPSpO2 [id number]% Date/Time01/13 11: 11: 11: 11: 11:31 Range(36.4C - 37.2C ) (76 - 85 ) (16 - 20 ) (136 - 167 )/ (88 - 106 ) (92% - 96% ) Highest temp of 37.2 C was recorded at 01/13 7:31 Pain reported at 01/13 12:49: 5 = Moderate Physical Exam Narrative: Physical Exam: General Appearance: AAO x 3, not in acute distress Skin: skin color, texture, turgor normal; no suspicious rashes or lesions Eyes : PERRL, EOM's intact, conjunctiva pink ENT: no oral thrush, no pharyngeal erythema or exudates Neck: no JVD, no lymphadenopathy Respiratory: lungs clear to auscultation; no wheezing, rhonchi, or crackles Heart: RRR without murmur, gallop, or rubs, no ectopy Abdomen: Nondistended, positive bowel sounds, soft, nontender Extremities: no edema Peripheral pulses: normal and present x 4 extremities Neuro: alert, coherent and conversant, no focal motor deficits Medication: Medications: Continuous Medications ------- 1. Lactated Ringers Infusion: 1000 mL IntraVenous 2. Lactated Ringers Infusion: 1000 mL IntraVenous 3. Sodium Chloride 0.9% Infusion: 1000 mL IntraVenous Scheduled Medications ------- 1. cefTRIAXone 1 gram/ Dextrose 5% IVPB Premixed Soln 50 mL: 50 mL IntraVenous Piggyback Every 24 Hours 2. Famotidine Injectable: 20 mg IntraVenous Push Once 3. hydrALAZINE (APRESOLINE) Injectable: 10 mg IntraVenous Push Every 4 Hours 4. Midazolam Injectable: 2 mg IntraVenous Push Once PRN Medications ------- 1. Acetaminophen: 650 mg Oral Every 4 Hours 2. HYDROmorphone Injectable: 2 mg IntraVenous Push Every 4 Hours 3. HYDROmorphone Injectable: 0.2 mg IntraVenous Push Every 4 Hours 4. HYDROmorphone Injectable: 0.5 mg IntraVenous Push Every 4 Hours 5. HYDROmorphone Injectable: 0.5 mg IntraVenous Push Every 5 Minutes 6. Ondansetron Injectable: 4 mg IntraVenous Push Every 4 Hours 7. Sodium Chloride 0.9% Injectable Flush: 10 mL IntraVenous Flush Every 8 Hours and as Needed 8. Sodium Chloride 0.9% Injectable Flush: 10 mL IntraVenous Flush Every 8 Hours and as Needed Recent Lab Results: Results: CBC: 01/13/2022 07:46 \ Hgb / \ 14.1 / WBC Plt 10.6 216 / Hct \ / 40.8 L \ RBC: 4.50 MCV: 91 Neutrophil %: 80.2 CMP: 01/13/2022 07:46 NA+ Cl- BUN / 135 L 104 15 / ------- Glucose -- 120 H K+ HCO3- Creat \ 3.9 23 1.47 H \ \ T Bili / \ 0.4 / AST x ---- x ALT 16 x ---- x 19 / Alk P \ / 48 \ Calcium : 8.2 L Anion Gap : 12 Albumin : 3.9 T Protein : 6.3 L Radiology Results: Results: Impression: Severe left hydronephrosis with 4 mm calculus in the proximal left ureter. 5 mm and 3 mm nonobstructive right renal calculi. Diffuse submucosal deposition in the colon which may relate to sequela of chronic inflammatory process. CT Abdomen and Pelvis without Contrast [Jan 12 2022 9:18PM] Assessment and Plan: Code Status: Code StatusFull Code Assessment: ASHLEY BLOCK is a 56 year old Male with history of kidney stones presented with left-sided flank pain and back pain 10/10 sharp associated with nausea and vomiting for a day but denies any hematuria or dysuria and has not been drinking or eating well lately found to have elevated creatinine but urinalysis fine. CT abdomen pelvis showing severe left hydronephrosis with 4 mm calculus in proximal left ureter and diffuse submucosal deposition in colon may relate to sequela of chronic inflammatory process. Urology consulted. No other signs of infection. No headache or focal weakness. No chest pain or shortness of breath or palpitations or dizziness or leg swelling. No skin rash or joint pains. No body aches or muscle aches. No appetite change or weight loss. PLAN: patient having urology surgery today, will monitor for any post-op complications patient also has elevated creatinine, will recheck in the morning anticipate d/c home tomorrow with no needs ordered AM labs pain -continue tylenol -continue dilaudid continue rocephin gerd -continue pepcid htn -continue hydralazine nausea -continue zofran dispo: anticipate d.c home tomorrow Electronic Signatures: Osman, (more content not included)... Normal [facility] Laboratory - Chemistry and C hemistry - challengeon 01-13-2022 Albumin BCP dye [Mass/Vol] 3.9 g/dL 3.4 - 5.0 WC-Dbxiryn-Ftc land Work Phone: ALP [Catalytic activity/Vol] 48 U/L 33 - 120 QB-Gdehboh-Yhv land Work Phone: ALT With P-5'-P [Catalytic activity/Vol] 19 U/L 10 - 52 HV-Agfmebv-Hfw land Work Phone: Comment on above: Patients treated wit h Sulfasalazine may generate falsely decreased results for ALT. Anion gap [Moles/Vol] 12 mmol/L 10 - 20 HP-Pcudnaw-Pmx land Work Phone: AST With P-5'-P [Catalytic activity/Vol] 16 U/L 9 - 39 DY-Dtfrhxi-Sok land Work Phone: Bilirubin [Mass/Vol] 0.4 mg/dL 0.0 - 1.2 QB-Kytbnsn-Dac land Work Phone: Calcium [Mass/Vol] 8.2 mg/dL below low threshold 8.6 - 10.3 RD-Omubjvx-Spn land Work Phone: Chloride [Moles/Vol] 104 mmol/L 98 - 107 LK-Sympuqw-Xkz land Work Phone: CO2 [Moles/Vol] 23 mmol/L 21 - 32 -Urolog y-Attunity Work Phone: Creatinine [Mass/Vol] 1.47 mg/dL above high threshold See Below WU-Krrflou-Eva land Work Phone: Comment on above: Reference Range: 0.5 0 - 1.30 Glucose [Mass/Vol] 120 mg/dL above high threshold 74 - 99 AI-Dgjxwuk-Gzm land Work Phone: Potassium [Moles/Vol] 3.9 mmol/L 3.5 - 5.3 BJ-Ilewcae-Blt land Work Phone: Protein [Mass/Vol] 6.3 g/dL below low threshold 6.4 - 8.2 TV-Ixifbdi-Kmb land Work Phone: Sodium [Moles/Vol] 135 mmol/L below low threshold 136 - 145 OI-Lpgukct-Ecq land Work Phone: Urea nitrogen [Mass/Vol] 15 mg/dL 6 - 23 RL-Msvcvjy-Aaz land Work Phone: No Panel Informationon 09-27 -2022 Please click on the link to view the study images Normal HE-Tchamxl-Jfz land Work Phone: 56 {mL/min/1.73m2} Abnormal >90 MP-Uro logy-Attunity Work Phone: Comment on above: CALCULATIONS OF LESLIE MATED GFR ARE PERFORMED USING THE 2020 CKD-EPI STUDY REFIT EQUATION WITHOUT THE RACE VARIABLE FOR THE IDMS-TRACEABLE CREATININE METHODS.https://jasn.asnjournals.org/content/early/ASN. 1586410304 Order Reconciliationon 01-13 Order Reconciliation Page 1 Admission Reconciliation Document Reconciliation Type: ED to Observation requested on behalf of [place] (Physician) done by [place]) ED to Observation - Reconciliation: 13-Jan-2022 00:08 by: [place]) ED to Observation - AutoLinked: 13-Jan-2022 00:08 by: [place]) Home MedicationsEnteredLast Dose TakenReconciled with current Order Reconciliation Comment/ Additional Information Calcium 600+D oral tablet 1 tab(s) orally once a [id number] 12:00 PM Reviewed and Held candesartan-hydrochloroth iazide 32 mg-25 mg oral tablet 1 tab(s) orally once a [id number] AM Reviewed and Held IBU 600 mg oral tablet 1 tab(s) orally every 6 hours, As Needed -for pain 13-Jan-2022 Reviewed and Held Additional Current Orders Acetaminophen Tablet (TYLENOL)DOSE = 650 mg Oral Every 4 Hours, PRN Temp Greater Than or Equal to 38.0 C cefTRIAXone 1 gram/ Dextrose 5% IVPB Premixed Soln 50 mL (ROCEPHIN)Every 24 HoursRecommended Infusion Time: 30 minute(s) HYDROmorphone Injectable (DILAUDID)DOSE = 0.2 mg IntraVenous Push Every 4 Hours, PRN Pain - Mild (1-3) HYDROmorphone Injectable (DILAUDID)DOSE = 0.5 mg IntraVenous Push Every 4 Hours, PRN Pain - Mod (4-6) HYDROmorphone Injectable (DILAUDID)DOSE = 1 mg IntraVenous Push Every 4 Hours, PRN Pain - Severe (7-10) Ondansetron Injectable (ZOFRAN)DOSE = 4 mg IntraVenous Push Every 4 Hours, PRN Nausea and/or Vomiting Sodium Chloride 0.9% Infusion IV Bag Volume = 1,000 mL Run at: 75 mL/hr IntraVenous Sodium Chloride 0.9% Injectable Flush via Peripheral LineVolume = 10 mL IntraVenous Flush Every 8 Hours and as Needed Sodium Chloride 0.9% Injectable Flush via Peripheral LineVolume = 10 mL IntraVenous Flush Every 8 Hours and as Needed Normal [facility] Patient Profile - Adult v2on 01-13-2022 Patient Profile - Adult v2 Profile: Initial Info: How to be Addressedshane(1) Spoken Language PreferredEnglish (2) Source of Informationpatient Stated Reason for Admissionsymptoms started 07, left flank pain nausea vomiting this evening Primary Contact Name and NumberFeliclena Block- [phone] Wants Family/Rep Notified of Admissionno Notify PCPnotify PCP Informed of Patient Visiting Rightsyes Arrived Fromemergency department Patient Belongingsremains with patient Patient Belongings Remaining with Patientclothing; cell phone/electronics; jewelry; purse/wallet; wallet, cell phone,clothing, wedding ring Medications Brought to Hospitalno General Health: Blood Avoidance/Restrictionsnon e(1) Previous Transfusion Reactionno(1) Weight in kg89.6 kilogram(s) Weight in ydc404.5 pound(s) Weight Methodactual (measured) Scale Typebed Height in cm180.3 centimeter(s) Height in feet5 feet Height in lhgiyd85 inch(es) Height Methodstated BMI (kg/m2)27.562 square meter RSP Based Care: How would you like to participate in your carebe informed of results What is the number one concern for you during this hospitalizationpain control What is the most important thing we can do to support you during this hospitalizationget rid of this kidney stone Is there anything we need to know to best care for willy/a Substance: Smoking Statusnever smoker (3) Alcohol Useoccasionally, Rare use of alcohol. Drug Usedenies (3) Health Mgmt: Symptoms/Conditions Managed at Homecardiovascular Cardiovascular Symptoms/Conditionshypert ension Cardiovascular Management Strategiesmedication therapy Cardiovascular Managementmanaged Relationship/Environ: Resource/Environmental Concernsnone Primary Source of Support/Comfortspouse Lives Withspouse Living Arrangementshouse Services Anticipated at Transitionnone Anticipated Transition Tohome Significant IndicatorsComplete Information Review: Allergies, Home Meds and Significant Events have been Reviewed and Verified with Patient/Familyyes ALLERGY, INTOLERANCE, ADVERSE EVENT: Allergies: contrast (specific type unknown): Contrast, Unknown, Active morphine: Drug, Unknown, Active Electronic Signatures: Tammie Pressley (RN) (Signed 12-Jan-2022 23:55) Authored: Initial Info, General Health, RSP Based Care, Substance, Health Mgmt, Relationship/Environ, Additional Information Last Updated: 12-Jan-2022 23:55 by Tammie Pressley (NIKOLE) References: 1. Data Referenced From Patient Profile - Adult v2 30-Aug-2019 06:31 2. Data Referenced From Triage - ED 12-Jan-2022 20:16 3. Data Referenced From History and Physical 12-Jan-2022 22:19 Normal [facility] Preop Checkliston 01-13-2022 Preop Checklist Preop Checklist: Preop Checklist: Arrival [id number] Arrival Time12:49 Procedure TypeLEFT CYSTOSCOPY LEFT RETROGRADE PYELOGRAM LEFT URETEROSCOPY WITH HOLMIUM LEFT STENT PLACEMENT Temperature C37.2 degrees C Temperature F98.9 degrees F Heart Rate79 beats per minute Respiratory Rate14 breath per minute Blood Pressure Esabqqcn488 mm/Hg Blood Pressure Hlfkeyoez626 mm/Hg COVID 19 Results in Last 7 daysNEGATIVE NPOyes Last Food [id number] 11:30 Last Clear Fluid [id number] 23:50 NPO CommentSIPS OF FLUIDS ID Band On Patientpatient ID (name), allergy Consent Signedyes H&P Completeyes Anesthesia Assessment Completedyes EKG Performednot ordered Chest X-Ray Performednot ordered Preop AntibioticsGIVEN IN ACS-ROCEPHRIN AT 01/13 Type and Screen Resultedn/a HCG Urine TestN/A Chlorhexadine Bath Givennot applicable Nasal Antiseptic Appliednot applicable Soap and Water Bath the Night Before Surgerynot applicable Hair Washed with Shampoonot applicable Hat placed on prior to transportnot applicable SCD's Appliednot applicable SOCO Hose Appliednot ordered Denturesnot applicable Prostheticsnot applicable Hearing Aidsnot applicable Valuables Securedsent with family STATED THAT SHE HAS SOME BELONGINGS AND SOME LEFT IN ROOM. PT HAS NO BELONGINGS WITH HIM IN PREOP. Glasses / Contactsnot applicable Bowel Prepno Cardiovascular Assessment: Apicalregular Extremitieswarm Respiratory Assessment: Respirationsunlabored regular Air Exchangeequal Breath Soundsclear Neurological Assessment: Level of Consciousnessalert, oriented Mobilitymoves all extremities Able to Express Selfyes Age Appropriateyes Emotional Statusanxious Skin Assessment: Skin Site(s) with Current Compromisenone Preop Education: Pain Scales and Managementyes Language / Communication: Language / CommunicationEnglish Electronic Signatures: Lora Amezcua (RN) (Signed 13-Jan-2022 13:07) Authored: Preop Checklist Last Updated: 13-Jan-2022 13:07 by Lora Amezcua (NIKOLE) [facility] URINALYSIS WITH CULTURE IF I NDICATEDon 01-13-2022 Appearance (U) Canceled [facility] Comment on above: Order Comment: TEST URINALYSIS WITH CULTURE IF INDICATED WAS CANCELLED, 01/12/2022 23:22 nsr. Performed By: #### U ARFX #### [place] [address] ASCORBIC ACID Canceled [facility] Comment on above: Order Comment: TEST URINALYSIS WITH CULTURE IF INDICATED WAS CANCELLED, 01/12/2022 23:22 nsr. Result Comment: Conc entrations > = 20 mg/dL of ascorbic acid can be expected to cause strong interference in the reactions testing for glucose, nitrite and blood. It is recommended to discontinue Vitamin C administration and retest in 10 hours. Performed By: #### U ARFX #### [address] [address] Bilirubin Ql (U) Canceled [facility] Comment on above: Order Comment: TEST URINALYSIS WITH CULTURE IF INDICATED WAS CANCELLED, 01/12/2022 23:22 nsr. Performed By: #### U ARFX #### [address] [address] Color (U) Canceled [facility] Comment on above: Order Comment: TEST URINALYSIS WITH CULTURE IF INDICATED WAS CANCELLED, 01/12/2022 23:22 nsr. Performed By: #### U ARFX #### [address] [address] Glucose Ql (U) Canceled [facility] Comment on above: Order Comment: TEST URINALYSIS WITH CULTURE IF INDICATED WAS CANCELLED, 01/12/2022 23:22 nsr. Performed By: #### U ARFX #### [address] [address] Hemoglobin Ql (U) Canceled [facility] Comment on above: Order Comment: TEST URINALYSIS WITH CULTURE IF INDICATED WAS CANCELLED, 01/12/2022 23:22 nsr. Performed By: #### U ARFX #### [address] [address] Ketones Ql (U) Canceled [facility] Comment on above: Order Comment: TEST URINALYSIS WITH CULTURE IF INDICATED WAS CANCELLED, 01/12/2022 23:22 nsr. Performed By: #### U ARFX #### [address] [address] Leukocyte esterase Test strip Ql (U) Canceled [facility] Comment on above: Order Comment: TEST URINALYSIS WITH CULTURE IF INDICATED WAS CANCELLED, 01/12/2022 23:22 nsr. Performed By: #### U ARFX #### [address] [address] Nitrite Ql (U) Canceled [facility] Comment on above: Order Comment: TEST URINALYSIS WITH CULTURE IF INDICATED WAS CANCELLED, 01/12/2022 23:22 nsr. Performed By: #### U ARFX #### [address] [address] pH Canceled [facility] Comment on above: Order Comment: TEST URINALYSIS WITH CULTURE IF INDICATED WAS CANCELLED, 01/12/2022 23:22 nsr. Performed By: #### U ARFX #### [place] [address] Protein Ql (U) Canceled Normal [facility] Comment on above: Order Comment: TEST URINALYSIS WITH CULTURE IF INDICATED WAS CANCELLED, 01/12/2022 23:22 nsr. Performed By: #### U ARFX #### [place] [id number] Specific gravity (U) [Rel density] Canceled Normal [facility] Comment on above: Order Comment: TEST URINALYSIS WITH CULTURE IF INDICATED WAS CANCELLED, 01/12/2022 23:22 nsr. Performed By: #### U ARFX #### [place] [address] UROBILINOGEN Canceled Normal [facility] Comment on above: Order Comment: TEST URINALYSIS WITH CULTURE IF INDICATED WAS CANCELLED, 01/12/2022 23:22 nsr. Performed By: #### U ARFX #### [place] [id number] CBC AND DIFFERENTIALon 01-12 Basophils (Bld) [#/Vol] 0.00 10*3/uL Normal 0.00 - 0.10 [facility] Comment on above: Performed By: #### C BCDF ####[place] [id number] Basophils/100 WBC (Bld) 0.4 % Normal 0.0 - 2.0 [facility] Comment on above: Performed By: #### C BCDF ####[place] [id number] Eosinophils (Bld) [#/Vol] 0.10 10*3/uL Normal 0.00 - 0.70 [facility] Comment on above: Performed By: #### C BCDF ####[place] [id number] Eosinophils/100 WBC (Bld) 0.5 % Normal 0.0 - 6.0 [facility] Comment on above: Performed By: #### C BCDF ####[place] [address] Erythrocyte distribution width (RBC) [Ratio] 13.2 % Normal 11.5 - 14.5 [facility] Comment on above: Performed By: #### C BCDF ####[address] [address] Hematocrit (Bld) [Volume fraction] 43.4 % Normal 41.0 - 52.0 [facility] Comment on above: Performed By: #### C BCDF ####[address] [address] Hemoglobin (Bld) [Mass/Vol] 14.7 g/dL Normal 13.5 - 17.5 [facility] Comment on above: Performed By: #### C BCDF ####[address] [address] Lymphocytes (Bld) [#/Vol] 1.00 10*3/uL Low 1.20 - 4.80 [facility] Comment on above: Performed By: #### C BCDF ####[address] [address] Lymphocytes/100 WBC (Bld) 9.2 % Normal 13.0 - 44.0 [facility] Comment on above: Performed By: #### C BCDF ####[address] [address] MCHC (RBC) [Mass/Vol] 33.9 g/dL Normal 32.0 - 36.0 [facility] Comment on above: Performed By: #### C BCDF ####[address] [address] MCV (RBC) [Entitic vol] 90 fL Normal 80 - 100 [facility] Comment on above: Performed By: #### C BCDF ####[address] [address] Monocytes (Bld) [#/Vol] 1.00 10*3/uL Normal 0.10 - 1.00 [facility] Comment on above: Performed By: #### C BCDF ####[address] [address] Monocytes/100 WBC (Bld) 8.7 % Normal 2.0 - 10.0 [facility] Comment on above: Performed By: #### C BCDF ####[address] [address] Neutrophils (Bld) [#/Vol] 8.90 10*3/uL High 1.20 - 7.70 [facility] Comment on above: Result Comment: Perc ent differential counts (%) should be interpreted in the context of the absolute cell counts (cells/L). Performed By: #### C BCDF ####[address] [address] Neutrophils/100 WBC (Bld) 81.2 % Normal 40.0 - 80.0 [facility] Comment on above: Performed By: #### C BCDF ####[address] [address] Platelets (Bld) [#/Vol] 235 10*3/uL Normal 150 - 450 [facility] Comment on above: Performed By: #### C BCDF ####[address] [address] RBC 4.80 x10E12/L Normal 4.50 - 5.90 [facility] Comment on above: Performed By: #### C BCDF ####[address] [address] WBC (Bld) [#/Vol] 11.0 10*3/uL Normal 4.4 - 11.3 [facility] Comment on above: Performed By: #### C BCDF ####[address] [address] COMPREHENSIVE PANELon 2021 Albumin [Mass/Vol] 4.4 g/dL Normal 3.4 - 5.0 [facility] Comment on above: Performed By: #### U A #### [address] [address] ALP [Catalytic activity/Vol] 52 U/L Normal 33 - 120 [facility] Comment on above: Performed By: #### U A #### [address] [address] ALT [Catalytic activity/Vol] 26 U/L Normal 10 - 52 [facility] Comment on above: Result Comment: Ivana ents treated with Sulfasalazine may generate falsely decreased results for ALT. Performed By: #### U A #### [address] [address] Anion gap [Moles/Vol] 14 mmol/L Normal 10 - 20 [facility] Comment on above: Performed By: #### U A #### [address] [address] AST [Catalytic activity/Vol] 20 U/L Normal 9 - 39 [facility] Comment on above: Performed By: #### U A #### [address] [address] Bilirubin [Mass/Vol] 0.4 mg/dL Normal 0.0 - 1.2 [facility] Comment on above: Performed By: #### U A #### [address] [address] Calcium [Mass/Vol] 9.1 mg/dL Normal 8.6 - 10.3 [facility] Comment on above: Performed By: #### U A #### [address] [address] Chloride [Moles/Vol] 102 mmol/L Normal 98 - 107 [facility] Comment on above: Performed By: #### U A #### [address] [address] Creatinine [Mass/Vol] 1.56 mg/dL High 0.50 - 1.30 [facility] Comment on above: Performed By: #### U A #### [address] [address] GFR/1.73 sq M.predicted among non-blacks MDRD (S/P/Bld) [Vol rate/Area] 52 mL/min/{1.73_m2} Abnormal >90 [facility] Comment on above: Result Comment: CALC ULATIONS OF ESTIMATED GFR ARE PERFORMED USING THE 2020 CKD-EPI STUDY REFIT EQUATION WITHOUT THE RACE VARIABLE FOR THE IDMS-TRACEABLE CREATININE METHODS. https://jasn.yongjournals.org/content/early/ASN.29907194 88 Performed By: #### U A #### [address] [address] Glucose [Mass/Vol] 112 mg/dL High 74 - 99 [facility] Comment on above: Performed By: #### U A #### [address] [address] HCO3 (Bld) [Moles/Vol] 24 mmol/L Normal 21 - 32 [facility] Comment on above: Performed By: #### U A #### [address] [address] [address] Potassium [Moles/Vol] 3.8 mmol/L Normal 3.5 - 5.3 [facility] Comment on above: Performed By: #### U A #### [address] [address] Protein [Mass/Vol] 7.3 g/dL Normal 6.4 - 8.2 [facility] Comment on above: Performed By: #### U A #### [address] [address] Sodium [Moles/Vol] 136 mmol/L Normal 136 - 145 [facility] Comment on above: Performed By: #### U A #### [address] [address] Urea nitrogen [Mass/Vol] 19 mg/dL Normal 6 - 23 [facility] Comment on above: Performed By: #### U A #### [address] [address] [address] ABDOMEN AND PELVIS WO CON TRASTon 01-12-2022 CT ABDOMEN AND PELVIS WO CONTRAST Patient Name: ASHLEY BLOCK STUDY: CT ABDOMEN AND PELVIS WO CONTRAST; 01/12/2022 9:00 pm INDICATION: Left flank pain . COMPARISON: 10/07/2021 ACCESSION NUMBER(S): [id number] ORDERING CLINICIAN: TOSHA SALAZAR TECHNIQUE: Contiguous axial images of the abdomen and pelvis were obtained without intravenous contrast. Coronal and sagittal reformatted images were obtained from the axial images. FINDINGS: No basilar airspace disease. No pleural effusion. Small hiatal hernia. Evaluation of the abdominal viscera is limited secondary to lack of intravenous contrast. Limited evaluation for liver mass on noncontrast examination. The gallbladder is present. No dilatation common bile duct. The pancreas, spleen, and adrenal glands appear unremarkable. There is severe left hydronephrosis with a 4 mm calculus in the proximal left ureter. 5 mm and 3 mm nonobstructive right renal calculi. No right hydronephrosis. Evaluation of the kidneys is otherwise limited secondary to lack of intravenous contrast. Small fat containing paraumbilical hernia. No evidence of bowel obstruction or acute appendicitis. There is diffuse submucosal fat deposition of the colon. Urinary bladder is underdistended and not well evaluated. Multilevel degenerative change of the lumbar spine. IMPRESSION: Severe left hydronephrosis with 4 mm calculus in the proximal left ureter. 5 mm and 3 mm nonobstructive right renal calculi. Diffuse submucosal deposition in the colon which may relate to sequela of chronic inflammatory process. Electronically signed by: VERA DONALDSON MD Normal [facility] CT Abdomen and Pelvis withou t Contraston 01-12-2022 CT Abdomen and Pelvis WO contrast Normal LY-Sdzujmd-Pd Zur[employer]ba Work Phone: Complete Blood Count + Diffe rentialon 01-12-2022 Basophils/100 WBC (Bld) 0.4 % 0.0 - 2.0 [employer] Phone: Erythrocyte distribution width (RBC) [Ratio] 13.2 % See Below PB-Awokgtb-Nfb land Work Phone: Comment on above: Reference Range: 11. 5 - 14.5 Hematocrit (Bld) [Volume fraction] 43.4 % See Below ND-Bkerrsv-Lab land Work Phone: Comment on above: Reference Range: 41. 0 - 52.0 Hemoglobin (Bld) [Mass/Vol] 14.7 g/dL See Below ZR-Osgoyvb-Jzy land Work Phone: Comment on above: Reference Range: 13. 5 - 17.5 Lymphocytes/100 WBC (Bld) 9.2 % See Below [employer] Phone: Comment on above: Reference Range: 13. 0 - 44.0 MCHC (RBC) [Mass/Vol] 33.9 g/dL See Below GW-Dmnvrzz-Hpa land Work Phone: Comment on above: Reference Range: 32. 0 - 36.0 MCV (RBC) [Entitic vol] 90 fL 80 - 100 DW-Unuozny-Wsw [employer] Work Phone: Monocytes/100 WBC (Bld) 8.7 % 2.0 - 10.0 BQ-Zwmmyrq-Rqp land Work Phone: Neutrophils/100 WBC (Bld) 81.2 % See Below BG-Zsndmjj-Irt land Work Phone: Comment on above: Reference Range: 40. 0 - 80.0 Platelets (Bld) [#/Vol] 235 10*3/uL 150 - 450 UF-Bggwsap-Mht [employer] Work Phone: RBC (Bld) [#/Vol] 4.80 {x10E12/L} See Below MP -Urology-[place] [employer] Work Phone: Comment on above: Reference Range: 4.5 0 - 5.90 WBC (Bld) [#/Vol] 11.0 10*3/uL 4.4 - 11.3 MP-Ur ology-[employer] Work Phone: Complete Blood Count + Differential 0.00 {x10E9/L} See Below DF-Zareqkc-Zuf land Work Phone: Comment on above: Reference Range: 0.0 0 - 0.10 Complete Blood Count + Differential 0.10 {x10E9/L} See Below DK-Nsbciqe-Yxs land Work Phone: Comment on above: Reference Range: 0.0 0 - 0.70 Complete Blood Count + Differential 1.00 {x10E9/L} below low threshold See Below YU-Mtgfpaz-Peg land Work Phone: Comment on above: Reference Range: 0.1 0 - 1.00 Reference Range: 1.2 0 - 4.80 Complete Blood Count + Differential 8.90 {x10E9/L} above high threshold See Below II-Mmymkdx-Xbo [employer] Work Phone: Comment on above: Reference Range: 1.2 0 - 7.70 Percent differential counts (%) should be interpreted in the context of the absolute cell counts (cells/L). Complete Blood Count + Differential 0.5 % 0.0 - 6.0 CN-Psrgtfn-Pxm land Work Phone: Coronavirus 2019 RNA by PCR, Symptomaticon 01-12-2022 Coronavirus 2019 RNA by PCR, Symptomatic Not detected Normal See Below XS-Zqzeyfj-Uot [employer] Work Phone: Comment on above: SOURCE: Nasal, Nasop haryngealReference Range: Not Detected.This test has received [facility] Emergency Use Authorization (EUA) and has been verified by [facility]. This test is only authorized for the duration of time that circumstances exist to justify the authorization of the emergency use of in vitro diagnostic tests for the detection of SARS-CoV-2 virus and/or diagnosis of COVID-19 infection under section 564(b)(1) of the Act, 21 U.S.C. 360bbb-3(b)(1), unless the authorization is terminated or revoked sooner. [facility] is certified under CLIA-88 as qualified to perform high complexity testing. Testing is performed in the [facility] laboratory located at [address] [place] [address].SARS-CoV-2/Flu/RSV Multiplex Test: Fact sheet for providers: https://www.fda.gov/media/516707/downloadFact sheet for patients: https://www.fda.gov/media/160519/download LACTATEon 01-12-2022 Lactate [Moles/Vol] 0.8 mmol/L Normal 0.4 - 2.0 [facility] Comment on above: Result Comment: Hazel puncture immediately after or during the administration of Metamizole may lead to falsely low results. Testing should be performed immediately prior to Metamizole dosing. Performed By: #### U A #### [place] [address] LIPASEon 01-12-2022 Lipase [Catalytic activity/Vol] 21 U/L Normal 9 - 82 [facility] Comment on above: Result Comment: Hazel puncture immediately after or during the administration of Metamizole may lead to falsely low results. Testing should be performed immediately prior to Metamizole dosing. X-yzusbp-f-benzoquinone imine (metabolite of Acetaminophen) will generate erroneously low results in samples for patients that have taken toxic doses of acetaminophen. Performed By: #### L IPAS #### [facility] [address] [place] [address] Laboratory - Chemistry and C hemistry - challengeon 01-12-2022 Albumin BCP dye [Mass/Vol] 4.4 g/dL 3.4 - 5.0 QP-Zunwqdk-Egf land Work Phone: ALP [Catalytic activity/Vol] 52 U/L 33 - 120 SP-Gjaufkj-Hqt land Work Phone: ALT With P-5'-P [Catalytic activity/Vol] 26 U/L 10 - 52 WN-Zvxvkgq-Pnm [employer] Work Phone: Comment on above: Patients treated wit h Sulfasalazine may generate falsely decreased results for ALT. Anion gap [Moles/Vol] 14 mmol/L 10 - 20 YJ-Hjrmmvg-Kao land Work Phone: AST With P-5'-P [Catalytic activity/Vol] 20 U/L 9 - 39 SN-Cduejwy-Bqo land Work Phone: Bilirubin [Mass/Vol] 0.4 mg/dL 0.0 - 1.2 XI-Slhmxpx-Izn land Work Phone: Calcium [Mass/Vol] 9.1 mg/dL 8.6 - 10.3 MP-Uro logy-[place]ecil land Work Phone: Chloride [Moles/Vol] 102 mmol/L 98 - 107 JP-Duelfat-Cql land Work Phone: CO2 [Moles/Vol] 24 mmol/L 21 - 32 MP-Urolog y-[place] land Work Phone: Creatinine [Mass/Vol] 1.56 mg/dL above high threshold See Below EC-Aooxsez-Iik land Work Phone: Comment on above: Reference Range: 0.5 0 - 1.30 Glucose [Mass/Vol] 112 mg/dL above high threshold 74 - 99 PS-Kbmuanw-Pqo land Work Phone: Potassium [Moles/Vol] 3.8 mmol/L 3.5 - 5.3 VV-Vcwcpzp-Qku land Work Phone: Protein [Mass/Vol] 7.3 g/dL 6.4 - 8.2 MP-Uro logy-[place] land Work Phone: Sodium [Moles/Vol] 136 mmol/L 136 - 145 MP-Uro logy-[place] land Work Phone: Urea nitrogen [Mass/Vol] 19 mg/dL 6 - 23 RF-Yggnimt-Sfo land Work Phone: Lactate, Levelon 01-12-2022 Lactate [Moles/Vol] 0.8 mmol/L 0.4 - 2.0 MP-Ur ology-[place]ecil land Work Phone: Comment on above: Venipuncture immedia tely after or during the administration of Metamizole may lead to falsely low results. Testing should be performed immediately prior to Metamizole dosing. Lipase, Serumon 01-12-2022 Lipase [Catalytic activity/Vol] 21 U/L 9 - 82 CI-Sidowur-Nto land Work Phone: Comment on above: Venipuncture immedia tely after or during the administration of Metamizole may lead to falsely low results. Testing should be performed immediately prior to Metamizole dosing. B-zpdqmw-c-benzoquinone imine (metabolite of Acetaminophen) will generate erroneously low results in samples for patients that have taken toxic doses of acetaminophen. No Panel Informationon 01-12 52 {mL/min/1.73m2} Abnormal >90 MP-Uro logy-[place]ecil land Work Phone: Comment on above: CALCULATIONS OF LESLIE MATED GFR ARE PERFORMED USING THE 2020 CKD-EPI STUDY REFIT EQUATION WITHOUT THE RACE VARIABLE FOR THE IDMS-TRACEABLE CREATININE METHODS.https://jasn.asnjournals.org/content//ASN. 5067102722 Provider Note - ED v3on 12-19 Provider Note - ED v3 Provider Note: Chart Review: ED NOTES ED NOTES: Source of Information: Patient. EMR was reviewed for previous records. ----- HPI: Left flank pain. This 56-year-old white male presents to the ED with concern for possible kidney stone he states that at 7:30 PM this evening he had sudden onset of left-sided back pain which wraps around to the abdomen he states that he had some associated nausea and vomiting. He does admit to a decrease in urine output today though states he has not been eating or drinking as much as he normally does. He does admit to similar symptoms in the past due to kidney stones he states his last kidney stone was in September 2021. He normally sees Dr. Rocha for his kidney stones. Denies any other urinary symptoms. He states that movement makes his symptoms worse rest helps to some extent. ----- PMH: Kidney stones, hypertension PSH: Denies Social Hx: The patient denies any use of tobacco or illicit drugs. Rare use of alcohol. Fam: MEDS: Ibuprofen, blood pressure medication ALLERGIES: IV contrast, morphine ----- PHYSICAL EXAM: General: Patient alert, awake, oriented X3, appears to be in mild distress, nontoxic, cooperative Skin: Warm. Dry. Intact. No rash. Eyes: PEARTLA, EOMIs intact, sclera white, conjunctiva clear HEENT: Atraumatic. Normo-cephalic. Oral and nasal mucosa pink and moist. Neck: Supple without meningismus, no lymphadenopathy. CV: Regular rate and rhythm without murmurs, heaves, lifts or thrills. Respiratory: Nonlabored breathing. There are no retractions or tachypnea. Lungs are clear to auscultation bilaterally. GI: Soft, nontender, without gross distention, bowel sounds present in all 4 quadrants. There is no pulsatile masses. Patient has left-sided CVA tenderness worse with percussion. There is no abdominal tenderness. There is no rebound or rigidity. MUSC: There is no joint swelling or bony tenderness on exam. Neuro: Cranial nerves II - XII grossly intact. No focal neurologic deficits are noted on exam. Lower extremities: There is no peripheral edema bilaterally, negative Homans sign. No palpable cords. Distal pulses are +2/4 and present in both lower extremities. Psych: Maintains eye contact. Cooperative. ----- ED course: Patient was seen and evaluated complaints of left flank pain. Patient had blood work performed that revealed acute renal insufficiency that is new for the patient. CT scan imaging the abdomen pelvis revealed a severe left hydronephrosis with a 4 mm calculus at the proximal left ureter. Urinalysis without evidence of infection. I discussed the case with Dr. Rocha at 2203 he wanted the patient be n.p.o. and to place a stent in the patient tomorrow. This chart was dictated with the use of [employer] software within the framework of the current electronic medical records software. Attempts were made to edit in real time, given time constraints there is the potential for inaccuracies in my dictation. Tosha Salazar, DO HISTORY OF PRESENTING ILLNESS ASHLEY is a 56 year old Male and was seen by me at 12-Jan-2022 20:10 for a chief complaint of flank pain (left flank pain since around 0800 today. dx with kidney stone in September I don't think I passed it. n/v. decreased urination)(1). Triage Information: Most recent Vital Sign Value Date Temp (F): 98 01-12-2022 20:16 Temp (C): 36.6 01-12-2022 20:16 Heart Rate (beats/min): 85 01-12-2022 20:16 Respirations (breaths/min): 16 01-12-2022 20:16 SpO2 (%): 95 01-12-2022 20:16 BP Systolic (mm Hg): 167 01-12-2022 20:16 BP Diastolic (mm Hg): 106 01-12-2022 20:16 PAST MEDICAL HISTORY CURRENT OR FORMER SUBSTANCE USE: Tobacco/Nicotine Use: never smoker Alcohol Use: (Rare use of alcohol.) Drug Use: denies,ALLERGIES/INTOLERA NCES: Allergy Allergen: contrast (specific type unknown) Type: Contrast Reaction: Unknown Allergen: morphine Type: Drug Reaction: Unknown HEALTH HISTORY: No documented data. OUTPATIENT MEDICATIONS: Home Medications Review Status for Reconciliation: Complete Med Status: Patient Currently Takes Medications Drug Name: IBU 600 mg oral tablet Instructions: 1 tab(s) orally every 6 hours, As Needed -for pain Drug Name: candesartan-hydrochloroth iazide 32 mg-25 mg oral tablet Instructions: 1 tab(s) orally once a day Drug Name: Calcium 600+D oral tablet Instructions: 1 (more content not included)... [facility] Risk Screen - Adult Emergenc yon 01-12-2022 Risk Screen - Adult Emergency Preferred Language: Preferred Language: Preferred Language for Discussing Health Care (patient/designee)[place] Citizen Patient Preferred Pharmacy: Patient Preferred Pharmacy Statement: I have reviewed and updated the patient's preferred pharmacy selection for today's visit. Advanced Directives: Advance Directive/DNRno Family Violence Adult: Abuse Screen: Are you or have you been threatened or abused physically, emotionally, or sexually by anyoneno Learning Assessment (Patient): Learning Assessment (Patient): Patient is Able to be Assessed for Learningyes Factors Influencing Readiness to Learnacuteness of illness Factors that Impact Ability to Learnnone Devices/Methods Used to Communicatenone Learning Preferencesaudio Cultural Considerationsnone Developmental Considerationsnone Sabianist Considerationsnone Learning Assessment (Other Learner): Learning Assessment (Other Learner): Other learner availableno Pressure Injury/TB/Substance: Pressure Injury: Do you have a coughno Smoking Statusnever smoker Alcohol Useoccasionally Drug Usedenies Admission Risk Screen: Significant IndicatorsComplete CAGE: CAGE: Is this an injured patient at a Trauma Center ([facility] [place]/[facility]/[place]/ [place]): no Electronic Signatures: Fely Moreno (NIKOLE) (Signed 12-Jan-2022 20:20) Authored: Preferred Language, Patient Preferred Pharmacy, Advanced Directives, Family Violence Adult, Learning Assessment (Patient), Learning Assessment (Other Learner), Pressure Injury/TB/Substance, Pressure Injury, CAGE Last Updated: 12-Jan-2022 20:20 by Fely Moreno (NIKOLE) [facility] Triage - EDon 01-12-2022 Triage - ED Chart Review: ARRIVAL INFORMATION Means of Arrival: Ambulatory Mode of Arrival: private vehicle Arrival From: home Language: Spoken Language Preferred: [place] Citizen CHIEF COMPLAINT ASHLEY BLOCK is a Male patient with a chief complaint of flank pain (left flank pain since around 0800 today. dx with kidney stone in September I don't think I passed it. n/v. decreased urination). Triage Date/Time: 12-Jan-2022 20:16 LENNIE: 3 Pain Rating (0-10): 8 = Severe Vital Signs: Temperature: 98.0F ( 36.6C) taken forehead Blood Pressure: 167/106 Mean: Heart Rate: 85 Respiratory Rate: 16 Pulse Oximetry: 95% Height: 5 feet 11.00 inches. 180.3 CM Weight: 195.1 pounds. Calculated 88.5 kg. (stated) Calculated BMI (kg/m2): 27.223 Calculated BSA (m2) 2.11 Allergies: yes Patient has homicidal thoughts: no Risk Screens Suicide Risk Screen In the Past Month: Have you wished you were or wished you could go to sleep and not wake up no In the Past Month: Have you had any actual thoughts of killing yourself no In Your Lifetime: Have you ever done anything, started to do anything, or prepared to do anything to end your life no Garcia Fall Scale Screening Has the patient fallen before (or is the patient in the ED as a result of a fall) has not had a fall Does the patient have an impaired gait does not have impaired gait Is the patient cognitively impaired not cognitively impaired Interventions: Garcia Fall Interventions: LOW INTERVENTIONS: *patient oriented to surroundings and call system, * patient/family falls education completed and documented, *patients fall status communicated during bedside handoff, *whiteboard updated, *mode of toileting discussed with patient, *bed in low position with brakes locked, *call light in reach, * non-skid footwear TRAVEL HISTORY Travel History Coronavirus Screening: no exposure or symptoms Travel Exposure History: NO travel to International locations in the past 30 days PAIN Pain Scale Used: JON Pain Rating (0-10): 8 = Severe Past Medical History: Past Medical History Reviewedyes high blood pressure: Past Medical History, Active KIDNEY STONES: Past Medical History, Active Electronic Signatures: Fely Moreno (NIKOLE) (Signed 12-Jan-2022 20:19) Authored: Quick Triage, Risk Screens, Pain, Arrival, Travel History, Chart Review, Scores, Past Medical History Last Updated: 12-Jan-2022 20:19 by Fely Moreno) [facility] URINALYSISon 01-12-2022 Appearance (U) CLEAR Normal CLEAR [facility] Comment on above: Performed By: #### U A #### [address] [address] Bilirubin Ql (U) Negative Normal NEGATIVE [facility] Comment on above: Performed By: #### U A #### [place] [address] Color (U) Yellow Normal STRAW,YELLOW [facility] Comment on above: Performed By: #### U A #### [address] [address] Glucose Ql (U) Negative Normal NEGATIVE [facility] Comment on above: Performed By: #### U A #### [address] [address] Hemoglobin Ql (U) Negative Normal NEGATIVE [facility] Comment on above: Performed By: #### U A #### [place] [address] Ketones Ql (U) Negative Normal NEGATIVE [facility] Comment on above: Performed By: #### U A #### [place] [id number] Leukocyte esterase Test strip Ql (U) Negative Normal NEGATIVE [facility] Comment on above: Performed By: #### U A #### [address] [address] Nitrite Ql (U) Negative Normal NEGATIVE [facility] Comment on above: Performed By: #### U A #### [place] [id number] pH (U) 7.0 [pH] Normal 5.0 - 8.0 [facility] Comment on above: Performed By: #### U A #### [address] [address] Protein Ql (U) Negative Normal NEGATIVE [facility] Comment on above: Performed By: #### U A #### [place] [id number] Specific gravity (U) [Rel density] 1.020 Normal 1.005 - 1.035 [facility] Comment on above: Performed By: #### U A #### [address] [address] Urobilinogen (U) [Mass/Vol] mg/dL Normal 0.0 - 1.9 [facility] Comment on above: Performed By: #### U A #### [address] [address] Urinalysison 01-12-2022 Color (U) Yellow See Below AZ-Cluabkz-Fvm land Work Phone: Comment on above: Reference Range: STR AW,YELLOW Glucose Ql (U) Negative NEGATIVE MP-Urology -[place] land Work Phone: Ketones Ql (U) Negative NEGATIVE MP-Urology -[place] land Work Phone: Leukocyte esterase Test strip Ql (U) Negative NEGATIVE HG-Xjpueaj-Hmf [employer] Work Phone: pH (U) 7.0 [pH] 5.0 - 8.0 XB-Zsggrki-Fxu land Work Phone: Protein (U) [Mass/Vol] Negative NEGATIVE UL-Vqadnvl-Jto land Work Phone: RBC (U) [#/Vol] Negative NEGATIVE MP-Urolog y-Cecil [employer] Work Phone: Specific gravity (U) [Rel density] 1.020 1 See Below AM-Amztwgr-Sua [employer] Work Phone: Comment on above: Reference Range: 1.0 05 - 1.035 Urinalysis Negative NEGATIVE NB-Nihcbaq-Vjg land Work Phone: Urinalysis <2.0 0.0 - 1.9 PU-Qlvxyct-Awc land Work Phone: Urinalysis CLEAR CLEAR XY-Mvnrxix-Zmy land Work Phone: CT Abdomen and Pelvis withou t Contraston 10-07-2021 CT Abdomen and Pelvis WO contrast Normal MP-Nephrology - [facility] Sung 3 DO Work Phone: Complete Blood Count + Diffe rentialon 10-07-2021 Basophils/100 WBC (Bld) 0.3 % 0.0 - 2.0 [place] [address] DO Work Phone: Erythrocyte distribution width (RBC) [Ratio] 13.1 % See Below [place] [address] DO Work Phone: Comment on above: Reference Range: 11. 5 - 14.5 Hematocrit (Bld) [Volume fraction] 41.8 % See Below [place] [address] DO Work Phone: Comment on above: Reference Range: 41. 0 - 52.0 Hemoglobin (Bld) [Mass/Vol] 15.1 g/dL See Below [place] [address] DO Work Phone: Comment on above: Reference Range: 13. 5 - 17.5 Lymphocytes/100 WBC (Bld) 12.2 % See Below [place] [address] DO Work Phone: Comment on above: Reference Range: 13. 0 - 44.0 MCHC (RBC) [Mass/Vol] 36.1 g/dL above high threshold See Below [place] [address] DO Work Phone: Comment on above: Reference Range: 32. 0 - 36.0 MCV (RBC) [Entitic vol] 87 fL 80 - 100 [place] [address] DO Work Phone: Monocytes/100 WBC (Bld) 8.0 % 2.0 - 10.0 [place] [address] DO Work Phone: Neutrophils/100 WBC (Bld) 78.7 % See Below [place] [address] DO Work Phone: Comment on above: Reference Range: 40. 0 - 80.0 Platelets (Bld) [#/Vol] 240 10*3/uL 150 - 450 [place] [address] DO Work Phone: RBC (Bld) [#/Vol] 4.82 {x10E12/L} See Below [place] [address] DO Work Phone: Comment on above: Reference Range: 4.5 0 - 5.90 WBC (Bld) [#/Vol] 7.4 10*3/uL 4.4 - 11.3 [facility] [address] [facility] Work Phone: Complete Blood Count + Differential 0.00 {x10E9/L} See Below [place] [address] DO Work Phone: Comment on above: Reference Range: 0.0 0 - 0.10 Complete Blood Count + Differential 0.10 {x10E9/L} See Below [place] [address] DO Work Phone: Comment on above: Reference Range: 0.0 0 - 0.70 Complete Blood Count + Differential 0.60 {x10E9/L} See Below [place] [address] DO Work Phone: Comment on above: Reference Range: 0.1 0 - 1.00 Complete Blood Count + Differential 0.90 {x10E9/L} below low threshold See Below [place] [address] DO Work Phone: Comment on above: Reference Range: 1.2 0 - 4.80 Complete Blood Count + Differential 5.90 {x10E9/L} See Below [place] [address] DO Work Phone: Comment on above: Reference Range: 1.2 0 - 7.70 Percent differential counts (%) should be interpreted in the context of the absolute cell counts (cells/L). Complete Blood Count + Differential 0.8 % 0.0 - 6.0 [place] [address] DO Work Phone: Hepatic Function Panelon Albumin BCP dye [Mass/Vol] 4.6 g/dL 3.4 - 5.0 [place] [address] DO Work Phone: ALP [Catalytic activity/Vol] 54 U/L 33 - 120 [place] [address] DO Work Phone: ALT With P-5'-P [Catalytic activity/Vol] 28 U/L 10 - 52 [place] [address] DO Work Phone: Comment on above: Patients treated wit h Sulfasalazine may generate falsely decreased results for ALT. AST With P-5'-P [Catalytic activity/Vol] 20 U/L 9 - 39 [place] [address] DO Work Phone: Bilirubin [Mass/Vol] 0.5 mg/dL 0.0 - 1.2 [place] [address] DO Work Phone: Bilirubin.direct [Mass/Vol] 0.1 mg/dL 0.0 - 0.3 [place] [address] DO Work Phone: Protein [Mass/Vol] 7.3 g/dL 6.4 - 8.2 [place] [address] DO Work Phone: Laboratory - Chemistry and C hemistry - challengeon 10-07-2021 Anion gap [Moles/Vol] 14 mmol/L 10 - 20 [place] [address] DO Work Phone: Calcium [Mass/Vol] 9.5 mg/dL 8.6 - 10.3 [place] [address] DO Work Phone: Chloride [Moles/Vol] 102 mmol/L 98 - 107 [place] [address] DO Work Phone: CO2 [Moles/Vol] 25 mmol/L 21 - 32 -Nephro [place]Fa[place] [address] DO Work Phone: Creatinine [Mass/Vol] 1.19 mg/dL See Below [place] [address] DO Work Phone: Comment on above: Reference Range: 0.5 0 - 1.30 Glucose [Mass/Vol] 122 mg/dL above high threshold 74 - 99 [place] [address] DO Work Phone: Potassium [Moles/Vol] 3.8 mmol/L 3.5 - 5.3 [place] [address] DO Work Phone: Sodium [Moles/Vol] 137 mmol/L 136 - 145 [place] [address] DO Work Phone: Urea nitrogen [Mass/Vol] 14 mg/dL 6 - 23 [place] [address] DO Work Phone: Lipase, Serumon 10-07-2021 Lipase [Catalytic activity/Vol] 18 U/L 9 - 82 [place] [address] DO Work Phone: Comment on above: Venipuncture immedia tely after or during the administration of Metamizole may lead to falsely low results. Testing should be performed immediately prior to Metamizole dosing. S-jwampq-g-benzoquinone imine (metabolite of Acetaminophen) will generate erroneously low results in samples for patients that have taken toxic doses of acetaminophen. No Panel Informationon 10-07 72 {mL/min/1.73m2} >90 [place] [address] DO Work Phone: Comment on above: CALCULATIONS OF LESLIE MATED GFR ARE PERFORMED USING THE 2020 CKD-EPI STUDY REFIT EQUATION WITHOUT THE RACE VARIABLE FOR THE IDMS-TRACEABLE CREATININE METHODS.https://jasn.asnjournals.org/content//ASN. 2871770628 URINALYSIS WITH CULTURE IF I NDICATEDon 10-07-2021 Color (U) Yellow See Below [facility] Work Phone: Comment on above: Reference Range: STR AW,YELLOW Glucose Ql (U) Negative NEGATIVE [facility] Work Phone: Ketones Ql (U) Negative NEGATIVE MP-Nephrol ogy- [facility] 3 DO Work Phone: Leukocyte esterase Test strip Ql (U) Negative NEGATIVE [facility] Work Phone: pH (U) 7.0 [pH] 5.0 - 8.0 [facility] DO Work Phone: Protein (U) [Mass/Vol] Negative NEGATIVE [facility] DO Work Phone: RBC (U) [#/Vol] MODERATE(2+) Abnormal NEGATIVE -Neph rology- [facility] 3 DO Work Phone: Specific gravity (U) [Rel density] 1.012 1 See Below [facility]ENTERNephrologyFaith [facility] [address] DO Work Phone: Comment on above: Reference Range: 1.0 05 - 1.035 URINALYSIS WITH CULTURE IF INDICATED Negative NEGATIVE [facility] 3 DO Work Phone: URINALYSIS WITH CULTURE IF INDICATED <2.0 0.0 - 1.9 [facility] [address] DO Work Phone: URINALYSIS WITH CULTURE IF INDICATED CLEAR CLEAR [facility] [place] [address] DO Work Phone: Urinalysis, Microscopicon Urinalysis, Microscopic <1 [facility] DO Work Phone: Urinalysis, Microscopic 10 {/HPF} Abnormal 0-5 -Nephrology- [facility] 3 DO Work Phone: Urinalysis, Microscopic None 0-5 [facility] 3 DO Work Phone: Tobacco Screening.on Fall risk assessment a) No falls within the last year BZ-Jyonqcp-Qcr land Work Phone: Tobacco use status CPHS b) No UB-Usdkpyh-Soh land Work Phone: Heart Rateon 10-09-2020 Heart Rate Irregular -NephFormerly [facility] 3 DO Work Phone: 2018 Novel Coronavirus (COVI D-19), MARGIE ([id number])Ordered By: Loan Associate on 03-27-20202018 Novel Coronavirus (COVID-19), MARGIE ([id number]) Detected Abnormal [facility]; [facility] Work Phone: Comment on above: Client Requested [facility] nucleic acid amplification test was developed and its performancecharacteristics determined by [employer]. Nucleic acidamplification tests include PCR and TMA. This test has not been FDAcleared or approved. This test has been authorized by FDA under anEmergency Use Authorization (EUA). This test is only authorized forthe duration of time the declaration that circumstances existjustifying the authorization of the emergency use of in vitrodiagnostic tests for detection of SARS-CoV-2 virus and/or diagnosisof COVID-19 infection under section 564(b)(1) of the Act, 21 U.S.C.360bbb-3(b) (1), unless the authorization is terminated or revokedsooner.When diagnostic testing is negative, the possibility of a falsenegative result should be considered in the context of a patient'srecent exposures and the presence of clinical signs and symptomsconsistent with COVID-19. An individual without symptoms of COVID-19and who is not shedding SARS-CoV-2 virus would expect to have anegative (not detected) result in this assay. PATIENT NOT FASTINGP ERFORMED BY: [id number] [facility] [id number] 2018 Novel Coronavirus (COVID-19), MARGIE ([id number]) Detected Abnormal [facility]; [facility] Work Phone: Comment on above: Client Requested [place] gThis nucleic acid amplification test was developed and its performancecharacteristics determined by [employer]. Nucleic acidamplification tests include PCR and TMA. This test has not been FDAcleared or approved. This test has been authorized by FDA under anEmergency Use Authorization (EUA). This test is only authorized forthe duration of time the declaration that circumstances existjustifying the authorization of the emergency use of in vitrodiagnostic tests for detection of SARS-CoV-2 virus and/or diagnosisof COVID-19 infection under section 564(b)(1) of the Act, 21 U.S.C.360bbb-3(b) (1), unless the authorization is terminated or revokedsooner.When diagnostic testing is negative, the possibility of a falsenegative result should be considered in the context of a patient'srecent exposures and the presence of clinical signs and symptomsconsistent with COVID-19. An individual without symptoms of COVID-19and who is not shedding SARS-CoV-2 virus would expect to have anegative (not detected) result in this assay. PATIENT NOT FASTINGP ERFORMED BY: [id number] [facility] [id number] Otheron 12-11-2019 XR Abdomen AP Please click on the link to view the study images Normal EX-Nfufnkb-Zhq land Work Phone: XR Abdomen 1 Viewon 06-07-19 19 XR Abdomen 1 View Exam Date/Time: 06/06/2018 13:37 EST Reason for Exam: RENAL STONE Report STUDY: XR Abdomen 1 View; 06/06/2018 1:37 pm INDICATION: RENAL STONE. COMPARISON: 10/05/2016 ACCESSION NUMBER(S): [id number] ORDERING CLINICIAN: Dionisio Rocha FINDINGS: 2 supine AP radiographs of the abdomen were obtained. There has been interval removal of the previously seen left ureteral stent. No definite abnormal calcifications are seen overlying the kidneys or ureters. There is a nonobstructive bowel gas pattern present. Free intraperitoneal air and air-fluid levels cannot be excluded without upright or decubitus images. IMPRESSION: No definite abnormal calcifications over the kidneys or ureters. FINAL REPORT Dictated: 06/07/2018 11:11 am Grzegorz Villasenor MD Signed (Electronic Signature): 06/07/2018 11:11 am Signed by: Grzegorz Villasenor MD Technologist: W Normal [facility] Auto Diffon 06-05-2018 Basophils (Bld) [#/Vol] 0.1 E3/mcL Normal 0.0-0.2 [facility] Comment on above: Order Comment: Order Added by Discern Expert. Performed By: #### 2 [id number] #### SHABANA [employer] [address] [place] [address] Basophils/100 WBC (Bld) 0.6 % Normal 0.0-2.0 [facility] Comment on above: Order Comment: Order Added by Discern Expert. Performed By: #### 2 [id number] #### SHABANA RemHemo [address] [place] [address] Eos Absolute 0.0 E3/mcL Normal 0.0-0.7 [facility] Comment on above: Order Comment: Order Added by Discern Expert. Performed By: #### 2 [id number] #### SHABANA RemHemo [address] [place] [address] Eosinophils/100 WBC (Bld) 0.3 % Normal 0.0-11.0 [facility] Comment on above: Order Comment: Order Added by Discern Expert. Performed By: #### 2 [id number] #### SHABANA RemHemo [address] [place] [address] Lymphocytes (Bld) [#/Vol] 1.1 E3/mcL Low 1.2-3.4 [facility] Comment on above: Order Comment: Order Added by Discern Expert. Performed By: #### 2 [id number] #### SHABANA Rem[employer]emo [address] [place] [address] Lymphocytes/100 WBC (Bld) 9.7 % Low 20.0-55.0 [facility] Comment on above: Order Comment: Order Added by Discern Expert. Performed By: #### 2 [id number] #### SHABANA BarnardHemo [address] [place] [address] [place] Absolute 0.7 E3/mcL Normal 0.0-0.7 [facility] Comment on above: Order Comment: Order Added by Discern Expert. Performed By: #### 2 798084 #### SHABANA BarnardHemo [address] [place] [address] Monocytes/100 WBC (Bld) 6.1 % Normal 0.0-10.0 [facility] Comment on above: Order Comment: Order Added by Discern Expert. Performed By: #### 2 [id number] #### SHABANA BarnardHemo [address] [place] [address] Neutro Absolute 9.3 E3/mcL High 1.4-6.5 [facility] Comment on above: Order Comment: Order Added by Discern Expert. Performed By: #### 2 676246 #### SH[facility]NA BarnardHemo [address] [place] [id number] Neutro Auto 83.3 % High 37.0-75.0 [facility] Comment on above: Order Comment: Order Added by Discern Expert. Performed By: #### 2 305277 #### SHABANA BarnardHemo [address] [place] [address] BMPon 06-05-2018 Anion gap [Moles/Vol] 14 mmol/L Normal 10-20 [facility] Comment on above: Performed By: #### 2 707259 #### SHABANA [facility] [address] [place] [address] Calcium [Mass/Vol] 8.7 mg/dL Normal 8.6-10.3 [facility] Comment on above: Performed By: #### 2 796922 #### SH[facility]NA [facility] [address] [place] [address] Chloride [Moles/Vol] 102 mmol/L Normal 98-107 [facility] Comment on above: Performed By: #### 2 480429 #### SH[facility]NA [facility] [address] [place] [address] CO2 [Moles/Vol] 22.0 mmol/L Normal 21.0-32.0 [facility] Comment on above: Performed By: #### 2 932552 #### SH[facility]NA [facility] [address] [place] [address] Creatinine [Mass/Vol] 1.2 mg/dL Normal 0.5-1.3 [facility] Comment on above: Performed By: #### 2 562809 #### SH[facility]NA [facility] [address] [place] [address] Glucose [Mass/Vol] 164 mg/dL High 70-99 [facility] Comment on above: Performed By: #### 2 562919 #### SH[facility] [address] [place] [address] Potassium [Moles/Vol] 3.4 mmol/L Low 3.5-5.3 [facility] Comment on above: Performed By: #### 2 384084 #### SH[facility]NA [facility] [address] [place] [address] Sodium [Moles/Vol] 134 mmol/L Low 136-145 [facility] Comment on above: Performed By: #### 2 315906 #### [facility] [employer] [address] [place] [address] Urea nitrogen [Mass/Vol] 18 mg/dL Normal 6-23 [facility] Comment on above: Performed By: #### 2 196560 #### [facility] [address] [place] [address] Urea nitrogen/Creatinine [Mass ratio] 15.0 ratio Normal 5.4-30.0 [facility] Comment on above: Performed By: #### 2 [id number] #### SH[facility] [address] [place] [address] CBC w/ Auto Diffon 9 Erythrocyte distribution width (RBC) [Ratio] 12.9 % Normal 11.5-14.5 [facility] Comment on above: Performed By: #### 2 228974 #### SHABANA Rem[employer]emo [address] [place] [address] Hematocrit (Bld) [Volume fraction] 45.0 % Normal 42.0-52.0 [facility] Comment on above: Performed By: #### 2 890149 #### SHABANA Rem[employer] [address] [place] [address] Hemoglobin (Bld) [Mass/Vol] 15.5 g/dL Normal 13.5-18.0 [facility] Comment on above: Performed By: #### 2 375071 #### SHABANA Rem[employer] [address] [place] [address] MCH (RBC) [Entitic mass] 31.1 pg High 27.0-31.0 [facility] Comment on above: Performed By: #### 2 198920 #### SHABANA Rem[employer]emo [address] [place] [address] MCHC (RBC) [Mass/Vol] 34.4 g/dL Normal 33.0-37.0 [facility] Comment on above: Performed By: #### 2 594566 #### SHABANA Rem[employer]emo [address] [place] [address] MCV (RBC) [Entitic vol] 90.2 fL Normal 78.0-100.0 [facility] Comment on above: Performed By: #### 2 164486 #### SHABANA Rem[employer]emo [address] [place] [address] Platelet mean volume (Bld) [Entitic vol] 8.5 fL Normal 7.4-11.0 [facility] Comment on above: Performed By: #### 2 553158 #### SHABANA Rem[employer]emo [address] [place] [address] Platelets (Bld) [#/Vol] 228 E3/mcL Normal 130-400 [facility] Comment on above: Performed By: #### 2 050790 #### SHABANA Rem[employer] [address] [place] [address] RBC (Bld) [#/Vol] 4.99 E6/mcL Normal 3.90-6.10 [facility] Comment on above: Performed By: #### 2 774929 #### SHABANA [employer] [address] [place] [address] WBC (Bld) [#/Vol] 11.1 E3/mcL High 3.6-11.0 [facility] Comment on above: Performed By: #### 2 854079 #### SHABANA BarnardHemo [address] [place] [address] Hep Func Panelon 06-05-2018 Albumin [Mass/Vol] 4.1 g/dL Normal 3.4-5.0 [facility] Comment on above: Performed By: #### 2 243500 #### SH[facility]NA [facility] [address] [place] [address] Albumin/Globulin [Mass ratio] 1.6 {ratio} Normal 1.1-1.9 [facility] Comment on above: Performed By: #### 2 763024 #### SH[facility]NA [facility] [address] [place] [address] Alk Phos 59 Int._Unit/L Normal 33-120 [facility] Comment on above: Performed By: #### 2 399577 #### SH[facility]NA [facility] [address] [place] [address] ALT [Catalytic activity/Vol] 43 Int._Unit/L Normal 10-52 [facility] Comment on above: Performed By: #### 2 524517 #### [facility]NA [employer] [address] [place] [address] AST [Catalytic activity/Vol] 26 Int._Unit/L Normal 9-39 [facility] Comment on above: Performed By: #### 2 050733 #### SH[facility] [address] [place] [address] Bili Direct 0.11 mg/dL Normal 0.00-0.30 [facility] Comment on above: Performed By: #### 2 412753 #### [facility] [address] [place] [address] Bili Indirect 0.44 mg/dL Normal [facility] Comment on above: Result Comment: No e stablished ranges available for the indirect bilirubin Performed By: #### 2 804734 #### [facility] [address] [place] [address] Bili Total 0.55 mg/dL Normal 0.00-1.20 [facility] Comment on above: Performed By: #### 2 671346 #### SH[facility] [address] [place] [address] Globulin (S) [Mass/Vol] 3.0 g/dL Normal 2.0-4.0 [facility] Comment on above: Performed By: #### 2 726483 #### SH[facility]NA [employer] [address] [place] [address] Protein [Mass/Vol] 6.6 g/dL Normal 6.4-8.2 [facility] Comment on above: Performed By: #### 2 854374 #### SH[facility]NA [facility] [address] [place], [place] [address] Lipase Levelon 06-05-2018 Lipase Lvl 9 Int._Unit/L Normal 9-82 [facility] Comment on above: Performed By: #### 2 050460 #### SH[facility]NA [facility] [address] [place] [address] UA Completeon 06-05-2018 Color (U) Yellow Normal Yellow [facility] Comment on above: Performed By: #### 2 096382 #### SHABANA Microbiology Subsection [address] [place] [address] Glucose (U) [Mass/Vol] 1+ Abnormal Negative [facility] Comment on above: Performed By: #### 2 918422 #### SHABANA Microbiology [facility]section [address] [place] [address] Ketones Ql (U) 2+ Abnormal Negative [facility] Comment on above: Performed By: #### 2 363679 #### SHABANA Microbiology [facility]section [address] [place] [address] RBC (U) [#/Vol] 0-3 Normal 0-3 [facility] Comment on above: Performed By: #### 2 537187 #### SHABANA Microbiology [facility]section [address] [place] [address] UA Blood Negative Normal Negative [facility] Comment on above: Performed By: #### 2 901477 #### SHABANA Micro[facility]section [address] [place] [address] UA Clarity Clear Normal Clear [facility] Comment on above: Performed By: #### 2 425423 #### SHABANA Micro[facility] [address] [place], [place] [address] UA Leuk Est Negative Normal Negative [facility] Comment on above: Performed By: #### 2 846331 #### SHABANA [facility] [address] [place] [address] UA Mucous Trace Abnormal Trace [facility] Comment on above: Performed By: #### 2 304452 #### SH[facility]NA [facility] [address] [place] [address] UA Nitrite Negative Normal Negative [facility] Comment on above: Performed By: #### 2 270906 #### SHABANA [facility] [address] [place] [address] UA pH 5.0 Normal 4.6-8.0 [facility] Comment on above: Performed By: #### 2 831337 #### SH[facility]NA [facility] [address] [place] [address] UA Protein Negative Normal Negative [facility] Comment on above: Performed By: #### 2 005756 #### SH[facility]NA [facility] [address] [place] [address] UA Spec Grav 1.019 Normal 1.003-1.030 [facility] Comment on above: Performed By: #### 2 790008 #### SHABANA Microbiology [facility]section [address] [place] [address] UA Squam Epithelial 0-5 Normal 0-5 [facility] Comment on above: Performed By: #### 2 680973 #### SHABANA Microbiology Subsection [address] [place] [address] UA Urobilinogen Negative Normal [facility] Comment on above: Result Comment: Due to a manufacturing issue, low positive urobilinogen results may be fasely positive. Correlate with urine bilirubin and additional clinical/laboratory findings to assess the risk of hemolytic anemia or liver disease. If clinically indicated, repeat testing with an alternate method is available by contacting the laboratory within 24 hours. Performed By: #### 2 [id number] #### SHABANA Micro[facility] [address] [place] [address] UA WBC 0-5 Normal 0-5 [facility] Comment on above: Performed By: #### 2 797210 #### SHABANA [facility] [address] [place] [address] Urobilinogen Qn (U) Negative Normal Negative [facility] Comment on above: Performed By: #### 2 141283 #### SHABANA Micro[facility]section [address] [place] [address] eGFRon 06-05-2018 GFR/1.73 sq M predicted among non-blacks MDRD (S/P/Bld) [Vol rate/Area] mL/min/{1.73_m2} Normal [facility] Comment on above: Order Comment: Order added by Discern Expert. Performed By: #### 1 [id number] #### SHABANA [facility] [place] [address] C Urineon 03-25-2018 C Urine Final Report: No growth Normal S [facility] Comment on above: Performed By: #### 2 607115 #### SHABANA Microbiology Subsection [address] [place] [address] UA Completeon 03-23-2018 Color (U) Straw Normal Yellow [facility] Comment on above: Performed By: #### 8 [id number] #### SHABANA Urinalysis Automated Subsection [address] [place] [address] Glucose (U) [Mass/Vol] Negative Normal Negative [facility] Comment on above: Performed By: #### 8 [id number] #### SHABANA Urinalysis Automated Subsection [address] [place] [address] Ketones Ql (U) Negative Normal Negative [facility] Comment on above: Performed By: #### 8 [id number] #### SHABANA Urinalysis Automated Subsection [address] [place] [address] RBC (U) [#/Vol] 3-5 Abnormal 0-3 [facility] Comment on above: Performed By: #### 8 [id number] #### SHABANA Urinalysis Automated Subsection [address] [place] [address] UA Blood 1+ Abnormal Negative [facility] Comment on above: Performed By: #### 8 [id number] #### SHABANA Urinalysis Automated Subsection [address] [place], [place] [address] UA Clarity Clear Normal Clear [facility] Comment on above: Performed By: #### 8 [id number] #### SHABANA Urinalysis Automated Subsection [address] [place] [address] UA Leuk Est Negative Normal Negative [facility] Comment on above: Performed By: #### 8 [id number] #### SHABANA Urinalysis Automated Subsection [facility] [place] [address] UA Mucous Trace Abnormal Trace [facility] Comment on above: Performed By: #### 8 [id number] #### SHABANA Urinalysis Automated Subsection [address] [place] [address] UA Nitrite Negative Normal Negative [facility] Comment on above: Performed By: #### 8 [id number] #### SHABANA Urinalysis Automated Subsection [address] [place] [address] UA pH 7.0 Normal 4.6-8.0 [facility] Comment on above: Performed By: #### 8 [id number] #### SHABANA Urinalysis Automated Subsection [address] [place] [address] UA Protein 1+ Abnormal Negative [facility] Comment on above: Performed By: #### 8 [id number] #### SHABANA Urinalysis Automated Subsection [address] [place] [address] UA Spec Grav 1.006 Normal 1.003-1.030 [facility] Comment on above: Performed By: #### 8 [id number] #### SHABANA Urinalysis Automated Subsection [address] [place] [address] UA Squam Epithelial 0-5 Normal 0-5 [facility] Comment on above: Performed By: #### 8 [id number] #### SHABANA Urinalysis Automated Subsection [address] [place] [address] UA Urobilinogen Negative Normal [facility] Comment on above: Result Comment: Due to a manufacturing issue, low positive urobilinogen results may be fasely positive. Correlate with urine bilirubin and additional clinical/laboratory findings to assess the risk of hemolytic anemia or liver disease. If clinically indicated, repeat testing with an alternate method is available by contacting the laboratory within 24 hours. Performed By: #### 8 [id number] #### SHABANA Urinalysis Automated Subsection [address] [place] [address] UA WBC 0-5 Normal 0-5 [facility] Comment on above: Performed By: #### 8 [id number] #### SHABANA Urinalysis Automated Subsection [address] [place] [address] Urobilinogen Qn (U) Negative Normal Negative [facility] Comment on above: Performed By: #### 8 [id number] #### SHABANA Urinalysis Automated Subsection [facility] [place] [address] C Urineon 03-13-2018 C Urine Final Report: Modera te Normal skin teresa isolated Normal [facility] Comment on above: Performed By: #### 2 [id number] #### SHABANA Microbiology Subsection [facility] [place] [address] POC Urinalysis Dip POCon POC Bilirubin Negative Normal Negative [facility] Comment on above: Performed By: #### C [id number] #### SHABANA POC Subsection [address] [place] [address] POC Blood Small 1+ Abnormal Negative [facility] Comment on above: Performed By: #### C [id number] #### SHABANA POC Subsection [address] [place] [address] POC Clarity Turbid Abnormal CLEAR [facility] Comment on above: Performed By: #### C [id number] #### SHABANA POC Subsection [facility] [place] [address] POC Color Yellow Normal Yellow [facility] Comment on above: Performed By: #### C [id number] #### SHABANA POC Subsection [address] [place] [address] POC Glucose Negative Normal Negative [facility] Comment on above: Performed By: #### C [id number] #### SHABANA POC Subsection [address] [place] [address] POC Ketone Negative Normal Negative [facility] Comment on above: Performed By: #### C [id number] #### SHABANA POC Subsection [address] [place] [address] POC Leukocyte Large 3+ Abnormal Negative [facility] Comment on above: Performed By: #### C [id number] #### SHABANA POC Subsection [address] [place] [address] POC Nitrite Negative Normal Negative [facility] Comment on above: Performed By: #### C [id number] #### SHABANA POC Subsection [address] [place] [address] POC pH 7.0 mg/dL Normal 5.0-8.0 [facility] Comment on above: Performed By: #### C [id number] #### SHABANA POC Subsection [address] [place] [address] POC Specific [place] 1.020 mg/dL Normal 1.005-1.035 [facility] Comment on above: Performed By: #### C D:[id number] #### SHABANA POC Subsection [address] [place] [address] POC Urobilinogen 0.2 EU/dL Normal 0.2-1.0 [facility] Comment on above: Performed By: #### C [id number] #### SHABANA POC Subsection [address] [place] [address] Protein (U) [Mass/Vol] 30mg/dl 1+ Abnormal Negative [facility] Comment on above: Performed By: #### C [id number] #### SHABANA POC Subsection [address] [place] [address] PSA, TOTAL - DIAGNOSTIC ([phone])Ordered By: Loan Associate on 03-26-2017 Prostate specific Ag [Mass/Vol] 0.4 ng/mL Normal 0.0-4.0 [facility]; [facility] Work Phone: Comment on above: Katherine ECLIA methodol ogy. .According to the [place], Serum PSA shoulddecrease and remain at undetectable levels after radicalprostatectomy. The AUA defines biochemical recurrence as an initialPSA value 0.2 ng/mL or greater followed by a subsequent confirmatoryPSA value 0.2 ng/mL or greater.Values obtained with different assay methods or kits cannot be usedinterchangeably. Results cannot be interpreted as absolute evidenceof the presence or absence of malignant disease. PATIENT NOT FASTINGP ERFORMED BY: [facility] Lowfvd8841 [facility] [id number] Urinalysis, Office (19885)on 05-01-2016 Bilirubin Ql (U) Negative Normal Comprehe nsive [facility]; [facility] Work Phone: Bilirubin Ql (U) Negative Normal Comprehe nsive [facility]; [facility] Work Phone: Glucose Test strip (U) [Mass/Vol] Negative Normal [facility]; [facility] Work Phone: Glucose Test strip (U) [Mass/Vol] Negative Normal [facility]; [facility] Work Phone: Hemoglobin Ql (U) Non Hemolyzed Moderate Normal [facility]; [facility] Work Phone: Ketones Ql (U) Negative Normal Comprehens emma [facility]; [facility] Work Phone: Ketones Ql (U) Negative Normal Comprehens emma [facility]; [facility] Work Phone: Leukocyte esterase Test strip Ql (U) Negative Normal [facility]; [facility] Work Phone: Leukocyte esterase Test strip Ql (U) Negative Normal [facility]; [facility] Work Phone: Nitrite Ql (U) Negative Normal Comprehens emma [facility]; [facility] Work Phone: Nitrite Ql (U) Negative Normal Comprehens em[facility]; [facility] Work Phone: pH (U) 6 [pH] Abnormal [facility]; [facility] Work Phone: Protein Ql (U) Negative Normal Comprehens [facility]; [facility] Work Phone: Protein Ql (U) Negative Normal Comprehens emma [facility]; [facility] Work Phone: Specific gravity (U) [Rel density] 1.025 1 Normal [facility]; [facility] Work Phone: Urobilinogen (24H U) [Mass/Time] Normal Normal [facility]; [facility] Work Phone: AMYLASE ([id number])Ordered By: Chon segura Nurse Advocate on 12-25-2014 Amylase [Catalytic activity/Vol] 37 U/L Normal 31-124 [facility]; [facility] Work Phone: Comment on above: PATIENT NOT FASTINGP ERFORMED BY: KINSEY [facility][id number] [facility] [id number] CBC, Platelets & Auto Diff ( [id number])Ordered By: Loan Associate on 12-25-2014 Basophils (Bld) [#/Vol] 0.0 {x10E3/uL} Normal 0.0-0.2 [facility]; [facility] Work Phone: Comment on above: PATIENT NOT FASTINGP ERFORMED BY: KINSEY Martínez [address] [id number] Information: [id number] Basophils (Bld) [#/Vol] 0.0 10*3/uL Normal 0.0-0.2 [facility]; [facility] Work Phone: Comment on above: PATIENT NOT FASTINGP ERFORMED BY: KINSEY Martínez Lcbhet[address] [id number] Information: [id number] Basophils/100 WBC (Bld) 0 % Normal [facility]; [facility] Work Phone: Comment on above: PATIENT NOT FASTINGP ERFORMED BY: [facility]Y [facility] Hospital[facility]en[address] [id number] Information: [id number] Eosinophils (Bld) [#/Vol] 0.2 {x10E3/uL} Normal 0.0-0.4 [facility]; [facility] Work Phone: Comment on above: PATIENT NOT FASTINGP ERFORMED BY: Mauricio[address] [id number] Information: [id number] Eosinophils (Bld) [#/Vol] 0.2 10*3/uL Normal 0.0-0.4 [facility]; [facility] Work Phone: Comment on above: PATIENT NOT FASTINGP ERFORMED BY: KINSEY [facility] HospitalBraden[address] [id number] Information: [id number] Eosinophils/100 WBC (Bld) 2 % Normal [facility]; [facility] Work Phone: Comment on above: PATIENT NOT FASTINGP ERFORMED BY: KINSEY Martínez Muippv5986 [facility] [id number] Information: [id number] Erythrocyte distribution width (RBC) [Ratio] 13.4 % Normal 12.3-15.4 [facility]; [facility] Work Phone: Comment on above: PATIENT NOT FASTINGP ERFORMED BY: [facility] Sexzcx304[address] [id number] Information: [id number] Hematocrit (Bld) [Volume fraction] 41.7 % Normal 37.5-51.0 [facility]; [facility] Work Phone: Comment on above: PATIENT NOT FASTINGP ERFORMED BY: [facility] Grindi[address] [id number] Information: [id number] Hemoglobin (Bld) [Mass/Vol] 14.2 g/dL Normal 12.6-17.7 [facility]; [facility] Work Phone: Comment on above: PATIENT NOT FASTINGP ERFORMED BY: [facility] Rvgyjd379[address] [id number] Information: [id number] Immature granulocytes (Bld) [#/Vol] 0.0 {x10E3/uL} Normal 0.0-0.1 [facility]; [facility] Work Phone: Comment on above: PATIENT NOT FASTINGP ERFORMED BY: [place] [id number] [facility] [id number] Information: [id number] Immature granulocytes (Bld) [#/Vol] 0.0 10*3/uL Normal 0.0-0.1 [facility]; [facility] Work Phone: Comment on above: PATIENT NOT FASTINGP ERFORMED BY: [address] [id number] Information: [id number] Immature granulocytes/100 WBC (Bld) 0 % Normal [facility]; [facility] Work Phone: Comment on above: PATIENT NOT FASTINGP ERFORMED BY: KINSEY [facility] [id number] Information: [id number] Lymphocytes (Bld) [#/Vol] 2.4 {x10E3/uL} Normal 0.7-3.1 [facility]; [facility] Work Phone: Comment on above: PATIENT NOT FASTINGP ERFORMED BY: KINSEY Martínez Ivvpow7085 [facility] [id number] Information: [id number] Lymphocytes (Bld) [#/Vol] 2.4 10*3/uL Normal 0.7-3.1 [facility]; [facility] Work Phone: Comment on above: PATIENT NOT FASTINGP ERFORMED BY: KINSEY Pettit[address] [id number] Information: [id number] Lymphocytes/100 WBC (Bld) 35 % Normal [facility]; [facility] Work Phone: Comment on above: PATIENT NOT FASTINGP ERFORMED BY: KINSEY Pettitlin6370 [facility] [id number] Information: [id number],[id number] MCH (RBC) [Entitic mass] 29.9 pg Normal 26.6-33.0 [facility]; [facility] Work Phone: Comment on above: PATIENT NOT FASTINGP ERFORMED BY: KINSEY [facility]Cap[facility])Yhqvdv9039 [facility] [id number] Information: [id number] MCHC (RBC) [Mass/Vol] 34.1 g/dL Normal 31.5-35.7 [facility]; [facility] Work Phone: Comment on above: PATIENT NOT FASTINGP ERFORMED BY: KINSEY [facility] Vpwtzw9590 [facility] [id number] Information: [id number] MCV (RBC) [Entitic vol] 88 fL Normal 79-97 [facility]; [facility] Work Phone: Comment on above: PATIENT NOT FASTINGP ERFORMED BY: KINSEY Guerra [facility] [id number] Information: [id number] Monocytes (Bld) [#/Vol] 0.7 {x10E3/uL} Normal 0.1-0.9 [facility]; [facility] Work Phone: Comment on above: PATIENT NOT FASTINGP ERFORMED BY: KINSEY Mauricio Rhpjdf[address] [id number] Information: [id number] Monocytes (Bld) [#/Vol] 0.7 10*3/uL Normal 0.1-0.9 [facility]; [facility] Work Phone: Comment on above: PATIENT NOT FASTINGP ERFORMED BY: KINSEY Robbie Pettitlin6370 [facility] [id number] Information: [id number] Monocytes/100 WBC (Bld) 10 % Normal [facility]; [facility] Work Phone: Comment on above: PATIENT NOT FASTINGP ERFORMED BY: KINSEY Mauricioirina Wdkxuy[address] [id number] Information: [id number] Neutrophils (Bld) [#/Vol] 3.6 {x10E3/uL} Normal 1.4-7.0 [facility]; [facility] Work Phone: Comment on above: PATIENT NOT FASTINGP ERFORMED BY: KINSEY Martínez Ndhqiu1737 [facility] [id number] Information: [id number] Neutrophils (Bld) [#/Vol] 3.6 10*3/uL Normal 1.4-7.0 [facility]; [facility] Work Phone: Comment on above: PATIENT NOT FASTINGP ERFORMED BY: KINSEY Cota6370 [facility]Our [facility] [id number] Information: [id number] Neutrophils/100 WBC (Bld) 53 % Normal [facility]; [facility] Work Phone: Comment on above: PATIENT NOT FASTINGP ERFORMED BY: KINSEY GonzalezReplaced by [facility] [id number] Information: [id number] Platelets (Bld) [#/Vol] 255 {x10E3/uL} Normal 150-379 [facility]; [facility] Work Phone: Comment on above: PATIENT NOT FASTINGP ERFORMED BY: KINSEY [facility] [id number] Information: [id number] Platelets (Bld) [#/Vol] 255 10*3/uL Normal 150-379 [facility]; [facility] Work Phone: Comment on above: PATIENT NOT FASTINGP ERFORMED BY: KINSEY Cota6370 [facility] [id number] Information: [id number] RBC (Bld) [#/Vol] 4.75 {x10E6/uL} Normal 4.14-5.80 [facility]; [facility] Work Phone: Comment on above: PATIENT NOT FASTINGP ERFORMED BY: KINSEY Alicia70 [facility]ams[facility] [id number] Information: [id number] RBC (Bld) [#/Vol] 4.75 10*6/uL Normal 4.14-5.80 [facility]; [facility] Work Phone: Comment on above: PATIENT NOT FASTINGP ERFORMED BY: KINSEY Cota6370 [facility] [id number] Information: [id number] WBC (Bld) [#/Vol] 6.8 {x10E3/uL} Normal 3.4-10.8 Com prehensive [facility]; [facility] Work Phone: Comment on above: PATIENT NOT FASTINGP ERFORMED BY: KINSEY LabSrikanth Cota6370 [address] RoadDublin [place] [id number] Information: [id number] WBC (Bld) [#/Vol] 6.8 10*3/uL Normal 3.4-10.8 [facility]; [facility] Work Phone: Comment on above: PATIENT NOT FASTINGP ERFORMED BY: KINSEY [facility] Axucju4395 [address]williams RoadDublin [place] [id number] Information: [id number] LIPASE (20858)Ordered By: Sy stem Nurse Advocate on 12-25-2014 Lipase [Catalytic activity/Vol] 31 U/L Normal 0-59 [facility]; [facility] Work Phone: Comment on above: PATIENT NOT FASTINGP ERFORMED BY: KINSEY [facility] Zexeba6491 [address] RoadDublin [place] [id number] Metabolic Panel, Comprehensi ve (00094)Ordered By: Loan Associate on 12-25-2014 Albumin [Mass/Vol] 4.5 g/dL Normal 3.5-5.5 [facility]; [facility] Work Phone: Comment on above: PATIENT NOT FASTINGP ERFORMED BY: KINSEY [facility] Vgprre3610 [address] RoadDublin [place] [id number] Albumin/Globulin [Mass ratio] 1.9 {ratio} Normal 1.1-2.5 [facility]; [facility] Work Phone: Comment on above: PATIENT NOT FASTINGP ERFORMED BY: CB [facility] Przexa6819 [address] RoadDublin [place] [id number] ALP [Catalytic activity/Vol] 62 [iU]/L Normal 39-117 [facility]; [facility] Work Phone: Comment on above: PATIENT NOT FASTINGP ERFORMED BY: CB [facility] Hhtmeh7063 [address] RoadDublin [place] [id number] ALP [Catalytic activity/Vol] 62 U/L Normal 39-117 [facility]; [facility] Work Phone: Comment on above: PATIENT NOT FASTINGP ERFORMED BY: CB [facility] Hchowm3963 [address] RoadDublin [place] [id number] ALT [Catalytic activity/Vol] 30 [iU]/L Normal 0-44 [facility]; [facility] Work Phone: Comment on above: PATIENT NOT FASTINGP ERFORMED BY: CB [facility] Fdiwmf9692 [address] RoadDublin [place] [id number] ALT [Catalytic activity/Vol] 30 U/L Normal 0-44 [facility]; [facility] Work Phone: Comment on above: PATIENT NOT FASTINGP ERFORMED BY: CB [facility] Copvdp9433 [address] RoadDublin [place] [id number] AST [Catalytic activity/Vol] 18 [iU]/L Normal 0-40 [facility]; [facility] Work Phone: Comment on above: PATIENT NOT FASTINGP ERFORMED BY: CB [facility] Ookwvb8018 [address] RoadDublin [place] [id number] AST [Catalytic activity/Vol] 18 U/L Normal 0-40 [facility]; [facility] Work Phone: Comment on above: PATIENT NOT FASTINGP ERFORMED BY: CB [facility] Qjlwnh6367 [address] RoadDublin [place] [id number] Bilirubin [Mass/Vol] 0.3 mg/dL Normal 0.0-1.2 [facility]; [facility] Work Phone: Comment on above: PATIENT NOT FASTINGP ERFORMED BY: CB [facility] Glzlzg6360 [address] RoadDublin [place] [id number] Calcium [Mass/Vol] 9.3 mg/dL Normal 8.7-10.2 [facility]; [facility] Work Phone: Comment on above: PATIENT NOT FASTINGP ERFORMED BY: CB [facility] Aucisb2613 [address] RoadDublin [place] [id number] Chloride [Moles/Vol] 101 mmol/L Normal 97-108 [facility]; [facility] Work Phone: Comment on above: PATIENT NOT FASTINGP ERFORMED BY: CB [facility] Wnavei9753 [address] RoadDublin [place] [id number] CO2 [Moles/Vol] 23 mmol/L Normal 18-29 [facility]; [facility] Work Phone: Comment on above: PATIENT NOT FASTINGP ERFORMED BY: CB [facility] Ozvprf7374 [address] RoadDublin [place] [id number] Creatinine [Mass/Vol] 1.17 mg/dL Normal 0.76-1.27 [facility]; [facility] Work Phone: Comment on above: PATIENT NOT FASTINGP ERFORMED BY: CB [facility] Ixlmcu4110 [address] RoadDublin [place] [id number] GFR/1.73 sq M predicted among blacks CKD-EPI (S/P/Bld) [Vol rate/Area] 85 mL/min/1.73 Normal [facility]; [facility] Work Phone: Comment on above: PATIENT NOT FASTINGP ERFORMED BY: CB [facility] Lcmnie4201 [address] RoadDublin [place] [id number] GFR/1.73 sq M predicted among non-blacks CKD-EPI (S/P/Bld) [Vol rate/Area] 73 mL/min/1.73 Normal [facility]; [facility] Work Phone: Comment on above: PATIENT NOT FASTINGP ERFORMED BY: CB [facility] Krxckx2172 [address] RoadDublin [place] [id number] Globulin (S) [Mass/Vol] 2.4 g/dL Normal 1.5-4.5 [facility]; [facility] Work Phone: Comment on above: PATIENT NOT FASTINGP ERFORMED BY: CB [facility] Hbvmmb1931 [address] RoadDublin [place] [id number] Glucose [Mass/Vol] 93 mg/dL Normal 65-99 [facility]; [facility] Work Phone: Comment on above: PATIENT NOT FASTINGP ERFORMED BY: CB [facility] Yoeggh5634 [address] RoadDublin [place] [id number] Potassium [Moles/Vol] 3.9 mmol/L Normal 3.5-5.2 [facility]; [facility] Work Phone: Comment on above: PATIENT NOT FASTINGP ERFORMED BY: KINSEY [facility] Xjezwp0438 [address] RoadDublin [place] [id number] Protein [Mass/Vol] 6.9 g/dL Normal 6.0-8.5 [facility]; [facility] Work Phone: Comment on above: PATIENT NOT FASTINGP ERFORMED BY: CB [facility] Ndbvuk2915 [address] RoadDublin [place] [id number] Sodium [Moles/Vol] 141 mmol/L Normal 134-144 [facility]; [facility] Work Phone: Comment on above: PATIENT NOT FASTINGP ERFORMED BY: CB [facility] Qqjgoy9234 [address] RoadDublin [place] [id number] Urea nitrogen [Mass/Vol] 14 mg/dL Normal 6-24 [facility]; [facility] Work Phone: Comment on above: PATIENT NOT FASTINGP ERFORMED BY: CB [facility] Ofhioj6215 [address] RoadDublin [place] [id number] Urea nitrogen/Creatinine [Mass ratio] 12 mg/mg Normal 9-20 [facility]; [facility] Work Phone: Comment on above: PATIENT NOT FASTINGP ERFORMED BY: CB [facility] Frdvcz3210 [address] RoadDublin [place] [id number] URIC ACID BLOOD (16581)Order ed By: Loan Associate on 12-25-2014 Urate [Mass/Vol] 6.6 mg/dL Normal 3.7-8.6 [facility]; [facility] Work Phone: Comment on above: Therapeutic target f or gout patients: <6.0 PATIENT NOT FASTINGP ERFORMED BY: CB [facility] Iwrujr8906 [address] RoadDublin [place] [id number] Urinalysis, Office ([id number])Or dered By: Michelle Berumen on 12-25-2014 Bilirubin Ql (U) Negative Normal Comprehe nsive Internal Medicine; [facility] Work Phone: Bilirubin Ql (U) Negative Normal Comprehe nsive [facility]; [facility] Work Phone: Glucose Test strip (U) [Mass/Vol] Negative Normal [facility]; [facility] Work Phone: Glucose Test strip (U) [Mass/Vol] Negative Normal [facility]; [facility] Work Phone: Hemoglobin Ql (U) Negative Normal Compreh ensive [facility]; [facility] Work Phone: Hemoglobin Ql (U) Negative Normal Compreh ensive [facility]; [facility] Work Phone: Ketones Ql (U) Negative Normal Comprehens emma [facility]; [facility] Work Phone: Ketones Ql (U) Negative Normal Comprehens emma [facility]; [facility] Work Phone: Leukocyte esterase Test strip Ql (U) Trace Normal [facility]; [facility] Work Phone: Nitrite Ql (U) Negative Normal Comprehens emma [facility]; [facility] Work Phone: Nitrite Ql (U) Negative Normal Comprehens emma [facility]; [facility] Work Phone: pH (U) 6.0 [pH] Normal [facility]; [facility] Work Phone: Protein Ql (U) Negative Normal Comprehens emma [facility]; [facility] Work Phone: Protein Ql (U) Negative Normal Comprehens emma [facility]; [facility] Work Phone: Specific gravity (U) [Rel density] 1.020 1 Normal [facility]; [facility] Work Phone: Urobilinogen (24H U) [Mass/Time] Normal Normal [facility]; [facility] Work Phone: Urinalysis, Office ([id number])on 11-28-2012 Bilirubin Ql (U) Negative Normal Comprehe nsive Internal Medicine; [facility] Work Phone: Bilirubin Ql (U) Negative Normal Comprehe nsive [facility]; [facility] Work Phone: Glucose Test strip (U) [Mass/Vol] Negative Normal [facility]; [facility] Work Phone: Glucose Test strip (U) [Mass/Vol] Negative Normal [facility]; [facility] Work Phone: Hemoglobin Ql (U) Negative Normal Compreh ensive [facility]; [facility] Work Phone: Hemoglobin Ql (U) Negative Normal Compreh ensive [facility]; [facility] Work Phone: Ketones Ql (U) Negative Normal Comprehens emma [facility]; [facility] Work Phone: Ketones Ql (U) Negative Normal Comprehens emma [facility]; [facility] Work Phone: Leukocyte esterase Test strip Ql (U) Negative Normal [facility]; [facility] Work Phone: Leukocyte esterase Test strip Ql (U) Negative Normal [facility]; [facility] Work Phone: Nitrite Ql (U) Negative Normal Comprehens emma [facility]; [facility] Work Phone: Nitrite Ql (U) Negative Normal Comprehens emma [facility]; [facility] Work Phone: pH (U) 6.0 [pH] Normal [facility]; [facility] Work Phone: Protein Ql (U) Negative Normal Comprehens emma [facility]; [facility] Work Phone: Protein Ql (U) Negative Normal Comprehens emma [facility]; [facility] Work Phone: Specific gravity (U) [Rel density] 1.025 1 Normal [facility]; [facility] Work Phone: Urobilinogen (24H U) [Mass/Time] Normal Normal [facility]; [facility] Work Phone: CHAUNCEY CULTURE-OTHER ([id number])Ord ered By: Loan Associate on 03-04-2011 Bacteria identified Respiratory culture Nom (Unsp spec) Final report Normal [facility]; [facility] Work Phone: Comment on above: PATIENT NOT FASTINGP ERFORMED BY: [facility] Nzxrkw1782 [facility] [id number] Information: SRC:ARTURO [id number] Bacteria identified Respiratory culture Nom (Unsp spec) RRF Normal [facility]; [facility] Work Phone: Comment on above: Routine respiratory teresa PATIENT NOT FASTINGP ERFORMED BY: [facility] Ovwudi4810 [facility] [id number] Information: SRC:ARTURO [id number] Rapid Strep Test, Office ([phone])on 03-04-2011 S. pyogenes Ag EIA Ql (Throat) Negative Normal [facility]; [facility] Work Phone: S. pyogenes Ag IA Ql (Unsp spec) Negative Normal [facility]; [facility] Work Phone: Urinalysis, Office (22781)on 05-19-2010 Bilirubin Ql (U) Negative Normal Comprehe nsive [facility] Medicine; [facility] Work Phone: Comment on above: urine looks clean Bilirubin Ql (U) Negative Normal Comprehe nsive [facility]; [facility] Work Phone: Comment on above: urine looks clean Glucose Test strip (U) [Mass/Vol] Negative Normal [facility]; [facility] Work Phone: Comment on above: urine looks clean Glucose Test strip (U) [Mass/Vol] Negative Normal [facility]; [facility] Work Phone: Comment on above: urine looks clean Hemoglobin Ql (U) Negative Normal Compreh ensive [facility]; [facility] Work Phone: Comment on above: urine looks clean Hemoglobin Ql (U) Negative Normal Compreh ensive [facility]; [facility] Work Phone: Comment on above: urine looks clean Ketones Ql (U) Negative Normal Comprehens emma [facility]; [facility] Work Phone: Comment on above: urine looks clean Ketones Ql (U) Negative Normal Comprehens emma [facility]; [facility] Work Phone: Comment on above: urine looks clean Leukocyte esterase Test strip Ql (U) Negative Normal [facility]; [facility] Work Phone: Comment on above: urine looks clean Leukocyte esterase Test strip Ql (U) Negative Normal [facility]; [facility] Work Phone: Comment on above: urine looks clean Nitrite Ql (U) Negative Normal Comprehens [facility]; [facility] Work Phone: Comment on above: urine looks clean Nitrite Ql (U) Negative Normal [facility]; [facility] Work Phone: Comment on above: urine looks clean pH (U) 6.0 [pH] Normal [facility]; [facility] Work Phone: Comment on above: urine looks clean Protein Ql (U) Negative Normal [facility]prehens [facility]; [facility] Work Phone: Comment on above: urine looks clean Protein Ql (U) Negative Normal [facility]; [facility] Work Phone: Comment on above: urine looks clean Specific gravity (U) [Rel density] 1.025 1 Normal [facility]; [facility] Work Phone: Comment on above: urine looks clean Urobilinogen (24H U) [Mass/Time] Normal Normal [facility]; [facility] Work Phone: Comment on above: urine looks clean C-REACTIVE PROTEIN ([id number])Or dered By: Calista Cavazos on 03-20-2009 CRP [Mass/Vol] 1.4 mg/L Normal 0.0-4.9 [facility]; [facility] Work Phone: Comment on above: PATIENT NOT FASTINGP ERFORMED BY: KINSEY [facility] [id number] [facility] [id number] CBC WITH MANUAL DIFF ([id number]) Ordered By: Calista Cavazos on 03-20-2009 Basophils (Bld) [#/Vol] 0.0 {x10E3/uL} Normal 0.0-0.2 [facility]; [facility] Work Phone: Comment on above: PATIENT NOT FASTINGC linical Information: [id number] PERFORMED BY: KINSEY [facility]6370 [facility] [id number] Basophils (Bld) [#/Vol] 0.0 10*3/uL Normal 0.0-0.2 [facility]; [facility] Work Phone: Comment on above: PATIENT NOT FASTINGC linical Information: [id number] PERFORMED BY: LabEmily Ville [id number] [facility] [id number] Basophils/100 WBC (Bld) 0 % Normal 0-3 [facility]; [facility] Work Phone: Comment on above: PATIENT NOT FASTINGC linical Information: [id number] PERFORMED BY: [facility]6370 [facility] [id number] Eosinophils (Bld) [#/Vol] 0.1 {x10E3/uL} Normal 0.0-0.4 [facility]; [facility] Work Phone: Comment on above: PATIENT NOT FASTINGC linical Information: [id number] PERFORMED BY: [facility]6370 [facility] [id number] Eosinophils (Bld) [#/Vol] 0.1 10*3/uL Normal 0.0-0.4 [facility]; [facility] Work Phone: Comment on above: PATIENT NOT FASTINGC linical Information: [id number] PERFORMED BY: [facility] Ahpfwv2702 [facility] [id number] Eosinophils/100 WBC (Bld) 2 % Normal 0-7 [facility]; [facility] Work Phone: Comment on above: PATIENT NOT FASTINGC linical Information: [id number] PERFORMED BY: LabEmily [place] [id number] [facility] [id number] Erythrocyte distribution width (RBC) [Ratio] 13.6 % Normal 11.7-15.0 [facility]; [facility] Work Phone: Comment on above: PATIENT NOT FASTINGC linical Information: [id number] PERFORMED BY: KINSEY [employer] [id number] [facility] [id number] Hematocrit (Bld) [Volume fraction] 44.1 % Normal 36.0-50.0 [facility]; [facility] Work Phone: Comment on above: PATIENT NOT FASTINGC linical Information: [id number] PERFORMED BY: KINSEY [employer] [id number] [facility] [id number] Hemoglobin (Bld) [Mass/Vol] 15.1 g/dL Normal 12.5-17.0 [facility]; [facility] Work Phone: Comment on above: PATIENT NOT FASTINGC linical Information: [id number] PERFORMED BY: KINSEY [employer] Deyfsr2295 [facility] [id number] Lymphocytes (Bld) [#/Vol] 2.0 {x10E3/uL} Normal 0.7-4.5 [facility]; [facility] Work Phone: Comment on above: PATIENT NOT FASTINGC linical Information: [id number] PERFORMED BY: KINSEY [employer] Kkkcrz4916 [facility] [id number] Lymphocytes (Bld) [#/Vol] 2.0 10*3/uL Normal 0.7-4.5 [facility]; [facility] Work Phone: Comment on above: PATIENT NOT FASTINGC linical Information: [id number] PERFORMED BY: KINSEY [employer] Dkfjqi3448 [facility] [id number] Lymphocytes/100 WBC (Bld) 30 % Normal 14-46 [facility]; [facility] Work Phone: Comment on above: PATIENT NOT FASTINGC linical Information: [id number] PERFORMED BY: [facility]6370 [facility] [id number] MCH (RBC) [Entitic mass] 31.3 pg Normal 27.0-34.0 [facility]; [facility] Work Phone: Comment on above: PATIENT NOT FASTINGC linical Information: [id number] PERFORMED BY: [place] [id number] [facility] [id number] MCHC (RBC) [Mass/Vol] 34.3 g/dL Normal 32.0-36.0 [facility]; [facility] Work Phone: Comment on above: PATIENT NOT FASTINGC linical Information: [id number] PERFORMED BY: KINSEY [facility] Rxguug9813 [facility] [id number] MCV (RBC) [Entitic vol] 91 fL Normal 80-98 [facility]; [facility] Work Phone: Comment on above: PATIENT NOT FASTINGC linical Information: [id number] PERFORMED BY: KINSEY [facility] Exetli5745 [facility] [id number] Monocytes (Bld) [#/Vol] 0.8 {x10E3/uL} Normal 0.1-1.0 [facility]; [facility] Work Phone: Comment on above: PATIENT NOT FASTINGC linical Information: [id number] PERFORMED BY: [place] [id number] [facility] [id number] Monocytes (Bld) [#/Vol] 0.8 10*3/uL Normal 0.1-1.0 [facility]; [facility] Work Phone: Comment on above: PATIENT NOT FASTINGC linical Information: [id number] PERFORMED BY: [facility]6370 [facility] [id number] Monocytes/100 WBC (Bld) 12 % Normal 4-13 [facility]; [facility] Work Phone: Comment on above: PATIENT NOT FASTINGC linical Information: [id number] PERFORMED BY: KINSEY [facility] Prgwef2593 [facility] [place] [id number] Neutrophils (Bld) [#/Vol] 3.8 {x10E3/uL} Normal 1.8-7.8 [facility]; [facility] Work Phone: Comment on above: PATIENT NOT FASTINGC linical Information: [id number] PERFORMED BY: [facility] Metxtf3288 [address] [facility] [place] [id number] Neutrophils (Bld) [#/Vol] 3.8 10*3/uL Normal 1.8-7.8 [facility]; [facility] Work Phone: Comment on above: PATIENT NOT FASTINGC linical Information: [id number] PERFORMED BY: KINSEY [facility] Jfvzmh0769 [facility] [id number] Neutrophils/100 WBC (Bld) 56 % Normal 40-74 [facility]; [facility] Work Phone: Comment on above: PATIENT NOT FASTINGC linical Information: [id number] PERFORMED BY: KINSEY [facility] Oiqkgl0541 [facility]in [place] [id number] Platelets (Bld) [#/Vol] 239 {x10E3/uL} Normal 140-415 [facility]; [facility] Work Phone: Comment on above: PATIENT NOT FASTINGC linical Information: [id number] PERFORMED BY: KINSEY [facility] Vwkbzz4933 [facility] [id number] Platelets (Bld) [#/Vol] 239 10*3/uL Normal 140-415 [facility]; [facility] Work Phone: Comment on above: PATIENT NOT FASTINGC linical Information: [id number] PERFORMED BY: KINSEY [facility] Keydut2842 [facility]in [place] [id number] RBC (Bld) [#/Vol] 4.83 {x10E6/uL} Normal 4.10-5.60 [facility]; [facility] Work Phone: Comment on above: PATIENT NOT FASTINGC linical Information: [id number] PERFORMED BY: KINSEY [facility] Zwoerz6050 [facility] [id number] RBC (Bld) [#/Vol] 4.83 10*6/uL Normal 4.10-5.60 [facility]; [facility] Work Phone: Comment on above: PATIENT NOT FASTINGC linical Information: [id number] PERFORMED BY: KINSEY [facility]CoCap[facility]Htatce1024 [facility] [id number] WBC (Bld) [#/Vol] 6.8 {x10E3/uL} Normal 4.0-10.5 [facility]; [facility] Work Phone: Comment on above: PATIENT NOT FASTINGC linical Information: [id number] PERFORMED BY: KINSEY [employer] Mpyugh4735 [facility] [id number] WBC (Bld) [#/Vol] 6.8 10*3/uL Normal 4.0-10.5 [facility]; [facility] Work Phone: Comment on above: PATIENT NOT FASTINGC linical Information: [id number] PERFORMED BY: KINSEY [facility] Gqowoh7505 [facility] [id number] LIPID PANEL ([id number])Ordered B y: Calista Cavazso on 03-20-2009 Cholesterol [Mass/Vol] 244 mg/dL Abnormal 100-199 [facility]; [facility] Work Phone: Comment on above: PATIENT NOT FASTINGP ERFORMED BY: LabCoCapital [facility])Kddotm9277 [facility] [id number] Cholesterol in HDL [Mass/Vol] 46 mg/dL Normal [facility]; [facility] Work Phone: Comment on above: According to ATP-III Guidelines, HDL-C >59 mg/dL is considered anegative risk factor for CHD. PATIENT NOT FASTINGP ERFORMED BY: MValve technologiesFresenius [facility]6[address]Dublin [place] [id number] Cholesterol in LDL [Mass/Vol] 179 mg/dL Abnormal 0-99 [facility]; [facility] Work Phone: Comment on above: PATIENT NOT FASTINGP ERFORMED BY: CB [facility] Gknltc9829 [address]Dublin [place] [id number] Cholesterol in LDL/Cholesterol in HDL [Mass ratio] 3.9 {ratio_units} Abnormal 0.0-3.6 [facility]; [facility] Work Phone: Comment on above: PATIENT NOT FASTINGP ERFORMED BY: CB [facility] Lcsqcb6348 [address]Dublin [place] [id number] Cholesterol in VLDL [Mass/Vol] 19 mg/dL Normal 5-40 [facility]; [facility] Work Phone: Comment on above: PATIENT NOT FASTINGP ERFORMED BY: CB [facility] Wifzpg8482 [address]Dublin [place] [id number] Triglyceride [Mass/Vol] 93 mg/dL Normal 0-149 [facility]; [facility] Work Phone: Comment on above: PATIENT NOT FASTINGP ERFORMED BY: CB [facility] Hazwzg0203 [address]Dublin [place] [id number] METABOLIC PANEL, COMPREHENSI VE ([id number])Ordered By: Calista Cavazos on 03-20-2009 Albumin [Mass/Vol] 4.8 g/dL Normal 3.5-5.5 [facility]; [facility] Work Phone: Comment on above: PATIENT NOT FASTINGP ERFORMED BY: CB [facility] Duvunp6824 [address]Dublin [place] [id number] Albumin/Globulin [Mass ratio] 1.7 {ratio} Normal 1.1-2.5 [facility]; [facility] Work Phone: Comment on above: PATIENT NOT FASTINGP ERFORMED BY: CB [facility] Znejfo3081 [address]Dublin [place] [id number] ALP [Catalytic activity/Vol] 65 [iU]/L Normal 25-150 [facility]; [facility] Work Phone: Comment on above: PATIENT NOT FASTINGP ERFORMED BY: KINSEY LabCoirina CotaZrdjvf6582 [address]Dublin [place] [id number] ALP [Catalytic activity/Vol] 65 U/L Normal 25-150 [facility]; [facility] Work Phone: Comment on above: PATIENT NOT FASTINGP ERFORMED BY: KINSEY LabSrikanth Cota6[address]Dublin [place] [id number] ALT [Catalytic activity/Vol] 27 [iU]/L Normal 0-55 [facility]; [facility] Work Phone: Comment on above: PATIENT NOT FASTINGP ERFORMED BY: KINSEY Cota6[address]Dublin [place] [id number] ALT [Catalytic activity/Vol] 27 U/L Normal 0-55 [facility]; [facility] Work Phone: Comment on above: PATIENT NOT FASTINGP ERFORMED BY: KINSEY Pettitlin6[address]Dublin [place] [id number] AST [Catalytic activity/Vol] 23 [iU]/L Normal 0-40 [facility]; [facility] Work Phone: Comment on above: PATIENT NOT FASTINGP ERFORMED BY: KINSEY Cota6[address]Dublin [place] [id number] AST [Catalytic activity/Vol] 23 U/L Normal 0-40 [facility]; [facility] Work Phone: Comment on above: PATIENT NOT FASTINGP ERFORMED BY: KINSEY LabSrikanth Nemswa0300 [address]Dublin [place] [id number] Bilirubin [Mass/Vol] 0.4 mg/dL Normal 0.1-1.2 [facility]; [facility] Work Phone: Comment on above: PATIENT NOT FASTINGP ERFORMED BY: KINSEY LabSrikanth PettitFrtpik6913 [address]Dublin [place] [id number] Calcium [Mass/Vol] 10.0 mg/dL Normal 8.5-10.6 [facility]; [facility] Work Phone: Comment on above: PATIENT NOT FASTINGP ERFORMED BY: KINSEY [facility] Dhwerm2746 [address] RoadCarepartners Rehabilitation Hospitalin [place] [id number] Chloride [Moles/Vol] 101 mmol/L Normal 97-108 [facility]; [facility] Work Phone: Comment on above: PATIENT NOT FASTINGP ERFORMED BY: CB [facility] Noeaci6429 [address] RoadReplaced by [facility] [id number] CO2 [Moles/Vol] 22 mmol/L Normal 20-32 [facility]; [facility] Work Phone: Comment on above: PATIENT NOT FASTINGP ERFORMED BY: CB [facility] Jxizpr[address] [facility] [id number] Creatinine [Mass/Vol] 1.17 mg/dL Normal 0.76-1.27 [facility]; [facility] Work Phone: Comment on above: PATIENT NOT FASTINGP ERFORMED BY: CB [facility] Gmyxmh[address] [facility] [id number] GFR/1.73 sq M predicted among blacks MDRD (S/P/Bld) [Vol rate/Area] mL/min/{1.73_m2} Normal [facility]; [facility] Work Phone: Comment on above: Note: Persistent red uction for 3 months or more in an eGFR<60 mL/min/1.73 m2 defines CKD. Patients with eGFR values>/=60 mL/min/1.73 m2 may also have CKD if evidence of persistentproteinuria is present. Additional information may be found atwww.kdoqi.org. PATIENT NOT FASTINGP ERFORMED BY: CB [facility] Yobgaw3370 [address] RoadReplaced by [facility] [id number] GFR/1.73 sq M.predicted MDRD (S/P/Bld) [Vol rate/Area] mL/min/{1.73_m2} Normal [facility]; [facility] Work Phone: Comment on above: PATIENT NOT FASTINGP ERFORMED BY: CB [facility] Xyqvkt7[address] [facility] [id number] Globulin (S) [Mass/Vol] 2.8 g/dL Normal 1.5-4.5 [facility]; [facility] Work Phone: Comment on above: PATIENT NOT FASTINGP ERFORMED BY: KINSEY Cota6370 [facility] [id number] Glucose [Mass/Vol] 88 mg/dL Normal 65-99 [facility]; [facility] Work Phone: Comment on above: PATIENT NOT FASTINGP ERFORMED BY: KINSEY Martínez Atvpsh9442 [facility] [id number] Potassium [Moles/Vol] 4.3 mmol/L Normal 3.5-5.2 [facility]; [facility] Work Phone: Comment on above: PATIENT NOT FASTINGP ERFORMED BY: KINSEY Martínez Xtrdew5364 [facility] [id number] Protein [Mass/Vol] 7.6 g/dL Normal 6.0-8.5 [facility]; [facility] Work Phone: Comment on above: PATIENT NOT FASTINGP ERFORMED BY: KINSEY Cota6370 [facility] [id number] Sodium [Moles/Vol] 140 mmol/L Normal 135-145 [facility]; [facility] Work Phone: Comment on above: PATIENT NOT FASTINGP ERFORMED BY: KINSEY LabBraden Twlisq9839 [facility] [id number] Urea nitrogen [Mass/Vol] 17 mg/dL Normal 5-26 [facility]; [facility] Work Phone: Comment on above: PATIENT NOT FASTINGP ERFORMED BY: KINSEY LabSrikanth PettitBdetqd7058 [facility] [id number] Urea nitrogen/Creatinine [Mass ratio] 15 mg/mg Normal 8-27 [facility]; [facility] Work Phone: Comment on above: PATIENT NOT FASTINGP ERFORMED BY: KINSEY [facility] Fgdjyl5480 [facility] [id number] SED RATE ERYTHROCYTE ([id number]) Ordered By: Calista Cavazos on 03-20-2009 ESR (Bld) [Velocity] 2 mm/h Normal 0-15 [facility]; [facility] Work Phone: Comment on above: PATIENT NOT FASTINGP ERFORMED BY: CB [facility] Zclipy8921 [facility] [id number] TSH ([id number])Ordered By: Cintia Cavazos on 03-20-2009 TSH Qn 1.620 {uIU/mL} Normal 0.450-4.500 [facility]; [facility] Work Phone: Comment on above: PATIENT NOT FASTINGP ERFORMED BY: CB [facility] Neycro0267 [facility] [id number] Vital Signs Date Time Vital Sign Value Performing Clinician Facility 03-22-2024 15:33-0500 Body mass index (BMI) [Ratio] 27.75 kg/m2 Dionisio Rocha MD Work Phone: [facility] 03-22-2024 15:33-0500 Body weight 90.27 kg Dionisio Rocha MD Work Phone: [facility] 03-22-2024 15:33-0500 Diastolic blood pressure 84 mm[Hg] Dionisio Rocha MD Work Phone: [facility] 03-22-2024 15:33-0500 Respiratory rate 16 /min Dionisio Rocha MD Work Phone: [facility] 03-22-2024 15:33-0500 Systolic blood pressure 136 mm[Hg] Dionisio Rocha MD Work Phone: [facility] 03-12-2024 21:55-0500 Diastolic blood pressure 82 mm[Hg] Erik Milton PA-C Work Phone: [facility] 03-12-2024 21:55-0500 Heart rate 78 /min Erik Milton PA-C Work Phone: [facility] 03-12-2024 21:55-0500 Respiratory rate 16 /min Erik Newbill PA-C Work Phone: [facility] 03-12-2024 21:55-0500 SaO2% (BldA) [Mass fraction] 95 % Erik Newbill PA-C Work Phone: [facility] 03-12-2024 21:55-0500 Systolic blood pressure 126 mm[Hg] Erik Newbill PA-C Work Phone: [facility] 03-12-2024 20:03-0500 Body height 180.3 cm Erik Newbill PA-C Work Phone: [facility] 03-12-2024 20:03-0500 Body mass index (BMI) [Ratio] 27.89 kg/m2 Erik Newbill PA-C Work Phone: [facility] 03-12-2024 20:03-0500 Body temperature 98.49 [degF] Erik Newbill PA-C Work Phone: [facility] 03-12-2024 20:03-0500 Body weight 90.72 kg Erik Newbill PA-C Work Phone: [facility] 11-30-2023 15:26-0400 Body height 177.8 cm Julius Ahuja DO Work Phone: [facility] 11-30-2023 15:26-0400 Body mass index (BMI) [Ratio] 28.75 kg/m2 Julius Young DO Work Phone: [facility] 11-30-2023 15:26-0400 Body weight 90.9 kg Julius Young DO Work Phone: [facility] 11-30-2023 15:26-0400 Diastolic blood pressure 72 mm[Hg] Julius Ahuja DO Work Phone: [facility] 11-30-2023 15:26-0400 Heart rate 80 /min Julius Ahuja DO Work Phone: [facility] 11-30-2023 15:26-0400 Systolic blood pressure 118 mm[Hg] Julius Ahuaj DO Work Phone: [facility] 09-20-2023 07:18-0400 Body mass index (BMI) [Ratio] 26.6 kg/m2 Dionisio Rocha MD Work Phone: [facility] 09-20-2023 07:18-0400 Body weight 86.18 kg Dionisio Rocha MD Work Phone: [facility] 09-20-2023 07:18-0400 Respiratory rate 16 /min Dionisio Rocha MD Work Phone: [facility] 09-10-2023 14:25-0400 Diastolic blood pressure 79 mm[Hg] Dionisio Rocha MD Work Phone: [facility] 09-10-2023 14:25-0400 Heart rate 59 /min Dionisio Rocha MD Work Phone: [facility] 09-10-2023 14:25-0400 Respiratory rate 20 /min Dionisio Rocha MD Work Phone: [facility] 09-10-2023 14:25-0400 SaO2% (BldA) [Mass fraction] 94 % Dionisio Rocha MD Work Phone: [facility] 09-10-2023 14:25-0400 Systolic blood pressure 107 mm[Hg] Dionisio Rocha MD Work Phone: [facility] 09-10-2023 13:30-0400 Body temperature 97.9 [degF] Dionisio Rocha MD Work Phone: [facility] 09-10-2023 10:40-0400 Body height 180 cm Dionisio Rocha MD Work Phone: [facility] 09-10-2023 10:40-0400 Body mass index (BMI) [Ratio] 26.73 kg/m2 Dionisio Rocha MD Work Phone: [facility] 09-10-2023 10:40-0400 Body weight 86.6 kg Dionisio Rocha MD Work Phone: [facility] 09-08-2023 10:47-0400 Body mass index (BMI) [Ratio] 26.22 kg/m2 Dionisio Rocha MD Work Phone: [facility] 09-08-2023 10:47-0400 Body weight 85.28 kg Dionisio Rocha MD Work Phone: [facility] 09-08-2023 10:47-0400 Respiratory rate 16 /min Dionisio Rocha MD Work Phone: [facility] 09-07-2023 15:27-0400 Diastolic blood pressure 68 mm[Hg] Dionisio Jade MD Work Phone: [facility] 09-07-2023 15:27-0400 Heart rate 65 /min Dionisio Jade MD Work Phone: [facility] 09-07-2023 15:27-0400 Respiratory rate 16 /min Dionisio Jade MD Work Phone: [facility] 09-07-2023 15:27-0400 SaO2% (BldA) [Mass fraction] 98 % Dionisio Jade MD Work Phone: [facility] 09-07-2023 15:27-0400 Systolic blood pressure 134 mm[Hg] Dionisio Jade MD Work Phone: [facility] 09-07-2023 12:19-0400 Body height 180.3 cm Dionisio Jade MD Work Phone: [facility] 09-07-2023 12:19-0400 Body mass index (BMI) [Ratio] 26.5 kg/m2 Dionisio Jade MD Work Phone: [facility] 09-07-2023 12:19-0400 Body temperature 98.01 [degF] Dionisio Jade MD Work Phone: [facility] 09-07-2023 12:19-0400 Body weight 86.18 kg Dionisio Jade MD Work Phone: [facility] 03-10-2023 15:40-0500 Body height 180.3 cm Erik Newbill PA-C Work Phone: [phone] [address] 03-10-2023 15:40-0500 Body mass index (BMI) [Ratio] 26.15 kg/m2 Erik Newbill PA-C Work Phone: [phone] [address] 03-10-2023 15:40-0500 Body temperature 97.3 [degF] Erik Newbill PA-C Work Phone: [phone](324)[phone] [address] 03-10-2023 15:40-0500 Body weight 85.05 kg Erik Newbill PA-C Work Phone: 0([phone])[phone] [address] 03-10-2023 15:40-0500 Diastolic blood pressure 76 mm[Hg] Erik Newbill PA-C Work Phone: [phone])[phone] [address] 03-10-2023 15:40-0500 Heart rate 67 /min Erik Newbill PA-C Work Phone: [phone] [address] 03-10-2023 15:40-0500 SaO2% (BldA) [Mass fraction] 97 % Erik Newbill PA-C Work Phone: 4(108)[phone] [address] 03-10-2023 15:40-0500 Systolic blood pressure 112 mm[Hg] Erik Newbill PA-C Work Phone: [phone](051)[phone] [place] [address] 03-02-2023 12:00-0500 Body temperature 97.1 [degF] Dr. Calista Cavazos Work Phone: [facility] 03-02-2023 12:00-0500 Diastolic blood pressure 85 mm[Hg] Dr. Calista Cavazos Work Phone: [facility] 03-02-2023 12:00-0500 Heart rate 73 /min Dr. Calista Cavazos Work Phone: [facility] 03-02-2023 12:00-0500 Respiratory rate 16 /min Dr. Calista Cavazos Work Phone: [facility] 03-02-2023 12:00-0500 SaO2% (BldA) [Mass fraction] 96 % Dr. Calista Cavazos Work Phone: [facility] 03-02-2023 12:00-0500 Systolic blood pressure 121 mm[Hg] Dr. Calista Cavazos Work Phone: [facility] 03-02-2023 06:00-0500 Body mass index (BMI) [Ratio] 27.2 kg/m2 Dr. Calista Cavazos Work Phone: [facility] 03-02-2023 06:00-0500 Body weight 88.[address] Calista Cavazos Work Phone: [facility] 03-01-2023 15:08-0500 Body height 180.[address] Calista Cavazos Work Phone: [facility] 02-04-2023 14:32-0400 Body temperature 98.4 [degF] Dr. Calista Cavazos Work Phone: [facility] 02-04-2023 14:32-0400 Body weight 88.[address] Calista Cavazos Work Phone: [facility] 02-04-2023 14:32-0400 Diastolic blood pressure 80 mm[Hg] Dr. Calista Cavazos Work Phone: [facility] 02-04-2023 14:32-0400 Heart rate 85 /min Dr. Calista Cavazos Work Phone: [facility] 02-04-2023 14:32-0400 Respiratory rate 18 /min Dr. Calista Cavazos Work Phone: [facility] 02-04-2023 14:32-0400 Systolic blood pressure 127 mm[Hg] Dr. Calista Cavazos Work Phone: [facility] 01-20-2023 16:44-0400 Body height 180.3 cm Erik Newbill PA-C Work Phone: [facility] 01-20-2023 16:44-0400 Body mass index (BMI) [Ratio] 26.95 kg/m2 Erik Newbill PA-C Work Phone: [facility] 01-20-2023 16:44-0400 Body temperature 98.2 [degF] Erik Newbill PA-C Work Phone: [facility] 01-20-2023 16:44-0400 Body weight 87.64 kg Erik Newbill PA-C Work Phone: [facility] 01-20-2023 16:44-0400 Diastolic blood pressure 64 mm[Hg] Erik Newbill PA-C Work Phone: [facility] 01-20-2023 16:44-0400 Heart rate 83 /min Erik Newbill PA-C Work Phone: [facility] 01-20-2023 16:44-0400 SaO2% (BldA) [Mass fraction] 93 % Erik Newbill PA-C Work Phone: [facility] 01-20-2023 16:44-0400 Systolic blood pressure 104 mm[Hg] Erik Newbill PA-C Work Phone: [facility] 12-02-2022 15:18-0400 Body mass index (BMI) [Ratio] 27.49 kg/m2 Calista Cavazos Work Phone: [facility] 232 DO Work Phone: 12-02-2022 15:18-0400 Body surface area Derived from formula 2.1 m2 Calista Cavazos Work Phone: [facility]Dcfkzmv-Cpqdwutv [facility] 232 DO Work Phone: 12-02-2022 15:18-0400 Body weight 89.42 kg Calista Cavazos Work Phone: [facility] 232 DO Work Phone: 12-02-2022 15:18-0400 Respiratory rate 16 /min Calista Cavazos Work Phone: [facility] 232 DO Work Phone: 11-17-2022 15:24-0400 Body height 180.34 cm Calista Cavazos Work Phone: [facility] 3 DO Work Phone: 11-17-2022 15:24-0400 Body mass index (BMI) [Ratio] 27.62 kg/m2 Calista Cavazos Work Phone: [facility] 3 DO Work Phone: 11-17-2022 15:24-0400 Body surface area Derived from formula 2.1 m2 Calista Cavazos Work Phone: [facility] 3 DO Work Phone: 11-17-2022 15:24-0400 Body weight 89.81 kg Calista Cavazos Work Phone: [facility] 3 DO Work Phone: 11-17-2022 15:24-0400 Diastolic blood pressure 62 mm[Hg] Calista Cavazos Work Phone: [facility] 3 DO Work Phone: 11-17-2022 15:24-0400 Heart rate 74 /min Calista Cavazos Work Phone: [facility] 3 DO Work Phone: 11-17-2022 15:24-0400 Systolic blood pressure 112 mm[Hg] Calista Cavazos Work Phone: [facility] 3 DO Work Phone: 05-19-2022 15:21-0500 Body mass index (BMI) [Ratio] 27.45 kg/m2 Calista Cavazos Work Phone: [facility] 3 DO Work Phone: 05-19-2022 15:21-0500 Body surface area Derived from formula 2.09 m2 Calista Cavazos Work Phone: [facility] 3 DO Work Phone: 05-19-2022 15:21-0500 Body weight 89.27 kg Calista Cavazos Work Phone: [facility] 3 DO Work Phone: 05-19-2022 15:21-0500 Diastolic blood pressure 60 mm[Hg] Calista Cavazos Work Phone: [facility] 3 DO Work Phone: 05-19-2022 15:21-0500 Heart rate 90 /min Calista Cavazos Work Phone: [facility] 3 DO Work Phone: 05-19-2022 15:21-0500 SaO2% (BldA) [Mass fraction] 95 % Calista Cavazos Work Phone: [facility] 3 DO Work Phone: 05-19-2022 15:21-0500 Systolic blood pressure 118 mm[Hg] Calista Cavazos Work Phone: [facility] 3 DO Work Phone: 03-22-2022 15:17-0500 Diastolic blood pressure 86 mm[Hg] Calista Cavazos Other Phone: [facility] 03-22-2022 15:17-0500 Heart rate 71 /min Calista Cavazos Other Phone: [facility] 03-22-2022 15:17-0500 Respiratory rate 20 /min Calista Cavazos Other Phone: [facility] 03-22-2022 15:17-0500 SaO2% (BldA) [Mass fraction] 97 % Calista Cavazos Other Phone: [facility] 03-22-2022 15:17-0500 Systolic blood pressure 118 mm[Hg] Calista Cavazos Other Phone: [facility] 03-22-2022 12:31-0500 Body height 180.3 cm Calista Cavazos Other Phone: [facility] 03-22-2022 12:31-0500 Body temperature 96.98 [degF] Calista Cavazos Other Phone: [facility] 03-22-2022 12:31-0500 Body weight 86.3 kg Calista Cavazos Other Phone: [facility] 01-28-2022 13:46-0400 Body mass index (BMI) [Ratio] 26.24 kg/m2 Calista Cavazos Work Phone: [facility]Tfyuwip-Vpgsvpx Work Phone: 01-28-2022 13:46-0400 Body surface area Derived from formula 2.05 m2 Calista Shahon Work Phone: KW-Jdwwuna-Dngvujn Work Phone: 01-28-2022 13:46-0400 Body weight 85.34 kg Calsita K Dirk Work Phone: FX-Oiouxhl-Thhorqr Work Phone: 10-22-2021 15:02-0400 Body height 180.34 cm Calista Miquel Dirk Work Phone: [facility] 3 DO Work Phone: 10-22-2021 15:02-0400 Body mass index (BMI) [Ratio] 27.36 kg/m2 Calista Cavazos Work Phone: [facility] 3 DO Work Phone: 10-22-2021 15:02-0400 Body surface area Derived from formula 2.09 m2 Calista Cavazos Work Phone: [facility] 3 DO Work Phone: 10-22-2021 15:02-0400 Body weight 89 kg Calista Cavazos Work Phone: [facility] 3 DO Work Phone: 10-22-2021 15:02-0400 Diastolic blood pressure 78 mm[Hg] Calista Cavazos Work Phone: [facility] 3 DO Work Phone: 10-22-2021 15:02-0400 Heart rate 66 /min Calista Cavazos Work Phone: [facility] 3 DO Work Phone: 10-22-2021 15:02-0400 Systolic blood pressure 117 mm[Hg] Calista Cavazos Work Phone: [facility] 3 DO Work Phone: 10-07-2021 15:40-0400 Diastolic blood pressure 87 mm[Hg] Calista Cavazos Other Phone: [facility] 10-07-2021 15:40-0400 Heart rate 60 /min Calista Cavazos Other Phone: [facility] 10-07-2021 15:40-0400 Respiratory rate 18 /min Calista Cavazos Other Phone: [facility] 10-07-2021 15:40-0400 SaO2% (BldA) [Mass fraction] 95 % Calista Cavazos Other Phone: [facility] 10-07-2021 15:40-0400 Systolic blood pressure 109 mm[Hg] Calista Cavazos Other Phone: [facility] 10-07-2021 12:28-0400 Body height 180.3 cm Calista Cavazos Other Phone: [facility] 10-07-2021 12:28-0400 Body temperature 97.7 [degF] Calista Cavazos Other Phone: [facility] 10-07-2021 12:28-0400 Body weight 86.5 kg Calista Cavazos Other Phone: [facility] 01-20-2021 15:48-0400 Body height 180.34 cm Calista Cavazos Work Phone: OV-Avbcikc-Bphipui Work Phone: 01-20-2021 15:48-0400 Body mass index (BMI) [Ratio] 27.34 kg/m2 Calista Cavazos Work Phone: NK-Vhfepwb-Ecslnjv Work Phone: 01-20-2021 15:48-0400 Body surface area Derived from formula 2.09 m2 Calista Cavazos Work Phone: UO-Itrymjl-Mrmcotg Work Phone: 01-20-2021 15:48-0400 Body weight 88.91 kg Calista Shahon Work Phone: IH-Ixxikoe-Xhdusyf Work Phone: 01-20-2021 15:48-0400 Diastolic blood pressure 76 mm[Hg] Calista Shahon Work Phone: DE-Mdpcxwp-Mthbvux Work Phone: 01-20-2021 15:48-0400 Heart rate 76 /min Calista Cavazos Work Phone: KM-Cueggxs-Cnxmwyz Work Phone: 01-20-2021 15:48-0400 Systolic blood pressure 128 mm[Hg] Calista Cavazos Work Phone: VY-Ommjgkr-Qicudqi Work Phone: 12-16-2020 15:34-0400 Body height 180.34 cm [facility]; [facility] Work Phone: 12-16-2020 15:34-0400 Body mass index (BMI) [Ratio] 27.2 kg/m2 [facility]; [facility] Work Phone: 12-16-2020 15:34-0400 Body surface area Derived from formula 2.[address] [facility]; [facility] Work Phone: 12-16-2020 15:34-0400 Body weight 88.[address] [facility]; [facility] Work Phone: 10-09-2020 14:58-0400 Body height 180.34 cm Calista Cavazos Work Phone: [facility] 3 DO Work Phone: 10-09-2020 14:58-0400 Body mass index (BMI) [Ratio] 27.56 kg/m2 Calista Cavazos Work Phone: [facility] 3 DO Work Phone: 10-09-2020 14:58-0400 Body surface area Derived from formula 2.1 m2 Calista Miquel Dirk Work Phone: [facility] 3 DO Work Phone: 10-09-2020 14:58-0400 Body temperature 97.1 [degF] Calista Cavazos Work Phone: [facility] 3 DO Work Phone: 10-09-2020 14:58-0400 Body weight 89.63 kg Calista Cavazos Work Phone: [facility] 3 DO Work Phone: 10-09-2020 14:58-0400 Diastolic blood pressure 68 mm[Hg] Calista Cavazos Work Phone: [facility] 3 DO Work Phone: 10-09-2020 14:58-0400 Heart rate 82 /min Calista K Dirk Work Phone: [facility] 3 DO Work Phone: 10-09-2020 14:58-0400 Systolic blood pressure 110 mm[Hg] Calista Cavazos Work Phone: [facility] 3 DO Work Phone: 09-11-2020 14:38-0400 Body height 180.34 cm Mateusz Pritchard LPN [facility]; [facility] Work Phone: 09-11-2020 14:38-0400 Body mass index (BMI) [Ratio] 27.2 kg/m2 Mateusz Pritchard LPN [facility]; [facility] Work Phone: 09-11-2020 14:38-0400 Body surface area Derived from formula 2.09 m2 Mateusz Pritchard LPN [facility]; [facility] Work Phone: 09-11-2020 14:38-0400 Body weight 88.47 kg Mateusz Pritchard LPN [facility]; [facility] Work Phone: 09-02-2020 11:59-0400 Body height 180.34 cm Mateusz Pritchard LPN [facility]; [facility] Work Phone: 09-02-2020 11:59-0400 Body mass index (BMI) [Ratio] 28.31 kg/m2 Mateusz Pritchard LPN [facility]; [facility] Work Phone: 09-02-2020 11:59-0400 Body mass index (BMI) [Ratio] 27.2 kg/m2 Mateusz Pritchard LPN [facility]; [facility] Work Phone: 09-02-2020 11:59-0400 Body surface area Derived from formula 2.12 m2 Mateusz Pritchard LPN [facility]; [facility] Work Phone: 09-02-2020 11:59-0400 Body surface area Derived from formula 2.09 m2 Mateusz Pritchard LPN [facility]; [facility] Work Phone: 09-02-2020 11:59-0400 Body temperature 97.3 [degF] Mateusz Pritchard LPN [facility]; [facility] Work Phone: Comment on above: Method: Infrared 09-02-2020 11:59-0400 Body weight 92.08 kg Mateusz Pritchard LPN [facility]; [facility] Work Phone: 09-02-2020 11:59-0400 Body weight 88.47 kg Mateusz Pritchard LPN [facility]; [facility] Work Phone: 09-02-2020 11:59-0400 Diastolic blood pressure 80 mm[Hg] Mateusz Pritchard LPN [facility]; [facility] Work Phone: Comment on above: Patient Position: Sitting; Cuff Location : Left Arm; Cuff Size: Standard 09-02-2020 11:59-0400 Heart rate 84 /min Mateusz Pritchard LPN [facility]; [facility] Work Phone: Comment on above: Pattern: Regular 09-02-2020 11:59-0400 Respiratory rate 16 /min Mateusz Pritchard LPN [facility]; [facility] Work Phone: Comment on above: Pattern: Unlabored 09-02-2020 11:59-0400 SaO2% (BldA) [Mass fraction] 97 % Mateusz Pritchard [facility]; [facility] Work Phone: Comment on above: Room air 09-02-2020 11:59-0400 Systolic blood pressure 128 mm[Hg] Mateusz Pritchard [facility]; [facility] Work Phone: Comment on above: Patient Position: Sitting; Cuff Location : Left Arm; Cuff Size: Standard 04-01-2020 11:57-0500 BMI (Body Mass Index) 28.31 kg/m2 Mateusz Pritchard [facility]; [facility] Work Phone: 04-01-2020 11:57-0500 Body weight 92.08 kg Mateusz Pritchard MANAGER OPERATING [facility]; [facility] Work Phone: 04-01-2020 11:57-0500 BSA (Body Surface Area) 2.12 m2 Mateusz Pritchard [facility]; [facility] Work Phone: 04-01-2020 11:57-0500 Height 180.34 cm Mateusz Pritchard [facility]; [facility] Work Phone: 03-27-2020 08:13-0500 BMI (Body Mass Index) 28.31 kg/m2 [facility] Work Phone: 03-27-2020 08:13-0500 Body Temperature 96.4 [degF] Marquita Peterson [facility]; [facility] Work Phone: Comment on above: Method: Thermal Scan 03-27-2020 08:13-0500 Body weight 92.08 kg Marquita Peterson [facility]; [facility] Work Phone: 03-27-2020 08:13-0500 BSA (Body Surface Area) 2.12 m2 [facility]; [facility] Work Phone: 03-27-2020 08:13-0500 Height 180.34 cm Marquita Nicholas [facility]; [facility] Work Phone: 12-11-2019 18:01-0400 BMI (Body Mass Index) 26.85 kg/m2 Julius Ahuja [facility] Work Phone: 12-11-2019 18:01-0400 Body weight 87.32 kg Julius Ahuja MPFR-Pffukta-Ntliq nd Work Phone: 12-11-2019 18:01-0400 BP Diastolic 70 mm[Hg] Julius Ahuja MPFA-Udmiihz-Hkwql nd Work Phone: 12-11-2019 18:01-0400 BP Systolic 108 mm[Hg] Julius Ahuja MPZI-Afblfuk-Ufcuo nd Work Phone: 12-11-2019 18:01-0400 BSA (Body Surface Area) 2.07 m2 Julius Ahuja MPEI-Mndifbt-Mtwtobd Work Phone: 12-11-2019 18:01-0400 Height 180.34 cm Julius BAUGHGE-Rotylfa-Ceccj nd Work Phone: 12-11-2019 18:01-0400 Pulse (Heart Rate) 73 /min Julius Ahuja [facility] Work Phone: 03-26-2017 13:38-0500 BMI (Body Mass Index) 28.31 kg/m2 Rosamaria Rodriguez [facility]; [facility] Work Phone: 03-26-2017 13:38-0500 Body weight 92.08 kg Rosamaria Vail RN [facility]; [facility] Work Phone: 03-26-2017 13:38-0500 BSA (Body Surface Area) 2.12 m2 Rosamaria Vail RN [facility]; [facility] Work Phone: 03-26-2017 13:38-0500 Height 180.34 cm Rosamaria Vail RN [facility]; [facility] Work Phone: 05-01-2016 11:41-0500 BMI (Body Mass Index) 27.2 kg/m2 Michelle Parks [facility]; [facility] Work Phone: 05-01-2016 11:41-0500 Body Temperature 97 [degF] Michelle Slarb MANAGER OPERATING [facility]; [facility] Work Phone: 05-01-2016 11:41-0500 Body weight 88.45 kg Michelle Cardozarb MANAGER OPERATING [facility]; [facility] Work Phone: 05-01-2016 11:41-0500 BP Diastolic 82 mm[Hg] Michelle Slarb MANAGER OPERATING [facility]; [facility] Work Phone: Comment on above: Patient Position: Sitting; Cuff Location : Left Arm; Cuff Size: Standard 05-01-2016 11:41-0500 BP Systolic 124 mm[Hg] Michelle Slarb MANAGER OPERATING [facility]; [facility] Work Phone: Comment on above: Patient Position: Sitting; Cuff Location : Left Arm; Cuff Size: Standard 05-01-2016 11:41-0500 BSA (Body Surface Area) 2.09 m2 Michelle Slarb MANAGER OPERATING [facility]; [facility] Work Phone: 05-01-2016 11:41-0500 Height 180.34 cm Michelle Slarb MANAGER OPERATING [facility]; [facility] Work Phone: 05-01-2016 11:41-0500 Pulse (Heart Rate) 84 /min Michelle Nanirb MANAGER OPERATING [facility]; [facility] Work Phone: Comment on above: Pattern: Regular 05-01-2016 11:41-0500 Pulse Oximetry 97 % Calista Cavazos [facility]; [facility] Work Phone: Comment on above: Room air 05-01-2016 11:41-0500 Respiratory Rate 16 /min Michelle Slarb MANAGER OPERATING [facility]; [facility] Work Phone: Comment on above: Pattern: Unlabored 05-01-2016 11:41-0500 SaO2% (BldA) [Mass fraction] 97 % Michelle Slarb MANAGER OPERATING [facility]; [facility] Work Phone: Comment on above: Room air 01-02-2015 15:01-0400 BMI (Body Mass Index) 27.34 kg/m2 Michelle Slarb MANAGER OPERATING Comprehen [facility]; [facility] Work Phone: 01-02-2015 15:01-0400 Body Temperature 97.2 [degF] Michelle Slarb MANAGER OPERATING [facility]; [facility] Work Phone: 01-02-2015 15:01-0400 Body weight 88.91 kg Michelle Slarb MANAGER OPERATING [facility]; [facility] Work Phone: 01-02-2015 15:01-0400 BP Diastolic 82 mm[Hg] Michelle Slarb MANAGER OPERATING [facility]; [facility] Work Phone: Comment on above: Patient Position: Sitting; Cuff Location : Left Arm; Cuff Size: Standard 01-02-2015 15:01-0400 BP Systolic 128 mm[Hg] Michelle Slarb MANAGER OPERATING [facility]; [facility] Work Phone: Comment on above: Patient Position: Sitting; Cuff Location : Left Arm; Cuff Size: Standard 01-02-2015 15:01-0400 BSA (Body Surface Area) 2.09 m2 Michelle Slarb MANAGER OPERATING [facility]; [facility] Work Phone: 01-02-2015 15:01-0400 Height 180.34 cm Michelle Cardozarb MANAGER OPERATING [facility]; [facility] Work Phone: 01-02-2015 15:01-0400 Pulse (Heart Rate) 74 /min Michelle Cardozarb MANAGER OPERATING [facility]; [facility] Work Phone: Comment on above: Pattern: Regular 01-02-2015 15:01-0400 Pulse Oximetry 97 % Calista Cavazos [facility]; [facility] Work Phone: Comment on above: Room air 01-02-2015 15:01-0400 Respiratory Rate 16 /min Michelle Nanirb MANAGER OPERATING [facility]; [facility] Work Phone: Comment on above: Pattern: Unlabored 01-02-2015 15:01-0400 SaO2% (BldA) [Mass fraction] 97 % Michelle Slarb MANAGER OPERATING [facility]; [facility] Work Phone: Comment on above: Room air 12-25-2014 14:57-0400 BMI (Body Mass Index) 26.85 kg/m2 Michelle Slarb MANAGER OPERATING Comprehen s[facility]; [facility] Work Phone: 12-25-2014 14:57-0400 Body Temperature 98.2 [degF] Michelle Slarb MANAGER OPERATING [facility]; [facility] Work Phone: 12-25-2014 14:57-0400 Body weight 87.32 kg Michelle Slarb MANAGER OPERATING [facility]; [facility] Work Phone: 12-25-2014 14:57-0400 BP Diastolic 78 mm[Hg] Michelle Slarb MANAGER OPERATING [facility]; [facility] Work Phone: Comment on above: Patient Position: Sitting; Cuff Location : Left Arm; Cuff Size: Standard 12-25-2014 14:57-0400 BP Systolic 118 mm[Hg] Michelle Slarb MANAGER OPERATING [facility]; [facility] Work Phone: Comment on above: Patient Position: Sitting; Cuff Location : Left Arm; Cuff Size: Standard 12-25-2014 14:57-0400 BSA (Body Surface Area) 2.08 m2 Michelle Slarb MANAGER OPERATING [facility]; [facility] Work Phone: 12-25-2014 14:57-0400 Height 180.34 cm Michelle Slarb MANAGER OPERATING [facility]; [facility] Work Phone: 12-25-2014 14:57-0400 Pulse (Heart Rate) 73 /min Michelle Slarb MANAGER OPERATING [facility]; [facility] Work Phone: Comment on above: Pattern: Regular 12-25-2014 14:57-0400 Pulse Oximetry 96 % Calista Cavazos [facility]; [facility] Work Phone: Comment on above: Room air 12-25-2014 14:57-0400 Respiratory Rate 16 /min Michelle Slarb MANAGER OPERATING [facility]; [facility] Work Phone: Comment on above: Pattern: Unlabored 12-25-2014 14:57-0400 SaO2% (BldA) [Mass fraction] 96 % Michelle Berumen EBEN [facility]; [facility] Work Phone: Comment on above: Room air 12-28-2012 10:25-0400 BMI (Body Mass Index) 25.42 kg/m2 Robina Garsia RN [facility]; [facility] Work Phone: 12-28-2012 10:25-040 Body Temperature 98.3 [degF] Robina Garsia RN [facility]; [facility] Work Phone: Comment on above: Method: Oral 12-28-2012 [id number] Body weight 82.67 kg Robina Garsia RN [facility]; [facility] Work Phone: 12-28-2012 10:25-0400 BP Diastolic 88 mm[Hg] Robina Garsia RN [facility]; [facility] Work Phone: Comment on above: Patient Position: Sitting; Cuff Location : Left Arm; Cuff Size: Large 12-28-2012 10:25-0400 BP Systolic 122 mm[Hg] Robina Garsia RN [facility]; [facility] Work Phone: Comment on above: Patient Position: Sitting; Cuff Location : Left Arm; Cuff Size: Large 12-28-2012 10:25-0400 BSA (Body Surface Area) 2.03 m2 Robina Garsia RN [facility]; [facility] Work Phone: 12-28-2012 10:25-0400 Height 180.34 cm Robina Garsia RN [facility]; [facility] Work Phone: 12-28-2012 10:25-0400 Pulse (Heart Rate) 84 /min Robina Garsia RN [facility]; [facility] Work Phone: Comment on above: Pattern: Regular 12-28-2012 10:25-0400 Pulse Oximetry 98 % Calista Cavazos [facility]; [facility] Work Phone: Comment on above: Room air 12-28-2012 10:25-0400 Respiratory Rate 20 /min Robina Garsia RN [facility]; [facility] Work Phone: Comment on above: Pattern: Unlabored 12-28-2012 10:25-0400 SaO2% (BldA) [Mass fraction] 98 % Robina Garsia RN [facility]; [facility] Work Phone: Comment on above: Room air 03-04-2011 13:20-0500 BMI (Body Mass Index) 24.57 kg/m2 Arleth Montez LPN [facility]; [facility] Work Phone: 03-04-2011 13:20-0500 Body Temperature 99.1 [degF] Arleth Tc [place] [facility]; [facility] Work Phone: Comment on above: Method: Oral 03-04-2011 13:20-0500 Body weight 79.92 kg Arleth Montez LPN [facility]; [facility] Work Phone: 03-04-2011 13:20-0500 BP Diastolic 84 mm[Hg] Arleth Tc [place] [facility]; [facility] Work Phone: Comment on above: Patient Position: Sitting; Cuff Location : Left Arm; Cuff Size: Standard 03-04-2011 13:20-0500 BP Systolic 120 mm[Hg] Arleth Tc [facility] Work Phone: Comment on above: Patient Position: Sitting; Cuff Location : Left Arm; Cuff Size: Standard 03-04-2011 13:20-0500 BSA (Body Surface Area) 2 m2 Arleth Montez LPN [facility] Work Phone: 03-04-2011 13:20-0500 Height 180.34 cm Arleth Tc [facility] Work Phone: 03-04-2011 13:20-0500 Pulse (Heart Rate) 78 /min Arleth Montez LPN [facility] Work Phone: Comment on above: Pattern: Regular 03-04-2011 13:20-0500 Pulse Oximetry 98 % Calista Cavazos [facility] Work Phone: Comment on above: Room air 03-04-2011 13:20-0500 Respiratory Rate 18 /min Arleth Montez LPN [facility] Work Phone: 03-04-2011 13:20-0500 SaO2% (BldA) [Mass fraction] 98 % Arleth Montez LPN [facility] Work Phone: Comment on above: Room air 05-19-2010 16:33-0500 BMI (Body Mass Index) 24.57 kg/m2 Robina Garsia RN [facility] Work Phone: 05-19-2010 16:33-0500 Body weight 79.92 kg Robina Garsia RN [facility] Work Phone: 05-19-2010 16:33-0500 BP Diastolic 90 mm[Hg] Robina Garsia RN [facility] Work Phone: Comment on above: Patient Position: Sitting; Cuff Location : Left Arm; Cuff Size: Standard 05-19-2010 16:33-0500 BP Systolic 142 mm[Hg] Robina Garsia RN [facility] Work Phone: Comment on above: Patient Position: Sitting; Cuff Location : Left Arm; Cuff Size: Standard 05-19-2010 16:33-0500 BSA (Body Surface Area) 2 m2 Robina Garsia RN [facility] Work Phone: 05-19-2010 16:33-0500 Height 180.34 cm Robina Garsia RN [facility] Work Phone: 05-19-2010 16:33-0500 Pulse (Heart Rate) 64 /min Robina Garsia RN [facility]; [facility] Work Phone: Comment on above: Pattern: Regular 05-19-2010 16:33-0500 Respiratory Rate 20 /min Robina Garsia RN [facility] Work Phone: Comment on above: Pattern: Unlabored 03-20-2009 15:23-0500 BMI (Body Mass Index) 24.57 kg/m2 Robina Garsia RN [facility] Work Phone: 03-20-2009 15:23-0500 Body Temperature 97.3 [degF] Robina Garsia RN [facility]; [facility] Work Phone: Comment on above: Method: Oral 03-20-2009 15:23-0500 Body weight 79.92 kg Robina Garsia RN [facility] Work Phone: 03-20-2009 15:23-0500 BP Diastolic 76 mm[Hg] Robina Garsia RN [facility]; [facility] Work Phone: Comment on above: Patient Position: Sitting; Cuff Location : Left Arm; Cuff Size: Large 03-20-2009 15:23-0500 BP Systolic 118 mm[Hg] Robina Garsia RN [facility]; [facility] Work Phone: Comment on above: Patient Position: Sitting; Cuff Location : Left Arm; Cuff Size: Large 03-20-2009 15:23-0500 BSA (Body Surface Area) 2 m2 Robina Garsia RN [facility] Work Phone: 03-20-2009 15:23-0500 Head Circumference 0 cm Calista Cavazos [facility] Work Phone: 03-20-2009 15:23-0500 Head Occipital-frontal circumference 0 cm Robina Garsia RN [facility] Work Phone: 03-20-2009 15:23-0500 Height 180.34 cm Robina Garsia RN [facility] Work Phone: 03-20-2009 15:23-0500 Pulse (Heart Rate) 64 /min Robina Garsia RN [facility] Work Phone: Comment on above: Pattern: Regular 03-20-2009 15:23-0500 Respiratory Rate 20 /min Robina Garsia RN [facility] Work Phone: Comment on above: Pattern: Unlabored 05-17-2008 15:26-0500 BMI (Body Mass Index) 24.57 kg/m2 Robina Garsia RN [facility] Work Phone: 05-17-2008 15:26-0500 Body weight 79.92 kg Robina Garsia RN [facility] Work Phone: 05-17-2008 15:26-0500 BP Diastolic 90 mm[Hg] Robina Garsia RN [facility]; [facility] Work Phone: Comment on above: Patient Position: Sitting; Cuff Location : Left Arm; Cuff Size: Large 05-17-2008 15:26-0500 BP Systolic 138 mm[Hg] Robina Garsia RN [facility]; [facility] Work Phone: Comment on above: Patient Position: Sitting; Cuff Location : Left Arm; Cuff Size: Large 05-17-2008 15:26-0500 BSA (Body Surface Area) 2 m2 Robina Garsia RN [facility] Work Phone: 05-17-2008 15:26-0500 Head Circumference 0 cm Calista Cavazos [facility] Work Phone: 05-17-2008 15:26-0500 Head Occipital-frontal circumference 0 cm Robina Garsia RN [facility] Work Phone: 05-17-2008 15:26-0500 Height 180.34 cm Robina Garsia RN [facility] Work Phone: 05-17-2008 15:26-0500 Pulse (Heart Rate) 72 /min Robina Garsia RN [facility]; [facility] Work Phone: Comment on above: Pattern: Regular 05-17-2008 15:26-0500 Respiratory Rate 20 /min Robina Garsia RN [facility]; [facility] Work Phone: Comment on above: Pattern: Unlabored 05-03-2008 13:29-0500 BMI (Body Mass Index) 24.57 kg/m2 Robina Garsia RN [facility] Work Phone: 05-03-2008 13:29-0500 Body weight 79.92 kg Robina Garsia RN [facility]; [facility] Work Phone: 05-03-2008 13:29-0500 BP Diastolic 76 mm[Hg] Robina Garsia RN [facility]; [facility] Work Phone: Comment on above: Patient Position: Sitting; Cuff Location : Left Arm; Cuff Size: Standard 05-03-2008 13:29-0500 BP Systolic 122 mm[Hg] Robina Garsia RN [facility]; [facility] Work Phone: Comment on above: Patient Position: Sitting; Cuff Location : Left Arm; Cuff Size: Standard 05-03-2008 13:29-0500 BSA (Body Surface Area) 2 m2 Robina Garsia RN [facility]; [facility] Work Phone: 05-03-2008 13:29-0500 Head Circumference 0 cm Calista Dirk [facility] Work Phone: 05-03-2008 13:29-0500 Head Occipital-frontal circumference 0 cm Robina Garsia RN [facility]; [facility] Work Phone: 05-03-2008 13:29-0500 Height 180.34 cm Robina Garsia RN [facility]; [facility] Work Phone: 05-03-2008 13:29-0500 Pulse (Heart Rate) 72 /min Robina Garsia RN [facility]; [facility] Work Phone: Comment on above: Pattern: Regular 05-03-2008 13:29-0500 Respiratory Rate 20 /min Robina Garsia RN [facility]; [facility] Work Phone: Comment on above: Pattern: Unlabored 04-02-2008 13:09-0500 BMI (Body Mass Index) 24.57 kg/m2 Robina Garsia RN [facility]; [facility] Work Phone: 04-02-2008 13:09-0500 Body weight 79.92 kg Robina Garsia RN [facility]; [facility] Work Phone: 04-02-2008 13:09-0500 BP Diastolic 78 mm[Hg] Robina Garsia RN [facility]; [facility] Work Phone: Comment on above: Patient Position: Sitting; Cuff Location : Left Arm; Cuff Size: Standard 04-02-2008 13:09-0500 BP Systolic 128 mm[Hg] Robina Garsia RN [facility]; [facility] Work Phone: Comment on above: Patient Position: Sitting; Cuff Location : Left Arm; Cuff Size: Standard 04-02-2008 13:09-0500 BSA (Body Surface Area) 2 m2 Robina Garsia RN [facility]; [facility] Work Phone: 04-02-2008 13:09-0500 Head Circumference 0 cm Calista Cavazos [facility] Work Phone: 04-02-2008 13:09-0500 Head Occipital-frontal circumference 0 cm Robina Garsia RN [facility]; [facility] Work Phone: 04-02-2008 13:09-0500 Height 180.34 cm Robina Garsia RN [facility]; [facility] Work Phone: 04-02-2008 13:09-0500 Pulse (Heart Rate) 72 /min Robina Garsia RN [facility]; [facility] Work Phone: Comment on above: Pattern: Regular 04-02-2008 13:09-0500 Respiratory Rate 20 /min Robina Garsia RN [facility]; [facility] Work Phone: Comment on above: Pattern: Unlabored 03-05-2008 14:37-0500 BMI (Body Mass Index) 24.57 kg/m2 Robina Garsia RN [facility]; [facility] Work Phone: 03-05-2008 14:37-0500 Body weight 79.92 kg Robina Garsia RN [facility]; [facility] Work Phone: 03-05-2008 14:37-0500 BP Diastolic 86 mm[Hg] Robina Garsia RN [facility]; [facility] Work Phone: Comment on above: Patient Position: Sitting; Cuff Location : Left Arm; Cuff Size: Standard 03-05-2008 14:37-0500 BP Systolic 128 mm[Hg] Robina Garsia RN [facility]; [facility] Work Phone: Comment on above: Patient Position: Sitting; Cuff Location : Left Arm; Cuff Size: Standard 03-05-2008 14:37-0500 BSA (Body Surface Area) 2 m2 Robina Garsia RN [facility]; [facility] Work Phone: 03-05-2008 14:37-0500 Head Circumference 0 cm Calista Cavazos [facility] Work Phone: 03-05-2008 14:37-0500 Head Occipital-frontal circumference 0 cm Robina Garsia RN [facility]; [facility] Work Phone: 03-05-2008 14:37-0500 Height 180.34 cm Robina Garsia RN [facility]; [facility] Work Phone: 03-05-2008 14:37-0500 Pulse (Heart Rate) 88 /min Robina Garsia RN [facility]; [facility] Work Phone: Comment on above: Pattern: Regular 03-05-2008 14:37-0500 Respiratory Rate 20 /min Robina Garsia RN [facility]; [facility] Work Phone: Comment on above: Pattern: Unlabored Encounters Encounter Date Encounter Type Care Provider Facility Start: 06-19-2024 ambulatory GAVIN CISSE [facility] Start: 06-19-2024 End: 06-19-2024 Subsequent hospital visit by physician Gavin Cisse [employer]ILY RESOURCE SPECIALIST-[employer]NTABLE WORKER Work Phone: [facility] Comment on above: Arrived Start: 06-02-2024 End: 06-02-2024 ambulatory Chalon Randy Facility:[facility] Start: 05-26-2024 End: 05-26-2024 ambulatory Chalon Randy Facility:[facility] Start: 05-12-2024 End: 05-12-2024 ambulatory Chalon Randy Facility:[facility] Start: 05-02-2024 End: 05-02-2024 ambulatory Chalon Randy Facility:[facility] Start: 04-14-2024 End: 04-14-2024 ambulatory Chalon Randy Facility:[facility] Start: 03-29-2024 End: 03-29-2024 ambulatory Linda Shane Facility:[facility] Start: 03-22-2024 End: 03-22-2024 Office outpatient visit 25 minutes Dionisio Rocha MD Work Phone: [facility] Comment on above: Erectile dysfunction , unspecified erectile dysfunction type; Benign prostatic hyperplasia with lower urinary tract symptoms, symptom details unspecified; Nocturia; Bilateral renal stones Start: 03-22-2024 End: 03-22-2024 Subsequent hospital visit by physician Renan Mathews X-Ray [facility] Comment on above: Bilateral renal ston es Start: 03-12-2024 End: 03-12-2024 Emergency department patient visit NO ASSIGNED PCP GENERIC PROVIDER [facility] Comment on above: Cystitis (Primary Dx ) Start: 02-25-2024 ambulatory [facility] Facility:[facility] Start: 02-25-2024 End: 02-25-2024 ambulatory [facility] Facility:[facility] Start: 11-30-2023 End: 11-30-2023 Office outpatient visit 15 minutes Julius Ahuja DO Work Phone: [facility] Office [facility] Comment on above: Bilateral renal ston es (Primary Dx); Primary hypertension; Essential (primary) hypertension; Low blood potassium Start: 11-30-2023 End: 11-30-2023 ambulatory JULIUS AHUJA [facility] Start: 11-25-2023 End: 11-25-2023 ambulatory NO ASSIGNED PCP GENERIC PROVIDER [facility] Start: 09-20-2023 End: 09-20-2023 Office outpatient visit 25 minutes Dionisio Rocha MD Work Phone: [facility] Comment on above: Bilateral renal ston es; Nocturia; Benign prostatic hyperplasia with lower urinary tract symptoms, symptom details unspecified; Erectile dysfunction, unspecified erectile dysfunction type Start: 09-20-2023 End: 09-20-2023 ambulatory [facility] Start: 09-19-2023 End: 09-19-2023 Subsequent hospital visit by physician eRnan X-Ray 1 [facility] Comment on above: Calculus of kidney Start: 09-19-2023 End: 09-19-2023 ambulatory DIONISIO Gibson [facility] Start: 09-15-2023 ambulatory [facility] Start: 09-10-2023 End: 09-10-2023 Subsequent hospital visit by physician Dionisio Rocha MD Work Phone: [facility] [place] Comment on above: Calculus of ureter ( Primary Dx); Hydronephrosis with urinary obstruction due to ureteral calculus Start: 09-10-2023 ambulatory [facility] Start: 09-08-2023 End: 09-08-2023 Office outpatient visit 25 minutes Dionisio Rocha MD Work Phone: [facility] Comment on above: Bilateral renal ston es; Nocturia; Benign prostatic hyperplasia with lower urinary tract symptoms, symptom details unspecified; Erectile dysfunction, unspecified erectile dysfunction type Start: 09-08-2023 End: 09-08-2023 ambulatory [facility] Start: 09-08-2023 End: 09-08-2023 Subsequent hospital visit by physician Renan Mathews X-Ray [facility] Comment on above: Bilateral renal ston es Start: 09-07-2023 End: 09-07-2023 Emergency department patient visit Dionisio Jade MD Work Phone: [facility] Comment on above: Left ureteral calcul us (Primary Dx); Hydronephrosis with renal and ureteral calculus obstruction; Renal colic Start: 08-23-2023 End: 08-23-2023 Office outpatient visit 25 minutes Dionisio Rocha MD Work Phone: [facility] Comment on above: Erectile dysfunction , unspecified erectile dysfunction type; Benign prostatic hyperplasia with lower urinary tract symptoms, symptom details unspecified; Nocturia; Bilateral renal stones Start: 08-23-2023 End: 08-23-2023 ambulatory [facility] Start: 08-11-2023 End: 08-11-2023 ambulatory ERIK [facility] Start: 07-16-2023 End: 07-16-2023 ambulatory [facility] Work Phone: Start: 07-16-2023 End: 07-16-2023 Patient encounter procedure [facility]-Nuclear Medicine, [facility] Work Phone: Start: 07-16-2023 End: 07-16-2023 ambulatory [facility] Facility:[facility] Start: 06-14-2023 End: 06-14-2023 ambulatory [facility] Start: 06-01-2023 End: 06-01-2023 Emergency department patient visit TOSHA [facility] Start: 03-10-2023 End: 03-10-2023 Office outpatient visit 25 minutes [facility] SHANIQUE Work Phone: [facility] Comment on above: Uvulitis (Primary Dx ) Start: 03-10-2023 End: 03-10-2023 ambulatory [facility] Ambulatory Start: 03-02-2023 Non-patient / Non-visit Dr. Perla Cavazos Work Phone: [facility] Start: 03-01-2023 Non-patient / Non-visit Dr. Perla Cavazos Work Phone: [facility] Start: 03-01-2023 End: 03-02-2023 Evaluation and management of inpatient Dr. Calista Cavazos Work Phone: [facility]-Intensive Care Unit Work Phone: Start: 02-18-2023 End: 02-18-[address] Calista Cavazos Work Phone: [facility] Work Phone: Start: 02-18-2023 End: 02-18-[address] Calista Cavazos Work Phone: [facility]-Cat Scan, [facility] Work Phone: Start: 02-04-2023 End: 02-04-[address] Calista Cavazos Work Phone: [facility] Work Phone: Start: 02-01-2023 Non-patient / Non-visit Dr. Perla Cavazos Work Phone: [facility] Start: 02-01-2023 End: 02-01-[address] Calista Cavazos Work Phone: [facility] Work Phone: Start: 02-01-2023 End: 02-01-[address] Calista Cavazos Work Phone: [facility]-Cardiovascula r Services Work Phone: Start: 01-22-2023 End: 01-22-2023 ambulatory CALISTA Lafleur [facility] Start: 01-22-2023 End: 01-22-2023 Encounter for general adult medical examination without abnormal findings CALISTA Lafleur [facility] Start: 01-20-2023 End: 01-20-2023 ambulatory [facility] Ambulatory Start: 01-20-2023 End: 01-20-2023 Encounter for general adult medical examination without abnormal findings [facility] Ambulatory Start: 01-20-2023 End: 01-20-2023 Office outpatient new 45 minutes [facility] NEGINC Work Phone: [facility] Comment on above: Gastroesophageal ref lux disease with esophagitis without hemorrhage (Primary Dx); RUQ pain; Right-sided chest pain; Hiatal hernia; Healthcare maintenance; Change in vision; History of high cholesterol Start: 01-20-2023 End: 01-20-2023 Patient encounter status [facility] ZELDA-C Work Phone: [facility] Work Phone: Start: 01-11-2023 ambulatory MD DIONISIO ROCHA Facility:[id number] Start: 12-07-2022 Chart Update Calista gibson Work Phone: RB-Mqylygn-Lqfiqhsw HC 232 DO Work Phone: Start: 12-02-[address]isio [address] rd Rocha II Facility:[id number] Start: 11-17-2022 Office outpatient vi sit 15 minutes Calista Cavazos Work Phone: [facility] S[facility] Work Phone: Start: 11-17-[address] Julius Ahuja Facility:[id number] Start: 07-27-2022 Chart Update Calista gibson Work Phone: [id number] Work Phone: Start: 07-24-[address] Calista Cavazos Facility:[id number] Start: 05-19-2022 Office outpatient vi sit 25 minutes Calista Cavazos Work Phone: [facility] Work Phone: Start: 05-19-[address] Julius Ahuja Facility:[id number] Start: 03-22-2022 End: 03-22-2022 Emergency department patient visit Josselin Houston [facility] Emergency 10 Start: 02-23-2022 AUDIT Calista gibson Work Phone: DQ-Yvdlabe-Jeyyrod Work Phone: Start: 01-31-2022 Chart Update Calista gibson Work Phone: [id number] Work Phone: Start: 01-28-2022 Patient encounter procedure Calista Cavazos Work Phone: BB-Mdmfioh-Xrxagjx Work Phone: Start: 01-28-[address] Calista Cavazos Facility:[id number] Start: 01-15-2022 AUDIT Calista gibson Work Phone: ZT-Garxwxq-Dfmfiyv Work Phone: Start: 01-12-2022 End: 01-14-[address] Calista Cavazos Facility:[id number] Start: 10-22-2021 Office outpatient vi sit 15 minutes Calista K Dirk Work Phone: [facility] Sung 3 DO Work Phone: Start: 10-07-2021 End: 10-07-2021 Emergency department patient visit Elizabeth Vincent [facility] Emergency 03 Start: 01-20-2021 Office outpatient vi sit 15 minutes Calista K Dirk Work Phone: JB-Puripza-Oirgknb Work Phone: Start: 12-16-2020 End: 12-16-2020 Office outpatient visit 15 minutes Calista Dirk DO Work Phone: [facility] Start: 12-03-2020 End: 12-03-2020 Annotation/Addendum Calista Dirk DO Work Phone: [facility] Start: 10-09-2020 Office outpatient vi sit 15 minutes Calista Miquel Dirk Work Phone: [facility] Sung 3 DO Work Phone: Start: 09-11-2020 End: 09-11-2020 Office outpatient visit 10 minutes Calista Dirk DO Work Phone: [facility] Start: 09-02-2020 End: 09-02-2020 Office outpatient visit 15 minutes Calista Dirk DO Work Phone: [facility] Start: 09-02-2020 Review Calista Fearo n DO Work Phone: [facility] Start: 04-01-2020 End: 04-01-2020 Office outpatient visit 10 minutes Calista Dirk [facility] Start: 03-27-2020 End: 03-27-2020 Office outpatient new 20 minutes Calista Dirk [facility] Start: 03-27-2020 Review Calista Shahon [facility] Start: 10-10-2019 Patient encounter procedure Julius Ahuja [facility] Work Phone: Start: 09-06-2019 Patient encounter procedure Julius Ahuja [facility] Work Phone: Start: 03-28-2019 Patient encounter procedure Julius Ahuja [facility] Work Phone: Start: 07-19-2018 End: 07-20-2018 Patient encounter procedure NOT RECORDED PHYSICIAN Facility:B Start: 03-26-2017 End: 03-26-2017 Phone Encounter Calista Garcia Md [facility] Start: 03-26-2017 End: 03-26-2017 Office outpatient visit 25 minutes Calista Cavazos [facility] Start: 05-01-2016 End: 05-01-2016 Office outpatient visit 15 minutes Calista Cavazos [facility] Start: 01-02-2015 End: 01-02-2015 Office outpatient visit 25 minutes Calista Cavazos [facility] Start: 12-25-2014 End: 12-25-2014 Office outpatient visit 25 minutes Calista Cavazos [facility] Start: 12-28-2012 End: 12-28-2012 Patient encounter procedure Calista Cavazos [facility] Start: 11-28-2012 End: 11-28-2012 Patient encounter procedure Calista Cavazos [facility] Start: 03-04-2011 End: 03-04-2011 Office outpatient visit 15 minutes Calista Cavazos [facility] Start: 05-19-2010 End: 05-19-2010 Patient encounter procedure Calista Cavazos [facility] Start: 03-20-2009 End: 03-20-2009 Office outpatient visit 25 minutes Calista Cavazos [facility] Start: 05-17-2008 End: 05-17-2008 Patient encounter procedure Calista Cavazos [facility] Start: 05-03-2008 End: 05-03-2008 Patient encounter procedure Calista Cavazos [facility] Start: 04-02-2008 End: 04-02-2008 Patient encounter procedure Calista Cavazos [facility] Start: 03-05-2008 End: 03-05-2008 Patient encounter procedure Calista Cavazos [facility] Start: 01-23-2008 End: 01-23-2008 Historical Summary Calista Garcia Md Do Resident [facility] Start: 01-20-2008 End: 01-20-2008 Patient encounter procedure Calista Cavazos [facility] Procedures Date Procedure Procedure Detail Performing Clinician Start: 06-19-2024 Radiologic exam ches t 2 views Gavin Arguelloer FAMILY RESOURCE SPECIALIST-TURNTABLE WORKER Work Phone: Start: 03-22-2024 Radiologic exam abdo men 1 view Dionisio Rocha MD Work Phone: Start: 03-12-2024 Ct abdomen & pelvis w/o contrast material Elizabeth Lewis FAMILY RESOURCE SPECIALIST-TURNTABLE WORKER Work Phone: Start: 03-12-2024 Comprehensive metabo lic panel Elizabeth Lewis FAMILY RESOURCE SPECIALIST-TURNTABLE WORKER Work Phone: Start: 03-12-2024 Urinalysis microscop ic panel - Urine Qualitative by Automated Elizabethkt Lewis FAMILY RESOURCE SPECIALIST-TURNTABLE WORKER Work Phone: Start: 03-12-2024 Urnls dip stick/tabl et reagent auto microscopy Elizabeth Lewis FAMILY RESOURCE SPECIALIST-TURNTABLE WORKER Work Phone: Start: 09-10-2023 XR tomography Unspecified body region Dionisio Rocha MD Work Phone: Start: 09-07-2023 Urnls dip stick/tabl et rgnt auto w/o microscopy Dionisio Jade MD Work Phone: Start: 09-07-2023 Ct abdomen & pelvis w/o contrast material Dionisio Jade MD Work Phone: Start: 09-07-2023 Comprehensive metabo lic panel Dionisio Jade MD Work Phone: Start: 08-11-2023 PROSTATE SPECIFIC ANTIGEN ERIK NEWBILL Start: 07-16-2023 Renal isotope studies Start: 06-01-2023 DISCHARGE PATIENT PRISCILLA SALAZAR Start: 06-01-2023 CT ABDOMEN PELVIS WO IV CONTRAST TOSHA SALAZAR Start: 06-01-2023 CBC W Auto Different ial panel - Blood TOSHA SALAZAR Start: 06-01-2023 Comprehensive metabo lic 2000 panel - Serum or Plasma TOSHA SALAZAR Start: 06-01-2023 EXTRA URINE SAMANO TUBE R ICHARD PORTER Start: 06-01-2023 Lactate [Moles/volum e] in Serum or Plasma TOSHA SALAZAR Start: 06-01-2023 Lipase [Enzymatic activity/volume] in Serum or Plasma TOSHA SALAZAR Start: 06-01-2023 URINALYSIS MICROSCOP IC WITH REFLEX CULTURE TOSHA SALAZAR Start: 06-01-2023 URINALYSIS WITH REFL EX CULTURE AND MICROSCOPIC TOSHA SALAZAR Start: 03-01-[address] Calista Cavazos Work Phone: Start: 02-18-2023 CT angiography of he ad and neck Dr. Calista Cavazos Work Phone: Start: 01-22-2023 CBC panel - Blood by Automated count ERIK NEWBILL Start: 01-22-2023 Comprehensive metabo lic 2000 panel - Serum or Plasma ERIK NEWBILL Start: 01-22-2023 Hemoglobin A1c/Hemoglobin.total in Blood ERIK NEWBILL Start: 01-22-2023 INSULIN, FASTING ERIK N EWBILL Start: 01-22-2023 Lipid panel ERIK NEWBI LL Start: 01-22-2023 TSH WITH REFLEX TO F REE T4 IF ABNORMAL ERIK NEWBILL Start: 01-22-2023 Lipid 1996 panel - S camilo or Plasma Erik Newbill PA-C Work Phone: Start: 12-02-2022 Follow-up visit Start: 12-04-2020 End: 12-05-2020 Sacrum-Coccyx min 2 Views Comments: See Note; NOTES: [facility] Imaging Services [address] [place] [address] Sacrum-Coccyx min 2 Views MR#: [id number] Acct: [id number] Name: ASHLEY BLOCK Rep #: [id number] : 1965 M 55 From: Dutch Milton MD PCP: Dr. Calista Cavazos, DO Status: REG CLI Study: Sacrum-Coccyx min 2 Views Date of Exam: Exam# [id number] Ordering Dr: Jessica Babcock NP SLAGGER-C STUDY: X-RAY - SACRUM/COCCYX REASON FOR EXAM: Male, 55 years old. Sacral pain. TECHNIQUE: 4 view(s) of the sacrum and coccyx were obtained. COMPARISON: None. FINDINGS: Normal bilateral sacroiliac joints. Normal visualized sacral ala and fused sacral bodies. Normal sacrococcygeal junction with a normal angulation. Normal coccygeal segments. The presacral soft tissue structures are unremarkable. RAD/Sacrum-Coccyx min 2 Views IMPRESSION: No abnormality of the visualized pelvis or sacrum and coccyx. Electronically Signed: Dutch Milton MD at 11:11 EDT , Service support , CC: ADAM Babcock; Dr. Calista Cavazos DO Wedding Decorator: Signed Jessica Babcock [facility] Work Phone: Start: 12-11-2019 Assay of prostate specific antigen total Julius Ahuja Start: 12-11-2019 Ultrasound Kidney Bilateral Julius Ahuja Start: 10-10-2019 Basic metabolic 1998 panel - Serum or Plasma Julius Ahuja Start: 04-05-2017 End: 04-05-2017 Abdomen/Pelvis without Cont Comments: See Note; NOTES: [facility] Imaging Services [address] [place] [address] Abdomen/Pelvis without Cont MR#: [id number] Acct: [id number] Name: ASHLEY BLOCK Rep #: [id number] : 1965 M 51 From: Terrance Cope MD PCP: Calista Cavazos DO Status: REG CLI Study: Abdomen/Pelvis without Cont Date of Exam: 04/05/17 Exam# [id number] Ordering Dr: Jessica Babcock STUDY: CT ABDOMEN AND PELVIS WITHOUT CONTRAST REASON FOR EXAM: Male, 51 years old. Pelvic and rectal pain RADIATION DOSAGE (If Supplied By Facility): CTDIvol = ( 13.11 ) mGy, DLP = ( 656.32 ) mGycm TECHNIQUE: Transaxial images were obtained from the dome of the diaphragm to the symphysis pubis without oral contrast, and without intravenous contrast. Sagittal and coronal images were reconstructed. Individualized dose optimization techniques were used for this CT. COMPARISON: 10/01/2014 FINDINGS: The visualized lung bases are unremarkable. The visualized portions of the heart are within normal limits. Normal liver. Normal gallbladder and extrahepatic biliary system. Normal spleen. Normal pancreas. Normal bilateral adrenal glands. Punctate nonobstructing stones noted in the right kidney. No obstructive uropathy noted in the right kidney and there is no solid mass lesion or cyst. Left kidney shows punctate nonobstructing calcifications but there is evidence of obstructive uropathy with moderate left hydronephrosis. Axial image 70 shows a 3.5 mm stone in the proximal left ureter. This is likely responsible for the obstructive uropathy. There is a small hiatal hernia. Normal small intestine. Retained stool noted throughout the colon. No suspicious perirectal inflammation or rectal asymmetry. The appendix is visualized and appears normal. Appendix best seen on coronal recon images 65 through 69. Normal abdominal aorta. Normal inferior vena cava. Normal retroperitoneum. Normal urinary bladder. There are prostatic calcifications. Normal abdominal wall. Mild degenerative changes noted in the lower lumbar spine. CT/Abdomen/Pelvis without Cont IMPRESSION: 3.5 mm stone in the proximal left ureter likely causing hydronephrosis and proximal hydroureter of the left kidney. Bilateral punctate 1 to 2 mm nonobstructing calcifications in both kidneys. Small hiatal hernia Retained stool in the colon No demonstrated rectal abnormality Electronically Signed: Jabari Cope MD at 11:25 EST , Service support , CC: Jessica Babcock NP; Calista Cavazos DO Wedding Decorator: Signed Jessica Babcock Work Phone: Start: 04-05-2017 End: 04-05-2017 Pelvis (Routine) Comments: See Note; NOTES: [facility] Imaging Services [address] [place] [address] Pelvis (Routine) MR#: [id number] Acct: [id number] Name: ASHLEY BLOCK Rep #: [id number] : 1965 M 51 From: Javed Mcwilliams MD PCP: Calista Cavazos DO Status: REG CLI Study: Pelvis (Routine) Date of Exam: 04/05/17 Exam# [id number] Ordering Dr: Jessica Babcock STUDY: MRI SACRUM / COCCYX WITHOUT CONTRAST REASON FOR EXAM: Coccyx pain after fall approximately 10 months ago. TECHNIQUE: Standardized fat and water weighted pulse sequences were obtained in all 3 orthogonal planes. COMPARISON: Radiographs of the lumbar spine 12/28/2012. FINDINGS: Normal bilateral sacral ala. Normal bilateral sacroiliac joints. Normal S1, S2, S3, S4, and S5 vertebra, without a fracture, cancellous marrow edema or osseous destructive process. There is a transitional vertebral body at the lumbosacral junction and mild degenerative disc disease at L5-L6. Normal sacrococcygeal junction and sacrococcygeal angulation. Normal coccygeal segments, without a fracture, cancellous marrow edema, osseous destructive process, or anterior angulation. Normal presacral space. Normal visualized bilateral greater sciatic notches and bilateral sciatic nerves. Normal visualized soft tissue structures. MRI/Pelvis (Routine) IMPRESSION: Transitional vertebral body at the lumbosacral junction and mild degenerative disc disease at L5-L6. Otherwise, unremarkable MRI examination of the sacrum and coccyx. Electronically Signed: Javed Mcwilliams MD at 10:50 EST Tel , Service support , CC: Jessica Babcock SLAGGER; Calista Cavazos DO Wedding Decorator: Signed Jessica Babcock Work Phone: Start: 01-02-2015 End: 01-02-2015 Ecg routine ecg w/least 12 lds w/i&r [MEASUREMENTS ANALYSIS] Date of Test: 01/02/2015 15:27:08; Heart Rate: 65; DC Interval: 162; QRS: 102; QT Interval: 376; Corrected QT Interval (QTc): 384; P Wave Inola: 21; QRS Wave Inola: 18; T Wave Inola: 13; Blood Pressure: 128/82 [ECG DIAGNOSTIC STATEMENTS] Date of Test: 01/02/2015 15:27:08; Summary: Sinus Rhythm WITHIN NORMAL LIMITS Jessica Babcock Work Phone: Comment on above: normal Start: 12-28-2014 End: 12-28-2014 Gallbladder Comments: See Note; NOTES: [facility] Imaging Services [address] [place] [address] Ultrasound Report MR#: [id number] Acct: [id number] Name: ASHLEY BLOCK Rep #: [id number] : 1965 M 49 From: Yury He MD PCP: Calista Cavazos DO Status: REG CLI Study: Gallbladder Date of Exam: 12/28/14 Exam# [id number] Ordering Dr: Jessica Babcock STUDY: ABDOMINAL ULTRASOUND - RIGHT UPPER QUADRANT REASON FOR VISIT: Male, 49 years old. Epigastric pain, nausea, and diarrhea for a week. TECHNIQUE: Ultrasound evaluation of the right upper quadrant was performed with real-time and static samano-scale imaging. TECHNICAL QUALITY: Adequate. COMPARISON: Abdomen pelvis CT October 01, 2014. FINDINGS: Liver: The liver measures 17.4 cm. There is normal echogenicity of the liver. The bile ducts are within normal limits. There is hepatic color flow. The direction of portal flow is hepatopetal. There is no demonstrated mass lesion. Gallbladder: Normal size at 7.8 cm long axis. The gallbladder wall measures 2.5 mm. There is a negative sonographic Austin's sign. There is no pericholecystic fluid. There are no gallstones. Common Bile Duct (C.B.D.): The common bile duct measures 5.3 mm. Pancreas: Normal visualized head, body and tail of the pancreas. Right Kidney: Normal size of the right kidney. The right kidney measures 10.9 x 4.9 x 4.9 cm. Normal renal cortex. The right cortex measures 1.4 cm. There is no demonstrated renal mass or cyst. There is no right hydronephrosis. There are 4 mm and 6 mm nonobstructing stones on images 45 and 46. There is no RUQ ascites. IMPRESSION: There are 4 mm and 6 mm nonobstructing right renal stones as on the previous CT. Otherwise normal. Electronically Signed: Yury He MD at 18:06 EDT Tel , Service support [phone], CC: Jessica Babcock; Calista Cavazos DO Wedding Decorator: Signed Jessica Babcock Work Phone: Start: 10-09-2014 End: 10-09-2014 Emergency Department Summary Comments: See Note; NOTES: [facility] Medical Records Department [address] [place] [address] Emergency Department Summary MR#: [id number] Acct: [id number] Name: ASHLEY BLOCK Rep #: [id number] : 1965 48 From: Nicola Mcclelland DO PCP: Calista Cavazos DO Status: [facility] ER DATE OF SERVICE: 10/01/2014 CHIEF COMPLAINT: Flank pain. HISTORY OF PRESENT ILLNESS: A 48-year-old male with long history of kidney stones, he used to see urology in [place]. He has had prior lithotripsy and ureteral stents. Did an office followup with Dr. Escamilla to establish care. He states at 9:00 this morning he developed severe left flank pain with nausea, no vomiting. States this feels exactly like a prior stone. PHYSICAL EXAMINATION: VITAL SIGNS: Afebrile. Vital signs stable. GENERAL: He appears very uncomfortable. ABDOMEN: He got some mild left-sided CVA tenderness. Otherwise, the abdomen is soft, nontender. EMERGENCY DEPARTMENT COURSE: CBC and chemistries are negative. Urinalysis - red cells, no white cells, no bacteria. Received Toradol, morphine and Zofran and fluids. CT of the abdomen and pelvis without contrast demonstrates a 3.5 mm x 4.6 mm calculus in the proximal ureter. He is overall feeling improved. I spoke with Dr. Escamilla, follow up ____ the office. If his pain is not controlled, he will return. He will have Percocet, Zofran and Flomax. CLINICAL IMPRESSION: 1. Urolithiasis. 2. Renal colic. Nicola Mcclelland DO T: [facility] JOB: [id number] 10/09/14 0108 <Electronically signed by Nicola Mcclelland DO> Date Nicola Mcclelland DO CC: Calista Cavazos DO Date Dictated: 10/01/146 Date Transcribed: 10/01/141625 Wedding Decorator: Signed Calista Cavazos Start: 10-01-2014 End: 10-01-2014 Discharge Instruction Comments: See Note; NOTES: [facility] Medical Records Department [address] [place] [address] Discharge Instruction 10/01/14 1605 MR#: [id number] Acct: [id number] Name: ASHLEY BLOCK Rep #: [id number] : 1965 48 From: Nicola Mcclelland DO PCP: Calista Cavazos DO Status: REG ER ED Disposition - Plan for ED Patient: Disposition: Home Chief Complaint: Flank Pain Instructions: ED Kidney Stone W/ Colic Prescriptions: Oxycodone HCl/Acetaminophen [Percocet 5/325] 1 - 2 tablet PO Q4H PRN PRN #20 tablet PRN Reason: Pain Ondansetron [Zofran Odt] 4 mg PO Q8H PRN PRN #10 tablet PRN Reason: Nausea Tamsulosin HCl [Flomax] 0.4 mg PO DAILY 10 Days Referrals: Calista Cavazos DO [Primary Care Provider] - Gera Escamilla MD [STAFF PHYSICIAN] - What to do if you have Problems For any increased pain, shortness of breath, bleeding, nausea or vomiting, chest pain, or any unexpected problems, contact your doctor. Call [facility] ([phone]) or report to the closest Emergency Room. Call 911 if necessary. 10/01/14 1610 <Electronically signed by Nicola Mcclelland DO> Date Nicola Mcclelland DO Cosigner Signature (If Indicated): Date CC: Calista Lyon Start: 10-01-2014 End: 10-01-2014 Abdomen/Pelvis without Cont Comments: See Note; NOTES: [facility] Imaging Services [address] [place] [address] CAT Scan Report MR#: [id number] Acct: [id number] Name: ASHLEY BLOCK Rep #: [id number] : 1965 M 48 From: Galo Cannon MD PCP: Calista Cavazos DO Status: REG ER Study: Abdomen/Pelvis without Cont Date of Exam: 10/01/14 Exam# [id number] Ordering Dr: Nicola Mcclelland DO STUDY: CT ABDOMEN AND PELVIS WITHOUT CONTRAST REASON FOR EXAM: Male, 48 years old. Left-sided flank pain. RADIATION DOSAGE (If Supplied By Facility): CTDIvol = ( 14.26 ) mGy, DLP = ( 645.64 ) mGycm TECHNIQUE: Transaxial images were obtained from the dome of the diaphragm to the symphysis pubis without oral contrast, and without intravenous contrast. Sagittal and coronal images were reconstructed. COMPARISON: Comparison is made with prior study dated August 19, 2011. FINDINGS: The visualized lung bases are unremarkable. The visualized portions of the heart are within normal limits. Normal liver. Normal gallbladder and extrahepatic biliary system. Normal spleen. Normal pancreas. Normal bilateral adrenal glands. A 3 mm calculus is seen in the midpole of the right kidney as well as 2 smaller calculi in the lower pole of the right kidney. There is engorgement of the left kidney. There is evidence of left perinephric stranding as well as left moderate hydronephrosis and hydroureter. There is a 4.4 mm calculus in the mid upper aspect of the kidney. There is a 3.5 mm x 4.6 mm calculus in the proximal portion of the left ureter just distal to the ureteropelvic junction. There is a small hiatal hernia. Normal small intestine. Normal colon. The appendix is visualized and appears normal. There is scattered atherosclerotic calcification of the abdominal aorta, without a demonstrated aneurysm. Normal inferior vena cava. Normal retroperitoneum. Normal urinary bladder. Normal abdominal wall. Normal osseous structures. IMPRESSION: Small bilateral intrarenal calculi. Left hydronephrosis and left perinephric stranding due to a 3.5 mm x 4.6 mm calculus in the proximal left ureter. Electronically Signed: Galo Cannon MD at 14:40 EDT Tel [phone], Service support [phone], CC: Nicola Mcclelland DO; Calista Cavazos DO Wedding Decorator: Signed Calista Cavazos H/O: surgery Tonsillectomy Mateusz Cali PN H/O: surgery Tonsillectomy Mateusz Cali PN H/O: surgery Tonsillectomy Melonie Arora LPN Plan of Treatment Date Care Activity Detail Author Start: 01-23-2028 Lipid panel Lipid Panel [facility] Start: 01-22-2026 Diabetes mellitus screening Diabetes Screening [facility] Start: 11-28-2024 End: 11-28-2024 Patient encounter procedure 11/28/2024 3:30 PM EDT Office Visit [facility] Medical Office Building [address] [facility] [address]nd [place] [address] Julius Ahuja DO [address] [place] [address] [address] [place] [address] [facility] Medical Office Building Start: 07-19-2024 End: 07-19-2024 Patient encounter procedure 07/19/2024 3:30 PM EDT Office Visit [address] [place] [phone] Dionisio Rocha MD [address] [place], [place] [id number] [facility] Start: 06-17-2024 End: 03-22-2025 Prostate specific Ag [Mass/volume] in Serum or Plasma Prostate Specific Antigen Lab Routine Nocturia Expected: 06/17/2024 (Approximate), Expires: 03/22/2025 [facility] Service Area Work Phone: Comment on above: Expected: 06/17/2024 (Approximate), Expires: 03/22/2025 Start: 06-17-2024 End: 03-22-2025 XR Abdomen Single view XR abdomen 1 view Imaging Routine Bilateral renal stones Expected: 06/17/2024, Expires: 03/22/2025 [facility] Work Phone: Comment on above: Expected: 06/17/2024 , Expires: 03/22/2025 Start: 03-22-2024 End: 03-22-2024 Patient encounter procedure 03/22/2024 3:30 PM EST Office Visit [address] [place] [phone] Dionisio Rocha MD [address] [place] [address] [facility] Start: 03-22-2024 Subsequent hospital visit by physician 03/22/2024 3:22 PM EST Hospital Encounter [address] [place] [phone] Bilateral renal stones [facility] Comment on above: Bilateral renal ston es Start: 01-23-2024 Hemoglobin A1c measurement Diabetes: Hemoglobin A1C [facility] Start: 01-20-2024 End: 01-20-2024 Patient encounter procedure [facility] Start: 12-19-2023 COVID-19 Vaccine ( season) COVID-19 Vaccine ( season) [facility] Start: 12-19-2023 Influenza vaccination [facility] Start: 11-30-2023 FUV, Provider: Julius Ahuja, Status: Pen, Time: 3:30 PM FUV, Provider: Julius Ahuja, Status: Pen, Time: 3:30 PM [id number] Work Phone: Start: 11-30-2023 End: 11-30-2023 Patient encounter procedure [facility] Office [facility] Start: 09-22-2023 End: 09-22-2023 Patient encounter procedure 09/22/2023 3:30 PM EDT Office Visit [address] [phone] Dionisio Rocha MD [address] [place] [address] [facility] Start: 09-21-2023 End: 09-21-2023 Admission to same day surgery center 09/21/2023 10:00 AM EDT - 09/21/2023 10:30 AM EDT Surgery [facility] OR [address] [place] [phone] Dionisio Rocha MD [facility] [place] [address] Lithotripsy Extracorporeal Shock Wave [90486 (CPT )] [facility] OR Comment on above: Lithotripsy Extracor poreal Shock Wave [09124 (CPT )] Start: 09-21-2023 End: 09-21-2023 Cysto w/simple removal stone & stent Cystoscopy with Removal Stent Ureter Kidney stone 09/21/2023 10:00 AM EDT [facility] Start: 09-21-2023 End: 09-21-2023 Lithotripsy xtrcorp shock wave Lithotripsy Extracorporeal Shock Wave Kidney stone 09/21/2023 10:00 AM EDT [facility] Start: 09-21-2023 End: 09-21-2023 X-ray urinary tract exam with contrast material Cystoscopy with Retrograde Pyelogram Kidney stone 09/21/2023 10:00 AM EDT [facility] Start: 09-21-2023 Subsequent hospital visit by physician 09/21/2023 8:30 AM EDT Hospital Encounter [facility] OR [address] [place] [address] Dionisio Rocha MD [address] [place] [address] [facility] Start: 09-20-2023 End: 09-20-2023 Patient encounter procedure 09/20/2023 7:30 AM EDT Office Visit [facility] [address] [facility] [address] [place] [phone] Dionisio Rocha MD [address] [place] [address] [facility] Start: 09-08-2023 End: 09-08-2023 Patient encounter procedure 09/08/2023 10:30 AM EDT Office Visit [facility] [address] [facility] [address] [place] [phone] Dionisio Rocha MD [address] [place] [address] [facility] Start: 08-23-2023 End: 08-22-2024 XR Abdomen Single view XR abdomen 1 view Imaging Routine Bilateral renal stones Expected: 08/23/2023, Expires: 08/22/2024 [facility] Service Area Work Phone: Comment on above: Expected: 08/23/2023 , Expires: 08/22/2024 Start: 03-02-2023 Patient discharge [facility] Start: 03-01-2023 Following clinical pathway protocol [facility] Start: 03-01-2023 Ambulation without limitation [facility] Start: 03-01-2023 Assessment of risk o f venous thromboembolism [facility] Start: 03-01-2023 Catheterization of vein [facility] Start: 03-01-2023 Continuous pulse oximetry [facility] Start: 03-01-2023 Deep breathing and coughing exercises [facility] Start: 03-01-2023 Elevation of head of bed [facility] Start: 03-01-2023 Incentive spirometry [facility] Start: 03-01-2023 Insertion of cathete r into peripheral vein [facility] Start: 03-01-2023 Measuring intake and output [facility] Start: 03-01-2023 Notification of physician [facility] Start: 03-01-2023 Oxygen therapy [facility] Start: 03-01-2023 Patient referral to dietitian [facility] Start: 03-01-2023 Providing care according to standard [facility] Start: 03-01-2023 Provision of activit y privileges [facility] Start: 03-01-2023 Referral to occupational therapist [facility] Start: 03-01-2023 Referral to service [facility] Start: 03-01-2023 Vital signs measurements [facility] Start: 03-01-2023 [facility] Start: 03-01-2023 Admission procedure [facility] Start: 01-20-2023 End: 01-21-2024 CBC panel - Blood by Automated count CBC Lab Routine Right-sided chest pain Healthcare maintenance Expected: 01/20/2023 (Approximate), Expires: 01/21/2024 [facility] Service Area Work Phone: Comment on above: Expected: 01/20/2023 (Approximate), Expires: 01/21/2024 Start: 01-20-2023 End: 01-21-2024 Comprehensive metabolic 2000 panel - Serum or Plasma Comprehensive Metabolic Panel Lab Routine Right-sided chest pain Healthcare maintenance Expected: 01/20/2023 (Approximate), Expires: 01/21/2024 [facility] Work Phone: Comment on above: Expected: 01/20/2023 (Approximate), Expires: 01/21/2024 Start: 01-20-2023 End: 01-21-2024 Hemoglobin A1c/Hemoglobin.total in Blood Hemoglobin A1C Lab Routine Right-sided chest pain Healthcare maintenance Expected: 01/20/2023 (Approximate), Expires: 01/21/2024 [facility] Work Phone: Comment on above: Expected: 01/20/2023 (Approximate), Expires: 01/21/2024 Start: 01-20-2023 End: 01-21-2024 Insulin [Units/volume] in Serum or Plasma --fasting Insulin, Fasting Lab Routine Right-sided chest pain Healthcare maintenance Expected: 01/20/2023 (Approximate), Expires: 01/21/2024 [facility] Work Phone: Comment on above: Expected: 01/20/2023 (Approximate), Expires: 01/21/2024 Start: 01-20-2023 End: 01-21-2024 Lipid 1996 panel - Serum or Plasma Lipid Panel Lab Routine Right-sided chest pain Healthcare maintenance Expected: 01/20/2023 (Approximate), Expires: 01/21/2024 [facility] Work Phone: Comment on above: Expected: 01/20/2023 (Approximate), Expires: 01/21/2024 Start: 01-20-2023 End: 01-21-2024 TSH with reflex to Free T4 if abnormal TSH with reflex to Free T4 if abnormal Lab Routine Healthcare maintenance Expected: 01/20/2023 (Approximate), Expires: 01/21/2024 [facility] Work Phone: Comment on above: Expected: 01/20/2023 (Approximate), Expires: 01/21/2024 Start: 01-11-2023 ARELI, Provider : Dionisio Rocha II, Status: Pen, Time: 10:00 AM ARELI, Provider: Dionisio Rocha II, Status: Pen, Time: 10:00 AM [facility]Tykipt[facility]Fnpejex[facility] 232 DO Work Phone: Start: 12-18-2022 COVID-19 Vaccine ( season) COVID-19 Vaccine ( season) [facility] Start: 12-18-2022 Influenza vaccination Influenza Vacc ine (#1) [facility] Start: 12-02-2022 FUV, Provider: Dionisio Rocha II, Status: Pen, Time: 3:15 PM FUV, Provider: Dionisio Rocha II, Status: Pen, Time: 3:15 PM [facility] 3 DO Work Phone: Start: 11-17-2022 FUV, Provider: Julius Ahuja, Status: Pen, Time: 3:30 PM FUV, Provider: Julius Ahuja, Status: Pen, Time: 3:30 PM [facility] Sung 3 DO Work Phone: Start: 10-22-2022 FUV, Provider: Deidre Ahuja, Status: Pen, Time: 3:00 PM FUV, Provider: Deidre Ahuja, Status: Pen, Time: 3:00 PM [facility] Sung 3 DO Work Phone: Start: 10-22-2022 Patient encounter procedure [facility] Start: 22-Oct-2022 15:00 Deidre Ahuja Intent [facility] Start: 01-26-2022 VIRKELI, Provider : Dionisio Rocha II, Status: Pen, Time: 12:00 PM VIRFUVNATALY, Provider: Dionisio Rocha II, Status: Pen, Time: 12:00 PM [facility] Work Phone: Start: 10-09-2021 FUV, Provider: Julius Ahuja, Status: Pen, Time: 3:30 PM FUV, Provider: Julius Ahuja, Status: Pen, Time: 3:30 PM [facility] 3 DO Work Phone: Start: 10-09-2021 Patient encounter procedure [facility] Start: 2021 Prostate specific antigen measurement PROSTATE CANCER SCREENING [facility] Start: 05-05-2021 FUV, Provider: Dionisio Rocha II, Status: Pen, Time: 3:45 PM FUV, Provider: Dionisio Rocha II, Status: Pen, Time: 3:45 PM [facility] Work Phone: Start: 12-16-2020 Procedure Education Eprescribe d prescriptions (G8553) [facility] Work Phone: Start: 12-16-2020 Provider Instruction s for Treatment Reviewed Lab [facility] Work Phone: Start: 09-11-2020 Procedure Education Eprescribe d prescriptions (G8553) [facility] Work Phone: Start: 09-11-2020 Provider Instruction s for Treatment [facility] Work Phone: Start: 09-02-2020 Comprehensive metabo lic panel Metabolic Panel, Comprehensive (47011) [facility]; [facility] Work Phone: Start: 09-02-2020 Assay of thyroid stimulating hormone tsh TSH (80533) [facility]; [facility] Work Phone: Start: 09-02-2020 Blood count complete auto&auto difrntl wbc CBC, Platelets & Auto Diff (71442) [facility]; [facility] Work Phone: Start: 09-02-2020 Assay of prostate specific antigen total PSA, TOTAL - DIAGNOSTIC (47299) [facility]; [facility] Work Phone: Start: 09-02-2020 Procedure Education Eprescribe d prescriptions (G8553) [facility]; [facility] Work Phone: Start: 09-02-2020 Provider Instruction s for Treatment [facility]; [facility] Work Phone: Start: 05-20-2020 Assay of prostate specific antigen total Prostate Specific Antigen XV-Fwslret-Qdbqeue Work Phone: Start: 05-20-2020 Ultrasound Kid rocio Bilateral XU-Hcweqkt-Jarlqzc Work Phone: Start: 04-01-2020 Procedure Education Eprescribe d prescriptions (G8553) [facility]; [facility] Work Phone: Start: 04-01-2020 Provider Instruction s for Treatment Reviewed Diagnostic Tests [facility] Work Phone: Start: 03-27-2020 Procedure Education Eprescribe d prescriptions (G8553) [facility]; [facility] Work Phone: Start: 03-27-2020 Iaadiadoo influenza 2019 Novel Coronavirus (COVID-19), MARGIE (21232) [facility]; [facility] Work Phone: Start: 03-26-2017 Blood occult peroxid ase actv qual feces 1 deter OCCULT BLOOD FECES SCREEN - card done in office (98391) [facility]; [facility] Work Phone: Comment on above: neg Start: 03-26-2017 Procedure Education Eprescribe d prescriptions (G8553) [facility]; [facility] Work Phone: Start: 03-26-2017 Provider Instruction s for Treatment Follow up if no improvement or if symptoms worsen [facility]; [facility] Work Phone: Start: 2016 Pneumococcal vaccination PNEUMOCOCCAL VACCINE SERIES (1 of 1 - PCV) [facility] Start: 2016 Zoster vaccine hzv l emma for subcutaneous use ZOSTER (SHINGLES) VACCINE (1 of 2) [facility] Start: 2016 Zoster Vaccines (1 o f 2) Zoster Vaccines (1 of 2) [facility] Start: 05-01-2016 Procedure Education Eprescribe d prescriptions (G8553) [facility]; [facility] Work Phone: Start: 05-01-2016 Provider Instruction s for Treatment Follow up if no improvement or if symptoms worsen [facility]; [facility] Work Phone: Start: 05-01-2016 Blood occult fecal h gb deter ia qual feces 1-3 FECAL OCCULT- Tubes sent home (23675) [facility]; [facility] Work Phone: Start: 12-25-2014 Provider Instruction s for Treatment Follow up in 1 week [facility]; [facility] Work Phone: Start: 12-28-2012 Patient Education Low Back Juan n Exercises *: back exercises [facility]; [facility] Work Phone: Start: 12-28-2012 Provider Instruction s for Treatment [facility]; [facility] Work Phone: Start: 11-28-2012 Assay of prostate specific antigen total PSA (PROSTATE SPECIFIC ANTIGEN) (V76.44) [facility]; [facility] Work Phone: Start: 11-28-2012 Lipid panel LIPID PANEL (26356) [facility]; [facility] Work Phone: Start: 10-03-2011 Screening for malign ant neoplasm of colon COLORECTAL CANCER SCREENING [facility] Start: 03-04-2011 Provider Instruction s for Treatment [facility]; [facility] Work Phone: Start: 05-19-2010 Creatine kinase total Creatine Kinase Total (29525) [facility]; [facility] Work Phone: Start: 05-19-2010 C-reactive protein C-Reactive Protein (53221) [facility]; [facility] Work Phone: Start: 05-19-2010 CRP [Mass/Vol] C-Reactive Pro tein (17842) [facility]; [facility] Work Phone: Start: 05-19-2010 Assay of aldolase ALDOLASE (92097) [facility] Work Phone: Start: 05-19-2010 Culture bct isol&prsmptv id isolate ea urine URINE CHAUNCEY CULTURE-IDENTIFICATN (52999) [facility]; [facility] Work Phone: Start: 05-19-2010 Provider Instruction s for Treatment [facility]; [facility] Work Phone: Start: 03-20-2009 Provider Instruction s for Treatment [facility]; [facility] Work Phone: Start: 05-17-2008 Provider Instruction s for Treatment FOLLOW UP IN 1 MONTH [facility]; [facility] Work Phone: Start: 05-03-2008 Provider Instruction s for Treatment Reviewed Diagnostic Tests: echo ok EF 55% no LVDYSFUNCTION [facility]; [facility] Work Phone: Start: 04-02-2008 Provider Instruction s for Treatment Reviewed Diagnostic Tests: echo [facility]; [facility] Work Phone: Start: 2006 Lipid panel LIPID SCREENING [facility] Start: 1988 DTaP/Tdap/Td Vaccine s (1 - Tdap) DTaP/Tdap/Td Vaccines (1 - Tdap) [facility] Start: 1985 Hepatitis B vaccination HEP B VACCINE (1 of 3 - 19+ 3-dose series) [facility] Start: 1985 Hepatitis B Vaccines (1 of 3 - 19+ 3-dose series) Hepatitis B Vaccines (1 of 3 - 19+ 3-dose series) [facility] Start: 1985 Third diphtheria, tetanus and acellular pertussis (DTaP) vaccination TDAP (ADULT) [facility] Start: 1985 Urine screening for protein CKD: Urine Protein Screening [facility] Start: 1984 Diabetes mellitus screening Diabetes Screening [facility] Start: 1984 Hepatitis C screening Hepatitis C Sc reening [facility] Start: 1981 HIV screening HIV SCREENING DISCUSSION [facility] Start: 10-03-1971 COVID-19 Vaccine (#1) COVID-19 Vacci ne (#1) [facility] Start: 10-03-1967 MMR Vaccines (1 of 1 - Standard series) MMR Vaccines (1 of 1 - Standard series) [facility] Start: 04-03-1967 COVID-19 Vaccine (#1) COVID-19 Vacci ne (#1) [facility] Start: 1966 Hepatitis B Vaccines (1 of 3 - 3-dose series) Hepatitis B Vaccines (1 of 3 - 3-dose series) [facility] Start: 1966 Hepatitis C screening HEPATITI S C VIRUS SCREENING [facility] Start: 1966 HIV screening HIV Screening [facility] Start: 1966 Lipid panel Lipid Panel [facility] Start: 1966 Screening for malign ant neoplasm of colon [facility] Start: 1966 Tetanus vaccination TETANUS [facility] Start: 1966 Yearly Adult Physical Yearly Adult P hysical [facility] End: 03-12-2024 Bacteria identified in Urine by Culture [facility] Work Phone: Comment on above: Once (Lab) for 1 Occ urrences starting 03/12/2024 until 03/12/2024 End: 09-07-2023 Extra Urine Samano Tube [facility] Work Phone: Comment on above: Once for 1 Occurrenc es starting 09/07/2023 until 09/07/2023 End: 03-12-2024 Extra Urine Samano Tube Extra Urine Samano T[facility] Lab Timed Once for 1 Occurrences starting 03/12/2024 until 03/12/2024 [facility] Work Phone: Comment on above: Once for 1 Occurrenc es starting 03/12/2024 until 03/12/2024 Past history of procedure Status post cystoscopy with ureteral stent placement [facility] Past history of procedure History of cystoscopy [facility] Patient referral [facility] Work Phone: End: 09-10-2023 Pulse oximetry, spot Pulse oximetry, spot Respiratory Care Routine Once for 1 Occurrences starting 09/10/2023 until 09/10/2023 [facility] Work Phone: Comment on above: Once for 1 Occurrenc es starting 09/10/2023 until 09/10/2023 End: 09-07-2023 Urinalysis complete W Reflex Culture panel - Urine [facility] Work Phone: Comment on above: Once (Lab) for 1 Occ urrences starting 09/07/2023 until 09/07/2023 End: 03-12-2024 Urinalysis complete W Reflex Culture panel - Urine [facility] Work Phone: Comment on above: STAT (Lab) for 1 Occ urrences starting 03/12/2024 until 03/12/2024 End: 09-08-2023 XR Abdomen Single view [facility] Work Phone: Comment on above: Once for 1 Occurrenc es starting 09/08/2023 until 09/08/2023 End: 09-19-2023 XR Abdomen Single view [facility] Work Phone: Comment on above: Once for 1 Occurrenc es starting 09/19/2023 until 09/19/2023 [facility] Work Phone: [facility] Work Phone: [facility] Work Phone: [facility] Work Phone: [facility] Work Phone[facility] Work Phone[facility] Work Phone: [facility] Work Phone: [facility] Work Phone: [facility] Work Phone: NEGATED: Highlighted row has been ruled out! Planned Goals not documented [facility] Work Phone: Payers Date Payer Category Payer Private Health Insurance [id number] 2023 Self-pay [id number] 2022 [employer] (Private) [employer] [id number]. [id number] 2022 Private Health Insurance [id number] .[id number]. 2.7.3.242325.315 2022 Private Health Insurance [id number] 2022 Private Health Insurance [id number] 1966 Unknown [id number] 2.840.1.915669.3.579. 2.1068 1966 Unknown [id number] 2.840.1.040137.3.579. 2.1068 1966 Unknown [id number] 2.840.1.962100.3.579. 2.1068 1966 Unknown [id number] 2.840.1.705156.3.579. 2.1068 1966 Unknown [id number] 2.840.1.560118.3.579. 2.1068 1966 Unknown [id number] 2.840.1.323849.3.579. 2. 1966 Unknown [id number] 2.840.1.106295.3.579. 2. 1966 Unknown [id number] 2.840.1.881969.3.579. 2. 1966 Unknown [id number] 2.840.1.083948.3.579. 2. 1966 Unknown [id number] 2.16840.1.088043.3.579. 2. 1966 Unknown [id number] 2.16840.1.471894.3.579. 2.1245 1966 Unknown [id number] 2.16840.1.194405.3.579. 2.1244 1966 Unknown [id number] 2.16.840.1.383665.3.579. 2.1244 1966 Unknown [id number] 2.16.840.1.226309.3.579. 2.1243 1966 Unknown [id number] 2..840.1.214228.3.579. 2.1243 1966 Unknown [id number] 2..840.1.617809.3.579. 2.1243 1966 Unknown [id number] .840.1.681451.3.579. 2.1243 1966 Unknown [id number] 2.840.1.668931.3.579. 2.1243 1966 Unknown [id number] .840.1.830446.3.579. 2.1243 1966 Unknown [id number] .840.1.792649.3.579. 2.1243 1966 Unknown [id number] .840.1.991067.3.579. 2.1242 1966 Unknown [id number] .840.1.713102.3.579. 2.1242 1966 Unknown [id number] 840.1.826959.3.579. 2.1242 1966 Unknown [id number] .840.1.998728.3.579. 2.1242 1966 Unknown [id number] .840.1.695137.3.579. 2.1242 1966 Unknown [id number] 2.16840.1.420082.3.579. 2.1242 1966 Unknown [id number] 2.16840.1.797403.3.579. 2.1242 Unknown Unknown [id number] Unknown ANTHEM [id number] Unknown [id number] 2.16.840.1.609162.3.579. 2.462 Unknown [id number] 2.16.840.1.895447.3.579. 2.462 Unknown [id number] 2.16.840.1.517995.3.579. 2.462 Unknown [id number] 2.16.840.1.124534.3.579. 2.462 Unknown [id number] 2.16.840.1.246982.3.579. 2.462 Unknown [id number] 2.16.840.1.927869.3.579. 2.462 Unknown [id number] 2.16.840.1.743362.3.579. 2.462 Unknown [id number] 2.16.840.1.480474.3.579. 2.462 Unknown [id number] 2.16.840.1.084011.3.579. 2.462 Unknown [id number] 2.16.840.1.653133.3.579. 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 Tobacco use: Tobacco use: [facility] Work Phone: Tobacco use: Tobacco use: [facility] Work Phone: Start: 10-01-2014 End: 03-02-2023 Tobacco smoking consumption unknown [facility] Start: 01-20-2023 [facility] Work Phone: Start: 01-20-2023 Tobacco use and exposure User of smokeless tobacco [facility] Work Phone: History of tobacco use Chews Tobacco [facility] Work Phone: Start: 01-20-2023 End: 11-30-2023 Alcohol intake Current drinker of alcohol (finding) [facility] Work Phone: Start: 01-20-2023 End: 09-28-2023 Tobacco use panel [facility] Work Phone: Start: 1965 Sex Assigned At Not on file U [facility] Work Phone: Start: 01-10-2023 End: 03-22-2024 Exposure to SARS-CoV-2 (event) Not sure [facility] Start: 1965 Sex Assigned At Male W [facility] Start: 06-14-2024 Sex Male (finding) [facility] Procedure Code Equipment Code Equipment Origin al Text Equipment Identifier Dates Endarterectomy, carotid Collagen haemostatic agent, non-antimicrobial ()[id number] FDA Start: 03-01-2023 Endarterectomy, carotid Cardiovascular patch, animal-derived ()[id number] FDA Start: 03-01-2023 Endarterectomy, carotid Plant polysaccharide haemostatic agent, bioabsorbable ()[id number] FDA Start: 03-01-2023 Endarterectomy, carotid Ligation clip, metallic ()[id number] FDA Start: 03-01-2023 Endarterectomy, carotid Ligation clip, metallic ()[id number] FDA Start: 03-01-2023 Endarterectomy, carotid Ligation clip, metallic ()[id number] FDA Start: 03-01-2023 Stent, Polaris U ltra 5fr 24cm, Disposable Case [id number] Start: 08-30-2019 Comment on above: Description: Convert ed from [facility]. Please see archived information for full log information. Stent, Polaris U ltra 5fr 24cm, Disposable Case [id number] Start: 01-13-2022 Comment on above: Description: Convert ed from [facility]. Please see archived information for full log information. Stent, Polaris U ltra 5fr 24cm, Disposable - [id number] Start: 09-10-2023 Goals Date Patient Goal Desired Activity /State Functional Status Date Assessment Result Facility 03-02-2023 Functional status Bedrest [facility] Work Phone: NEGATED: Highlighted row Functional performance Functional status health issues are not documented [facility] Work Phone: Mental Status Date Assessment Result Facility 03-02-2023 Cognitive function Voice/Name [facility] Work Phone: NEGATED: Highlighted row Cognitive function [Interpretation] Cognitive status health issues are not documented [facility] Work Phone: Clinical Notes 12-16-2020 to 05-26-2024 Dionisio Rocha MD - 03/22/2024 3:30 PM Po Ahuja DO - 11/30/2023 3:30 PM Aries Rocha MD - 09/20/2023 7:30 AM EDTDischarge InstructionsAttachmentsDionisio Rocha MD - 09/10/2023 10:25 AM EDT Note Date & Type Note Facility 05-26-2024 Note [facility] Medical Records Department [address] [place] [address] History Physical Exam 05/26/24 0742 MR#: [id number] Acct: [id number] Name: ASHLEY BLOCK Rep #: [id number] : 1965 58 From: Esau Leyva MD PCP: Dr. Osiel Padilla MD Status:[facility] Location: [place] [address] History and Physical Date of Admission: 05/26/24 Intake Vital Signs 03/01/2315:08 05/02/2513:57 Height 5 ft 11 in 5 ft 11 in Weight: 194 lb BMI 27.0 BP 141/92 H Blood Pressure Location Rt brachial Position Sitting Respiration 17 Pulse 73 Pulse Source Monitor Pulse Oximetry (%) 97 Oxygen Delivery Method room air Intake Visit Reasons: COLONOSCOPY, ABDOMINAL PAIN Chief Complaint: colonoscopy abd pain Allergies Iodinated Contrast Media (CONTRASTS) Allergy (Intermediate, Verified 05/02/24 14:57) SwellingOpioids - Morphine Analogues Adverse Reaction (Severe, Verified 05/02/24 14:57) Nausea/Vom/Diarrhea Medications ???Medication ???Instructions ???Recorded ???Confirmed ???Type aspirin 81 mg capsule 81 mg PO DAILY BLOOD THINNER 02/16/23 05/02/24 History chlorthalidone 25 mg tablet 25 mg PO DAILY BP 02/16/23 05/02/24 History losartan 50 mg tablet 50 mg PO DAILY BP 02/16/23 05/02/24 History potassium citrate 15 mEq (1,620 15 meq PO BID SUPPLEMENT 02/16/23 05/02/24 History mg) tablet,extended release tadalafil 20 mg tablet 20 mg PO PRN ED 02/16/23 05/02/24 History atorvastatin 80 mg tablet (Lipitor) 80 mg PO QHS CHOLESTEROL #90 tabs 03/29/24 05/02/24 Rx PFSH Medical History (Updated 05/02/24 @ 14:56 by Jessica Garcia) Wears dentures Alcohol use History of steroid therapy History of renal disease Kidney stones High cholesterol History of hiatal hernia Gastric reflux Chewing tobacco nicotine dependence Hypertension Surgical History History of tonsillectomy and adenoidectomy H/O lithotripsy Family History Mother Breast cancer Diabetes Social History Smoking Status: Never smoker Smokeless tobacco user: chewing tobacco ROS General General: No weight change, appetite, fatigue, colon cancer, breast cancer or weakness HEENT HEENT: No difficulty swallowing, eye injury, eye surgery, swollen glands or hoarseness Endo Endocrine: No thyroid disease, diabetes mellitus, thyroid cancer, Hair loss, heat intolerance or cold intolerance Skin Skin: No rash or changing moles Musc Musculoskeletal: Yes back problems; No arthritis, rheumatoid arthritis, gout or joint pain Cardio Cardiovascular: Yes high blood pressure; No murmur, pacemaker, heart disease, atrial fibrillation, heart attack, heart stent, palpitations, shortness of breat with exertion or chest pain Psych Psychiatric: No depression, anxiety or hearing voices Resp Respiratory: No shortness of breath, No sleep apnea, No cough, No COPD, No asthma, No emphysema and No wheezing Gastro Gastrointestinal: Yes abdominal pain, No nausea or vomiting, Yes diarrhea, No constipation, No blood in stool, Yes acid reflux, Yes hemorrhoids, No ulcers, No gallbladder problem and No black,tarry stools Alejo Hematologic: No blood thinners, No blood disorders, No bleeding, No anemia and No blood clots Neuro Neurologic: No system reviewed and no additional complaints, except as documented, No as per HPI, No abnormal gait, No abnormal hearing, No abnormal movements, No abnormal speech, No behavioral changes, No burning sensations, No confusion, No convulsions, No disequilibrium, No dizziness, No localized weakness, No frequent falls, No headache(s), No lack of coordination, No loss of vision, No memory loss, Yes numbness, No other visual disturbances, No radicular pain, No restless legs, No sensory deficit, No syncope, No tingling, No tremor(s), No weakness and No other Assessment and Plan Assessment and Plan (1) Encounter for screening colonoscopy: Status: Acute (2) Abdominal pain: Status: Acute Orders: Orders Colonoscopy Today EGD Today Plan The patient is having epigastric pain and bloating and he reports that his stools are sometimes pale. He is getting a CT scan done in 2 weeks. He says that the pain is better with eating. He says it also helps to lay down. He describes the pain in the epigastric area and it can be in the left and right upper quadrants. He also describes loose stools. It sounds like the patient may be having gastritis and I would like to order him a PPI and Carafate. I would like to perform a EGD and colonoscopy. Patient is overdue for screening colonoscopy as it was over 10 years ago. He denies blood in the stool. If EGD and colonoscopy are normal and the PPI and Carafate do not help then I woul (more content not included)... [facility] 03-22-2024 History of Present illness Narrative Subjective Patient ID: Ashley Block is a 58 y.o. male. HPI Patient is here for 6 month follow up for hx of kidney stones. S/P Left ureteroscopy with Left ESWL on 10/10. He was seen in ER on 03/12 for left flank pain. CT done showed Bilateral nephrolithiasis.Chronic BPH sx are mild and stable. Denies urgency and frequency. Denies dysuria. Denies hematuria. Nocturia x1. No medication for LUT'S. Most recent PSA was 0.31 08/10. Prior PSA was 0.54 on 08/09. Cr 1.04 06/12 ED is mild. Cialis is helpful Review of Systems Constitutional: Negative for chills and fever. HENT: Negative. Eyes: Negative. Respiratory: Negative for cough and shortness of breath. Cardiovascular: Negative for chest pain and leg swelling. Gastrointestinal: Negative for nausea. Endocrine: Negative. Genitourinary: Negative for difficulty urinating. Negative except for documented in HPI Allergic/Immunologic: Negative. Neurological: Alert & oriented X 3 Hematological: Denies blood thinners Psychiatric/Behavioral: Negative. Objective Physical Exam Vitals and nursing note reviewed. Constitutional: General: He is not in acute distress. Appearance: Normal appearance. Pulmonary: Effort: Pulmonary effort is normal. Abdominal: Tenderness: There is no abdominal tenderness. Genitourinary: Comments: Kidneys non palpable bilaterally Bladder non palpable or tender Scrotum no mass, No hydrocele Epididymis- No spermatocele. Non Tender. Testicles: No mass. WNL Urethra: No discharge Penis within normal limits... No lesions.circumcised Prostate - defered Neurological: Mental Status: He is alert. Assessment/Plan Diagnoses and all orders for this visit: Erectile dysfunction, unspecified erectile dysfunction type Benign prostatic hyperplasia with lower urinary tract symptoms, symptom details unspecified Nocturia Bilateral renal stones KUB reviewed Pros/cons of R ESWL-Will hold off Stone prevention discussed. Diet reviewed. Discussed fluid intake Continue hydrochlorothiazide and Uro-Cit K All available PSA values reviewed, Options discussed. Questions answered. Diet changes for prostate health discussed and educational information given. Pros/Cons of prostate health supplements discussed. Treatment options for LUTS reviewed Discussed timed voiding. Discussed fluid and caffeine intake Treatment options for ED reviewed. Continue Cialis Lifestyle change to help prevent UTIs discussed. Encouraged fluid intake. Self start Rx given F/U 08/10 with PSA and KUB documented in this encounter [facility] Work Phone: 11-30-2023 History of Present illness Narrative Subjective He had stones in September. He had last one about a year ago. He is trying to drink more. Patient ID: Ashley Block is a 58 y.o. male who presents for Follow-up (1 year ck/Review labs ). HPI He is here for follow-up secondary to recurrent nephrolithiasis with elevated blood pressure and stage I/II to renal dysfunction. He is on chlorthalidone losartan and potassium citrate. Review of Systems Constitutional: Negative. HENT: Negative. Eyes: Negative. Respiratory: Negative. Cardiovascular: Negative. Gastrointestinal: Negative. Endocrine: Negative. Genitourinary: Positive for flank pain. Skin: Negative. Allergic/Immunologic: Negative. Neurological: Negative. Hematological: Negative. Psychiatric/Behavioral: Negative. Objective Physical Exam Constitutional: Appearance: Normal appearance. HENT: Head: Normocephalic and atraumatic. Right Ear: External ear normal. Left Ear: External ear normal. Nose: Nose normal. Mouth/Throat: Mouth: Mucous membranes are moist. Pharynx: Oropharynx is clear. Eyes: Extraocular Movements: Extraocular movements intact. Conjunctiva/sclera: Conjunctivae normal. Pupils: Pupils are equal, round, and reactive to light. Cardiovascular: Rate and Rhythm: Normal rate and regular rhythm. Pulmonary: Effort: Pulmonary effort is normal. Breath sounds: Normal breath sounds. Abdominal: General: Abdomen is flat. Palpations: Abdomen is soft. Skin: General: Skin is warm and dry. Neurological: General: No focal deficit present. Mental Status: He is alert and oriented to person, place, and time. Psychiatric: Mood and Affect: Mood normal. Behavior: Behavior normal. Assessment/Plan Problem List Items Addressed This Visit ICD-10-CM Bilateral renal stones - Primary N20.0 Relevant Orders Follow Up In Nephrology HTN (hypertension) I10 Other Visit Diagnoses Codes Essential (primary) hypertension I10 Relevant Medications chlorthalidone (Hygroton) 25 mg tablet Low blood potassium E87.6 Relevant Medications potassium citrate CR (Urocit-K-15) 15 mEq ER tablet Plan: Still Having stones I would stay on Chlorthalidone and K Citrate I would stay on Flomax. Can recheck the LithoLink Would recommend increased fluid intake and really drink what he wants as long as he is drinking tons. - Recurrent Kidney Stones - Calcium Oxalate Stones - Calcium Phosphate Stones - Nocturia - HTN - CKD II with Creat of about 1.2 Julius Ahuja DO 11/30/23 3:48 PM documented in this encounter [facility] Work Phone: 09-20-2023 History of Present illness Narrative Subjective Patient ID: Ashley Block is a 57 y.o. male. HPI Patient is here for a follow up with a KUB. Patient had left ureteroscopy with holmium and stent on 09/09.. CT showed 4mm proximal left ureteral stone with hydro and 5mm nonobstructing stone in the right kidney. Chronic BPH sx are mild and stable. Denies urgency and frequency. Denies dysuria. Denies hematuria. Nocturia x1. No medication for LUT'S. Most recent PSA was 0.31 08/10. Prior PSA was 0.54 on 08/09. Cr 1.04 06/12 ED is mild. Cialis is helpful Review of Systems Constitutional: Negative for chills and fever. HENT: Negative. Eyes: Negative. Respiratory: Negative for cough and shortness of breath. Cardiovascular: Negative for chest pain and leg swelling. Gastrointestinal: Negative for nausea. Endocrine: Negative. Genitourinary: Negative for difficulty urinating. Negative except for documented in HPI Allergic/Immunologic: Negative. Neurological: Alert & oriented X 3 Hematological: Denies blood thinners Psychiatric/Behavioral: Negative. Objective Physical Exam Vitals and nursing note reviewed. Pulmonary: Effort: Pulmonary effort is normal. Abdominal: Palpations: Abdomen is soft. Tenderness: There is no abdominal tenderness. Genitourinary: Comments: Kidneys non palpable bilaterally. Tender LEFT Bladder non palpable or tender Neurological: Mental Status: He is alert. Assessment/Plan Diagnoses and all orders for this visit: Bilateral renal stones Nocturia Benign prostatic hyperplasia with lower urinary tract symptoms, symptom details unspecified Erectile dysfunction, unspecified erectile dysfunction type OP NOTE reviewed KUB reviewed Will plan Stent removal and Left ureteroscopy with ESWL tomorrow. Stone prevention discussed. Diet reviewed. Discussed fluid intake All available PSA values reviewed, Options discussed. Questions answered. Diet changes for prostate health discussed and educational information given. Pros/Cons of prostate health supplements discussed. Treatment options for LUTS reviewed Continue Pyridium PRN Discussed timed voiding. Discussed fluid and caffeine intake Lifestyle change to help prevent UTIs discussed. Encouraged fluid intake. F/U L ESWL and stent removal documented in this encounter [facility] Work Phone: 09-10-2023 Hospital Discharge instructions Hawa Cheng RN - 09/10/2023 1:[address] Macias instructions. The following attachments cannot be sent through Care Everywhere.Ureteroscopy ([place] Citizen)documented in this encounter [facility] Work Phone: 09-10-2023 Miscellaneous Notes Cystoscopy with Lithotripsy Laser (L), Cystoscopy with Retrograde Pyelogram (L) Operative Note Date: 09/10/2023 OR Location: [facility] OR Name: Ashley Block, : 1965, Age: 57 y.o., , Sex: male Diagnosis Pre-op Diagnosis * Calculus of ureter [N20.1] * Hydronephrosis with urinary obstruction due to ureteral calculus [N13.2] Post-op Diagnosis * Calculus of ureter [N20.1] * Hydronephrosis with urinary obstruction due to ureteral calculus [N13.2] Procedures Cystoscopy with Lithotripsy Laser 70833 - DC CYSTO/URETERO W/LITHOTRIPSY &INDWELL STENT INSRT Cystoscopy with Retrograde Pyelogram 72800 - CHG UROGRAPHY RETROGRADE WITH/WO KUB Surgeons * Dionisio Rocha - Primary Resident/Fellow/Other Head Mixer: Surgeons and Role: * No surgeons found with a matching role * Procedure Summary Anesthesia: General ASA: III Anesthesia Staff: Anesthesiologist: Dionisio Espino MD PhD Estimated Blood Loss: 0mL Intra-op Medications: Administrations occurring from 1150 to 1240 on 09/10/23: Medication Name Total Dose midazolam (Versed) injection 2 mg 2 mg Anesthesia Record Intraprocedure I/O Totals None Specimen: ID Type Source Tests Collected by Time A : L URETERAL STONE Calculus Urine, Clean Catch CALCULI (STONE) ANALYSIS Dionisio Rocha MD 09/10/2023 1257 Staff: Activities Attendant: Tamra Torres Person: Carley Preoperative diagnosis: Left ureteral stone Postoperative diagnosis: Same Procedure: cystoscopy with Left RPG and ureteroscopy and Left stent insertion Physician: CARLTON Anesthesia: Gen. Estimated blood loss: None Indications and consent: The patient presents for treatment of a left ureteral stone. After the risks, benefits, alternatives, and indications of the procedure were explained to the patient they consented. Procedure: The patient was brought to the operating room and placed on the table in the supine position. After adequate anesthesia was obtained, the patient was prepped and draped in the standard surgical fashion. First, the cystoscope was inserted into the bladder. Formal cystoscopy was performed. A Left retrograde pyelogram was performed which suggested a filling defect in the ureter We then performed ureteroscopy however the ureteroscope was unable to reach the stone. The stone was manipulated and pushed proximally using the 5 Lao open-ended catheter which allowed us to place the guidewire past the stone into the renal pelvis. A 5 x 24 stent was placed over the existing guidewire. This was done under fluoroscopic vision. Proper positioning was confirmed.The patient tolerated the procedure well and there no complications. documented in this encounter [facility] Work Phone: 09-10-2023 Note Formatting of this n ote is different from the original. Cystoscopy with Lithotripsy Laser (L), Cystoscopy with Retrograde Pyelogram (L) Operative Note Date: 09/10/2023 OR Location: [facility] OR Name: Ashley Block, : 1965, Age: 57 y.o., , Sex: male Diagnosis Pre-op Diagnosis * Calculus of ureter [N20.1] * Hydronephrosis with urinary obstruction due to ureteral calculus [N13.2] Post-op Diagnosis * Calculus of ureter [N20.1] * Hydronephrosis with urinary obstruction due to ureteral calculus [N13.2] Procedures Cystoscopy with Lithotripsy Laser 94679 - DC CYSTO/URETERO W/LITHOTRIPSY &INDWELL STENT INSRT Cystoscopy with Retrograde Pyelogram 53571 - CHG UROGRAPHY RETROGRADE WITH/WO KUB Surgeons * Dionisio Rocha - Primary Resident/Fellow/Other Head Mixer: Surgeons and Role: * No surgeons found with a matching role * Procedure Summary Anesthesia: General ASA: III Anesthesia Staff: Anesthesiologist: Dionisio Espino MD PhD Estimated Blood Loss: 0mL Intra-op Medications: Administrations occurring from 1150 to 1240 on 09/10/23: Medication Name Total Dose midazolam (Versed) injection 2 mg 2 mg Anesthesia Record Intraprocedure I/O Totals None Specimen: ID Type Source Tests Collected by Time A : L URETERAL STONE Calculus Urine, Clean Catch CALCULI (STONE) ANALYSIS Dionisio Rocha MD 09/10/2023 [facility] Staff: Activities Attendant: Tamra Torres Person: Carley Preoperative diagnosis: Left ureteral stone Postoperative diagnosis: Same Procedure: cystoscopy with Left RPG and ureteroscopy and Left stent insertion Physician: CARLTON Anesthesia: Gen. Estimated blood loss: None Indications and consent: The patient presents for treatment of a left ureteral stone. After the risks, benefits, alternatives, and indications of the procedure were explained to the patient they consented. Procedure: The patient was brought to the operating room and placed on the table in the supine position. After adequate anesthesia was obtained, the patient was prepped and draped in the standard surgical fashion. First, the cystoscope was inserted into the bladder. Formal cystoscopy was performed. A Left retrograde pyelogram was performed which suggested a filling defect in the ureter We then performed ureteroscopy however the ureteroscope was unable to reach the stone. The stone was manipulated and pushed proximally using the 5 Lao open-ended catheter which allowed us to place the guidewire past the stone into the renal pelvis. A 5 x 24 stent was placed over the existing guidewire. This was done under fluoroscopic vision. Proper positioning was confirmed.The patient tolerated the procedure well and there no complications. [facility] Work Phone: 09-10-2023 Attending History and physical note H&P reviewed. The patient was examined and there are no changes to the H&P. Source Note - Dionisio Rocha MD - 09/08/2023 10:30 AM EDT Subjective Patient ID: Ashley Block is a 57 y.o. male. HPI Patient is here for ER follow up. He was in ER yesterday for flank pain. CT done yesterday showed 4mm proximal left ureteral stone with hydro and 5mm nonobstructing stone in the right kidney. Chronic BPH sx are mild and stable. Denies urgency and frequency. Denies dysuria. Denies hematuria. Nocturia x1. No medication for LUT'S. Most recent PSA was 0.31 08/10. Prior PSA was 0.54 on 08/09. Cr 1.04 06/12 ED is mild. Cialis is helpful Review of Systems Constitutional: Negative for chills and fever. HENT: Negative. Eyes: Negative. Respiratory: Negative for cough and shortness of breath. Cardiovascular: Negative for chest pain and leg swelling. Gastrointestinal: Negative for nausea. Endocrine: Negative. Genitourinary: Negative for difficulty urinating. Negative except for documented in HPI Allergic/Immunologic: Negative. Neurological: Alert & oriented X 3 Hematological: Denies blood thinners Psychiatric/Behavioral: Negative. Objective Physical Exam Vitals and nursing note reviewed. Pulmonary: Effort: Pulmonary effort is normal. Abdominal: Palpations: Abdomen is soft. Tenderness: There is no abdominal tenderness. Genitourinary: Comments: Kidneys non palpable bilaterally. Tender L Bladder non palpable or tender Neurological: Mental Status: He is alert. Assessment/Plan Diagnoses and all orders for this visit: Bilateral renal stones Nocturia Benign prostatic hyperplasia with lower urinary tract symptoms, symptom details unspecified Erectile dysfunction, unspecified erectile dysfunction type CT x 2 reviewed Pros/cons of Left ureteroscopy reviewed -patient to decide Patient very uncomfortable Reviewed Notes from ER and Dr Ahuja Flomax Rx given-will start Daily All available PSA values reviewed, Options discussed. Questions answered. Diet changes for prostate health discussed and educational information given. Pros/Cons of prostate health supplements discussed. Treatment options for LUTS reviewed Will start Flomax every day for LUTS Discussed timed voiding. Discussed fluid and caffeine intake Treatment options for ED reviewed. Lifestyle change to help prevent UTIs discussed. Encouraged fluid intake. F/U 2 weeks or Ureteroscopy Wednesday if pain does not resolve. [facility] Work Phone: 09-10-2023 History and physical note H&P reviewed. The patient was examined and there are no changes to the H&P. Source Note - Dionisio Rocha MD - 09/08/2023 10:30 AM EDT Subjective Patient ID: Ashley Block is a 57 y.o. male. HPI Patient is here for ER follow up. He was in ER yesterday for flank pain. CT done yesterday showed 4mm proximal left ureteral stone with hydro and 5mm nonobstructing stone in the right kidney. Chronic BPH sx are mild and stable. Denies urgency and frequency. Denies dysuria. Denies hematuria. Nocturia x1. No medication for LUT'S. Most recent PSA was 0.31 08/10. Prior PSA was 0.54 on 08/09. Cr 1.04 06/12 ED is mild. Cialis is helpful Review of Systems Constitutional: Negative for chills and fever. HENT: Negative. Eyes: Negative. Respiratory: Negative for cough and shortness of breath. Cardiovascular: Negative for chest pain and leg swelling. Gastrointestinal: Negative for nausea. Endocrine: Negative. Genitourinary: Negative for difficulty urinating. Negative except for documented in HPI Allergic/Immunologic: Negative. Neurological: Alert & oriented X 3 Hematological: Denies blood thinners Psychiatric/Behavioral: Negative. Objective Physical Exam Vitals and nursing note reviewed. Pulmonary: Effort: Pulmonary effort is normal. Abdominal: Palpations: Abdomen is soft. Tenderness: There is no abdominal tenderness. Genitourinary: Comments: Kidneys non palpable bilaterally. Tender L Bladder non palpable or tender Neurological: Mental Status: He is alert. Assessment/Plan Diagnoses and all orders for this visit: Bilateral renal stones Nocturia Benign prostatic hyperplasia with lower urinary tract symptoms, symptom details unspecified Erectile dysfunction, unspecified erectile dysfunction type CT x 2 reviewed Pros/cons of Left ureteroscopy reviewed -patient to decide Patient very uncomfortable Reviewed Notes from ER and Dr Ahuja Flomax Rx given-will start Daily All available PSA values reviewed, Options discussed. Questions answered. Diet changes for prostate health discussed and educational information given. Pros/Cons of prostate health supplements discussed. Treatment options for LUTS reviewed Will start Flomax every day for LUTS Discussed timed voiding. Discussed fluid and caffeine intake Treatment options for ED reviewed. Lifestyle change to help prevent UTIs discussed. Encouraged fluid intake. F/U 2 weeks or Ureteroscopy Wednesday if pain does not resolve. documented in this encounter [facility] Work Phone: 09-08-2023 History of Present illness Narrative Subjective Patient ID: Ashley Block is a 57 y.o. male. HPI Patient is here for ER follow up. He was in ER yesterday for flank pain. CT done yesterday showed 4mm proximal left ureteral stone with hydro and 5mm nonobstructing stone in the right kidney. Chronic BPH sx are mild and stable. Denies urgency and frequency. Denies dysuria. Denies hematuria. Nocturia x1. No medication for LUT'S. Most recent PSA was 0.31 08/10. Prior PSA was 0.54 on 08/09. Cr 1.04 06/12 ED is mild. Cialis is helpful Review of Systems Constitutional: Negative for chills and fever. HENT: Negative. Eyes: Negative. Respiratory: Negative for cough and shortness of breath. Cardiovascular: Negative for chest pain and leg swelling. Gastrointestinal: Negative for nausea. Endocrine: Negative. Genitourinary: Negative for difficulty urinating. Negative except for documented in HPI Allergic/Immunologic: Negative. Neurological: Alert & oriented X 3 Hematological: Denies blood thinners Psychiatric/Behavioral: Negative. Objective Physical Exam Vitals and nursing note reviewed. Pulmonary: Effort: Pulmonary effort is normal. Abdominal: Palpations: Abdomen is soft. Tenderness: There is no abdominal tenderness. Genitourinary: Comments: Kidneys non palpable bilaterally. Tender L Bladder non palpable or tender Neurological: Mental Status: He is alert. Assessment/Plan Diagnoses and all orders for this visit: Bilateral renal stones Nocturia Benign prostatic hyperplasia with lower urinary tract symptoms, symptom details unspecified Erectile dysfunction, unspecified erectile dysfunction type CT x 2 reviewed Pros/cons of Left ureteroscopy reviewed -patient to decide Patient very uncomfortable Reviewed Notes from ER and Dr Ahuja Flomax Rx given-will start Daily All available PSA values reviewed, Options discussed. Questions answered. Diet changes for prostate health discussed and educational information given. Pros/Cons of prostate health supplements discussed. Treatment options for LUTS reviewed Will start Flomax every day for LUTS Discussed timed voiding. Discussed fluid and caffeine intake Treatment options for ED reviewed. Lifestyle change to help prevent UTIs discussed. Encouraged fluid intake. F/U 2 weeks or Ureteroscopy Wednesday if pain does not resolve. documented in this encounter [facility] Work Phone: 09-07-2023 Hospital Discharge instructions Dionisio Jade MD - 09/07/2023 2:55 PM EDT CONTINUE PERCOCET AND ZOFRAN AT HOME PLENTY OF FLUIDS DR ROCHA APPT TOMORROW AT 10 AM The following attachments cannot be sent through Care Everywhere.Kidney Stone, Adult ED ([place] Citizen)Hydronephrosis Discharge Instructions, Adult ([place] Citizen)documented in this encounter [facility] Work Phone: 09-07-2023 Emergency department Note Chief Complaint: LEFT FLANK/ABD PAIN This is a 57-year-old male who had multiple renal calculi bilaterally but has had renal calculi that has caused obstruction in the ureter on the left mostly he states this episode started several days ago and persisted and worsened despite taking [id number]-lazvmpa pain meds he denies any vomiting although he had some episodes of being nauseated denies any hematuria and presents now for evaluation of a possible kidney stone Review of Systems Constitutional: Negative. HENT: Negative. Respiratory: Negative. Cardiovascular: Negative. Gastrointestinal: Positive for abdominal pain and nausea. Negative for blood in stool. Genitourinary: Positive for flank pain. Musculoskeletal: Positive for myalgias. Skin: Negative for rash. Neurological: Negative for dizziness and numbness. Hematological: Negative. Psychiatric/Behavioral: Negative. All other systems reviewed and are negative. Physical Exam Vitals reviewed. Constitutional: Appearance: Normal appearance. Comments: Mild to moderate discomfort currently HENT: Head: Normocephalic and atraumatic. Nose: Nose normal. Mouth/Throat: Mouth: Mucous membranes are moist. Pharynx: Oropharynx is clear. Eyes: Conjunctiva/sclera: Conjunctivae normal. Pupils: Pupils are equal, round, and reactive to light. Cardiovascular: Rate and Rhythm: Normal rate. Pulses: Normal pulses. Heart sounds: No murmur heard. Pulmonary: Effort: Pulmonary effort is normal. Breath sounds: Normal breath sounds. Abdominal: General: There is no distension. Tenderness: There is left CVA tenderness. There is no right CVA tenderness, guarding or rebound. Musculoskeletal: General: Normal range of motion. Cervical back: Normal range of motion and neck supple. Skin: General: Skin is warm and dry. Capillary Refill: Capillary refill takes less than 2 seconds. Findings: No rash. Neurological: General: No focal deficit present. Mental Status: He is alert and oriented to person, place, and time. Psychiatric: Mood and Affect: Mood normal. Labs Reviewed BASIC METABOLIC PANEL - Normal Result Value Glucose 98 Sodium 136 Potassium 3.6 Chloride 103 Bicarbonate 26 Anion Gap 11 Urea Nitrogen 20 Creatinine 1.26 eGFR 67 Calcium 8.8 LIPASE - Normal Lipase 22 Narrative: Venipuncture immediately after or during the administration of Metamizole may lead to falsely low results. Testing should be performed immediately prior to Metamizole dosing. HEPATIC FUNCTION PANEL - Normal Albumin 4.1 Bilirubin, Total 0.6 Bilirubin, Direct 0.1 Alkaline Phosphatase 48 ALT 35 AST 31 Total Protein 6.6 PROTIME-INR - Normal Protime 10.4 INR 0.9 APTT - Normal aPTT 30 Narrative: The APTT is no longer used for monitoring Unfractionated Heparin Therapy. For monitoring Heparin Therapy, use the Heparin Assay. URINALYSIS WITH REFLEX CULTURE AND MICROSCOPIC - Normal Color, Urine Straw Appearance, Urine Clear Specific [place], Urine 1.011 pH, Urine 6.0 Protein, Urine NEGATIVE Glucose, Urine NEGATIVE Blood, Urine NEGATIVE Ketones, Urine NEGATIVE Bilirubin, Urine NEGATIVE Urobilinogen, Urine <2.0 Nitrite, Urine NEGATIVE Leukocyte Esterase, Urine NEGATIVE CBC WITH AUTO DIFFERENTIAL WBC 8.9 nRBC 0.0 RBC 4.53 Hemoglobin 14.1 Hematocrit 41.1 MCV 91 MCH 31.1 MCHC 34.3 RDW 12.9 Platelets 210 Neutrophils % 70.2 Immature Granulocytes %, Automated 0.3 Lymphocytes % 16.8 Monocytes % 11.0 Eosinophils % 1.5 Basophils % 0.2 Neutrophils Absolute 6.25 Immature Granulocytes Absolute, Automated 0.03 Lymphocytes Absolute 1.50 Monocytes Absolute 0.98 Eosinophils Absolute 0.13 Basophils Absolute 0.02 URINALYSIS WITH REFLEX CULTURE AND MICROSCOPIC Narrative: The following orders were created for panel order Urinalysis with Reflex Culture and Microscopic. Procedure Abnormality Status --------- ------ Urinalysis with Reflex C...[[id number]] Normal Final result Extra Urine Samano Tube[[id number]] In process Please view results for these tests on the individual orders. EXTRA URINE SAMANO TUBE CT abdomen pelvis wo IV contrast Final Result 4 mm proximal left ureteral calculus with hydronephrosis. There is a 5 mm nonobstructing calculus in the right kidney. Findings consistent with old colitis. Signed by Camron Lam MD Procedures Medical Decision Making Differential diagnosis include UTI pyelonephritis renal calculi renal colic. Patient received Toradol 30 mg IV as well as Zofran 4 mg intravenously and 0.5 mg of Dilaudid for pain he had a complete workup including CT scan and blood work and urinalysis at this time. Since urinalysis was normal lipase was normal liver function testing was also normal. Bolick panel INR white blood count were all normal also. CT scan of the abdomen showed a left proximal 4 mm ureteral stone with hydro there is other 5 mm stone in the right kidney. Patient required additional 0.5 mg of Dilaudid was pain-free Dr. Rocha was contacted will see the patient tomorrow in the office patient already has Zofran and Percocet at home. Diagnoses as of 09/07/231456 Left ureteral calculus Hydronephrosis with renal and ureteral calculus obstruction Renal colic Dionisio Jade MD 09/07/231456 documented in this encounter [facility] Work Phone: 09-07-2023 Physician Emergency department Note Chief Complaint: LEFT FLANK/ABD PAIN This is a 57-year-old male who had multiple renal calculi bilaterally but has had renal calculi that has caused obstruction in the ureter on the left mostly he states this episode started several days ago and persisted and worsened despite taking [id number] pain meds he denies any vomiting although he had some episodes of being nauseated denies any hematuria and presents now for evaluation of a possible kidney stone Review of Systems Constitutional: Negative. HENT: Negative. Respiratory: Negative. Cardiovascular: Negative. Gastrointestinal: Positive for abdominal pain and nausea. Negative for blood in stool. Genitourinary: Positive for flank pain. Musculoskeletal: Positive for myalgias. Skin: Negative for rash. Neurological: Negative for dizziness and numbness. Hematological: Negative. Psychiatric/Behavioral: Negative. All other systems reviewed and are negative. Physical Exam Vitals reviewed. Constitutional: Appearance: Normal appearance. Comments: Mild to moderate discomfort currently HENT: Head: Normocephalic and atraumatic. Nose: Nose normal. Mouth/Throat: Mouth: Mucous membranes are moist. Pharynx: Oropharynx is clear. Eyes: Conjunctiva/sclera: Conjunctivae normal. Pupils: Pupils are equal, round, and reactive to light. Cardiovascular: Rate and Rhythm: Normal rate. Pulses: Normal pulses. Heart sounds: No murmur heard. Pulmonary: Effort: Pulmonary effort is normal. Breath sounds: Normal breath sounds. Abdominal: General: There is no distension. Tenderness: There is left CVA tenderness. There is no right CVA tenderness, guarding or rebound. Musculoskeletal: General: Normal range of motion. Cervical back: Normal range of motion and neck supple. Skin: General: Skin is warm and dry. Capillary Refill: Capillary refill takes less than 2 seconds. Findings: No rash. Neurological: General: No focal deficit present. Mental Status: He is alert and oriented to person, place, and time. Psychiatric: Mood and Affect: Mood normal. Labs Reviewed BASIC METABOLIC PANEL - Normal Result Value Glucose 98 Sodium 136 Potassium 3.6 Chloride 103 Bicarbonate 26 Anion Gap 11 Urea Nitrogen 20 Creatinine 1.26 eGFR 67 Calcium 8.8 LIPASE - Normal Lipase 22 Narrative: Venipuncture immediately after or during the administration of Metamizole may lead to falsely low results. Testing should be performed immediately prior to Metamizole dosing. HEPATIC FUNCTION PANEL - Normal Albumin 4.1 Bilirubin, Total 0.6 Bilirubin, Direct 0.1 Alkaline Phosphatase 48 ALT 35 AST 31 Total Protein 6.6 PROTIME-INR - Normal Protime 10.4 INR 0.9 APTT - Normal aPTT 30 Narrative: The APTT is no longer used for monitoring Unfractionated Heparin Therapy. For monitoring Heparin Therapy, use the Heparin Assay. URINALYSIS WITH REFLEX CULTURE AND MICROSCOPIC - Normal Color, Urine Straw Appearance, Urine Clear Specific [place], Urine 1.011 pH, Urine 6.0 Protein, Urine NEGATIVE Glucose, Urine NEGATIVE Blood, Urine NEGATIVE Ketones, Urine NEGATIVE Bilirubin, Urine NEGATIVE Urobilinogen, Urine <2.0 Nitrite, Urine NEGATIVE Leukocyte Esterase, Urine NEGATIVE CBC WITH AUTO DIFFERENTIAL WBC 8.9 nRBC 0.0 RBC 4.53 Hemoglobin 14.1 Hematocrit 41.1 MCV 91 MCH 31.1 MCHC 34.3 RDW 12.9 Platelets 210 Neutrophils % 70.2 Immature Granulocytes %, Automated 0.3 Lymphocytes % 16.8 Monocytes % 11.0 Eosinophils % 1.5 Basophils % 0.2 Neutrophils Absolute 6.25 Immature Granulocytes Absolute, Automated 0.03 Lymphocytes Absolute 1.50 Monocytes Absolute 0.98 Eosinophils Absolute 0.13 Basophils Absolute 0.02 URINALYSIS WITH REFLEX CULTURE AND MICROSCOPIC Narrative: The following orders were created for panel order Urinalysis with Reflex Culture and Microscopic. Procedure Abnormality Status --------- ------ Urinalysis with Reflex C...[[id number]] Normal Final result Extra Urine Samano Tube[[id number]] In process Please view results for these tests on the individual orders. EXTRA URINE SAMANO TUBE CT abdomen pelvis wo IV contrast Final Result 4 mm proximal left ureteral calculus with hydronephrosis. There is a 5 mm nonobstructing calculus in the right kidney. Findings consistent with old colitis. Signed by Camron Lam MD Procedures Medical Decision Making Differential diagnosis include UTI pyelonephritis renal calculi renal colic. Patient received Toradol 30 mg IV as well as Zofran 4 mg intravenously and 0.5 mg of Dilaudid for pain he had a complete workup including CT scan and blood work and urinalysis at this time. Since urinalysis was normal lipase was normal liver function testing was also normal. Bolick panel INR white blood count were all normal also. CT scan of the abdomen showed a left proximal 4 mm ureteral stone with hydro there is other 5 mm stone in the right kidney. Patient required additional 0.5 mg of Dilaudid was pain-free Dr. Rocha was contacted will see the patient tomorrow in the office patient already has Zofran and Percocet at home. Diagnoses as of 09/07/23 1457 Left ureteral calculus Hydronephrosis with renal and ureteral calculus obstruction Renal colic Dionisio Jade MD 09/07/23 1457 [facility] Work Phone: 08-23-2023 History of Present illness Narrative Virtual or Telephone Consent An interactive audio and video telecommunication system which permits real time communications between the patient (at the originating site) and provider (at the distant site) was utilized to provide this telehealth service. Verbal consent was requested and obtained from Ashley Block on this date, 08/23/23 for a telehealth visit. Subjective Patient ID: Ashley Block is a 57 y.o. male. HPI Patient is here for Lasix renal scan and PSA results. He was seen in [facility] on 06/01 for left flank pain. CT was done which showed chronic left sided hydro likely related to stricutre at [facility] and single tiny nononbstructing stone in left kidney and right kidney. Hx of kidney stones. Lasix renal scan showed no obstruction. Chronic BPH sx are mild and stable. Denies urgency and frequency. Denies dysuria. Denies hematuria. Nocturia x1. No medication for LUT'S. Most recent PSA was 0.31 08/10. Prior PSA was 0.54 on 08/09. Cr 1.04 06/12 ED is mild. Cialis is helpful Review of Systems Constitutional: Negative for chills and fever. HENT: Negative. Eyes: Negative. Respiratory: Negative for cough and shortness of breath. Cardiovascular: Negative for chest pain and leg swelling. Gastrointestinal: Negative for nausea. Endocrine: Negative. Genitourinary: Negative for difficulty urinating. Negative except for documented in HPI Allergic/Immunologic: Negative. Neurological: Alert & oriented X 3 Hematological: Denies blood thinners Psychiatric/Behavioral: Negative. Objective Physical Exam No PE done given the virtual nature of visit. Assessment/Plan Diagnoses and all orders for this visit: Erectile dysfunction, unspecified erectile dysfunction type Benign prostatic hyperplasia with lower urinary tract symptoms, symptom details unspecified Nocturia CT and Lasix renal scan reviewed Flexeril Rx given-[facility] Stone prevention discussed. Diet reviewed. Discussed fluid intake All available PSA values reviewed, Options discussed. Questions answered. Diet changes for prostate health discussed and educational information given. Pros/Cons of prostate health supplements discussed. Treatment options for LUTS reviewed Discussed timed voiding. Discussed fluid and caffeine intake Treatment options for ED reviewed. Cialis Rx given-[facility] Lifestyle change to help prevent UTIs discussed. Encouraged fluid intake. F/U 6 months with KUB documented in this encounter [facility] Work Phone: 03-10-2023 History of Present illness Narrative Subjective Patient ID: Ashley Block is a 57 y.o. male who presents for Sore Throat (Sore throat and sinus drainage x 1 week. Hx of left carotid artery surgery right neck on Wednesday.). HPI Patient presents for sore throat. Patient presented here as a new patient in early January. He was complaining at that time of changes in vision on the right eye. The patient did follow-up with ophthalmology as recommended and the eye exam was unremarkable. However, the karate teacher ordered a carotid ultrasound and this showed more than 70% blockage. Patient then underwent endarterectomy just a few days ago. The procedure was well-tolerated without complication. Patient reports sore throat since that time. Patient does have right-sided facial and tongue paresthesias for now. No fever or chills reported. Review of Systems Constitutional: See HPI ENT: See HPI Cardiovascular: See HPI Neurologic: Alert and oriented X4, No numbness, No tingling. All other systems are negative Objective BP 112/76 Pulse 67 Temp 36.3 C (97.3 F) (Temporal) Ht 1.803 m (5' 11) Wt 85 kg (187 lb 8 oz) SpO2 97% BMI 26.15 kg/m Physical Exam General: Alert and oriented, No acute distress. Eye: Pupils are equal, round and reactive to light, Normal conjunctiva. HENT: Normocephalic, uvula is edematous and erythematous as is the glossopharyngeal arch; possible white plaques noted though the exam is compromised by the patient's ability to open his mouth this early after surgery compounded by facial and tongue paresthesias Neck: Supple Respiratory: Respirations are non-labored Musculoskeletal: Normal ROM and strength Integumentary: Warm, Dry, Intact, No pallor, No rash. Neurologic: Alert, Oriented, Normal sensory, Cranial Nerves II-XII are grossly intact Psychiatric: Cooperative, Appropriate mood & affect. Assessment/Plan Uvulitis: Augmentin and nystatin. Patient was started on Plavix and atorvastatin after the procedure. Patient will continue to follow with cardiovascular surgery as scheduled. Follow-up here as scheduled or as needed. Problem List Items Addressed This Visit None Visit Diagnoses Uvulitis - Primary Relevant Medications nystatin (Mycostatin) 100,000 unit/mL suspension amoxicillin-pot clavulanate (Augmentin) 875-125 mg tablet Final diagnoses: [K12.2] Uvulitis documented in this encounter [facility] Work Phone: 03-02-2023 Progress note Note Date/Time March 02, 2023 11:59am [facility] Medical Records Department [facility] [place] [address] [address] Progress Note - Surgery 03/02/23 1157 MR#: [id number] Acct: [id number] Name: ASHLEY BLOCK Rep #:[id number] : 1965 57 From: Linda NDIAYE PCP: ZELDA Gallagher Status:ADM IN Location: ICU CVICU20 2-1 Subjective Subjective Patient was seen at bedside this morning. Overnight, he had R jaw pain but this has improved. He does have numbness along the incision extending to the R earlobe and feels like the right side of his tongue is slightly numb. His tongueis midline, no weakness, no facial droop or dysarthria, no excessive pain at theincision site, and no headache. He has had decreasing amount of drainage from the CASTRO drain overnight. He has been able to void without issue. He is toleratingadvances in diet. He has not ambulated much yet. Objective Data Objective Data Vital Signs: Vital Signs Temp Pulse Resp BP Pulse Ox O2 Del Method 97.9 F 72 17 114/78 96 Room Air 03/02/23 08:00 03/02/23 11:00 03/02/23 11:00 03/02/23 11:00 03/02/23 11:00 03/02/23 11:00 Oxygen Delivery Method Room Air Weight: 194 lb 7.163 oz Body Mass Index (BMI) 27.2 Intake & Output: Intake and Output for Last 24 Hours 02/28/23 03/01/23 03/02/23 23:59 23:59 23:59 Intake Total 3454.08 / 3454.08 400 / 400 Output Total 940 / 940 1530 / 1530 Balance 2514.08 / 2514.08 -1130 / -1130 Lab / Micro Data 03/02/23 04:50 Labs: Laboratory Results - last 24 hr 03/02/23 04:50: WBC 11.3 H, RBC 4.13 L, Hgb 12.8 L, Hct 37.8 L, MCV 91.5, MCH 31.0, MCHC 33.9, RDW Std Deviation 41.2, RDW Coeff of Pedro 12.3, Plt Count 258, MPV 9.6, Immature Gran % (Auto) 0.400, Neut % (Auto) 79.8 H, Lymph % (Auto) 10.5L, [place] % (Auto) 9.1, Eos % (Auto) 0.0, Baso % (Auto) 0.2, Absolute Neuts (auto)9.1 H, Absolute Lymphs (auto) 1.19, Nucleated RBC % 0 Physical Exam Const alert, oriented x3 and no apparent distress General Appearance: cooperative and comfortable HEENT normocephalic, head/scalp atraumatic, hearing grossly normal bilaterally and external ears normal Eyes EOMs intact bilaterally General Eye: normal appearance of both eyes Neck Neck Narrative: R neck incision site with post-operative dressings and CASTRO drain in place. Resp normal respiratory effort, normal air movement, no retractions and no use of accessory muscles Effort and Inspection: able to speak in complete sentences Cardio regular rate and regular rhythm Extremity no clubbing, cyanosis or edema Skin no rashes or lesions noted Trauma: no lacerations or abrasions Neuro Neuro Narrative: Numbness as noted in HPI otherwise neurologically intact Psych mental status grossly normal Appearance: grossly normal Attitude: calm and engaged Activity / Motor Behavior: appropriate eye contact Speech: normal speech Mood & Affect: euthymic mood Assessment & Plan Assessment/Plan (1) Symptomatic stenosis of right carotid artery without infarction: PLAN: Plan He is s/p R CEA POD#1. He has remained hemodynamically and neurologically stable. His pain is well controlled. No issues with voiding. Due to length of plaque and amount of inflammation/inflammatory tissue, did require greater amount of dissection/retraction during surgery so his numbness and jaw pain is not surprising, expect it to improve with time. Incision site with expected amount of swelling, no significant ecchymosis, redness, warmth. CASTRO drain left in place for the remainder of the morning, will remove in the afternoon. Advance to normal diet. Plan to be up to the chair and ambulate. If he tolerateswell, anticipate discharge this afternoon. 03/02/23 1219 <Electronically signed by Linda NDIAYE> Cosigner Signature (if applicable): 03/02/23 1346 <Electronically signed by Tucker Ferrer MD> CC: ~ Signed [facility] Work Phone: 1(201) 278-316611-13-2023 Procedure [facility] 03-01-2023 History and physical note Author Tucker Ferrer [facility] March 01, 2023 7:24am Note Date/Time March 01, 2023 7:24am [facility] Medical Records Department [address] [place] [address] History & Physical Exam 03/01/23722 MR#: [id number] Acct: [id number] Name: ASHLEY BLOCK Rep #:[id number] : 1965 57 From: Tucker Ferrer MD PCP: Dr. Calista Cavazos, DO Status:AD M IN Location: [facility] AC-TB A-1 History and Physical Allergies Iodinated Contrast Media [CONTRASTS] Allergy (Intermediate, Verified 02/04/23 14:34) SwellingOpioids - Morphine Analogues Adverse Reaction (Severe, Verified 02/04/23 14:34) Nausea/Vom/Diarrhea Medications omega-3 fatty acids-fish oil 340 mg-1,000 mg capsule (Fish Oil) 1 ea PO DAILY 10/01/14 [History Confirmed 02/04/23] ondansetron 4 mg disintegrating tablet 4 mg PO Q8H PRN PRN Nausea #10 tabs 10/01/14 [Rx Confirmed 02/04/23] oxycodone-acetaminophen 5 mg-325 mg tablet 1 - 2 tab PO Q4H PRN PRN Pain #20 tabs 10/01/14 [Rx Confirmed 02/04/23] tamsulosin 0.4 mg capsule 0.4 mg PO DAILY 10 days 10/01/14 [Rx Confirmed 02/04/23] atorvastatin 80 mg tablet (Lipitor) 80 mg PO QHS #90 tabs 02/04/23 [Rx Confirmed 02/04/23] clopidogrel 75 mg tablet (Plavix) 75 mg PO DAILY #60 tabs 02/04/23 [Rx Confirmed 02/04/23] prednisone 50 mg tablet 50 mg PO Q6H 3 doses #3 tabs 02/04/23 [Rx Confirmed 02/04/23] PFSH Surgical History H/O lithotripsy Family History Mother Breast cancer Diabetes Social History Smoking Status: Never smoker HPI HPI HPI: ASHLEY BLOCK, is a 57 M who presents to the office today for evaluation of right carotid stenosis. He initially had right eye amarosis fugax back in the spring, only lasted a few seconds before resolving. Didnt think it was serious and did not seek medical attention. Occurred again a few months ago in right eye, same duration. Shortly after this he was seeing his PCP for hiatal hernia symptoms and mentioned events. This prompted ophthalmology eval and ultimately carotid duplex that revealed 70-99% stenosis on the right. At the time he was not on any antiplatelet or statin. Now on 81 ASA daily. No associated numbness/weakness/speech difficulty. No cardiac history, no CP/SOB with activity. Had reaction to IV contrast about 16 years ago; facial tingling/blushing. No exposures to contrast since that time. ROS General General: No weight change, appetite, fatigue, colon cancer, breast cancer or weakness HEENT HEENT: No difficulty swallowing, eye injury, eye surgery, swollen glands or hoarseness Endo Endocrine: No thyroid disease, diabetes mellitus, thyroid cancer, Hair loss, heat intolerance or cold intolerance Skin Skin: No rash or changing moles Musc Musculoskeletal: No back problems, arthritis, rheumatoid arthritis, gout or joint pain Cardio Cardiovascular: Yes high blood pressure; No murmur, pacemaker, heart disease, atrial fibrillation, heart attack, heart stent, palpitations, shortness of breat with exertion or chest pain Psych Psychiatric: No depression, anxiety or hearing voices Resp Respiratory: No shortness of breath, No sleep apnea, No cough, No COPD, No asthma, No emphysema and No wheezing Gastro Gastrointestinal: No abdominal pain, No nausea or vomiting, No diarrhea, No constipation, No blood in stool, Yes acid reflux, No hemorrhoids, No ulcers, No gallbladder problem and No black,tarry stools Alejo Hematologic: No blood thinners, No blood disorders, No bleeding, No anemia and No blood clots Neuro Neurologic: No system reviewed and no additional complaints, except as documented, No as per HPI, No abnormal gait, No abnormal hearing, No abnormal movements, No abnormal speech, No behavioral changes, No burning sensations, No confusion, No convulsions, No disequilibrium, No dizziness, No localized weakness, No frequent falls, No headache(s), No lack of coordination, No loss ofvision, No memory loss, No numbness, No other visual disturbances, No radicular pain, No restless legs, No sensory deficit, No syncope, No tingling, No tremor(s), No weakness and No other Exam Const General: cooperative, healthy appearing, comfortable, no acute distress and welldeveloped Nutritional Appearance: well nourished Orientation: alert, awake and oriented x3 HENMT Head: normocephalic and atraumatic Ears: hearing grossly normal bilaterally Nose: external nose normal Eyes General: appearance normal, both eyes and all related structures EOM: EOM intact bilaterally Neck Neck: normal visual inspection, full ROM, no lymphadenopathy and trachea midline Thyroid: thyroid normal Lymphatic: no lymphadenopathy noted Resp Effort & Inspection: normal respiratory effort, able to speak in complete sentences, symmetric chest movement, no audible wheezes, not labored, no stridorand no use of accessory muscles Auscultation: clear to auscultation bilaterally Cardio Rate: regular rate Rhythm: regular rhythm Heart Sounds: no murmurs Bruits: carotid bruit on the right Pulses: brachial pulses present, radial pulses present, popliteal pulses present, posterior tibial pulses present and dorsalis pedis present Skin General: no rashes or lesions noted and no erythema Wounds: no wounds Neuro Cranial Nerves: CN's II-XI intact bilaterally and EOM intact bilaterally Speech: speech normal Gait: normal gait Motor: strength 5/5 throughout Sensory Exam: no sensory deficits noted Extremities Lower Extremity Edema: None: Bilateral Psych Appearance: grossly normal and well kempt Mental Status: mental status grossly normal Mood: congruent mood Speech and Movement: speech and movement normal Thought Content: normal Judgment: judgment good Coding Level of Care Code Off vis,new,level 4 Diagnoses Symptomatic stenosis of right carotid artery without infarction I65.21 Assessment and Plan Assessment and Plan (1) Symptomatic stenosis of right carotid artery without infarction: Status: Chronic Comment: Duplex- Interpretation Summary Severe (>70%) stenosis right extracranial internal carotid. Moderate (50-69%) stenosis left extracranial internal carotid. Patent and antegrade vertebrals bilaterally. Plan: -severe right carotid with amarosis fugax -right CEA 03/01/23 0724 <Electronically signed by Tucker Ferrer MD> Cosigner Signature (if applicable): CC: Dr. Tucker Ferrer MD; Dr. Calista Cavazos, DO~ Signed [facility] Work Phone: 1(668) 426-790010-04-2023 History of Present illness Narrative* Erik Milton PA-C - 01/20/2023 4:30 PM EDT Subjective Patient ID: Ashley Block is a 57 y.o. male who presents for [facility] (Patient here today to get established as a new patient and states it has been 2 years since seen by PCP./Colonoscopy 10-[address] Dubois in [place], PSA and prostate exam done this year and follows with Dr. Rocha./Patient has kidney stones and follows with Dr. Ahuja.) and Abdominal Pain (Patient having epigastric discomfort that radiates to the right chest area x 2 months. Patient has tried taking Omeprazolewithout success. ). HPI Patient presents to [facility]. Currently, the patient is treated for hypertension ED, and chronic recurrent kidney stones with Cialis, chlorthalidone, losartan, and potassium. Patient had reportedly been eating joe to help prevent kidney stones which was reportedly effective. Change in the patient's hypertensive medicines also reduce the recurrence of kidney stones. Patient currently has 1 on the left and is trying to pass it conservatively. Follow closely with both urology and nephrology. Nephrology was previously running the hypertensive meds. Patient states that kidney stones can occur 3-4 times per year and have allbeen managed with lithotripsy. Patient also reports 2 separate instances of change in vision in the right eye. Patient reports loss of vision in the right upper outer quadrant of the vision that self resolved. Patient deniesany known precipitating event including trauma. Patient has not seen an karate teacher. Patient also reports chronic and worsening epigastric pain. Patient has a known hiatal hernia per EGD sometime ago. Patient had a colonoscopy at that same time. The patient complains of persistent epigastric pain that radiates to the right and to the right chest and shoulder. As stated, the patientwas eating joe to help treat/prevent kidney stones which was exacerbating the pain and this was s topped. Patient states the pain is worse in the morning. No nausea or vomiting reported. No hematemesis or melena. No reported attempt at conservative management outside of taking omeprazole as needed which has been ineffective. Patient has not had screening labs done in some time. Patient reports having cholesterol/lipids drawn at an employer several years ago and states that cholesterol was in the 500s. Patient did not follow-up on this. Review of Systems Constitutional: See HPI Eye: See HPI Respiratory: No shortness of breath, No cough. Cardiovascular: See HPI Gastrointestinal: See HPI Genitourinary: See HPI Musculoskeletal: No decreased range of motion. Integumentary: No rash. Neurologic: Alert and oriented X4, No numbness, No tingling. All other systems are negative Objective BP 104/64 Pulse 83 Temp 36.8 C (98.2 F) (Temporal) Ht 1.803 m (5' 11) Wt 87.6 kg (193 lb 3.2 oz) SpO2 93% BMI 26.95 kg/m Physical Exam General: Alert and oriented, No acute distress. Eye: Pupils are equal, round and reactive to light, Extraocular movements are intact, Normal conjunctiva. HENT: Normocephalic, Normal hearing, Oral mucosa is moist, No pharyngeal erythema, No sinus tenderness. Neck: Supple, Non-tender, No lymphadenopathy. Respiratory: Lungs are clear to auscultation, Respirations are non-labored, Breath sounds are equal Cardiovascular: Normal rate, Regular rhythm. Gastrointestinal: Non-distended. Musculoskeletal: Normal range of motion, Normal strength, No tenderness, No swelling, No deformity,Normal gait. Integumentary: Warm, Dry, Intact, No pallor, No rash. Neurologic: Alert, Oriented, Normal sensory, Normal motor function, No focal deficits, Cranial Nerves II-XII are grossly intact Psychiatric: Cooperative, Appropriate mood & affect. Assessment/Plan Hiatal hernia/right upper quadrant/epigastric pain: Start omeprazole daily. Carafate and Pepcid in the short-term. Patient advised that right upper quadrant pain could also be due to chronic cholecystitis. We will revisit this if the treatment for GERD is ineffective. Patient advised that to reallyascertain the nature of the reflux and hiatal hernia, EGD would be necessary and we can refer for that if needed. Change in vision: Recommend ophthalmology evaluation as soon as possible. Offered referral, this was declined as the patient is not sure which is covered under his plan. Patient will contact office if referral is necessary. Right-sided chest pain: Offered cardiac work-up, this was declined. The history is not consistent with cardiovascular cause but will observe this moving forward. Screening labs including fasting insulin at patient request were ordered. Further recommendations pending results. Follow-up in 1 year or as needed is unless labs dictate otherwise. Problem List Items Addressed This Visit None Visit Diagnoses Gastroesophageal reflux disease with esophagitis without hemorrhage - Primary Relevant Medications omeprazole OTC (PriLOSEC OTC) 20 mg EC tablet sucralfate (Carafate) 100 mg/mL suspension famotidine (Pepcid) 20 mg tablet RUQ pain Relevant Medications omeprazole OTC (PriLOSEC OTC) 20 mg EC tablet sucralfate (Carafate) 100 mg/mL suspension Right-sided chest pain Relevant Orders CBC Comprehensive Metabolic Panel Insulin, Fasting Hemoglobin A1C Lipid Panel Hiatal hernia Healthcare maintenance Relevant Orders CBC Comprehensive Metabolic Panel Insulin, Fasting Hemoglobin A1C Lipid Panel TSH with reflex to Free T4 if abnormal Change in vision History of high cholesterol Final diagnoses: [K21.00] Gastroesophageal reflux disease with esophagitis without hemorrhage [R10.11] RUQ pain [R07.9] Right-sided chest pain [K44.9] Hiatal hernia [Z00.00] Healthcare maintenance [H53.9] Change in vision [Z86.39] History of high cholesterol documented in this [facility] Work Phone: 1(533) 394-719512-04-2022 History of Present illness Narrative* He is here for follow-up secondary to recurrent kidney stones with calcium oxalate stones calcium phosphate stones and CKD with a baseline creatinine of around 1.1-1.3 * Blood work was last completed back on March 22 * At that time hemoglobin is 14.4 * Metabolic panel shows a BUN of 17 and a creatinine of 1.13 the rest of his electrolytes look very good * A Litholink was performed on April 21 * Litholink shows a very good urine volume of 3.5 L * Supersaturation of calcium oxalate is slightly high at 3.39 his urine calcium elevated at 335 * Citrate is 884 calcium phosphate supersaturation is also elevated urine uric acid is elevated pH is6.474 his urine calcium has risen since his last check. * Medications are reviewed and they include a ARB with hydrochlorothiazide, ibuprofen potassium citrate and Flomax * He is feelingwellnow. * No new issues * He had blood in his urine * CT Scan showed a 4 mm stone [facility] Sung 3 DO Work Phone: [phone] 972-832709-28-2022 NoteSend Summary: Discharge Summary Providers: Provider RoleProvider Name New Núñez John Nurse Lang, Calista Almonte Note Recipients: Calista Cavazos MD - [id number] [] Discharge: Summary: Admission Date: .12-Jan-2022 20:08:00 Discharge Date: 14-Jan-2022 Admission Reason: flank pain Final Discharge Diagnoses: UTI (urinary tract infection)/kidney stone Procedures: Date: 13-Jan-2022 14:17:00 Procedure Name: 1. CYSTO L RPG L URETEROSCOPY W KIMMY L STENT Vital Signs: T PRBPMAPSpO2 [id number]/8195% Date/Time01/14 7: 7: 7:5501/14 7:5501/14 7:55 Range(36.7C - 37.9C ) (68 - 86 ) (16 - 18 ) (125 - 157 )/ (81 - 98 ) (92% - 98% ) Highest temp of 37.9 C was recorded at 01/13 16:06 Date: Weight/Scale Type:Height: 12-Jan-2022 20:1688.5 kg 180.3 cm Physical Exam: General Appearance: AAO x 3, not in acute distress Skin: skin color, texture, turgor normal; no suspicious rashes or lesions Eyes : PERRL, EOM's intact, conjunctiva pink ENT: no oral thrush, no pharyngeal erythema or exudates Neck: no JVD, no lymphadenopathy Respiratory: lungs clear to auscultation; no wheezing, rhonchi, or crackles Heart: RRR without murmur, gallop, or rubs, no ectopy Abdomen: Nondistended, positive bowel sounds, soft, nontender Extremities: no edema Peripheral pulses: normal and present x 4 extremities Neuro: alert, coherent and conversant, no focal motor deficits Hospital Course: ASHLEY BLOCK is a 56 year old Male with history of kidney stones presented with left-sided flank pain and back pain 10/10 sharp associated with nausea and vomiting for a day but denies any hematuria or dysuria and has not been drinking or eating well lately found to have elevated creatinine but urinalysis fine. CT abdomen pelvis showing severe left hydronephrosis with 4 mm calculus in proximal left ureter and diffuse submucosal deposition in colon may relate to sequela of chronic inflammatory process. Urology consulted. No other signs of infection. No headache or focal weakness. No chest pain or shortness of breath or palpitations or dizziness or leg swelling. No skin rash or joint pains. No body aches or muscle aches. No appetite change or weight loss. PLAN: patient having urology surgery today, will monitor for any post-op complications patient also has elevated creatinine, will recheck in the morning anticipate d/c home today pain -continue tylenol -continue dilaudid continue rocephin gerd -continue pepcid htn -continue hydralazine nausea -continue zofran dispo: d/c home today Discharge Information: and Continuing Care: Lab Results - Pending: None Radiology Results - Pending: None Discharge Instructions: Activity: activity as tolerated. May shower.. May return to school/work. May drive.. Nutrition/Diet: resume normal diet Diet Consistency/Texture: regular / thin Additional Orders: Additional Instructions: discharge plan patient to be discharged home FU with PCP within one week of discharge FU with dr rocha within two weeks fo KUB and stent removal resume home medications call 911 or go to nearest ED if symptoms worsen/persist use tylenol or ibuprofen for pain as needed Follow Up Appointments: Follow-Up Appointment 01: Physician/Dept/Service: primary care physician Reason for Referral: post hospitalization Follow-Up Appointment 02: Physician/Dept/Service: dr rocha Reason for Referral: kub and stent removal Call to Schedule in: 1 week Discharge Medications: Home Medication candesartan-hydrochlorothiazide 32 mg-25 mg oral tablet - 1 tab(s) orally once a day Calcium 600+D oral tablet - 1 tab(s) orally once a day POTASSIUM CITRATE ER 15 MEQ TB - 1 tab(s) orally 2 times a day PRN Medication DNR Status: Code StatusCode Status order at time of discharge: Full Code Electronic Signatures: Michelle Brewer (FAMILY RESOURCE SPECIALIST-TURNTABLE WORKER) (Signed 28-Sep-2022 12:29) Authored: Send Summary, Summary Content, Ongoing Care, DNR Status, Note Completion Last Updated: 14-Jan-2022 12:29 by Michelle Brewer (FAMILY RESOURCE SPECIALIST-TURNTABLE WORKER)[facility]09-27-2022 NotePROCEDURE DETAILS Preoperative Diagnosis: Calculus of left kidney, N20.0 Postoperative Diagnosis: Calculus of left kidney, N20.0 Surgeon: Dionisio Rocha Resident/Fellow/Other Head Mixer: None of these were associated with this case Procedure: 1. CYSTO L RPG L URETEROSCOPY W KIMMY L STENT Anesthesia: No anesthesiologist associated with this case Estimated Blood Loss: 0 Findings: see op note Specimens(s) Collected: no, Operative Report: Preoperative diagnosis: Left ureteral stone Postoperative diagnosis: The same Physician: Carlton Procedure: Cystoscopy with Left RPG, Left ureteroscopy with holmium and stent placement ESTIMATED BLOOD LOSS: Minimal. COMPLICATIONS: None. INDICATIONS AND CONSENT: After the risks, benefits, alternatives and indications of this procedure were explained to the patient consented. PROCEDURE: The patient was brought to the operating room, placed on the table in supine position. After adequate anesthesia was obtained, the patient was prepped and draped in the standard surgical fashion. First, a 21 Lao cystoscope was inserted into the bladder, and formal cystoscopy was performed. A guidewire was placed up the ureter into the renal pelvis using fluoroscopic guidance . A left retrograde pyelogram suggested a filling defect in the ureter. The ureteroscope was taken up to the level of the stone. The stone was visualized and Holmium laser was used to break up the stone. The stone fragment were unable to be extracted, we then shot a retrograde pyelogram which did not show any obvious filling defects or additional stones in the ureter. The ureteroscope was removed and a 5 x 24 double-J stent was placed under direct fluoroscopic vision. The patient tolerated the procedure well and there were no complications. follow up with KUB Attestation: Note Completion: Attending AttestationI performed the procedure without a resident Electronic Signatures: Dionisio Rocha) (Signed 13-Jan-2022 14:20) Authored: Post-Operative Note, Chart Review, Note Completion Last Updated: 13-Jan-2022 14:20 by Dionisio Rocha)[facility] 01-13-2022 NoteHistory & Physical Reviewed: I have reviewed the History and Physical dated: 13-Jan-2022 History and Physical reviewed and relevant findings noted. Patient examined to review pertinent physical findings.: No significant changes Home Medications Reviewed: no changes noted Allergies Reviewed: no changes noted ERAS (Enhanced Recovery After Surgery): ERAS Patient: no Consent: COVID-19 Consent: COVID-19 Risk ConsentSurgeon has reviewed pena risks related to the risk of jovon COVID-19 and if they contract COVID-19 what the risks are. Electronic Signatures: Dionisio Rocha) (Signed 13-Jan-2022 08:11) Authored: History & Physical Reviewed, ERAS, Consent, Note Completion Last Updated: 13-Jan-2022 08:11 by Dionisio Rocha)[facility] 01-13-2022 NoteHistory of Present Illness: HPI: ASHLEY BLOCK is a 56 year old Male with history of kidney stones presented with left-sided flank pain and back pain 10/10 sharp associated with nausea and vomiting for a day but denies any hematuria or dysuria and has not been drinking or eating well lately found to have elevated creatinine but urinalysis fine. CT abdomen pelvis showing severe left hydronephrosis with 4 mm calculus in proximal left ureter and diffuse submucosal deposition in colon may relate to sequela of chronic inflammatory process. Urology consulted. No other signs of infection. No headache or focal weakness. No chest pain or shortness of breath or palpitations or dizziness or leg swelling. No skin rash or joint pains. No body aches or muscle aches. No appetite change or weight loss. Past medical history Hypertension Kidney stones Social history Denies smoking or alcohol or drugs Family history reviewed with patient and not pertinent to HPI Review of system All 12 point review system negative stated HPI Comorbidities: Comorbidites Comorbid Conditionshypertension Social History: Social History Smoking Statusnever smoker (1) Alcohol UseRare use of alcohol.(1) Drug Usedenies (1) Allergies: contrast (specific type unknown): Unknown morphine: Unknown Medications Prior to Admission: Admission Medication Reconciliation has not been completed for this patient. Objective: Objective Information: T PRBPMAPSpO2 [id number]/[id number]% Date/Time01/12 20:169/ 22:019 22: 22:019 22:01 Range(36.6C - 36.6C ) (81 - 85 ) (16 - 18 ) (143 - 167 )/ (103 - 106 ) (95% - 95% ) Pain reported at 01/12 22:01: 5 = Moderate Physical Exam by System Constitutional: Well developed, awake/alert/oriented x3, no distress, alert and cooperative Eyes: PERRL, EOMI, clear sclera ENMT: mucous membranes moist, no apparent injury, no lesions seen Head/Neck: Neck supple, no apparent injury, thyroid without mass or tenderness, No JVD, trachea midline, no bruits Respiratory/Thorax: Patent airways, CTAB, normal breath sounds with good chest expansion, thorax symmetric Cardiovascular: Regular, rate and rhythm, no murmurs, 2+ equal pulses of the extremities, normal S 1and S 2 Gastrointestinal: Nondistended, soft, tender, no rebound tenderness or guarding, no masses palpable, no organomegaly, +BS, no bruits Musculoskeletal: ROM intact, no joint swelling, normal strength Extremities: normal extremities, no cyanosis edema, contusions or wounds, no clubbing Neurological: alert and oriented x3, intact senses, motor, response and reflexes, normal strength Lymphatic: No significant lymphadenopathy Psychological: Appropriate mood and behavior Skin: Warm and dry, no lesions, no rashes Medications Medications: Continuous Medications 1. Sodium Chloride 0.9% Infusion: 1000 mL IntraVenous Scheduled Medications 1. cefTRIAXone 1 gram/ Dextrose 5% IVPB Premixed Soln 50 mL: 50 mL IntraVenous Piggyback Every 24 Hours 2. hydrALAZINE (APRESOLINE) Injectable: 10 mg IntraVenous Push Every 4 Hours PRN Medications 1. Acetaminophen: 650 mg Oral Every 4 Hours 2. HYDROmorphone Injectable: 2 mg IntraVenous Push Every 4 Hours 3. HYDROmorphone Injectable: 0.2 mg IntraVenous Push Every 4 Hours 4. HYDROmorphone Injectable: 0.5 mg IntraVenous Push Every 4 Hours 5. Ondansetron Injectable: 4 mg IntraVenous Push Every 4 Hours 6. Sodium Chloride 0.9% Injectable Flush: 10 mL IntraVenous Flush Every 8 Hours and as Needed 7. Sodium Chloride 0.9% Injectable Flush: 10 mL IntraVenous Flush Every 8 Hours and as Needed Recent Lab Results Results: CBC: 01/12/2022 20:42 \ Hgb / \ 14.7 / WBC Plt 11.0 235 / Hct \ / 43.4 \ RBC: 4.80 MCV: 90 Neutrophil %: 81.2 CMP: 01/12/2022 20:42 NA+ Cl- BUN / 136 102 19 / Glucose 112 H K+ HCO3- Creat \ 3.8 24 1.56 H \ \ T Bili / \ 0.4 / AST x ---- x ALT 20 x ---- x 26 / Alk P \ / 52 \ Calcium : 9.1 Anion Gap : 14 Albumin : 4.4 T Protein : 7.3 Radiology Results Results: Impression: Severe left hydronephrosis with 4 mm calculus in the proximal left ureter. 5 mm and 3 mm nonobstructive right renal calculi. Diffuse submucosal deposition in the colon which may relate to sequela of chronic inflammatory process. CT Abdomen and Pelvis without Contrast [Jan 12 2022 9:18PM] Assessment and Plan: Assessment: 56-year-old male with history of hypertension, kidney stones presented with severe left hydronephrosis with left ureteral stone, JUAN due to obstruction Plan N.p.o. after midnight Follow urology recommendations for stent placement Empiri (more content not included)...[place] [address]-21-2022 History of Present illness Narrative* He is here for a 1 year follow-up visit * He is here for follow-up secondary to recurrent nephrolithiasis. * His last blood work was drawn on October 07, 2021 * CBC shows a hemoglobin of 15.1 * Metabolic panel glucose is 122 his electrolytes look normal BUN is 14 with a creatinine of 1.19 [place] mated GFR is 72 urinalysis showed positive blood otherwise his UA was unremarkable and bland * Medications include candesartan, ibuprofen, potassiums citrate, Bactrim and tadalafil * On the he was in the emergency room for a recurrent kidney stone * Previous to that he had not had any in quite some time * he is feeling well since then. No new issues. * Tolerating meds well. [facility]lpbgvdj-QNEW[facility] Sung 3 DO Work Phone: [phone]) [phone] History of Present illness NarrativePatient is here for 6 week f/u. Last visit patient was seen for chronic prostatitis. He was given Bactrim and NSAIDS He states this didn't t help much.. He is having intermittent rectal pain. He states over the past 5 weeks he has been having chest pain and face flushing. Chronic BPH sx are mild and stable. Denies urgency and frequency. Denies dysuria. Denies hematuria. Nocturia x1. No medicationfor the prostate. Hx of kidney stones. S/P left ureteroscopy on 08/2019. Pt. states he has flank pain daily. It is intermittent..Denies N/V and F/C.Pt sees Dr. Ahuja....US on 08/26/20 showed several nonobstructing right renal stones. Most recent PSA was 0.3 on 08/2020.YZ-Eizqcyp-Ncbnjzc Work Phone: Discharge summary Author Tucker Ferrer [facility] March 02, 2023 1:46pm Note Date/Time March 02, 2023 1:03pm [facility] Medical Records Department [address] [place] [address] Discharge Summary 03/02/23 1244 MR#: [id number] Acct: [id number] Name: ASHLEY BLOCK Rep #:[id number] : 1965 57 From: Linda NDIAYE PCP: ZELDA Gallagher Status:ADM IN Location: ICU CVICU20 2-1 Providers Date of Admission: 03/01/23 Primary Care Physician: ZELDA Gallagher Reason For Visit: Carotid Endarterectomy Diagnosis Discharge Diagnosis (1) Symptomatic stenosis of right carotid artery without infarction: Status: Chronic Code(s): I65.21 - Occlusion and stenosis of right carotid artery Medications at Discharge Home Medications atorvastatin 80 mg tablet (Lipitor) 80 mg PO QHS CHOLESTEROL #90 tabs 02/04/23 clopidogrel 75 mg tablet (Plavix) 75 mg PO DAILY BLOOD THINNER #60 tabs 02/04/23 aspirin 81 mg capsule 81 mg PO DAILY BLOOD THINNER 02/16/23 chlorthalidone 25 mg tablet 25 mg PO DAILY BP 02/16/23 losartan 50 mg tablet 50 mg PO DAILY BP 02/16/23 potassium citrate 15 mEq (1,620 mg) tablet,extended release 15 meq PO BID SUPPLEMENT 02/16/23 tadalafil 20 mg tablet 20 mg PO PRN ED 02/16/23 oxycodone 5 mg tablet 5 mg PO Q8H PRN PRN Pain Score 4-10 3 days #9 tabs 03/02/23 Hospital Course Operations - (R CEA) Summary of Care Provided Hospital Course: Mr. Block underwent right carotid endarterectomy by Dr. Ferrer on 03/01/2023. He tolerated the procedure well and was routinely admitted to the ICU for neurologic and hemodynamic monitoring postoperatively. He has had some numbness around the incision site and involving his R ear, but otherwise has remained neurologically intact without any facial drooping, dysarthria, tongue deviation,voice hoarseness, weakness. He has remained hemodynamically stable. CASTRO drain haddecreasing amount of drainage throughout the morning and was removed this afternoon without issue. The incision site has expected moderate swelling without any excessive tenderness, warmth, ecchymosis, erythema. The incision hassurgical glue overlying which is intact, no dehiscence or drainage. He denies any RICKETTS, CP, SOB, N/V, F/C. He has been able to void without issues, tolerate a full diet, ambulate without difficulty. He is medically stable and himself feelsready for discharge. Discharge instructions were discussed with both the patientand his , the acknowledged understanding of all instructions as well as return precautions. He is discharged to home in stable condition. He has outpatient follow-up scheduled in our office on 03/23/2023 with understanding tocall or present sooner with any concerns. Physical Exam Const alert, oriented x3 and no apparent distress General Appearance: cooperative and comfortable HEENT normocephalic, head/scalp atraumatic, hearing grossly normal bilaterally and external ears normal Eyes EOMs intact bilaterally General Eye: normal appearance of both eyes Neck Neck Narrative: R neck incision site with surgical glue intact, skin edges well approximated. Expected moderate diffuse swelling at the surgical site. No ecchymosis, bleeding, drainage, foul odor, erythema, warmth. Resp normal respiratory effort, normal air movement, no retractions and no use of accessory muscles Effort and Inspection: able to speak in complete sentences Cardio regular rate and regular rhythm Extremity no clubbing, cyanosis or edema Skin no rashes or lesions noted Trauma: no lacerations or abrasions Neuro Neuro Narrative: Numbness as noted in HPI otherwise neurologically intact Psych mental status grossly normal Appearance: grossly normal Attitude: calm and engaged Activity / Motor Behavior: appropriate eye contact Speech: normal speech Mood & Affect: euthymic mood Weight / BMI Weight Weight: 194 lb 7.163 oz Body Mass Index (BMI) 27.2 ABG / Lab / Microbiology Data 03/02/23 04:50 Laboratory: Laboratory Results - last 24 hr 03/01/23 08:18: Activated Clotting Time 143 H 03/01/23 09:28: Activated Clotting Time 317 H 03/01/23 10:06: Activated Clotting Time 257 H 03/01/23 10:41: Activated Clotting Time 233 H 03/02/23 04:50: WBC 11.3 H, RBC 4.13 L, Hgb 12.8 L, Hct 37.8 L, MCV 91.5, MCH 31.0, MCHC 33.9, RDW Std Deviation 41.2, RDW Coeff of Pedro 12.3, Plt Count 258, MPV 9.6, Immature Gran % (Auto) 0.400, Neut % (Auto) 79.8 H, Lymph % (Auto) 10.5L, [place] % (Auto) 9.1, Eos % (Auto) 0.0, Baso % (Auto) 0.2, Absolute Neuts (auto)9.1 H, Absolute Lymphs (auto) 1.19, Nucleated RBC % 0 D/C Instructions Discharge Diet: No restrictions May shower in (days): 1 Weight Bearing Status: Weight bearing as tolerated Lifting Restricted to (Lbs): 20 Lifting Restrictions: Do not lift greater than 20 pounds for 3 weeks Call your doctor if your incision/area has: Sudden Increased Bleeding, IncreasedPain/ Swelling, Increased Redness and Foul Smelling Discharge Call your doctor if you observe: Fever of 101 or Higher and Uncontrolled pain Additional Instructions: You have a small bandage over the site from which the surgical drain was removed. You may remove this bandage tomorrow. As long as there is no residual drainage, you may leave this open to air. If you do notice some continued drainage, you may re- cover with a Band-Aid. Your incision site is covered with surgical glue which will continue to protect it. The surgical glue will peel/flake off on its own over the next few weeks. Please do not pick at it. You may shower tomorrow. It is okay for soap and water to rinse over the incision site, pat to dry. Do not submerge the incision site in water such as to take a bath or go [facility]. for 3 weeks. Do not lift greater than 20 pounds for 3 weeks. Otherwise, please continue withactivity as tolerated. Do not drive until you can turn your head well enough to safely check your blindspots. I have prescribed a prescription pain medication oxycodone 5 mg tablets to be taken by mouth every 6 hours as needed for pain. This is an opioid pain medication and is to be taken only as directed as needed. Do not take in combination with any other prescription pain medications. You may take this in addition to Tylenol or ibuprofen as allowed. Your follow-up appointment is scheduled for 03/23/2023. If you need to rescheduleor have any questions/concerns then please contact the office at [phone]. Please Follow Up With: Linda Shane PA When: 03/23/2023 Meaningful Use Info Meaningful Use Diagnoses (Choose all that apply): None applicable Discharge Plan Admission Admit Date/Time: 03/01/23 05:31 Attending Provider: Tucker Ferrer Primary Care Provider: Erik Milton Instructions Additional Instructions / Restrictions: You have a small bandage over the site from which the surgical drain was removed. You may remove this bandage tomorrow. As long as there is no residual drainage, you may leave this open to air. If you do notice some continued drainage, you may re- cover with a Band-Aid. Your incision site is covered with surgical glue which will continue to protect it. The surgical glue will peel/flake off on its own over the next few weeks. Please do not pick at it. You may shower tomorrow. It is okay for soap and water to rinse over the incision site, pat to dry. Do not submerge the incision site in water such as to take a bath or go swimminget. for 3 weeks. Do not lift greater than 20 pounds for 3 weeks. Otherwise, please continue withactivity as tolerated. Do not drive until you can turn your head well enough to safely check your blindspots. Continue to take your Aspirin, Plavix, and Atorvastatin as prescribed. I have prescribed a prescription pain medication oxycodone 5 mg tablets to be taken by mouth every 8 hours as needed for pain. This is an opioid pain medication and is to be taken only as directed as needed. Do not take in combination with any other prescription pain medications. You may take this in addition to Tylenol or ibuprofen as allowed. Your follow-up appointment is scheduled for 03/23/2023. If you need to rescheduleor have any questions/concerns then please contact the office at [phone]. Discharge Orders/Prescriptions Prescriptions: New oxycodone 5 mg Tablet 5 mg PO Q8H PRN PRN (Reason: Pain Score 4-10) 3 Days Qty: 9 0RF Continued clopidogrel [Plavix] 75 mg tablet 75 mg PO DAILY Qty: 60 0RF atorvastatin [Lipitor] 80 mg tablet 80 mg PO QHS Qty: 90 3RF aspirin 81 mg capsule 81 mg PO DAILY potassium citrate 15 mEq tablet extended release 15 meq PO BID losartan 50 mg tablet 50 mg PO DAILY Patient Comments: TAKE 1 TABLET BY MOUTH EVERY DAY chlorthalidone 25 mg tablet 25 mg PO DAILY Patient Comments: TAKE 1 TABLET BY MOUTH EVERY DAY tadalafil 20 mg tablet 20 mg PO PRN Discontinued prednisone 50 mg tablet 50 mg PO Q6H Qty: 3 0RF Rx Instructions: administer 13 hr, 7 hr, and 1 hr before time of procedure Referrals / Follow Up: Calista Cavazos DO [Med Staff - Press Feeder] - Disposition Disposition (needs filled in before D/C Order can be placed): Home, Self Care 03/02/23 1317 <Electronically signed by Linda NDIAYE> Cosigner Signature (if applicable): 03/02/23 1346 <Electronically signed by Tucker Ferrer MD> CC: ZELDA Rose; Dr. Tucker Ferrer MD; ZELDA Gallagher~ Signed [facility] Work Phone: Evaluation note* Diagnosis Gastroesophageal reflux disease with esophagitis without hemorrhage- Primary RUQ pain Abdominal pain, right upper quadrant Right-sided chest pain Hiatal hernia Diaphragmatic hernia without mention of obstruction or gangrene Healthcare maintenance Change in vision History of high cholesterol documented in this encounter [facility] Work Phone: Evaluation noteNo assessment information available [facility] Work Phone: Evaluation note* Diagnosis Onset Date Resolution Status Symptomatic stenosis of righ t carotid artery without infarction chronic [facility] Work Phone: Evaluation note* Diagnosis Onset Date Resolution Status Symptomatic stenosis of righ t carotid artery without infarction chronic Symptomatic stenosis of righ t carotid artery without infarction chronic [facility] Work Phone: Evaluation note* Diagnosis Uvulitis- Primary Cellulitis and abscess of oral soft tissues documented in this encounter [facility] Work Phone: Evaluation note* Diagnosis Erectile dysfunction, unspecified erectile dysfunction type Benign prostatic hyperplasia with lower urinary tract symptoms, symptom details unspecified Nocturia Bilateral renal stones documented in this encounter [facility] Work Phone: Evaluation note* Diagnosis Left ureteral calculus- Primary Calculus of ureter Hydronephrosis with renal and ureteral calculus obstruction Renal colic documented in this encounter [facility] Work Phone: Evaluation note* Diagnosis Bilateral renal stones Nocturia Benign prostatic hyperplasia with lower urinary tract symptoms, symptom details unspecified Erectile dysfunction, unspecified erectile dysfunction type documented in this encounter [facility] Work Phone: [phone] note* Diagnosis Bilateral renal stones documented in this encounter [facility] Work Phone: Evaluation note* Diagnosis Calculus of ureter- Primary Calculus of ureter Hydronephrosis with urinary obstruction due to ureteral calculus Hydronephrosis with urinary obstruction due to ureteral calculus HTN (hypertension) Unspecified essential hypertension Peripheral vascular disease (CMS-HCC) Unspecified peripheral vascular disease Chronic renal impairment, stage 3 (moderate) (Multi) documented in this encounter [facility] Work Phone: [phone] note* Diagnosis Kidney stone- Primary Calculus of kidney Calculus of kidney Bilateral renal stones Nocturia Benign prostatic hyperplasia with lower urinary tract symptoms, symptom details unspecified Erectile dysfunction, unspecified erectile dysfunction type Kidney stone Calculus of kidney documented in this encounter [facility] Work Phone: Evaluation note* Diagnosis Kidney stone- Primary Calculus of kidney Bilateral renal stones Nocturia Benign prostatic hyperplasia with lower urinary tract symptoms, symptom details unspecified Erectile dysfunction, unspecified erectile dysfunction type Kidney stone Calculus of kidney documented in this encounter [facility] Work Phone: [phone] note* Diagnosis Cystitis- Primary Unspecified cystitis documented in this encounter [facility] Work Phone: [phone] note* Diagnosis Erectile dysfunction, unspecified erectile dysfunction type Benign prostatic hyperplasia with lower urinary tract symptoms, symptom details unspecified Nocturia Bilateral renal stones Bilateral renal stones documented in this encounter [facility] Work Phone: [phone] note* Diagnosis Bilateral renal stones documented in this encounter [facility] Work Phone: Evaluation note* Diagnosis Bilateral renal stones- Primary Primary hypertension Unspecified essential hypertension Essential (primary) hypertension Unspecified essential hypertension Low blood potassium Hypopotassemia documented in this encounter [facility] Work Phone: Evaluation note* Diagnosis Pre-employment examination Health examination of defined subpopulation [facility] Patient being seen for follow-up for hypertension and recurrent kidney stones * Labs reviewed his BMP has electrolytes within normal limits * BUN is 13 with creatinine of 1.23 * TSH is 1.84 * CBC is within normal limits * He had an ultrasound of the kidney completed on August 26 right kidney showed several mid and lower pole nonobstructing stones up to 8 mm in diameter * Left kidney showed no stones * He also had mild postvoid residual in his bladder * He is complaining of some occasional left flank discomfort which he thought was related to some kidney stones, this is infrequent * He does not drink a significant amount of fluid he usually drinks 1 cup of coffee in the morning one bottle water at lunch and 1 can of soda at night. * He had decreased some of his potassium citrate as he stated he could see the pill in his feces * He does state that he has had a decrease in the amount of kidney stones that he had in the past [id number]-UUT [employer] DO Work Phone: History of Present illness Narrative* Here for follow- up secondary to recurrent nephrolithiasis at his last visit had a repeat Litholink which showed some signs of improvement. pH had improved the calcium was still too high in the urine and so chlorthalidone was started. * No recent blood work at this time * Medications are reviewed and they include chlorthalidone ibuprofen losartan potassiums citrate * Feeling prettywell * Had a renal US that shows B/L Stones * Needs tofollow up withPeck YQ-Sqslqxkjrp-YNP [employer] [employer] DO Work Phone: Hospital Discharge instructions* Attachments The following attachments cannot be sent through Care Everywhere. * Acute Cystitis Discharge Instructions ([place] Citizen) documented in this [facility] Work Phone: Instructions* Name Dates Details Patient Instructions Indication:Nonsmoker Start:02-Sep-2020 Instruction Type:Provider Instructions for Treatment How to Access Health Informa tion Online using Patient Portal and [employer] Apps Indication:Nonsmoker Start:02-Sep-2020 Instruction Type:Patient Education Patient Instructions Indication:Nonsmoker Start:01-Apr-2020 Instruction Type:Provider Instructions for Treatment How to Access Health Informa tion Online using Patient Portal and [employer] Apps Indication:Nonsmoker Start:01-Apr-2020 Instruction Type:Patient Education How to Access Health Informa tion Online using Patient Portal and [employer] Apps Indication:Nonsmoker Start:27-Mar-2020 Instruction Type:Patient Education Patient Instructions Indication:Nonsmoker Start:27-Mar-2020 Instruction Type:Provider Instructions for Treatment How to access health informa tion online Indication:History of nephrolithiasis Start:26-Mar-2017 Instruction Type:Patient Education How to access health informa tion online - Detail Indication:History of nephrolithiasis Start:26-Mar-2017 Instruction Type:Patient Education Patient Instructions Indication:History of nephrolithiasis Start:26-Mar-2017 Instruction Type:Provider Instructions for Treatment How to access health informa tion online Indication:Flank pain Start:01-May-2016 Instruction Type:Patient Education How to access health informa tion online - Detail Indication:Flank pain Start:01-May-2016 Instruction Type:Patient Education Patient Instructions Indication:Flank pain Start:01-May-2016 Instruction Type:Provider Instructions for Treatment Patient Instructions Indication:Low Back Pain Start:28-Dec-2012 Instruction Type:Provider Instructions for Treatment Patient Instructions Indication:Hypercholesteremia Start:28-Nov-2012 Instruction Type:Provider Instructions for Treatment [facility] Work Phone: Instructions* Name Dates Details Patient Instructions Indication:Nonsmoker Start:02-Sep-2020 Instruction Type:Provider Instructions for Treatment How to Access Health Informa tion Online using Patient Portal and [employer] Apps Indication:Nonsmoker Start:02-Sep-2020 Instruction Type:Patient Education Patient Instructions Indication:Nonsmoker Start:01-Apr-2020 Instruction Type:Provider Instructions for Treatment How to Access Health Informa tion Online using Patient Portal and [employer]rd [employer] Apps Indication:Nonsmoker Start:01-Apr-2020 Instruction Type:Patient Education How to Access Health Informa tion Online using Patient Portal and [employer]rd [employer] Apps Indication:Nonsmoker Start:27-Mar-2020 Instruction Type:Patient Education Patient Instructions Indication:Nonsmoker Start:27-Mar-2020 Instruction Type:Provider Instructions for Treatment How to access health informa tion online Indication:History of nephrolithiasis Start:26-Mar-2017 Instruction Type:Patient Education How to access health informa tion online - Detail Indication:History of nephrolithiasis Start:26-Mar-2017 Instruction Type:Patient Education Patient Instructions Indication:History of nephrolithiasis Start:26-Mar-2017 Instruction Type:Provider Instructions for Treatment How to access health informa tion online Indication:Flank pain Start:01-May-2016 Instruction Type:Patient Education How to access health informa tion online - Detail Indication:Flank pain Start:01-May-2016 Instruction Type:Patient Education Patient Instructions Indication:Flank pain Start:01-May-2016 Instruction Type:Provider Instructions for Treatment Patient Instructions Indication:Low Back Pain Start:28-Dec-2012 Instruction Type:Provider Instructions for Treatment Patient Instructions Indication:Hypercholesteremia Start:28-Nov-2012 Instruction Type:Provider Instructions for Treatment [facility] Work Phone: Instructions* Name Dates Details Patient Instructions Indication:BMI 27.0-27.9,adult Start:11-Sep-2020 Instruction Type:Provider Instructions for Treatment How to Access Health Informa tion Online using Patient Portal and [employer]rd [employer] Apps Indication:BMI 27.0-27.9,adult Start:11-Sep-2020 Instruction Type:Patient Education Patient Instructions Indication:Nonsmoker Start:02-Sep-2020 Instruction Type:Provider Instructions for Treatment How to Access Health Informa tion Online using Patient Portal and [employer]rd [employer] Apps Indication:Nonsmoker Start:02-Sep-2020 Instruction Type:Patient Education Patient Instructions Indication:Nonsmoker Start:01-Apr-2020 Instruction Type:Provider Instructions for Treatment How to Access Health Informa tion Online using Patient Portal and [employer]rd [employer] Apps Indication:Nonsmoker Start:01-Apr-2020 Instruction Type:Patient Education How to Access Health Informa tion Online using Patient Portal and [employer]rd [employer] Apps Indication:Nonsmoker Start:27-Mar-2020 Instruction Type:Patient Education Patient Instructions Indication:Nonsmoker Start:27-Mar-2020 Instruction Type:Provider Instructions for Treatment How to access health informa tion online Indication:History of nephrolithiasis Start:26-Mar-2017 Instruction Type:Patient Education How to access health informa tion online - Detail Indication:History of nephrolithiasis Start:26-Mar-2017 Instruction Type:Patient Education Patient Instructions Indication:History of nephrolithiasis Start:26-Mar-2017 Instruction Type:Provider Instructions for Treatment How to access health informa tion online Indication:Flank pain Start:01-May-2016 Instruction Type:Patient Education How to access health informa tion online - Detail Indication:Flank pain Start:01-May-2016 Instruction Type:Patient Education Patient Instructions Indication:Flank pain Start:01-May-2016 Instruction Type:Provider Instructions for Treatment Patient Instructions Indication:Low Back Pain Start:28-Dec-2012 Instruction Type:Provider Instructions for Treatment Patient Instructions Indication:Hypercholesteremia Start:28-Nov-2012 Instruction Type:Provider Instructions for Treatment [facility] Work Phone: Instructions* Name Dates Details Patient Instructions Indication:BMI 27.0-27.9,adult Start:16-Dec-2020 Instruction Type:Provider Instructions for Treatment How to Access Health Informa tion Online using Patient Portal and [employer]rd [employer] Apps Indication:BMI 27.0-27.9,adult Start:16-Dec-2020 Instruction Type:Patient Education Patient Instructions Indication:BMI 27.0-27.9,adult Start:11-Sep-2020 Instruction Type:Provider Instructions for Treatment How to Access Health Informa tion Online using Patient Portal and [employer]rd [employer] Apps Indication:BMI 27.0-27.9,adult Start:11-Sep-2020 Instruction Type:Patient Education Patient Instructions Indication:Nonsmoker Start:02-Sep-2020 Instruction Type:Provider Instructions for Treatment How to Access Health Informa tion Online using Patient Portal and [employer]rd [employer] Apps Indication:Nonsmoker Start:02-Sep-2020 Instruction Type:Patient Education Patient Instructions Indication:Nonsmoker Start:01-Apr-2020 Instruction Type:Provider Instructions for Treatment How to Access Health Informa tion Online using Patient Portal and [employer]rd [employer] Apps Indication:Nonsmoker Start:01-Apr-2020 Instruction Type:Patient Education How to Access Health Informa tion Online using Patient Portal and [employer]rd [employer] Apps Indication:Nonsmoker Start:27-Mar-2020 Instruction Type:Patient Education Patient Instructions Indication:Nonsmoker Start:27-Mar-2020 Instruction Type:Provider Instructions for Treatment How to access health informa tion online Indication:History of nephrolithiasis Start:26-Mar-2017 Instruction Type:Patient Education How to access health informa tion online - Detail Indication:History of nephrolithiasis Start:26-Mar-2017 Instruction Type:Patient Education Patient Instructions Indication:History of nephrolithiasis Start:26-Mar-2017 Instruction Type:Provider Instructions for Treatment How to access health informa tion online Indication:Flank pain Start:01-May-2016 Instruction Type:Patient Education How to access health informa tion online - Detail Indication:Flank pain Start:01-May-2016 Instruction Type:Patient Education Patient Instructions Indication:Flank pain Start:01-May-2016 Instruction Type:Provider Instructions for Treatment Patient Instructions Indication:Low Back Pain Start:28-Dec-2012 Instruction Type:Provider Instructions for Treatment Patient Instructions Indication:Hypercholesteremia Start:28-Nov-2012 Instruction Type:Provider Instructions for Treatment [facility] Work Phone: Instructions* Name Dates Details Patient Instructions Indication:BMI 27.0-27.9,adult Start:16-Dec-2020 Instruction Type:Provider Instructions for Treatment How to Access Health Informa tion Online using Patient Portal and [employer]rd [employer] Apps Indication:BMI 27.0-27.9,adult Start:16-Dec-2020 Instruction Type:Patient Education Patient Instructions Indication:BMI 27.0-27.9,adult Start:11-Sep-2020 Instruction Type:Provider Instructions for Treatment How to Access Health Informa tion Online using Patient Portal and [employer]rd [employer] Apps Indication:BMI 27.0-27.9,adult Start:11-Sep-2020 Instruction Type:Patient Education Patient Instructions Indication:Nonsmoker Start:02-Sep-2020 Instruction Type:Provider Instructions for Treatment How to Access Health Informa tion Online using Patient Portal and [employer]rd [employer] Apps Indication:Nonsmoker Start:02-Sep-2020 Instruction Type:Patient Education Patient Instructions Indication:Nonsmoker Start:01-Apr-2020 Instruction Type:Provider Instructions for Treatment How to Access Health Informa tion Online using Patient Portal and [employer]rd [employer] Apps Indication:Nonsmoker Start:01-Apr-2020 Instruction Type:Patient Education How to Access Health Informa tion Online using Patient Portal and [employer]rd [employer] Apps Indication:Nonsmoker Start:27-Mar-2020 Instruction Type:Patient Education Patient Instructions Indication:Nonsmoker Start:27-Mar-2020 Instruction Type:Provider Instructions for Treatment How to access health informa tion online Indication:History of nephrolithiasis Start:26-Mar-2017 Instruction Type:Patient Education How to access health informa tion online - Detail Indication:History of nephrolithiasis Start:26-Mar-2017 Instruction Type:Patient Education Patient Instructions Indication:History of nephrolithiasis Start:26-Mar-2017 Instruction Type:Provider Instructions for Treatment How to access health informa tion online Indication:Flank pain Start:01-May-2016 Instruction Type:Patient Education How to access health informa tion online - Detail Indication:Flank pain Start:01-May-2016 Instruction Type:Patient Education Patient Instructions Indication:Flank pain Start:01-May-2016 Instruction Type:Provider Instructions for Treatment Patient Instructions Indication:Low Back Pain Start:28-Dec-2012 Instruction Type:Provider Instructions for Treatment Patient Instructions Indication:Hypercholesteremia Start:28-Nov-2012 Instruction Type:Provider Instructions for Treatment [facility] Work Phone: Instructions* Name Dates Details Patient Instructions Indication:BMI 27.0-27.9,adult Start:16-Dec-2020 Instruction Type:Provider Instructions for Treatment How to Access Health Informa tion Online using Patient Portal and [employer] Apps Indication:BMI 27.0-27.9,adult Start:16-Dec-2020 Instruction Type:Patient Education Patient Instructions Indication:BMI 27.0-27.9,adult Start:11-Sep-2020 Instruction Type:Provider Instructions for Treatment How to Access Health Informa tion Online using Patient Portal and [employer]rd [employer] Apps Indication:BMI 27.0-27.9,adult Start:11-Sep-2020 Instruction Type:Patient Education Patient Instructions Indication:Nonsmoker Start:02-Sep-2020 Instruction Type:Provider Instructions for Treatment How to Access Health Informa tion Online using Patient Portal and [employer]rd [employer] Apps Indication:Nonsmoker Start:02-Sep-2020 Instruction Type:Patient Education Patient Instructions Indication:Nonsmoker Start:01-Apr-2020 Instruction Type:Provider Instructions for Treatment How to Access Health Informa tion Online using Patient Portal and [employer] Apps Indication:Nonsmoker Start:01-Apr-2020 Instruction Type:Patient Education How to Access Health Informa tion Online using Patient Portal and [employer] Apps Indication:Nonsmoker Start:27-Mar-2020 Instruction Type:Patient Education Patient Instructions Indication:Nonsmoker Start:27-Mar-2020 Instruction Type:Provider Instructions for Treatment How to access health informa tion online Indication:History of nephrolithiasis Start:26-Mar-2017 Instruction Type:Patient Education How to access health informa tion online - Detail Indication:History of nephrolithiasis Start:26-Mar-2017 Instruction Type:Patient Education Patient Instructions Indication:History of nephrolithiasis Start:26-Mar-2017 Instruction Type:Provider Instructions for Treatment How to access health informa tion online Indication:Flank pain Start:01-May-2016 Instruction Type:Patient Education How to access health informa tion online - Detail Indication:Flank pain Start:01-May-2016 Instruction Type:Patient Education Patient Instructions Indication:Flank pain Start:01-May-2016 Instruction Type:Provider Instructions for Treatment Patient Instructions Indication:Low Back Pain Start:28-Dec-2012 Instruction Type:Provider Instructions for Treatment Patient Instructions Indication:Hypercholesteremia Start:28-Nov-2012 Instruction Type:Provider Instructions for Treatment [facility] Work Phone: reason for referral (narrative)* Consultation (Routine) - Authorized Specialty Diagnoses / Procedures Referred By Contac t Referred To Contact Primary Care Procedures Follow Up In Primary Care - Established Erik Milton PA-C [address] [facility] [place] [address] Referral ID Status Reason Start Date Expiration Date V isits Requested Visits Authorized [id number] Authorized 01/20/2023 07/19/2023 1 1 [facility] Work Phone: Rehjxt for referral (narrative)* Consultation (Routine) - Authorized Specialty Diagnoses / Procedures Referred By Tanna t Referred To Contact Nephrology Diagnoses Bilateral renal stones Procedures Follow Up In Nephrology Julius Ahuja DO [address] [address] Referral ID Status Reason Start Date Expiration Date V isits Requested Visits Authorized [id number] Authorized 11/30/2023 11/29/2024 1 1 [facility] Work Phone: Rewsxh for visit Narrative* Imaging (Routine) - Authorized Specialty Diagnoses / Procedures Referred By Contac t Referred To Contact Radiology Diagnoses Bilateral renal stones Procedures XR abdomen 1 view Dionisio Rocha MD [address] [place] [address] Phone: tel: fax: Referral ID Status Reason Start Date Expiration Date Visits Requested Visits Authorized [id number] Authorized Perform Procedure 03/22/2024 03/22/2025 1 1 [facility] Work Phone: Summary Purpose Family History No Family History Records FoundUnknown Family Member Name Dates Details First Degree Relatives Comments:Cancer Status:Active Unknown Family Member Name Dates Details First Degree Relatives Comments:Cancer Status:Active Unknown Family Member Name Dates Details First Degree Relatives Comments:Cancer Status:Active Unknown Family Member Name Dates Details First Degree Relatives Comments:Cancer Status:Active Unknown Family Member Name Dates Details First Degree Relatives Comments:Cancer Status:Active Unknown Family Member Name Dates Details First Degree Relatives Comments:Cancer Status:Active Unknown Family Member Name Dates Details First Degree Relatives Comments:Cancer Status:Active Unknown Family Member Name Dates Details First Degree Relatives Comments:Cancer Status:Active Unknown Family Member Name Dates Details First Degree Relatives Comments:Cancer Status:Active Relationship Condition Age at Onset Recorded Date/T sindy mother Malignant neoplasm of breast Unknown Diabetes mellitus Unknown Advance Directives No Advanced Directives Records Found Advance Directive Response Recorded Date/ Time Living Will No February 16 12:09pm Power of [employer] No February 16, 2023 12:09pm Advance Directive Response Recorded Date/ Time Living Will No March 01, 2 023 12:33pm Power of [employer] Teacher No March 01, 2023 12:33pm Advance Directive Response Recorded Date/ Time Living Will No March 01, 2 023 1:33pm Power of [employer] Teacher No March 01, 2023 1:33pm Date Activated Date Inactivated Comments 09/10/2023 10:57 AM Question Answer Comments Plan of Care: Code Status Discussion Completed Decision Maker: Patient Date Activated Date Inactivated Comments 09/10/2023 10:57 AM Question Answer Comments Plan of Care: Code Status Discussion Completed Decision Maker: Patient Instructions Name Dates Details Patient Instructions Indication:Nonsmoker Start:01-Apr-2020 Instruction Type:Provider Instructions for Treatment How to Access Health Informa tion Online using Patient Portal and 3rd [employer] Apps Indication:Nonsmoker Start:01-Apr-2020 Instruction Type:Patient Education How to Access Health Informa tion Online using Patient Portal and 3rd [employer] Apps Indication:Nonsmoker Start:27-Mar-2020 Instruction Type:Patient Education Patient Instructions Indication:Nonsmoker Start:27-Mar-2020 Instruction Type:Provider Instructions for Treatment How to access health informa tion online Indication:History of nephrolithiasis Start:26-Mar-2017 Instruction Type:Patient Education How to access health informa tion online - Detail Indication:History of nephrolithiasis Start:26-Mar-2017 Instruction Type:Patient Education Patient Instructions Indication:History of nephrolithiasis Start:26-Mar-2017 Instruction Type:Provider Instructions for Treatment How to access health informa tion online Indication:Flank pain Start:01-May-2016 Instruction Type:Patient Education How to access health informa tion online - Detail Indication:Flank pain Start:01-May-2016 Instruction Type:Patient Education Patient Instructions Indication:Flank pain Start:01-May-2016 Instruction Type:Provider Instructions for Treatment Patient Instructions Indication:Low Back Pain Start:28-Dec-2012 Instruction Type:Provider Instructions for Treatment Patient Instructions Indication:Hypercholesteremia Start:28-Nov-2012 Instruction Type:Provider Instructions for Treatment Name Dates Details How to Access Health Informa tion Online using Patient Portal and [employer] Apps Indication:Nonsmoker Start:27-Mar-2020 Instruction Type:Patient Education Patient Instructions Indication:Nonsmoker Start:27-Mar-2020 Instruction Type:Provider Instructions for Treatment How to access health informa tion online Indication:History of nephrolithiasis Start:26-Mar-2017 Instruction Type:Patient Education How to access health informa tion online - Detail Indication:History of nephrolithiasis Start:26-Mar-2017 Instruction Type:Patient Education Patient Instructions Indication:History of nephrolithiasis Start:26-Mar-2017 Instruction Type:Provider Instructions for Treatment How to access health informa tion online Indication:Flank pain Start:01-May-2016 Instruction Type:Patient Education How to access health informa tion online - Detail Indication:Flank pain Start:01-May-2016 Instruction Type:Patient Education Patient Instructions Indication:Flank pain Start:01-May-2016 Instruction Type:Provider Instructions for Treatment Patient Instructions Indication:Low Back Pain Start:28-Dec-2012 Instruction Type:Provider Instructions for Treatment Patient Instructions Indication:Hypercholesteremia Start:28-Nov-2012 Instruction Type:Provider Instructions for Treatment Chief Complaint * 1 YEAR FUV RENAL STONES , HTN AND CKD * LABS SCANNED IN CHART 6 week f/u1 YEAR FUV- RENAL CALCULI AND HTNLeft Ureteral StoneLeft Ureteral StoneLitholink results mo fuv Reason for Referral Specialty Diagnoses / Procedures Referred By Contac t Referred To Contact Radiology Diagnoses Bilateral renal stones Procedures XR abdomen 1 view Dionisio Rocha MD [address] [place] [address] Referral ID Status Reason Start Date Expiration Date Visits Requested Visits Authorized [id number] Authorized Perform Procedure 08/23/2023 08/22/2024 1 1 Specialty Diagnoses / Procedures Referred By Contac t Referred To Contact Radiology Diagnoses Calculus of kidney Procedures XR abdomen 1 view Dionisio Rocha MD [address] [place] [id number] Referral ID Status Reason Start Date Expiration Date Visits Requested Visits Authorized [id number] Authorized Perform Procedure 09/19/2023 09/18/2024 1 1 Chief Complaint and Reason for Visit Chief Complaint Amaurosis fugax Chief Complaint Amaurosis fugax CONSULT-CRITICAL INTERNAL ARTERY CAROTID STENOSIS Reason for Visit Symptomatic stenosis of right carotid artery without infarction Chief Complaint Amaurosis fugax CONSULT-CRITICAL INTERNAL ARTERY CAROTID STENOSIS Carotid Endarterectomy Carotid Endarterectomy Carotid Endarterectomy Reason for Visit Symptomatic stenosis of right carotid artery without infarction Symptomatic stenosis of right carotid artery without infarction Chief Complaint HYDRONEPHROSIS Additional Source Comments (unrecognized sect ion and content) No Status Records FoundNo Status Records FoundNo Status Records FoundNo Status Records FoundNo Status Records FoundNo Status Records FoundNo Status Records FoundNo Status Records FoundNo Status Records FoundNo Status Records Found INFORMATION SOURCE (unrecogn ized section and content) DATE CREATED AUTHOR 07/22/2018 [facility] ([place] DATE CREATED AUTHOR AUTHOR'S ORGANIZ ATION 12/27/2018 [facility] DATE CREATED AUTHOR AUTHOR'S ORGANIZ ATION 12/06/2022 [facility] DATE CREATED AUTHOR AUTHOR'S ORGANIZ ATION 01/18/2023 [facility] [place] DATE CREATED AUTHOR AUTHOR'S ORGANIZ ATION 01/18/2023 [facility] DATE CREATED AUTHOR AUTHOR'S ORGANIZ ATION 11/30/2023 [facility] DATE CREATED AUTHOR AUTHOR'S ORGANIZ ATION 12/02/2023 [facility] DATE CREATED AUTHOR AUTHOR'S ORGANIZ ATION 03/17/2024 [facility] DATE CREATED AUTHOR AUTHOR'S ORGANIZ ATION 06/18/2024 [facility] DATE CREATED AUTHOR AUTHOR'S ORGANIZ ATION 06/20/2024 [facility]jum Ault Clint mary <item><item> Privacy Markings (unrecogniz ed section and content) Section Author: Veronica Astudillo PROHIBITION ON REDISCLOSURE OF CONFIDENTIAL INFORMATION This notice accompanies a disclosure of information concerning a client made to you with the consent of such client. Section Author: Veronica Astudillo PROHIBITION ON REDISCLOSURE OF CONFIDENTIAL INFORMATION This notice accompanies a disclosure of information concerning a client made to you with the consent of such client. Reason for Visit (unrecogniz ed section and content) Reason Comments Establish Care Patient here today t o get established as a new patient and states it has been 2 years since seen by PCP.Colonoscopy 10-[address] Dubois in [place], PSA and prostate exam done this year and follows with Dr. Rocha.Patient has kidney stones and follows with Dr. Ahuja. Abdominal Pain Patient having epiga stric discomfort that radiates to the right chest area x 2 months. Patient has tried taking Omeprazole without success. Reason Comments Sore Throat Sore throat and sinu s drainage x 1 week. Hx of left carotid artery surgery right neck on Wednesday. Reason Comments Flank Pain Reason Comments Flank Pain Amb to ED with c/o L flank pain started 3 days ago. Has been intermittent, but worse and more constant since waking this am. Denies any N/V/D, urinary s/s or fever. Reason Comments ER FOLLOW UP WITH KUB Specialty Diagnoses / Procedures Referred By Tanna simon Referred To Contact Radiology Diagnoses Bilateral renal stones Procedures XR abdomen 1 view Dioinsio Rocha MD [facility] [place] [address] Referral ID Status Reason Start Date Expiration Date Visits Requested Visits Authorized [id number] Authorized Perform Procedure 08/23/2023 08/22/2024 1 1 Specialty Diagnoses / Procedures Referred By Tanna simon Referred To Contact Diagnoses Calculus of ureter Hydronephrosis with urinary obstruction due to ureteral calculus Calculus of ureter [N20.1] Hydronephrosis with urinary obstruction due to ureteral calculus [N13.2] Procedures DC CYSTO/URETERO W/LITHOTRIPSY &INDWELL STENT INSRT CHG UROGRAPHY RETROGRADE WITH/WO KUB Cystoscopy with Lithotripsy Laser Cystoscopy with Retrograde Pyelogram Dionisio Rocha MD [facility] [place] [address] [phone] Referral ID Status Reason Start Date Expiration Date Visits Re quested Visits Authorized [id number] 1 1 Specialty Diagnoses / Procedures Referred By Tanna simon Referred To Contact Radiology Diagnoses Calculus of kidney Procedures XR abdomen 1 view Dionisio Rocha MD [facility] [place] [address] Referral ID Status Reason Start Date Expiration Date Visits Requested Visits Authorized [id number] Authorized Perform Procedure 09/19/2023 09/18/2024 1 1 Reason Comments kub results Reason Comments Flank Pain C/o left flank pain since yesterday. Today c/o head pressure and fever. States he took tylenol at 1900 Reason Comments Nephrolithiasis Reason Comments Follow-up 1 year ckReview labs Care Teams (unrecognized sec tion and content) Tool Grinder Set Up Operator Gear Relationship Specialty Start Date End Date Calista Cavazos DO [facility] [address] [place] [address] PCP - General 12/30/18 Team Status: Active Member Role Status Dates Dr. Calista Cavazos DO Family Provider Active Dr. Calista Cavazos DO Primary Care Provider Active Team Status: Active Member Role Status Dates Dr. Calista Cavazos DO Primary Care Provider Active Dr. Tucker Ferrer MD Attending Provider Active Team Status: Inactive Member Role Status Dates Dr. Calista Cavazos DO Primary Care Provider Active Dr. Girish Nelson MD Attending Provider, Referring Provider Active Team Status: Active Member Role Status Dates Dr. Calista Cavazos DO Family Provider Active ZELDA Gallagher Primary Care Provider Active Team Status: Inactive Member Role Status Dates Dr. Calista Cavazos DO Primary Care Provider, Referr ing Provider Active Dr. Tucker Ferrer MD Attending Provider Active Team Status: Inactive Member Role Status Dates Dr. Tucker Ferrer MD Attending Provider, Referring Pro vider Active ZELDA Gallagher Primary Care Provider Active Team Status: Active Member Role Status Dates Dr. Calista Cavazos DO Primary Care Provider Active Dr. Tucker Ferrer MD Attending Provider Active Dr. Girish Nelson MD Referring Provider Active Team Status: Active Member Role Status Dates Dr. Calista Cavazos DO Primary Care Provider Active Dr. Tucker Ferrer MD Admit Provider, Att ending Provider, Referring Provider, Other Provider Active Team Status: Active Member Role Status Dates Dr. Tucker Ferrer MD Admit Provider, Referring Provide r, Other Provider Active ZELDA Gallagher Primary Care Provider Active ZELDA Rose Attending Provider Active Team Status: Inactive Member Role Status Dates Dr. Tucker Ferrer MD Admit Provider, Att ending Provider, Referring Provider Active ZELDA Gallagher Primary Care Provider Active Tool Grinder Set Up Operator Gear Relationship Specialty Start Date End Date Erik Milton PA-C [address] [facility] [place] [address] PCP - General Internal Medicine 02/05/23 Erik Milton PA-C [address] [facility] [place] [address] Internal Medicine 02/05/23 Team Status: Active Member Role Status Dates Dr. Calista Cavazos , DO Family Provider Active No Primary Care Physician Primary Care Provider Active Team Status: Inactive Member Role Status Dates Dr. Dionisio Rocha II, MD Attending Provider, Referring Pro vider Active No Primary Care Physician Primary Care Provider Active Tool Grinder Set Up Operator Gear Relationship Specialty Start Date End Date Erik Milton PA-C [address] [facility] [place] [address] PCP - General Internal Medicine 02/05/23 Erik Milton PA-C [address] [facility] [place] [address] Internal Medicine 02/05/23 Tool Grinder Set Up Operator Gear Relationship Specialty Start Date End Date Generic Provider, [place] [address] PCP - General Package Delivery Room Service Runner 09/07/23 Erik Milton PA-C [address] [facility] [place] [address] Internal Medicine 02/05/23 Tool Grinder Set Up Operator Gear Relationship Specialty Start Date End Date Generic Provider, No [place] [address] PCP - General Package Delivery Room Service Runner 09/07/23 Erik Milton PA-C [address] [facility] [place] [address] Internal Medicine 02/05/23 Tool Grinder Set Up Operator Gear Relationship Specialty Start Date End Date Generic Provider, No [place] [address] PCP - General Package Delivery Room Service Runner 09/07/23 Erik Milton PA-C [address] [facility] [place] [address] Internal Medicine 02/05/23 Tool Grinder Set Up Operator Gear Relationship Specialty Start Date End Date Generic Provider, No [place] [address] PCP - General Package Delivery Room Service Runner 09/07/23 Erik Milton PA-C [address] [facility] [place] [address] Internal Medicine 02/05/23 Tool Grinder Set Up Operator Gear Relationship Specialty Start Date End Date Generic Provider, No [place] [address] PCP - General Package Delivery Room Service Runner 09/07/23 Erik Milton PA-C [address] [facility] [place] [address] Internal Medicine 02/05/23 Tool Grinder Set Up Operator Gear Relationship Specialty Start Date End Date Generic Provider, No [place] [address] PCP - General Package Delivery Room Service Runner 09/07/23 Erik Milton PA-C [address] [facility] [place] [address] Internal Medicine 02/05/23 Tool Grinder Set Up Operator Gear Relationship Specialty Start Date End Date Generic Provider, No [place] [address] PCP - General Package Delivery Room Service Runner 09/07/23 Erik Milton PA-C [address] [facility] [place] [address] Internal Medicine 02/05/23 Tool Grinder Set Up Operator Gear Relationship Specialty Start Date End Date Generic Provider, No [place] [address] PCP - General Package Delivery Room Service Runner 09/07/23 Erik Milton PA-C [address] [facility] [place] [address] Internal Medicine 02/05/23 Tool Grinder Set Up Operator Gear Relationship Specialty Start Date End Date Generic Provider, No [place] [address] PCP - General Package Delivery Room Service Runner 09/07/23 Erik Milton PA-C [address] [facility] [place] [address] Internal Medicine 02/05/23 Tool Grinder Set Up Operator Gear Relationship Specialty Start Date End Date Generic Provider, [place] [address] PCP - General Package Delivery Room Service Runner 09/07/23 Erik Milton PA-C [address] [facility] [place] [address] Internal Medicine 02/05/23 Goals (unrecognized section and content) Goals may be documented in a n alternate sectionGoals may be documented in an alternate sectionGoals may be documented in an alternate section Scheduled Active and Recently Administ ered Medications (unrecognized section and content) Medication Order 09/05/2023 09/06/2023 09/07/2023 HYDROmorphone (Dilaudid) injection 0.5 mg (COMPLETED) 0.5 mg, intravenous, Once, On Wed09/07/23 at 1240, For 1 dose 1313 (Given - Provid er: Kyung Samaniego RN) HYDROmorphone (Dilaudid) injection 0.5 mg (COMPLETED) 0.5 mg, intravenous, Once, On Wed09/07/23 at 1425, For 1 dose 1520 (Given - Provid er: Olive Pepper RN) ketorolac (Toradol) injection 30 mg (COMPLETED) 30 mg, intravenous, Once, On Wed09/07/23 at 1240, For 1 dose 1311 (Given - Provid er: Kyung Samaniego RN) ondansetron (Zofran) injection 4 mg (COMPLETED) 4 mg, intravenous, Once, On Wed09/07/23 at 1240, For 1 dose, When administering via IV Push, administer over 3-5 minutes. 1311 (Given - Provid er: Kyung Samaniego RN) sodium chloride 0.9 % bolus 1,000 mL (COMPLETED) 1,000 mL, intravenous, at 999 mL/hr, Administer over 1 Hours, Once, On Wed09/07/23 at 1240, For 1 dose 1310 (New Bag - Prov ider: Kyung Samaniego RN)1514 (Stopped - Provider: Romana Wilder RN) Continuous Medication Order 09/05/2023 09/06/2023 09/07/2023 sodium chloride 0.9% infusion 125 mL/hr, intravenous, Continuous, Starting on Wed09/07/23 at 1240 1240 (Due) Scheduled Medication Order 09/08/2023 09/09/2023 09/10/2023 acetaminophen (Tylenol) tablet 975 mg (COMPLETED) 975 mg, oral, Once, On Wed09/10/23 at 1115, For 1 dose, Preprocedure, Administer with small amount of water preoperatively., If ordered PRN for pain, nurse is permitted to administer this medication for higher pain scores based on patient preference? Yes 1110 (Given - Provid er: Hawa Cheng RN) famotidine PF (Pepcid) injection 20 mg (COMPLETED) 20 mg, intravenous, Once, On Wed09/10/23 at 1115, For 1 dose, Preprocedure 1113 (Given - Provid er: Hawa Cheng RN) midazolam (Versed) injection 2 mg (COMPLETED) 2 mg, intravenous, Once, On Wed09/10/23 at 1115, For 1 dose, Preprocedure 1203 (Given - Provid er: Hawa Cheng RN - Comment: pre op) ondansetron (Zofran) injection 4 mg (COMPLETED) 4 mg, intravenous, Once, On Wed09/10/23 at 1115, For 1 dose, Preprocedure, When administering via IV Push, administer over 3-5 minutes. 1113 (Given - Provid er: Hawa Cheng RN) Continuous Medication Order 09/08/2023 09/09/2023 09/10/2023 lactated Ringer's infusion 75 mL/hr, intravenous, Continuous, Starting on Wed09/10/23 at 1115, Preprocedure 1050 (New Bag - Prov ider: Hawa Cheng RN)1249 (Continued by Anesthesia - Provider: Dionisio Espino MD PhD)1307 (Paused - Provider: Dionisio Espino MD PhD - Comment: Switch to gravity)1308 (Restarted - Provider: Dionisio Espino MD PhD)1415 (Stopped - Provider: Hawa Cheng RN - Comment: iv dcd) PRN Medication Order 09/08/2023 09/09/2023 09/10/2023 iohexol (OMNIPaque) 300 mg iodine/mL solution (CANCELED) As needed, Starting on Wed09/10/23 at 1256, Intraprocedure 1256 (Given - Provid er: Dionisio Rocha MD) Scheduled Medication Order 03/10/2024 03/11/2024 03/12/2024 ciprofloxacin (Cipro) tablet 500 mg (COMPLETED) 500 mg, oral, Once, On Wed03/12/24 at 2150, For 1 dose, Separate at least 2 hours before or 6 hours after antacids or other products containing calcium, iron, or zinc., Dosing of this medication varies based on severity of illness. Does this patient have sepsis or concern for sepsis (probable or documented infection plus systemic manifestations of infection)? No, Suspected Indication (Select all that apply): Urinary Tract Infection, Type of Therapy: Definitive, No Cultures, Type of Urinary Tract Infection: Uncomplicated, Indications: Urinary Tract Infection 2155 (Given - Provid er: Jonnathan Riley RN) FOR RECORDS PERTAINING TO PATIENTS WHO ARE OR HAVE BEEN ENROLLED IN A CHEMICAL DEPENDENCY/SUBSTANCEABUSE PROGRAM, SOME INFORMATION MAY BE OMITTED. This clinical summary was aggregated from multiple sources. Caution should be exercised in using it in the provision of clinical care. This summary normalizes information from multiple sources, and as a consequence, information in this document may materially change the coding, format and clinical context of patient data. In addition, data may be omitted in some cases. CLINICAL DECISIONS SHOULD BE BASED ON THE PRIMARY CLINICAL RECORDS. [employer] [facility]. provides no warranty or guarantee of the accuracy or completeness of information in this document.
== END 2024-09-30 14:45 | disposition left against medical advice (07) ==
LOC: ED 14:49
PROVIDERS: PCP Family Medicine
DX: Z53.21 Procedure and treatment not carried out due to patient leaving prior to being seen by health care provider (principal)
CPT/HCPCS: 80053; 85025

== ENCOUNTER 2025-04-06 13:41 | Outpatient (CLI) | payer BC, SELFPAY ==
--- NOTE | 2025-04-06 13:51 | CDU_ITS ---
Reason For Study Reason For Study: S/P right CEA Rt. Velocities/BP Lt. Velocities/BP Prox CCA 103.6/27.8 cm/sec. Prox CCA 104.7/24.9 cm/sec. Mid CCA 72.9/17.9 cm/sec. Mid CCA 110.9/26.2 cm/sec. Dist CCA 56.4/20.1 cm/sec. Dist CCA 88.8/24.9 cm/sec. Prox ICA 55.1/5 cm/sec. Prox ICA 112.1/43.3 cm/sec. Mid ICA 56.4/20.1 cm/sec. Mid ICA 81.4/36 cm/sec. Dist ICA 98.1/42.1 cm/sec. Dist ICA 77.7/31.1 cm/sec. Rt. ICA/CCA = 1.35. Lt. ICA/CCA = 1.01. Prox ECA 85/12.4 cm/sec. Prox ECA 76.5/11.4 cm/sec. Rt. Vert. 69.6/22.3 cm/sec. Lt. Vert. 65.4/15.1 cm/sec. Right Extracranial There is homogeneous, smooth atherosclerotic plaque noted in the right common carotid artery. There is heterogeneous, irregular atherosclerotic plaque noted in the right internal carotid artery. Rigth ICA s/p CEA. There is intimal thickening but no significant atherosclerotic plaque noted in the right external carotid artery. Antegrade flow is noted in the right vertebral artery. Left Extracranial There is homogeneous, smooth atherosclerotic plaque noted in the left common carotid artery. There is heterogeneous, irregular atherosclerotic plaque noted in the left internal carotid artery. There is intimal thickening but no significant atherosclerotic plaque noted in the left external carotid artery. Antegrade flow is noted in the left vertebral artery. Procedure Carotid Duplex 16912. This is a Carotid Duplex examination using B-mode, color flow and specral Doppler. Exam performed in department. VL/Carotid Duplex Ultrasound Interpretation Summary Mild (<50%) stenosis right extracranial internal carotid. Mild (<50%) stenosis left extracranial internal carotid. Patent and antegrade vertebrals bilaterally. Ordering Physician: Linda Shane Referring Physician: Osiel Padilla Performed By: Eliz Hoffmann RVT
--- NOTE | 2025-04-06 14:15 | CT_ITS ---
PROCEDURE: LIMITED CHEST CT CARDIAC ONLY 04/06/2025 REASON FOR EXAM: ATHEROSCLEROSIS TECHNIQUE: Procedure Code: [id number] Modality: CT Procedure: LIMITED CHEST CT CARDIAC ONLY Contiguous axial scans of 2.5 mm slice thicknesses. One or more dose reduction techniques were used (e.g., automated exposure control, adjustment of mA and/or kv according to patient size, use of iterative reconstruction technique). Evaluation is limited to the non-coronary and non-cardiac findings. Only those areas demonstrated within the [id number] were evaluated. One or more dose reduction techniques were used (e.g., Automated exposure control, adjustment of the mA and/or kV according to patient size, use of iterative reconstruction technique). RADIATION DOSE SUMMARY: CTDlvol: 12.19 mGy DLP: 292.55 mGycm COMPARISON: No relevant prior. FINDINGS: Coronary artery calcifications. NON-CORONARY CARDIAC FINDINGS: The myocardium, valves and pericardium have a normal appearance. NON-CARDIAC FINDINGS: Lungs: Clear. Pleural spaces: No fluid, pneumothorax or thickening. Mediastinum:The visualized mediastinum is normal with no lymphadenopathy. Pulmonary vessels: Unremarkable. Chest wall: Unremarkable. Upper abdomen and bones: Mild spondylosis. Otherwise normal appearance within the field of view. CT/Limited Chest CT Cardiac Only IMPRESSION: UNREMARKABLE LIMITED CHEST CT NON-CORONARY AND NON-CARDIAC ANATOMY ONLY. Reading Location: [place] [address]
--- NOTE | 2025-04-22 17:49 | CA.SCORE ---
Calcium Scoring Date of Study:: 04/06/25 Indications Indications: atherosclerotic plaque Coronary Calcium Scoring: High-resolution Computed Tomographic imaging of the chest was performed on [04/06/25 ], with particular attention paid to the coronary arteries. Images from the examination were analyzed for the presence and extent of coronary artery calcification , using coronary calcium quantification software. The patient tolerated the procedure well and there were no complications. The results of the coronary calcification analysis are provided below. Findings Coronary Artery Left Main (LM): 48 Left Anterior Descending (LAD): 93 Left Circumflex (LCX): 0 Right Coronary Artery (RCA): 0 Total Agatston Score: 141 Percentile Rankin-75 Calcium Scoring Interpretation: Different methods to categorize the overall amount of coronary plaque. Overall amount CAC SIS Visual of coronary plaque P1 Mild -100 <2 1-2 vessels with mild amount of plaque P2 Moderate 101-300 3-4 1-2 vessels with moderate amount, 3 vessels with mild amount of plaque P3 Severe 301-999 5-7 3 vessels with moderate amount, 1 vessel with severe amount of plaque P4 Extensive >1000 >8 2-3 vessels with severe amount of plaque Calcium Score: Moderate: 1-2 vessels w/moderate amt, 3 vessels w/mild amt of plaque Conclusion: Moderate two-vessel disease noted.
== END 2025-04-06 23:59 | disposition home or self-care (01) ==
PROVIDERS: PCP Family Medicine; Referring Provider Physician Assistant; Visit Provider Physician Assistant
DX: Z48.812 Encounter for surgical aftercare following surgery on the circulatory system (principal); Z98.890 Other specified postprocedural states; I65.29 Occlusion and stenosis of unspecified carotid artery
CPT/HCPCS: 75571; 76380; 93880